=== PATIENT | female | born 1995 | race Caucasian/White ===

== ENCOUNTER 2017-02-09 13:26 | Emergency (ER) | payer MEDICAID, OTHER ==
[~2017-02-09] VITALS: Ht 165.1 cm; Wt 83.0 kg
[~2017-02-09 13:26] MED LIST: CEPH500C PO; FAMO20TA5 PO; ONDA4TAB11 PO
[2017-02-09 14:04] LABS: BILIRUBIN,URINE NEGATIVE (NEGATIVE); KETONES,URINE NEGATIVE (NEGATIVE); LEUKOCYTE ESTERASE ,URINE NEGATIVE (NEGATIVE); NITRITE,URINE NEGATIVE (NEGATIVE); PH,URINE 6.5 (5-9); PROTEIN,URINE NEGATIVE (NEGATIVE); UROBILINOGEN,URINE NORMAL (NORMAL)
--- NOTE | 2017-02-09 15:26 | ED GU-Female ---
General Chief Complaint: -Female Stated Complaint: SPOTTING, 5W Nursing Triage Note: PT REPORTS VAGINAL SPOTTING AND L FLANK PAIN SINCE THIS AM. SHE REPORTS SHE IS APPROX 6 WEEKS . Nursing Sepsis Screen: No Definite Risk Source: patient, spouse Exam Limitations: no limitations History of Present Illness Time seen by provider: 14:50 Initial Comments 21-year-old female patient presents to the emergency department complains of small amount of vaginal spotting today. Patient states she is approximately 6 weeks . Denies abnormal vaginal discharge. Patient reports having intercourse last night. States she was lifting trash bags just prior to episode. Patient does report suprapubic abdominal cramping at the time of episode with radiation to the left flank, but completely resolved at this time. Timing/Duration: this morning, gone now Severity/Quality: cramping Location: suprapubic Radiation: left flank Activities at Onset: other (had just taken out the trash at work) Prior Genitourinary Problems: none [place] History: less than 2 months ago, single partner Allergies and Home Medications Home Medications Cephalexin Monohydrate 500 Mg Capsule, 1 EACH PO TID, #30 Ref 0 Prescribed by: BRAYAN RAGSDALE on 03/01/15 1430 Famotidine 20 Mg Tablet, 1 EACH PO BID, #30 Ref 0 Prescribed by: BRAYAN RAGSDALE on 03/01/15 1430 Ondansetron 4 Mg Tab.rapdis, 4 MG PO Q6H PRN for NAUSEA/VOMITING, #10 Ref 0 Prescribed by: BRAYAN RAGSDALE on 03/01/15 1430 Constitutional: No chills, No dizziness, No fever, No malaise Respiratory: no symptoms reported Cardiovascular: no symptoms reported Gastrointestinal: abdominal pain (suprapubic abdominal pain), No constipation, No diarrhea, No nausea, No vomiting Genitourinary: see HPI, denies burning, denies discharge, denies dysuria, denies frequency, flank pain (left flank pain, resolved prior to arrival), denies hematuria : Yes LMP: Dec 19, 2016 Musculoskeletal: No back pain Skin: no symptoms reported Psychiatric/Neurological: No Symptoms Reported All Other Systemes Reviewed Negative Unless Noted: Yes (Negative excepted noted.) Past Hatsyvq-Pfjclm-Mhbefx Hx Patient Social History Alcohol Use: Denies Use Recreational Drug Use: No Smoking Status: Current Everyday Smoker Type Used: Cigarettes 2nd Hand Smoke Exposure: No Recent Foreign Travel: No Contact w/Someone Who Travel: No Recent Infectious Disease Expo: No Recent Hopitalizations: No Seasonal Allergies Seasonal Allergies: No Surgeries HX Surgeries: No Respiratory Hx Respiratory Disorders: No Cardiovascular Hx Cardiac Disorders: No Neurological Hx Neurological Disorders: No Reproductive System : Yes Hx : 1 Hx Para: 0 Hx Total # of Abortions (Spona: 0 Hx Reproductive Disorders: No Sexually Transmitted Disease: No HIV/AIDS: No Genitourinary Hx Genitourinary Disorders: No Gastrointestinal Hx Gastrointestinal Disorders: No Musculoskeletal Hx Musculoskeletal Disorders: No Endocrine Hx Endocrine Disorders: No HEENT HX ENT Disorders: No Cancer Hx Cancer: No Psychosocial Hx Psychiatric Problems: No Integumentary HX Skin/Integumentary Disorder: No Blood Transfusions Hx Blood Disorders: No Adverse Reaction to a Blood Tr: No Reviewed Nursing Assessment Reviewed/Agree w Nursing PMH: Yes Family Medical History Significant Family History: No Pertinent Family Hx Physical Exam Vital Signs Vital Sign - Last 12Hours 02/09/17 13:45 Temp 98.4 Pulse 82 Resp 20 B/P (MAP) 129/82 Pulse Ox 97 O2 Delivery Room Air Capillary Refill : Less Than 3 Seconds General Appearance: WD/WN, no apparent distress Cardiovascular: normal peripheral pulses, regular rate, rhythm, no edema, no murmur Respiratory: lungs clear, normal breath sounds, no respiratory distress Gastrointestinal: normal bowel sounds, non tender (unable to reproduce tenderness), soft, no organomegaly, No distended Back: normal inspection, no CVA tenderness Extremities: no pedal edema, normal capillary refill Neurologic/Psychiatric: alert, normal mood/affect, oriented x 3 Skin: normal color, warm/dry Progress/Results/Core Measures Results/Orders Lab Results Laboratory Tests Test 02/09/17 13:58 Range/Units Urine Color YELLOW Urine Clarity CLEAR Urine pH 6.5 5-9 Urine Specific [place] 1.015 L 1.016-1.022 Urine Protein NEGATIVE NEGATIVE Urine Glucose (UA) NEGATIVE NEGATIVE Urine Ketones NEGATIVE NEGATIVE Urine Nitrite NEGATIVE NEGATIVE Urine Bilirubin NEGATIVE NEGATIVE Urine Urobilinogen NORMAL NORMAL MG/DL Urine Leukocyte Esterase NEGATIVE NEGATIVE Urine RBC (Auto) NEGATIVE NEGATIVE Urine RBC NONE /HPF Urine WBC NONE /HPF Urine Squamous Epithelial Cells 2-5 /HPF Urine Crystals NONE /LPF Urine Bacteria NEGATIVE /HPF Urine Casts NONE /LPF Urine Mucus NEGATIVE /LPF Urine Culture Indicated NO Human Chorionic Gonadotropin, Quant [id number] H <5 MIU/ML My Orders Orders - BRAYAN RAGSDALE Hcg,Quantitative (02/09/17 13:47) Ua Culture If Indicated (02/09/17 13:47) Us Ob Transvaginal [id number] (02/09/17 14:15) Vital Signs/I&O Vital Sign - Last 12Hours 02/09/17 13:45 Temp 98.4 Pulse 82 Resp 20 B/P (MAP) 129/82 Pulse Ox 97 O2 Delivery Room Air Blood Pressure Mean: 98 Diagnostic Imaging Diagonstic Imaging: Ultrasound Plain Films/CT/US/NM/MRI: pelvis Comments FINDINGS: There is an intrauterine gestational sac present, measuring 1.1 cm. No pole or yolk sac is demonstrated. 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 There was question by the tech that this may represent the right ovary though I cannot definitely separate this from the myometrium. Left ovary is visualized, measuring 3 x 2 cm and appears normal. IMPRESSION: There does appear to be an intrauterine gestational sac; however, there is no pole or yolk sac demonstrated. Echogenic structure adjacent to this may be ovarian corpus luteal cyst though cannot definitely be from the uterus and possible bicornuate uterus would be a consideration. Followup recommended. Dictated on workstation # [id number] Reviewed: Reviewed by Me (radiology report reviewed by me) Departure Communication Progress Notes Laboratory and diagnostic findings discussed with the patient. Plan for discharge to home with follow-up with an outpatient with Dr. Vance on February 14 as previously scheduled. Patient case discussed with dr. rosas, he agrees with the plan of care. Impression Impression: Primary Impression: Threatened miscarriage in early Disposition: HOME, SELF-CARE Condition: Improved Departure-Patient Inst. Decision time for Depature: 16:19 Referrals: DAVID VANCE DO (PCP) Primary Care Physician Patient Instructions: Threatened Miscarriage (DC) Add. Discharge Instructions: All discharge instructions reviewed with patient and/or family. Voiced understanding. Tylenol cmkv-oqb-hdapirg as directed for pain. Drink plenty of fluids. Rest. 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 Follow-up with Dr. Vance on February 14 as previously scheduled for recheck, repeat labs, and repeat ultrasound as an outpatient. Return to the emergency department for worsened pain, fever, vaginal bleeding with greater than 2 pads per hour for greater than 2 hours, vaginal discharge, or any other concerns. Work/School Note: Work Release Form Date Seen in the Emergency Department: Feb 09, 2017 Return to Work: Feb 10, 2017 Other Restrictions Listed Below: No strenuous activity until released by Dr. Vance. BRAYAN RAGSDALE Feb 09, 2017 15:26
--- NOTE | 2017-02-09 16:16 | Diagnostic Imaging Report ---
INDICATION: OB ultrasound. FINDINGS: There is an intrauterine gestational sac present, measuring 1.1 cm. No pole or yolk sac is demonstrated. 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 There was question by the tech that this may represent the right ovary though I cannot definitely separate this from the myometrium. Left ovary is visualized, measuring 3 x 2 cm and appears normal. IMPRESSION: There does appear to be an intrauterine gestational sac; however, there is no pole or yolk sac demonstrated. Echogenic structure adjacent to this may be ovarian corpus luteal cyst though cannot definitely be from the uterus and possible bicornuate uterus would be a consideration. Followup recommended. Dictated by: Dictated on workstation # [id number]
[2017-02-09 16:25] VITALS: BP 129/82
--- OUTSIDE RECORDS SUMMARY | 2017-02-26 11:46 | XMS REPORT | Continuity of Care Document ---
Author Author [facility] Address Unknown Phone Unavailable Allergies Active Description Code Type Severity Reaction Onset Reported/Identified Relationship to Patient Clinical Status Yes Penicillins Drug Allergy N/A N/A 01/14/2014 Medications Problems Date Dx Coded Attending Type Code Diagnosis Diagnosed By 01/05/2013 PAMELA CORONEL DO V25.01 CONTRACEPTION - ORAL CONTRACEPTION 01/05/2013 HUMBERTO RAWLS MD V25.01 CONTRACEPTION - ORAL CONTRACEPTION 01/05/2013 NIC MATHEWS APRN S V25.01 CONTRACEPTION - ORAL CONTRACEPTION 01/05/2013 APRIL MATHEWS APRNA S V25.01 CONTRACEPTION - ORAL CONTRACEPTION 01/14/2014 HUMBERTO RAWLS MD 008.8 GASTROENTERITIS VIRAL 01/14/2014 APRIL MATHEWS APRNA S 008.8 GASTROENTERITIS VIRAL 01/14/2014 ELIO MATHEWS APRNNDA S 008.8 GASTROENTERITIS VIRAL 10/21/2014 ELIO MATHEWS APRNNDA S 783.5 POLYDIPSIA 10/21/2014 ELIO MATHEWS APRNNDA S 788.42 POLYURIA 10/21/2014 ELIO MATHEWS APRNNDA S V18.0 FAMILY HISTORY OF DIABETES MELLITUS 10/21/2014 ELIO MATHEWS APRNNDA S 783.5 POLYDIPSIA 10/21/2014 ELIO MATHEWS APRNNDA S 788.42 POLYURIA 10/21/2014 ELIO MATHEWS APRNNDA S V18.0 FAMILY HISTORY OF DIABETES MELLITUS 03/01/2015 BRAYAN CURTIS Ot 462 ACUTE PHARYNGITIS 03/01/2015 BRAYAN CURTIS Ot 465.9 ACUTE URI NOS 03/01/2015 BRAYAN CURTIS Ot 473.9 CHRONIC SINUSITIS NOS 03/01/2015 BRAYAN CURTIS Ot 535.50 UNSP GASTRITIS GASTRODUODENITIS W/O ME 02/09/2017 MELYSSA SANCHEZ BRAYAN Reyez Ot O20.0 THREATENED 02/09/2017 MELYSSA SANCHEZ BRAYAN Reyez Ot O26.851 SPOTTING COMPLICATING , FIRST T 02/09/2017 MELYSSA SANCHEZ BRAYAN Reyez Ot O99.331 SMOKING (TOBACCO) COMPLICATING 02/09/2017 MELYSSA SANCHEZ BRAYAN Reyez Ot Z3A.01 LESS THAN 8 WEEKS GESTATION OF 02/11/2017 MELYSSA SANCHEZ BRAYAN L Ot O20.0 THREATENED 02/11/2017 MELYSSA SANCHEZ BRAYAN L Ot O26.851 SPOTTING COMPLICATING , FIRST T 02/11/2017 MELYSSA SANCHEZ BRAYAN Reyez Ot O99.331 SMOKING (TOBACCO) COMPLICATING 02/11/2017 MELYSSA SANCHEZ BRAYAN Reyez Ot Z3A.01 LESS THAN 8 WEEKS GESTATION OF 02/11/2017 MELYSSA SANCHEZ BRAYAN Reyez Ot O20.0 THREATENED 02/11/2017 MELYSSA SANCHEZ BRAYAN Reyez Ot O26.851 SPOTTING COMPLICATING , FIRST T 02/11/2017 MELYSSA SANCHEZ BRAYAN Reyez Ot O99.331 SMOKING (TOBACCO) COMPLICATING 02/11/2017 MELYSSA SANCHEZ BRAYAN Reyez Ot Z3A.01 LESS THAN 8 WEEKS GESTATION OF Procedures Code [place] [address] URINE TEST (IN-HOUSE) 01/05/2013 43866 TEST, URINE (IN-HOUSE) 10/21/2014 10492 ROUTINE VENIPUNCTURE 10/22/2014 09414 A1C (IN-HOUSE) 28961 CBC 10/22/2014 [id number] GFR CALC (RESULT ONLY) 10/22/2014 92362 CMP 10/22/2014 84899 UA LONG DIP 10/22 41991 TSH 10/22/2014 39454 INSULIN LEVEL 03/2014 Results Test Result Range Complete urinalysis with reflex to culture - 02/09/17 13:58 Urine color determination YELLOW NRG Urine clarity determination CLEAR NRG Urine pH measurement by test strip 6.5 5 -9 Specific gravity of urine by test strip 1.015 1.016-1.022 Urine protein assay by test strip, semi-quantitative NEGATIVE NEGATIVE Urine glucose detection by automated test strip NEGATIVE NEGATIVE Erythrocytes detection in urine sediment by light microscopy NEGATIVE NEGATIVE Urine ketones detection by automated test strip NEGATIVE NEGATIVE Urine nitrite detection by test strip NEGATIVE NEGATIVE Urine total bilirubin detection by test strip NEGATIVE NEGATIVE Urine urobilinogen measurement by automated test strip (mass/volume) NORMAL NORMAL Urine leukocyte esterase detection by dipstick NEGATIVE NEGATIVE Automated urine sediment erythrocyte count by microscopy (number/high power field) NONE NRG Automated urine sediment leukocyte count by microscopy (number/high power field ) NONE NRG Bacteria detection in urine sediment by light microscopy NEGATIVE NRG Squamous epithelial cells detection in urine sediment by light microscopy 2-5 NRG Crystals detection in urine sediment by light microscopy NONE NRG Casts detection in urine sediment by light microscopy NONE NRG Mucus detection in urine sediment by light microscopy NEGATIVE NRG Complete urinalysis with reflex to culture NO NRG Serum or plasma choriogonadotropin measurement (units/volume) - 02/09/17 13:58 Serum or plasma choriogonadotropin measurement (units/volume) 56616 m[iU]/mL <5 Encounters ACCT No. Visit Date/Time Discharge Status Pt. Type Provider Facility Loc./Unit Complaint [id number] 10/22/2014 07:49:00 10/22/2014 23: 59:59 CLS Outpatient NIC MATHEWS APRN [id number] 10/21/2014 18:23:00 10/21/2014 23: 59:59 CLS Outpatient NIC MATHEWS APRN [id number] 01/14/2014 10:41:00 01/14/2014 23: 59:59 CLS Outpatient HUMBERTO RAWLS MD [id number] 01/05/2013 15:50:00 01/05/2013 23: 59:59 CLS Outpatient PAMELA CORONEL DO
== END 2017-02-09 16:25 | disposition home or self-care (01) ==
LOC: EDUNIT# 13:26 → ER 13:29
DX: O20.0 Threatened abortion (principal); O99.331 Smoking (tobacco) complicating pregnancy, first trimester; Z3A.01 Less than 8 weeks gestation of pregnancy
CPT/HCPCS: 36415; 76817; 81000; 84702; 99283

== ENCOUNTER 2017-05-11 16:37 | Emergency (ER) | payer MEDICAID ==
[~2017-05-11] VITALS: Ht 160 cm; Wt 88.0 kg
--- NOTE | 2017-05-11 17:10 | ED GI ---
General Stated Complaint: DEHYDRATED Source of Information: Patient Exam Limitations: No Limitations History of Present Illness Time Seen By Provider: 17:09 Initial Comments To ER with concerns of being dehydrated as she has been nauseous with inability to eat. Minimal vomiting. No diarrhea. No vaginal bleeding or discharge. Slight left upper quadrant abdominal pain. She is 20 weeks gestation. Severity/Quality: Cramping Radiation: No Radiation Activities at Onset: None Associated Symptoms: Denies Symptoms Allergies and Home Medications Allergies Coded Allergies: No Known Drug Allergies (Unverified , 05/11/17) Home Medications Cephalexin Monohydrate 500 Mg Capsule, 1 EACH PO TID, #30 Ref 0 Prescribed by: BRAYAN RAGSDALE on 03/01/15 1430 Famotidine 20 Mg Tablet, 1 EACH PO BID, #30 Ref 0 Prescribed by: BRAYAN RAGSDALE on 03/01/15 1430 Ondansetron 4 Mg Tab.rapdis, 4 MG PO Q6H PRN for NAUSEA/VOMITING, #10 Ref 0 Prescribed by: BRAYAN RAGSDALE on 03/01/15 1430 Review of Systems Constitutional: see HPI EENTM: No Symptoms Reported Respiratory: No Symptoms Reported Cardiovascular: No Symptoms Reported Gastrointestinal: See HPI Genitourinary: No Symptoms Reported Musculoskeletal: no symptoms reported Skin: no symptoms reported Psychiatric/Neurological: No Symptoms Reported Hematologic/Lymphatic: No Symptoms Reported Past Zmrxjds-Ewjnjc-Aykkzg Hx Patient Social History Type Used: Cigarettes 2nd Hand Smoke Exposure: No Recent Foreign Travel: No Contact w/Someone Who Travel: No Recent Hopitalizations: No Seasonal Allergies Seasonal Allergies: No Surgeries HX Surgeries: No Respiratory Hx Respiratory Disorders: No Cardiovascular Hx Cardiac Disorders: No Neurological Hx Neurological Disorders: No Reproductive System Hx Reproductive Disorders: No Sexually Transmitted Disease: No HIV/AIDS: No Genitourinary Hx Genitourinary Disorders: No Gastrointestinal Hx Gastrointestinal Disorders: No Musculoskeletal Hx Musculoskeletal Disorders: No Endocrine Hx Endocrine Disorders: No HEENT HX ENT Disorders: No Cancer Hx Cancer: No Psychosocial Hx Psychiatric Problems: No Integumentary HX Skin/Integumentary Disorder: No Blood Transfusions Hx Blood Disorders: No Adverse Reaction to a Blood Tr: No Family Medical History Significant Family History: No Pertinent Family Hx Physical Exam Vital Signs VS - Last 72 Hours, by Label 05/11/17 17:01 Temp 98.3 Pulse 85 Resp 18 B/P (MAP) 121/70 Pulse Ox 98 O2 Delivery Room Air Capillary Refill : General Appearance: WD/WN, no apparent distress HEENT: PERRL/EOMI, normal ENT inspection Neck: non-tender, full range of motion Respiratory: no respiratory distress, no accessory muscle use Cardiovascular: regular rate, rhythm, no murmur Gastrointestinal: normal bowel sounds, non tender, soft Extremities: normal range of motion, non-tender Neurologic/Psychiatric: alert, normal mood/affect, oriented x 3 Skin: normal color, warm/dry Progress/Results/Core Measures Results/Orders Lab Results Laboratory Tests Test 05/11/17 17:04 05/11/17 17:50 Range/Units White Blood Count 12.6 H 4.3-11.0 10^3/uL Red Blood Count 4.21 L 4.35-5.85 10^6/uL Hemoglobin 12.6 11.5-16.0 G/DL Hematocrit 37 35-52 % Mean Corpuscular Volume 88 80-99 FL Mean Corpuscular Hemoglobin 30 25-34 PG Mean Corpuscular Hemoglobin Concent 34 32-36 G/DL Red Cell Distribution Width 12.8 10.0-14.5 % Platelet Count 267 130-400 10^3/uL Mean Platelet Volume 9.4 7.4-10.4 FL Neutrophils (%) (Auto) 77 H 42-75 % Lymphocytes (%) (Auto) 18 12-44 % Monocytes (%) (Auto) 4 0-12 % Eosinophils (%) (Auto) 1 0-10 % Basophils (%) (Auto) 0 0-10 % Neutrophils # (Auto) 9.7 H 1.8-7.8 X 10^3 Lymphocytes # (Auto) 2.2 1.0-4.0 X 10^3 Monocytes # (Auto) 0.5 0.0-1.0 X 10^3 Eosinophils # (Auto) 0.1 0.0-0.3 10^3/uL Basophils # (Auto) 0.0 0.0-0.1 10^3/uL Sodium Level 137 135-145 MMOL/L Potassium Level 3.6 3.6-5.0 MMOL/L Chloride Level 109 H 98-107 MMOL/L Carbon Dioxide Level 19 L 21-32 MMOL/L Anion Gap 9 5-14 MMOL/L Blood Urea Nitrogen 4 L 7-18 MG/DL Creatinine 0.60 0.60-1.30 MG/DL Estimat Glomerular Filtration Rate > 60 BUN/Creatinine Ratio 7 0-20 Glucose Level 105 70-105 MG/DL Calcium Level 8.7 8.5-10.1 MG/DL Total Bilirubin 0.2 0.1-1.0 MG/DL Aspartate Amino Transf (AST/SGOT) 12 5-34 U/L Alanine Aminotransferase (ALT/SGPT) 12 0-55 U/L Alkaline Phosphatase 54 40-136 U/L Total Protein 6.2 L 6.4-8.2 GM/DL Albumin 3.6 3.2-4.5 GM/DL Lipase 23 8-78 U/L Urine Color YELLOW Urine Clarity CLEAR Urine pH 6.5 5-9 Urine Specific [place] 1.010 L 1.016-1.022 Urine Protein NEGATIVE NEGATIVE Urine Glucose (UA) NEGATIVE NEGATIVE Urine Ketones NEGATIVE NEGATIVE Urine Nitrite NEGATIVE NEGATIVE Urine Bilirubin NEGATIVE NEGATIVE Urine Urobilinogen NORMAL NORMAL MG/DL Urine Leukocyte Esterase NEGATIVE NEGATIVE Urine RBC (Auto) NEGATIVE NEGATIVE Urine RBC NONE /HPF Urine WBC NONE /HPF Urine Squamous Epithelial Cells NONE /HPF Urine Crystals NONE /LPF Urine Bacteria NEGATIVE /HPF Urine Casts NONE /LPF Urine Mucus NEGATIVE /LPF Urine Culture Indicated NO Urine Opiates Screen NEGATIVE NEGATIVE Urine Oxycodone Screen NEGATIVE NEGATIVE Urine Methadone Screen NEGATIVE NEGATIVE Urine Propoxyphene Screen NEGATIVE NEGATIVE Urine Barbiturates Screen NEGATIVE NEGATIVE Ur Tricyclic Antidepressants Screen NEGATIVE NEGATIVE Urine Phencyclidine Screen NEGATIVE NEGATIVE Urine Amphetamines Screen NEGATIVE NEGATIVE Urine Methamphetamines Screen NEGATIVE NEGATIVE Urine Benzodiazepines Screen NEGATIVE NEGATIVE Urine Cocaine Screen NEGATIVE NEGATIVE Urine Cannabinoids Screen POSITIVE H NEGATIVE My Orders Orders - LEXIE WHITEHEAD APRN Cbc With Automated Diff (05/11/17 17:07) Comprehensive Metabolic Panel (05/11/17 17:07) Ua Culture If Indicated (05/11/17 17:07) Drug Screen Stat (Urine) (05/11/17 17:07) Saline Lock/Iv-Start (05/11/17 17:07) Lipase (05/11/17 17:07) Ns Iv 1000 Ml (Sodium Chloride 0.9%) (05/11/17 17:15) Ondansetron Injection (Zofran Injectio (05/11/17 17:15) Medications Given in ED Current Medications Medications Dose Ordered Sig/Shira Route Start Time Stop Time Status Last Admin Dose Admin Ondansetron HCl 4 mg ONCE ONCE IVP 05/11/17 17:15 05/11/17 17:16 DC 05/11/17 17:28 4 MG Vital Signs/I&O Vital Sign - Last 12Hours 05/11/17 17:01 Temp 98.3 Pulse 85 Resp 18 B/P (MAP) 121/70 Pulse Ox 98 O2 Delivery Room Air Departure Impression Impression: Primary Impression: Nausea and vomiting Disposition: HOME, SELF-CARE Condition: Stable Departure-Patient Inst. Decision time for Depature: 18:20 Referrals: DAVID VANCE DO (PCP) Primary Care Physician NO,LOCAL PHYSICIAN (Family) Primary Care Physician Patient Instructions: Nausea and Vomiting of (DC) Add. Discharge Instructions: 1. Return to ER for any concerns 2. See your doctor next week 3. LEXIE WHITEHEAD APRN May 11, 2017 17:10
[2017-05-11 17:13] LABS: BASOPHILS % (AUTO) 0 % (0-10); EOSINOPHILS # (AUTO) 0.1 10^3/uL (0.0-0.3); EOSINOPHILS % (AUTO) 1 % (0-10); LYMPHOCYTES # (AUTO) 2.2 X 10^3 (1.0-4.0); LYMPHOCYTES % (AUTO) 18 % (12-44); MEAN CORPUSCULAR HEMOGLOBIN 30 PG (25-34); MEAN CORPUSCULAR HGB CONC 34 G/DL (32-36); MEAN CORPUSCULAR VOLUME 88 FL (80-99); MEAN PLATELET VOLUME 9.4 FL (7.4-10.4); MONOCYTES # (AUTO) 0.5 X 10^3 (0.0-1.0); MONOCYTES % (AUTO) 4 % (0-12); NEUTROPHILS # (AUTO) 9.7 X 10^3 (1.8-7.8); NEUTROPHILS % (AUTO) 77 % (42-75); PLATELET COUNT 267 10^3/uL (130-400); RED BLOOD COUNT 4.21 10^6/uL (4.35-5.85); RED CELL DISTRIBUTION WIDTH 12.8 % (10.0-14.5); WHITE BLOOD COUNT 12.6 10^3/uL (4.3-11.0)
[2017-05-11] MEDS ORDERED: ONDANSETRON 4 MG/2 ML (SDV) Z0FRAN IVP ONE (17:15)
[2017-05-11] MEDS ORDERED: NS IV 1000 ML 1,000 ML IV SCH (17:15)
[2017-05-11 17:34] LABS: ALANINE AMINOTRANSFERASE 12 U/L (0-55); ALBUMIN 3.6 GM/DL (3.2-4.5); ANION GAP 9 MMOL/L (5-14); ASPARTATE AMINO TRANSFERASE 12 U/L (5-34); BILIRUBIN,TOTAL 0.2 MG/DL (0.1-1.0); BLOOD UREA NITROGEN 4 MG/DL (7-18); BUN/CREATININE RATIO 7 (0-20); CALCIUM 8.7 MG/DL (8.5-10.1); CARBON DIOXIDE 19 MMOL/L (21-32); CHLORIDE 109 MMOL/L (98-107); GFR ESTIMATED > 60; GLUCOSE 105 MG/DL (70-105); HEMOLYSIS 4 (-100-29); ICTERUS 0.5 (-100-1.9); LIPASE 23 U/L (8-78); LIPEMIA 2 (-100-49); POTASSIUM 3.6 MMOL/L (3.6-5.0); SODIUM 137 MMOL/L (135-145); TOTAL PROTEIN 6.2 GM/DL (6.4-8.2)
[2017-05-11 18:14] LABS: BILIRUBIN,URINE NEGATIVE (NEGATIVE); KETONES,URINE NEGATIVE (NEGATIVE); LEUKOCYTE ESTERASE ,URINE NEGATIVE (NEGATIVE); NITRITE,URINE NEGATIVE (NEGATIVE); PH,URINE 6.5 (5-9); PROTEIN,URINE NEGATIVE (NEGATIVE); UROBILINOGEN,URINE NORMAL (NORMAL)
[2017-05-11 18:51] VITALS: BP 121/70
--- OUTSIDE RECORDS SUMMARY | 2017-05-13 17:26 | XMS REPORT | Continuity of Care Document ---
Author Author [facility] Address Unknown Phone Unavailable Allergies Active Description [...] APRNNDA S 008.8 GASTROENTERITIS VIRAL 10/21/2014 ELIO MATHWES APRNNDA S 783.5 POLYDIPSIA 10/21/2014 ELIO MATHEWS [...] Procedures Code [place] [address] URINE TEST (IN-HOUSE) 01/05/2013 02466 TEST, URINE (IN-HOUSE) 10/21/2014 99900 ROUTINE VENIPUNCTURE 10/22/2014 74168 A1C (IN-HOUSE) 84850 CBC 10/22/2014 [id number] GFR CALC (RESULT ONLY) 10/22/2014 46321 CMP 10/22/2014 19951 UA LONG DIP 10/22 76474 TSH 10/22/2014 09371 INSULIN LEVEL 03/2014 Results Test Result Range [...] 13:58 Serum or plasma choriogonadotropin measurement (units/volume) 57828 m[iU]/mL <5 Complete blood count (CBC) with automated white blood cell (WBC) differential - 05/11/17 17:04 Blood leukocytes automated count (number/volume) 12.6 10*3/ uL 4.3-11.0 Blood erythrocytes automated count (number/volume) 4.21 10*6 /uL 4.35-5.85 Venous blood hemoglobin measurement (mass/volume) 12.6 g/dL 11.5-16.0 Blood hematocrit (volume fraction) 37 % 35-52 Automated erythrocyte mean corpuscular volume 88 [foz_us] 80-99 Automated erythrocyte mean corpuscular hemoglobin (mass per erythrocyte) 30 pg 25-34 Automated erythrocyte mean corpuscular hemoglobin concentration measurement ( mass/volume) 34 g/dL 32-36 Automated erythrocyte distribution width ratio 12.8 % 10.0-14.5 Automated blood platelet count (count/volume) 267 10*3/uL 130-400 Automated blood platelet mean volume measurement 9.4 [foz_us ] 7.4-10.4 Automated blood neutrophils/100 leukocytes 77 % 42-75 Automated blood lymphocytes/100 leukocytes 18 % 12-44 Blood monocytes/100 leukocytes 4 % 0-12 Automated blood eosinophils/100 leukocytes 1 % 0-10 Automated blood basophils/100 leukocytes 0 % 0-10 Blood neutrophils automated count (number/volume) 9.7 10*3 1.8-7.8 Blood lymphocytes automated count (number/volume) 2.2 10*3 1.0-4.0 Blood monocytes automated count (number/volume) 0.5 10*3 0.0-1.0 Automated eosinophil count 0.1 10*3/uL 0.0-0.3 Automated blood basophil count (count/volume) 0.0 10*3/uL 0.0-0.1 Comprehensive metabolic panel - 05/11/17 17:04 Serum or plasma sodium measurement (moles/volume) 137 mmol/ L 135-145 Serum or plasma potassium measurement (moles/volume) 3.6 mmol/L 3.6-5.0 Serum or plasma chloride measurement (moles/volume) 109 mmol /L 98-107 Carbon dioxide 19 mmol/L 21-32 Serum or plasma anion gap determination (moles/volume) 9 mmol/L 5-14 Serum or plasma urea nitrogen measurement (mass/volume) 4 mg /dL 7-18 Serum or plasma creatinine measurement (mass/volume) 0.60 mg /dL 0.60-1.30 Serum or plasma urea nitrogen/creatinine mass ratio 7 0-20 Serum or plasma creatinine measurement with calculation of estimated glomerular filtration rate > NRG Serum or plasma glucose measurement (mass/volume) 105 mg/dL 70-105 Serum or plasma calcium measurement (mass/volume) 8.7 mg/dL 8.5-10.1 Serum or plasma total bilirubin measurement (mass/volume) 0.2 mg/dL 0.1-1.0 Serum or plasma alkaline phosphatase measurement (enzymatic activity/volume) 54 U/L 40-136 Serum or plasma aspartate aminotransferase measurement (enzymatic activity/ volume) 12 U/L 5-34 Serum or plasma alanine aminotransferase measurement (enzymatic activity/volume ) 12 U/L 0-55 Serum or plasma protein measurement (mass/volume) 6.2 g/dL 6.4-8.2 Serum or plasma albumin measurement (mass/volume) 3.6 g/dL 3.2-4.5 Lipase - 05/11/17 17:04 Lipase 23 U/L 8-78 Encounters ACCT No. Visit Date/Time Discharge Status Pt. Type Provider Facility Loc./Unit Complaint [id number] 10/22/2014 07:49:00 10/22/2014 23: 59:[address] [facility] Outpatient NIC MATHEWS APRN [id number] 10/21/2014 18:23:00 10/21/2014 23: 59:59 CLS Outpatient NIC MATHEWS APRN [id number] 01/14/2014 10:41:00 01/14/2014 23: 59:59 CLS Outpatient HUMBERTO RAWLS MD [id number] 01/05/2013 15:50:00 01/05/2013 23: 59:59 CLS Outpatient PAMELA CORONEL DO
== END 2017-05-11 18:53 | disposition home or self-care (01) ==
LOC: EDUNIT# 16:37 → ER 16:39
DX: O21.9 Vomiting of pregnancy, unspecified (principal); O99.332 Smoking (tobacco) complicating pregnancy, second trimester; F17.210 Nicotine dependence, cigarettes, uncomplicated; Z3A.20 20 weeks gestation of pregnancy
CPT/HCPCS: 36415; 80053; 80306; 81000; 83690; 85025

== ENCOUNTER → 2017-05-16 | Outpatient (CLI) | payer MEDICAID ==
--- NOTE | 2017-05-16 18:46 | Diagnostic Imaging Report ---
INDICATION: survey. TECHNIQUE: Multiple real-time grayscale images were obtained over the gravid uterus. COMPARISON: 02/09/17 FINDINGS: There is a single intrauterine . heart rate is 163 beats per minute. The placenta is posterior. The placenta extends near the lower uterine segment and appears close to the internal os on some images. However, probably after resolution of a contraction and some compression from the bladder. A 2.8 CM distance from the internal os to the tip of the placenta is demonstrated. The amniotic fluid index appears adequate. The cervix is closed and is 4.8 cm in length. The stomach, cord insertion, four-chamber view, spine, kidneys, bladder, three-vessel cord and lateral ventricles are demonstrated with no abnormality seen. Biometrical measurements are as follows: Biparietal 4.2 cm, age 18 weeks 6 days, less than 2nd percentile. Head circumference 15.8 cm, age 18 weeks 5 days, less than 2 percentile. Abdominal circumference 13.1 cm, age 18 weeks 5 days at 2 percentile. Femur length 2.8 cm, age 18 weeks 3 days less than 2 percentile. Assigned MEL of 09/28/17. Sonographic estimate age: 18 weeks 5 days. This compares to gestational age of 20 weeks and 5 days based on assigned MEL of 09/28/17. Sonographic estimated date of delivery: 10-12-17. Estimated Weight: 245 gm (+/- 36 gm). LMP percentile: 2%. heart rate: 163 beats per minute. number: 1 of 1. IMPRESSION: measurements are small for gestational age based on assigned MEL of 09/28/17. The MEL accuracy is questioned based on ultrasound findings of 02/09/2017 which demonstrated only a small sac at that stage. An estimated MEL based on the 02/09/17 ultrasound would be around 10/06/17. Correlate with other possible first trimester ultrasound exams performed at an outside facility or in the clinic. Dictated by: Dictated on workstation # [id number]
== END ==
LOC: RAD 14:33
PROVIDERS: ATTEND Obstetrics & Gynecology
DX: Z36 Encounter for antenatal screening of mother (principal); Z3A.18 18 weeks gestation of pregnancy
CPT/HCPCS: 76805

== ENCOUNTER 2017-07-12 14:43 | Outpatient (CLI) | payer MEDICAID ==
[~2017-07-12] VITALS: Ht 160 cm; Wt 89.1 kg
[2017-07-12 15:30] LABS: BASOPHILS % (AUTO) 0 % (0-10); EOSINOPHILS # (AUTO) 0.1 10^3/uL (0.0-0.3); EOSINOPHILS % (AUTO) 1 % (0-10); LYMPHOCYTES % (AUTO) 18 % (12-44); MEAN CORPUSCULAR HEMOGLOBIN 29 PG (25-34); MEAN CORPUSCULAR HGB CONC 34 G/DL (32-36); MEAN CORPUSCULAR VOLUME 87 FL (80-99); MEAN PLATELET VOLUME 9.1 FL (7.4-10.4); MONOCYTES # (AUTO) 0.7 X 10^3 (0.0-1.0); MONOCYTES % (AUTO) 7 % (0-12); NEUTROPHILS # (AUTO) 8.3 X 10^3 (1.8-7.8); NEUTROPHILS % (AUTO) 75 % (42-75); PLATELET COUNT 267 10^3/uL (130-400); RED BLOOD COUNT 3.92 10^6/uL (4.35-5.85); RED CELL DISTRIBUTION WIDTH 12.7 % (10.0-14.5); WHITE BLOOD COUNT 11.1 10^3/uL (4.3-11.0)
[2017-07-12] MEDS ORDERED: PREN1TAB86 PO (15:54)
--- NOTE | 2017-07-15 08:05 | Physician Query-Final Dx ---
JEANIE WALLS 07/15/17 0805: Clinic Account Progress/Dx Physician Query: Please give diagnosis Date of Service Jul 12, 2017 at 14:43 MARCOS CORNEJO MD 07/18/17 0902: Clinic Account Progress/Dx DIAGNOSIS: Diagnosis false labor JEANIE WALLS Jul 15, 2017 08:05 MARCOS CORNEJO MD Jul 18, 2017 09:02
== END 2017-07-12 16:10 | disposition home or self-care (01) ==
LOC: WSo 14:43 → LDRP 14:45 → WSo 16:10
PROVIDERS: ATTEND Obstetrics & Gynecology
DX: O47.03 False labor before 37 completed weeks of gestation, third trimester (principal); Z3A.29 29 weeks gestation of pregnancy
CPT/HCPCS: 36415; 85025; 99213

== ENCOUNTER → 2017-07-15 | Outpatient (CLI) | payer MEDICAID ==
[~2017-07-15] MED LIST changes: +PREN1TAB86 PO
--- NOTE | 2017-07-16 08:53 | Diagnostic Imaging Report ---
INDICATION: Followup placenta. COMPARISON: 04/26/2017. TECHNIQUE: Multiple Real-time grayscale images were obtained over the gravid uterus. FINDINGS: There is a single living intrauterine . The placenta is posterior with no evidence of a previa. The heart rate is 142 BPM. The amniotic fluid index is 9.79. IMPRESSION: There is a posterior placenta which is well away from the internal os. No evidence of previa. Dictated by: Dictated on workstation # [id number]
== END ==
LOC: RAD 13:04
PROVIDERS: ATTEND Obstetrics & Gynecology
DX: O00-O9A Pregnancy, childbirth and the puerperium (principal); Z3A.00 Weeks of gestation of pregnancy not specified
CPT/HCPCS: 76816

== ENCOUNTER 2017-08-10 12:18 | Emergency (ER) | payer MEDICAID ==
[~2017-08-10] VITALS: Ht 160 cm; Wt 89.8 kg
--- OUTSIDE RECORDS SUMMARY | 2017-08-10 12:23 | XMS REPORT ---
Author Author PRECIOUS RICE Organization [facility] [place] Address [address] [place] [address] Care Team Providers Care Conference Planner Name Role Phone JOHNAissatou PRECIOUS Unavailable PROBLEMS Type Condition ICD9-CM Code [id number] Code Onset Dates Condition Status SNOMED Code Problem Polydipsia R63.1 Active 12361118 Problem Family history of diabetes mellitus Z83.3 Active 903238066 Problem Polyuria R35.8 Active 92719372 Problem Intestinal infection A09 Active 945364166 ALLERGIES Substance Reaction Event Type Date Status Penicillins Unknown Non Drug Allergy Nov, Active SOCIAL HISTORY No smoking Hx information available PLAN OF CARE Activity Details Follow Up prn, needs to transition care with a new pcp Reason: VITAL SIGNS Height 63 in 2016-11-22 Weight 195.6 lbs 2016-11-22 Temperature 98.6 degrees Fahrenheit 2016-11-22 Heart Rate 104 bpm 2016-11-22 Respiratory Rate 20 2016-11-22 Oximetry 97 % 2016-11-22 BMI 34.65 kg/m2 2016-11-22 Blood pressure systolic 124 mmHg 2016-11-22 Blood pressure diastolic 88 mmHg 2016-11-22 MEDICATIONS Medication Instructions Dosage Frequency Start Date End Date Duration Status Promethazine-Codeine 6.25-10 MG/5ML Orally every 6 hrs,PRN 5 ml as needed Nov, Active PredniSONE 20 mg Orally Once a day in the morning with food 1 tablet Nov, Nov, 05 days Active Albuterol Sulfate 108 (90 Base) MCG/ACT Inhalation every 4-6 hrs 1-2 puff as needed Nov, Active NyQuil Active RESULTS No Results PROCEDURES Procedure Date Ordered Related Diagnosis Body Site MEASURE BLOOD OXYGEN LEVEL Nov 22, 2016 Office Visit, Est Pt., Level 3 Nov 22, 2016 IMMUNIZATIONS No Known Immunizations
--- NOTE | 2017-08-10 14:15 | ED Cough/URI ---
General Chief Complaint: Cough/Cold/Flu Symptoms Stated Complaint: COUGH Nursing Triage Note: PT HERE WITH C/O COUGH AND RIB PAIN FOR 2 DAYS REPORTS FEVER LIKE SYMPTOMS YESTERDAY. Source: patient Exam Limitations: no limitations History of Present Illness Time seen by provider: 14:50 Initial Comments This 21-year-old white female presents with cough and congestion of 2 days' duration. The patient denies associated fever, chills, headache, photophobia, shortness of breath, associated palpitations or chest pain, nausea vomiting or diarrhea, dysuria or frequency. The patient is . Patient denies history of significant bronchitis or pneumonia. He has no reversible airways disease. Allergies and Home Medications Allergies Coded Allergies: No Known Drug Allergies (Unverified , 05/11/17) Home Medications Vit W-Ca,Fe,FA(<1 mg) 1 Each Tablet, 1 EACH PO DAILY, (Reported) Constitutional: No chills, No fever EENTM: nose congestion (nasal congestion with greenish sputum) Respiratory: see HPI, cough, other (the patient's cough is essentially nonproductive. She does have some green sputum with expectoration.) Cardiovascular: no symptoms reported, No chest pain, No syncope Gastrointestinal: No abdominal pain, other (patient experienced progressive abdominal girth from her intrauterine .) Genitourinary: No dysuria, frequency, No hematuria Expected Date of Delivery: Oct 06, 2017 Musculoskeletal: back pain (from her .), No joint swelling Skin: No change in color, No rash Psychiatric/Neurological: No Symptoms Reported Hematologic/Lymphatic: No Symptoms Reported Immunological/Allergic: no symptoms reported, see HPI Past [id number] Hx Patient Social History Alcohol Use: Denies Use Recreational Drug Use: No Smoking Status: Never a Smoker Type Used: Cigarettes Former Smoker, Quit: Dec 12, 2016 2nd Hand Smoke Exposure: No Recent Foreign Travel: No Contact w/Someone Who Travel: No Recent Infectious Disease Expo: No Recent Hopitalizations: No Physical Abuse: No Sexual Abuse: No Seasonal Allergies Seasonal Allergies: No Surgeries History of Surgeries: No Respiratory History of Respiratory Disorde: No Cardiovascular History of Cardiac Disorders: No Neurological History of Neurological Disord: No Reproductive System : Yes Expected Date of Delivery: Oct 06, 2017 Hx Reproductive Disorders: No Sexually Transmitted Disease: No HIV/AIDS: No Gastrointestinal History of Gastrointestinal Di: No Musculoskeletal History of Musculoskeletal Dis: No Endocrine History of Endocrine Disorders: No Cancer History of Cancer: No Psychosocial History of Psychiatric Problem: No Suicide Risk Score: 0 Integumentary History of Skin or Integumenta: No Blood Transfusions History of Blood Disorders: No Adverse Reaction to a Blood Tr: No Reviewed Nursing Assessment Reviewed/Agree w Nursing PMH: Yes Family Medical History Significant Family History: No Pertinent Family Hx Physical Exam Vital Signs Vital Sign - Last 12Hours 08/10/17 13:39 Temp 97.7 Pulse 89 Resp 16 B/P (MAP) 109/73 Pulse Ox 97 O2 Delivery Room Air Capillary Refill : Less Than 3 Seconds General Appearance: WD/WN, no apparent distress HEENT: normal ENT inspection Neck: non-tender, full range of motion, normal inspection Respiratory: chest non-tender, lungs clear, normal breath sounds Cardiovascular: regular rate, rhythm, no murmur Gastrointestinal: normal bowel sounds, non tender, other (uterus is consistent with the patient's dates.) Extremities: normal range of motion, non-tender, normal inspection Neurologic/Psychiatric: no motor/sensory deficits, alert, normal mood/affect Skin: normal color, warm/dry Progress/Results/Core Measures Results/Orders Vital Signs/I&O Vital Sign - Last 12Hours 08/10/17 13:39 Temp 97.7 Pulse 89 Resp 16 B/P (MAP) 109/73 Pulse Ox 97 O2 Delivery Room Air Blood Pressure Mean: 85 Progress Note : Time: 14:14 Progress Note I discussed the patient's bronchitis and treatment options with the patient. The patient elected to employee supportive care and is comfortable with no antibiotics at this time. I asked that she employee Mucinex and a saline wash. She will follow-up with her aerodynamics teacher on Saturday. She will return the emergency Department if she has any further needs. Departure Impression Impression: Primary Impression: Bronchitis Disposition: HOME, SELF-CARE Condition: Unchanged Departure-Patient Inst. Decision time for Depature: 14:16 Referrals: DAVID VANCE DO (PCP) Primary Care Physician NO,LOCAL PHYSICIAN (Family) Primary Care Physician Patient Instructions: Acute Bronchitis, Adult (DC) Add. Discharge Instructions: Mucinex and saline wash. Rest at home. Close follow-up with your aerodynamics teacher on Saturday. Return if any problems or questions. All discharge instructions reviewed with patient and/or family. Voiced understanding. GURVINDER ZUNIGA MD Aug 10, 2017 14:15
[2017-08-10 14:20] VITALS: BP 109/73
[2017-10-02] MEDS ORDERED: DOCU100C37 PO (21:43)
[2017-10-02] MEDS ORDERED: IBUP-1773 PO (21:43)
[2017-10-02] MEDS ORDERED: HYDR-3812 PO (21:43)
== END 2017-08-10 14:20 | disposition home or self-care (01) ==
LOC: EDUNIT# 12:18 → ER 12:20
DX: J40 Bronchitis, not specified as acute or chronic (principal); Z87.891 Personal history of nicotine dependence
CPT/HCPCS: 99282

== ENCOUNTER 2017-09-11 00:12 | Outpatient (CLI) | payer MEDICAID ==
[~2017-09-11] VITALS: Ht 160 cm; Wt 94.8 kg
[2017-09-11 00:15] VITALS: BP 111/63
[2017-09-11 00:37] LABS: BILIRUBIN,URINE NEGATIVE (NEGATIVE); KETONES,URINE NEGATIVE (NEGATIVE); LEUKOCYTE ESTERASE ,URINE NEGATIVE (NEGATIVE); NITRITE,URINE NEGATIVE (NEGATIVE); PH,URINE 7 (5-9); PROTEIN,URINE NEGATIVE (NEGATIVE); UROBILINOGEN,URINE NORMAL (NORMAL)
--- NOTE | 2017-09-12 08:25 | Physician Query-Final Dx ---
JEANIE WALLS 09/12/17 0825: Clinic Account Progress/Dx Physician Query: Please give diagnosis Date of Service Sep 11, 2017 at 00:12 CHERYLE ZAVALA DO 09/12/17 1001: Clinic Account Progress/Dx DIAGNOSIS: Diagnosis threatened labor at term TITILIZA NANCELEY Sep 12, 2017 08:25 CHERYLE ZAVALA DO Sep 12, 2017 10:01
== END 2017-09-11 01:00 | disposition home or self-care (01) ==
LOC: WSo 00:12 → LDRP 00:13 → WSo 01:00
PROVIDERS: ATTEND Obstetrics & Gynecology
DX: O47.03 False labor before 37 completed weeks of gestation, third trimester (principal); Z3A.36 36 weeks gestation of pregnancy
CPT/HCPCS: 81000; 99212

== ENCOUNTER 2017-09-27 13:50 | Outpatient (CLI) | payer MEDICAID ==
[~2017-09-27] VITALS: Ht 160 cm; Wt 92.1 kg
[2017-09-27 13:30] VITALS: BP 109/56
[2017-09-27 15:55] LABS: BILIRUBIN,URINE NEGATIVE (NEGATIVE); KETONES,URINE 1+ (NEGATIVE); LEUKOCYTE ESTERASE ,URINE 1+ (NEGATIVE); NITRITE,URINE NEGATIVE (NEGATIVE); PH,URINE 7 (5-9); PROTEIN,URINE NEGATIVE (NEGATIVE); UROBILINOGEN,URINE NORMAL (NORMAL)
[2017-09-27 16:04] LABS: SQUAMOUS EPITHELIAL CELL,UR >50 /HPF; YEAST,URINE TRACE /HPF
[2017-09-27] MEDS ORDERED: CEPH-507 PO (16:22)
--- NOTE | 2017-09-27 19:03 | Diagnostic Imaging Report ---
INDICATION: Biophysical profile. FINDINGS: Ortiz gestation receives a normal 8/8 biophysical profile score. Amniotic fluid volume normal, index 12.2. Positioning is cephalic. The placenta fundal. IMPRESSION: Normal 8/8 biophysical profile. Dictated by: Dictated on workstation # [id number]
--- NOTE | 2017-09-30 17:54 | Physician Query-Final Dx ---
EVER LOU 09/30/17 1754: Clinic Account Progress/Dx Physician Query: Please give diagnosis Date of Service Sep 27, 2017 at 13:50 DAVID VANCE DO 10/01/17 0821: Clinic Account Progress/Dx DIAGNOSIS: Diagnosis 38 week IUP Back pain UTI EVER LOU Sep 30, 2017 17:54 DAVID VANCE DO Oct 01, 2017 08:21
== END 2017-09-27 16:30 | disposition home or self-care (01) ==
LOC: WSo 13:50 → LDRP 13:54 → WSo 16:30
PROVIDERS: ATTEND Obstetrics & Gynecology
DX: O23.93 Unspecified genitourinary tract infection in pregnancy, third trimester (principal); Z3A.38 38 weeks gestation of pregnancy
CPT/HCPCS: 76819; 81000; 87088; 99214

== ENCOUNTER 2017-09-30 19:00 | Inpatient (IN) | payer MEDICAID ==
[2017-09-30] VITALS (7 sets, daily range): BP systolic 101–114; BP diastolic 58–70
[~2017-09-30] VITALS: Ht 160 cm; Wt 93.0 kg
[~2017-09-30 19:00] MED LIST changes: +CEPH-507 PO
[2017-09-30] MEDS ORDERED: CATHETER FLUSH 10 ML SYR IV PRN (19:30)
[2017-09-30] MEDS ORDERED: MISOPROSTOL 100 MCG (CYTOTEC) TAB PO ONE (19:30)
[2017-09-30] MEDS ORDERED: MINERAL OIL CONCENTRATE 99.9% 15 ML UDC TOP PRN (19:30)
--- OUTSIDE RECORDS SUMMARY | 2017-09-30 19:31 | XMS REPORT ---
Author Author PAMELA CORONEL [facility] Address [address] [place] [address] Care Team Providers Care Cheese Specialist Name Role Phone PAMELA CORONEL Unavailable PROBLEMS Type Condition ICD9-CM Code [id number]-MI Code Onset Dates Condition Status SNOMED Code Problem Polydipsia R63.1 Active 42031618 Problem Family history of diabetes mellitus Z83.3 Active 634666329 Problem Polyuria R35.8 Active 82222048 Problem Intestinal infection A09 Active 533039960 ALLERGIES No Information SOCIAL HISTORY Never Assessed PLAN OF CARE VITAL SIGNS MEDICATIONS Unknown Medications RESULTS Name Result Date Reference Range TEST, URINE (IN HOUSE) 2017-01-30 RESULTS POSITIVE Lot # [id number] Control + Exp date Feb 2018 PROCEDURES Procedure Date Ordered Result Body Site URINE TEST January 30, 2017 IMMUNIZATIONS No Known Immunizations
--- OUTSIDE RECORDS SUMMARY | 2017-09-30 19:31 | XMS REPORT ---
Author Author JESUS ALYSON Organization [facility] Address [address] [place] [address] Care Team Providers Care Coal Feeder Operator Name Role Phone MALOU LEEHANY Unavailable PROBLEMS Type Condition ICD9-CM Code UDV93-JO Code Onset Dates Condition Status SNOMED Code Problem Polydipsia R63.1 Active 35092744 Problem Family history of diabetes mellitus Z83.3 Active 003472360 Problem Polyuria R35.8 Active 77458211 Problem Intestinal infection A09 Active 927415595 ALLERGIES Substance Reaction Event Type Date Status Penicillins Unknown Non Drug Allergy Dec, Active SOCIAL HISTORY Never Assessed PLAN OF CARE Activity Details Follow Up prn, pending results Reason: VITAL SIGNS Height 63 in 2017-01-09 Weight 192.5 lbs 2017-01-09 Temperature 98.1 degrees Fahrenheit 2017-01-09 Heart Rate 84 bpm 2017-01-09 Respiratory Rate 20 2017-01-09 BMI 34.10 kg/m2 2017-01-09 Blood pressure systolic 118 mmHg 2017-01-09 Blood pressure diastolic 72 mmHg 2017-01-09 MEDICATIONS Medication Instructions Dosage Frequency Start Date End Date Duration Status Albuterol Sulfate 108 (90 Base) MCG/ACT Inhalation every 4-6 hrs 1-2 puff as needed Nov, Active RESULTS Name Result Date Reference Range TEST, URINE (IN HOUSE) 2017-01-09 RESULTS negative Lot # [id number] Control + Exp date 06/2014 UA LONG DIP (IN HOUSE) 2017-01-09 Lot # [id number] Exp date Clarity Clear Color Yellow Odor Yes GLU Negative ARIANA 1+ KET Negative SG 1.020 BLO Trace-intact pH 5.5 Protein 2+ URO 0.2 NIT Negative MERARY Negative Lot # Exp date CBC 2017-01-09 WBC 8.0 3.4-10.8 RBC 5.24 3.77-5.28 Hemoglobin 15.2 11.1-15.9 Hematocrit 46.2 34.0-46.6 MCV 88 79-97 MCH 29.0 26.6-33.0 MCHC 32.9 31.5-35.7 RDW 13.4 12.3-15.4 Platelets 350 150-379 Neutrophils 67 Lymphs 24 Monocytes 8 Eos 1 Basos 0 Neutrophils (Absolute) 5.3 1.4-7.0 Lymphs (Absolute) 2.0 0.7-3.1 Monocytes(Absolute) 0.6 0.1-0.9 Eos (Absolute) 0.1 0.0-0.4 Baso (Absolute) 0.0 0.0-0.2 Immature Granulocytes 0 Immature Grans (Abs) 0.0 0.0-0.1 CMP 2017-01-09 Glucose, Serum 85 65-99 BUN 10 6-20 Creatinine, Serum 0.81 0.57-1.00 eGFR If NonAfricn Am 103 >59 eGFR If Africn Am 118 >59 BUN/Creatinine Ratio 12 8-20 Sodium, Serum 142 134-144 Potassium, Serum 4.3 3.5-5.2 Chloride, Serum 102 96-106 Carbon Dioxide, Total 23 18-29 Calcium, Serum 9.6 8.7-10.2 Protein, Total, Serum 7.0 6.0-8.5 Albumin, Serum 4.5 3.5-5.5 Globulin, Total 2.5 1.5-4.5 A/G Ratio 1.8 1.1-2.5 Bilirubin, Total 0.3 0.0-1.2 Alkaline Phosphatase, S 68 39-117 AST (SGOT) 12 0-40 ALT (SGPT) 17 0-32 PROCEDURES Procedure Date Ordered Result Body Site URINALYSIS, AUTO, W/O SCOPE Jan 09, 2017 COMPLETE CBC W/AUTO DIFF WBC Jan 09, 2017 URINE TEST Jan 09, 2017 COMPREHEN METABOLIC PANEL Jan 09, 2017 VENIPUNCT, ROUTINE* Jan 09, 2017 IMMUNIZATIONS No Known Immunizations
[2017-09-30] MEDS: D5 LR IV SOLUTION 1,000 ML IV SCH (19:54)
[2017-09-30 20:07] LABS: BASOPHILS % (AUTO) 0 % (0-10); EOSINOPHILS # (AUTO) 0.1 10^3/uL (0.0-0.3); EOSINOPHILS % (AUTO) 1 % (0-10); LYMPHOCYTES % (AUTO) 16 % (12-44); MEAN CORPUSCULAR HEMOGLOBIN 28 PG (25-34); MEAN CORPUSCULAR HGB CONC 33 G/DL (32-36); MEAN CORPUSCULAR VOLUME 87 FL (80-99); MEAN PLATELET VOLUME 9.6 FL (7.4-10.4); MONOCYTES # (AUTO) 1.1 X 10^3 (0.0-1.0); MONOCYTES % (AUTO) 9 % (0-12); NEUTROPHILS # (AUTO) 9.3 X 10^3 (1.8-7.8); NEUTROPHILS % (AUTO) 74 % (42-75); PLATELET COUNT 291 10^3/uL (130-400); RED BLOOD COUNT 4.08 10^6/uL (4.35-5.85); RED CELL DISTRIBUTION WIDTH 13.7 % (10.0-14.5); WHITE BLOOD COUNT 12.4 10^3/uL (4.3-11.0)
[2017-09-30 20:08] LABS: BILIRUBIN,URINE NEGATIVE (NEGATIVE); KETONES,URINE 2+ (NEGATIVE); LEUKOCYTE ESTERASE ,URINE NEGATIVE (NEGATIVE); NITRITE,URINE NEGATIVE (NEGATIVE); PH,URINE 6 (5-9); PROTEIN,URINE 1+ (NEGATIVE); UROBILINOGEN,URINE NORMAL (NORMAL)
[2017-09-30 20:17] LABS: SQUAMOUS EPITHELIAL CELL,UR 0-2 /HPF
[2017-10-01] VITALS (67 sets, daily range): BP systolic 87–134; BP diastolic 49–81
[2017-10-01] MEDS: D5 LR IV SOLUTION 1,000 ML IV SCH ×3 (00:21→12:52)
[2017-10-01] MEDS: MISOPROSTOL 100 MCG (CYTOTEC) TAB PO SCH ×2 (00:21→04:08)
[2017-10-01] MEDS ORDERED: OXYTOCIN/NORMAL SALINE 500 ML IV SCH ×3 (08:00→18:33)
--- NOTE | 2017-10-01 08:42 | History & Physical-OB ---
OB - Chief Complaint & HPI Date/Time Date of Admission: Date of Admission: Sep 30, 2017 at 7:16 pm Time Seen by Provider: 08:00 Chief Complaint/History OB-Reason for Admission/Chief: Induction of Labor Hx : 1 Hx Para: 0 Expected Date of Delivery: Oct 06, 2017 Gestational Age in Weeks: 39 Gestational Age in Days: 2 Admission Nurse Assessment Rev: Yes History of Labs O pos Antibody neg RI RPR NR HBsAg NR HIV NR GC neg GBS neg UDS + THC in office Allergies and Home Medications Allergies Coded Allergies: Penicillins (Verified Allergy, Mild, HIVES, 09/30/17) Home Medications Cephalexin 500 Mg Capsule, 500 MG PO QID for 7 Days, (Reported) Vit W-Ca,Fe,FA(<1 mg) 1 Each Tablet, 1 EACH PO DAILY, (Reported) OB - History Hx of Present Care: Yes Ultrasounds: Normal mid trimester US Obstetrical Complications: None Medical Complications: None Delivery History Hx Blood Disorders: No Adverse Rxn to Tranfusion: No Patient Past Medical History BMI >30, Hx of THC use Social History/Family History HIV/AIDS: No Recent Infectious Disease Expo: No Sexually Transmitted Disease: No Alcohol Use: Denies Use Recreational Drug Use: No 2nd Hand Smoke Exposure: No Immunizations Date of Influenza Vaccine: Aug 26, 2017 OB - Admission Exam Physical Exam Vitals: Vital Signs 09/30/17 10/01/17 23:10 06:38 Temp 96.9 Pulse 65 Resp 18 B/P (MAP) 108/64 HEENT: NCAT Heart: Rhythm Normal Lungs: Clear Abdomen: Gravid Extremities: Normal Reflexes: Normal Cervical Dilatation: 2cm Effacement: 75% Station: -1 Membranes: Intact Heart Rate: 130's Accelerations: Accelerations Present Decelerations: No Decelerations Short Term Variability: Present Retirement Variability: Average (6-25) Contractions on Admission: < 5 Minutes Apart Intensity: Moderate Swann Scoring Tool (Modified) Dilation (cm): 1-2cm (1) Effacement (%): 51-79% (2) Descent/Station: -1,0 (2) Cervix Consistency: Soft (2) Cervix Position: Anterior (2) Subtract 1 point for: Nulliparity (-1) Swann Score: 9 Labs Laboratory Tests Test 09/30/17 19:05 09/30/17 19:45 Range/Units Urine Color YELLOW Urine Clarity CLEAR Urine pH 6 5-9 Urine Specific [place] 1.025 H 1.016-1.022 Urine Protein 1+ H NEGATIVE Urine Glucose (UA) NEGATIVE NEGATIVE Urine Ketones 2+ H NEGATIVE Urine Nitrite NEGATIVE NEGATIVE Urine Bilirubin NEGATIVE NEGATIVE Urine Urobilinogen NORMAL NORMAL MG/DL Urine Leukocyte Esterase NEGATIVE NEGATIVE Urine RBC (Auto) 2+ H NEGATIVE Urine RBC 0-2 /HPF Urine WBC NONE /HPF Urine Squamous Epithelial Cells 0-2 /HPF Urine Crystals NONE /LPF Urine Bacteria NONE /HPF Urine Casts NONE /LPF Urine Mucus NEGATIVE /LPF Urine Culture Indicated NO White Blood Count 12.4 H 4.3-11.0 10^3/uL Red Blood Count 4.08 L 4.35-5.85 10^6/uL Hemoglobin 11.6 11.5-16.0 G/DL Hematocrit 35 35-52 % Mean Corpuscular Volume 87 80-99 FL Mean Corpuscular Hemoglobin 28 25-34 PG Mean Corpuscular Hemoglobin Concent 33 32-36 G/DL Red Cell Distribution Width 13.7 10.0-14.5 % Platelet Count 291 130-400 10^3/uL Mean Platelet Volume 9.6 7.4-10.4 FL Neutrophils (%) (Auto) 74 42-75 % Lymphocytes (%) (Auto) 16 12-44 % Monocytes (%) (Auto) 9 0-12 % Eosinophils (%) (Auto) 1 0-10 % Basophils (%) (Auto) 0 0-10 % Neutrophils # (Auto) 9.3 H 1.8-7.8 X 10^3 Lymphocytes # (Auto) 2.0 1.0-4.0 X 10^3 Monocytes # (Auto) 1.1 H 0.0-1.0 X 10^3 Eosinophils # (Auto) 0.1 0.0-0.3 10^3/uL Basophils # (Auto) 0.0 0.0-0.1 10^3/uL OB - Assessment/Plan/Diagnosis Assessment Assessment: induction of labor Plan Plan: Induction Induction Method: per Misoprostol Protocol Discharge Diagnosis Diagnosis: 21 yo @ 39.2 GBS neg Hx of THC use in early BMI >30 DAVID VANCE DO Oct 01, 2017 8:42 am
[2017-10-01] MEDS ORDERED: SUFENTA 0.6MCG/ML BUPIVA 0.125 100 ML ONE (10:16)
[2017-10-01] MEDS ORDERED: fentaNYL INJECTION 100 MCG/2 ML AMP ONE (10:42)
[2017-10-01] MEDS ORDERED: LACTATED RINGERS 1,000 ML IV ONE (14:14)
[2017-10-01] MEDS ORDERED: ONDANSETRON 4 MG/2 ML (SDV) Z0FRAN IV PRN (14:15)
[2017-10-01] MEDS ORDERED: diphenhydrAMINE 50 MG/ML INJ (BENADRYL) IV PRN (14:15)
[2017-10-01] MEDS ORDERED: EPIDURAL (SUFENTA 0.6MCG/ML BUPIVA 0.125%) 100 ML BAG EPI PRN (14:15)
[2017-10-01] MEDS ORDERED: NALOXONE 0.4 MG/ML 1 ML (NARCAN) VIAL IV PRN ×2 (14:15)
[2017-10-01] MEDS ORDERED: METOCLOPRAMIDE INJ 10 MG/2 ML (REGLAN) IV PRN (14:15)
[2017-10-01] MEDS ORDERED: LACTATED RINGERS 1,000 ML IV PRN (16:52)
[2017-10-01] MEDS ORDERED: FAMOTIDINE 20MG/2ML IV (PEPCID) IV ONE (17:00)
[2017-10-01] MEDS ORDERED: CITRIC ACID/SOB CIT (BICITRA) 30 ML UDC PO ONE (17:00)
[2017-10-01] MEDS ORDERED: METOCLOPRAMIDE INJ 10 MG/2 ML (REGLAN) IV ONE (17:00)
--- NOTE | 2017-10-01 17:13 | Progress Note-Standard ---
Standard Progress Note Progress Notes/Assess & Plan Date Seen by Provider: Oct 01, 2017 Time Seen by Provider: 16:45 Progress/Assessment & Plan this 21-year-old was brought in last night for induction of labor. At time of induction the patient was started on misoprostol 100 g by mouth and given 50 g every 4 hours overnight. She did well with this, had gotten into a regular contraction pattern and made change to 3 cm dilatation this morning. Upon my evaluation this morning artificial rupture membranes was performed and clear fluid was noted and the patient was started on Pitocin augmentation. She achieved an adequate contraction pattern and obtained an epidural approximately 10 a.m. She was evaluated at noon, and found to be 5 cm dilated 80 percent effaced -1 station, the heart tracing started to reveal repetitive variable and early decelerations. reevaluation approximate 4-1/2 hours later revealed no change in her cervix despite adequate contraction pattern. I discussed the patient the diagnosis of arrest of dilatation. Discussed with the patient proceeding with primary due to this as well as variable heart rate decelerations. Risk of the procedure was discussed versus risk of proceeding with labor, consent was obtained and patient was taken the operating room once operative staff was available. DAVID VANCE DO Oct 01, 2017 17:13
[2017-10-01] MEDS ORDERED: ceFAZolin 2 GM/50 ML NS 50 ML IV NR (17:15)
[2017-10-01] MEDS ORDERED: LIDOCAINE PF 2% 5 ML (XYLOCAINE) VIAL ONE (17:16)
[2017-10-01] MEDS ORDERED: BUPIVACAINE 0.5% 30 ML (SENSORCAINE) VIAL ONE (17:16)
[2017-10-01] MEDS ORDERED: KETAMINE HCL 100 MG/ML 5 ML VIAL ONE (17:56)
[2017-10-01] MEDS ORDERED: KETOROLAC 30 MG/ML VIAL ONE (18:20)
[2017-10-01] MEDS ORDERED: TETANUS,DIPTH,PERTUSS P/F (BOOSTRIX) 0.5 ML VIAL IM SCH (18:45)
[2017-10-01] MEDS ORDERED: MEASLES,MUMPS,RUBELLA 1 EA INJ SC SCH (18:45)
[2017-10-01] MEDS ORDERED: HYDROmorphone (DILAUDID) 2 MG/ML VIAL IVP PRN (18:45)
[2017-10-01] MEDS ORDERED: ONDANSETRON 4 MG/2 ML (SDV) Z0FRAN IVP PRN (18:45)
[2017-10-01] MEDS ORDERED: CATHETER FLUSH 10 ML SYR IV SCH (22:00)
[2017-10-01] MEDS: HYDROcodone/APAP 5 MG/325 MG (LORTAB) TAB PO PRN (22:42)
[2017-10-02] MEDS: KETOROLAC 30 MG/ML VIAL IVP SCH ×3 (00:28→19:27)
[2017-10-02 00:30] VITALS: BP 105/60
[2017-10-02 04:20] VITALS: BP 102/63
[2017-10-02 06:47] LABS: BASOPHILS % (AUTO) 0 % (0-10); EOSINOPHILS # (AUTO) 0.1 10^3/uL (0.0-0.3); EOSINOPHILS % (AUTO) 1 % (0-10); LYMPHOCYTES # (AUTO) 2.5 X 10^3 (1.0-4.0); LYMPHOCYTES % (AUTO) 18 % (12-44); MEAN CORPUSCULAR HEMOGLOBIN 29 PG (25-34); MEAN CORPUSCULAR HGB CONC 33 G/DL (32-36); MEAN CORPUSCULAR VOLUME 87 FL (80-99); MEAN PLATELET VOLUME 9.4 FL (7.4-10.4); MONOCYTES # (AUTO) 1.3 X 10^3 (0.0-1.0); MONOCYTES % (AUTO) 9 % (0-12); NEUTROPHILS # (AUTO) 10.4 X 10^3 (1.8-7.8); NEUTROPHILS % (AUTO) 72 % (42-75); PLATELET COUNT 240 10^3/uL (130-400); RED BLOOD COUNT 3.69 10^6/uL (4.35-5.85); WHITE BLOOD COUNT 14.3 10^3/uL (4.3-11.0)
--- NOTE | 2017-10-02 06:52 | OPERATIVE REPORT ---
DATE OF SERVICE: PREOPERATIVE DIAGNOSES: 1. A 21-year-old G1, P0 at 39 weeks and 2 days gestation. 2. Arrest of dilatation. 3. Variable heart rate decelerations. POSTOPERATIVE DIAGNOSES: 1. A 21-year-old G1, P0 at 39 weeks and 2 days gestation. 2. Arrest of dilatation. 3. Variable heart rate decelerations. 4. Nuchal cord x1. PROCEDURE: Primary low transverse section. SURGEON: Vahid Vance DO MACHINE WELDER: Elaine Edwards MS-3 ANESTHESIA: Epidural, which was bolused. EBL: 600 mL. URINE OUTPUT: 200 mL clear at the end of the procedure. FLUIDS: 450 mL of lactated Ringer's solution. FINDINGS: This is a live male weighing 6 pounds 15 ounces, Apgars of 8 and 9. Grossly normal appearing uterus, bilateral fallopian tubes and ovaries. INDICATIONS FOR PROCEDURE: This 21-year-old female was admitted last evening for an elective induction of labor at 39 weeks at her request. Risks of induction were reviewed with the patient prior to scheduling. She was induced using misoprostol overnight and AROM and Pitocin this morning. Pitocin augmentation was altered to adequate contraction pattern, at which point she received an epidural for pain management. This was working very well; however, after an active contraction pattern was noted, the patient began having repetitive variable and early decelerations of the heart rate. We continued to augment her Pitocin up to a level of 8 milliunits per minute, at which point she was noted to make no meter changes records clerk approximately 4 hour period and there is a small caput noted at the time of evaluation. I discussed with the patient the arrest of dilatation and recommendation for a primary . Risk of procedure was explained in detail include risk of bleeding, infection, damage to any surrounding structures including but not limited to bowel, bladder, ureter kidneys, risk for postoperative hematoma formation, risk from anesthesia, need for blood transfusion and damage to the infant. After everything was discussed with the patient, consent was obtained preoperatively and the patient was taken to the operating room. OPERATIVE REPORT IN DETAIL: Once in the operating room, spinal anesthesia was found to be adequate. She was placed in supine position with leftward tilt, prepped in normal sterile fashion. Timeout was performed and anesthesia was tested. A Pfannenstiel skin incision was then made with a knife and carried down to underlying fascia using Bovie cautery. Fascial incision extended laterally with Bovie cautery. The fascial incision was then grasped with Ann-Marie clamps, tented up and dissected off any rectus muscles in similar fashion. The fascial incision was then grasped with Ann-Marie clamps, tented up and dissected off any rectus muscles in similar fashion. The rectus muscles were then dissected on the midline using Leach scissors, which exposed the peritoneum, which I entered bluntly. Once peritoneal access of the chain achieved, I extended the peritoneal incision with blunt traction placed the Zach ring retractor and peritoneal incision, which offers excellent lateral sidewall retraction. I then identified the lower uterine segment found to be thinned out and making incisions at the skin and peritoneum using knife and bluntly dissected off the lower uterine segment. I proceed with my myotomy until membranes are visualized, at which point I extend the uterine incision laterally and superiorly using bandage scissors. Clear fluid was noted at the time of amniotomy through my incision. The infant was found on the vertex presentation, occiput posterior. The 's head was elevated up to the incision with gentle fundal pressure. The 's head was delivered through the incision, where a nuchal cord reduced x1. The nares and oropharynx were then bulb suctioned. The anterior and posterior shoulders were then delivered. The infant then brought to the operative field and the cord clamped and cut into taking off to waiting pediatric team. Cord blood was collected, 3-vessel cord with intact placenta delivered spontaneously thereafter. IV Pitocin is initiated to facilitate uterine contraction. Uterine fundus became firmer with bimanual massage. The uterus was then exteriorized and cleared of endometrial clots and debris. I then proceed with closing the uterine incision using 0 Vicryl suture in running locked fashion. Second layer of imbricating 0 Monocryl was placed. Excellent hemostasis was noted after doing this. I then identified the fallopian tubes and ovaries, which appeared to be grossly normal and placed him back within the pelvis including the uterus. I then copiously irrigated the pelvis using normal saline. There is no active bleeding and in any of my dissection planes. I then placed Interceed adhesive for my low transverse incision. I then proceeded with closing the peritoneum using 3-0 Vicryl suture in running fashion. The rectus muscle reapproximated 2-0 Vicryl suture in the fascia and the fascia reapproximated using 0 Vicryl suture in running fashion. Subcutaneous tissue reapproximated with 3-0 plain in interrupted subcutaneous stitch and the skin was reapproximated using 4-0 Monocryl in a running subcuticular. Dermabond was applied to incision. A sterile dressing with adhesive white tape. Two grams of Ancef given preoperatively for infection prophylaxis. The patient tolerated the procedure well and was taken to recovery in stable condition. Lap and sponge counts correct at the end of the procedure. Instrument counts were correct as well. Job ID: [id number] DocumentID: [id number] Dictated Date: 10/01/2017 18:28:41 Eligibility Supervisor Date: 10/02/2017 04:44:03 Dictated By: VAHID VANCE DO
--- NOTE | 2017-10-02 08:40 | Progress Note-Standard ---
Standard Progress Note Progress Notes/Assess & Plan Date Seen by Provider: Oct 02, 2017 Time Seen by Provider: 08:30 Progress/Assessment & Plan Patient doing well POD 1 PLTCS. Pain well controlled, ambulating and voiding freely. Lochia light. Vital Sign - Last 24 Hours 10/01/17 10/01/17 10/01/17 10/01/17 08:45 09:00 09:15 09:30 Pulse 75 78 82 73 Resp 18 18 18 18 B/P (MAP) 115/67 121/81 123/80 118/77 10/01/17 10/01/17 10/01/17 10/01/17 10:15 10:30 10:44 10:46 Pulse 102 80 80 81 Resp 18 18 18 18 B/P (MAP) 128/80 119/75 134/74 125/76 Pulse Ox 99 98 10/01/17 10/01/17 10/01/17 10/01/17 10:48 10:49 10:52 10:53 Pulse 100 96 92 82 Resp 18 18 18 18 B/P (MAP) 123/72 123/73 118/60 112/60 Pulse Ox 98 98 99 100 10/01/17 10/01/17 10/01/17 10/01/17 10:56 10:57 10:59 11:01 Pulse 91 89 90 84 Resp 18 18 18 18 B/P (MAP) 112/55 112/62 117/66 115/64 Pulse Ox 99 100 98 99 10/01/17 10/01/17 10/01/17 10/01/17 11:03 11:05 11:08 11:10 Pulse 84 83 91 Resp 18 18 18 18 B/P (MAP) 114/80 113/62 98/52 107/55 Pulse Ox 99 98 97 97 10/01/17 10/01/17 10/01/17 10/01/17 11:27 11:41 11:55 12:10 Pulse 77 73 77 78 Resp 18 18 18 18 B/P (MAP) 103/60 107/56 105/57 105/58 Pulse Ox 97 97 97 98 10/01/17 10/01/17 10/01/17 10/01/17 12:29 12:30 12:41 12:55 Pulse 72 72 72 70 Resp 18 18 18 18 B/P (MAP) 98/49 98/54 98/50 94/51 Pulse Ox 98 98 98 97 10/01/17 10/01/17 10/01/17 10/01/17 13:11 13:25 13:34 13:41 Temp 97.7 Pulse 70 74 85 96 Resp 18 18 18 18 B/P (MAP) 91/52 87/52 97/59 98/55 Pulse Ox 97 96 98 99 10/01/17 10/01/17 10/01/17 10/01/17 13:58 14:10 14:25 14:45 Pulse 85 82 94 88 Resp 18 18 18 16 B/P (MAP) 97/56 98/53 98/58 106/56 Pulse Ox 98 97 97 97 10/01/17 10/01/17 10/01/17 10/01/17 15:00 15:15 15:30 15:45 Temp 97.6 Pulse 91 83 92 104 Resp 16 16 18 18 B/P (MAP) 113/55 101/56 101/59 102/63 Pulse Ox 97 97 10/01/17 10/01/17 10/01/17 10/01/17 16:00 16:15 16:30 16:45 Pulse 97 100 83 95 Resp 18 16 16 16 B/P (MAP) 100/55 101/60 98/58 111/55 10/01/17 10/01/17 10/01/17 10/01/17 17:00 17:15 17:30 17:44 Pulse 85 93 93 92 Resp 16 16 16 18 B/P (MAP) 107/63 112/59 99/56 103/56 10/01/17 10/01/17 10/02/17 10/02/17 20:25 20:50 00:30 04:20 Temp 98.2 97.7 96.9 97.8 Pulse 88 88 89 78 Resp 18 18 18 18 B/P (MAP) 105/69 99/59 105/60 102/63 Pulse Ox 98 98 96 97 O2 Delivery Room Air Room Air Room Air Room Air Incision: c/d/i Laboratory Tests Test 10/02/17 06:22 Range/Units White Blood Count 14.3 H 4.3-11.0 10^3/uL Red Blood Count 3.69 L 4.35-5.85 10^6/uL Hemoglobin 10.6 L 11.5-16.0 G/DL Hematocrit 32 L 35-52 % Mean Corpuscular Volume 87 80-99 FL Mean Corpuscular Hemoglobin 29 25-34 PG Mean Corpuscular Hemoglobin Concent 33 32-36 G/DL Red Cell Distribution Width 14.0 10.0-14.5 % Platelet Count 240 130-400 10^3/uL Mean Platelet Volume 9.4 7.4-10.4 FL Neutrophils (%) (Auto) 72 42-75 % Lymphocytes (%) (Auto) 18 12-44 % Monocytes (%) (Auto) 9 0-12 % Eosinophils (%) (Auto) 1 0-10 % Basophils (%) (Auto) 0 0-10 % Neutrophils # (Auto) 10.4 H 1.8-7.8 X 10^3 Lymphocytes # (Auto) 2.5 1.0-4.0 X 10^3 Monocytes # (Auto) 1.3 H 0.0-1.0 X 10^3 Eosinophils # (Auto) 0.1 0.0-0.3 10^3/uL Basophils # (Auto) 0.0 0.0-0.1 10^3/uL Diagnosis: POD 1 PLTCS Acute blood loss anemia-stable P: replace iron continue routine PO care Anticipate dc tomorrow DAVID VANCE DO Oct 02, 2017 08:40
[2017-10-02 09:00] VITALS: BP 100/67
[2017-10-02] MEDS: HYDROcodone/APAP 5 MG/325 MG (LORTAB) TAB PO PRN ×3 (09:17→19:26)
[2017-10-02] MEDS: DOCUSATE SODIUM 100 MG (COLACE) CAP PO SCH ×3 (09:17→19:26)
[2017-10-02 13:00] VITALS: BP 106/74
[2017-10-02] MEDS ORDERED: IBUPROFEN 600 MG (MOTRIN) TAB PO ONE (13:03)
[2017-10-02] MEDS: IBUPROFEN 600 MG (MOTRIN) TAB PO SCH (13:16)
--- NOTE | 2017-10-02 15:33 | Anesthesia-Regional Post-Op ---
Regional Patient Condition Mental Status: Alert, Oriented x3 Circulation: Same as Pre-Op Headache: Absent Sensation: Full Recovery Motor Block: Absent Post Op Complications Complications None Follow Up Care/Instructions Patient Instructions None needed. Anesthesia/Patient Condition Patient is doing well, no complaints, stable vital signs, no apparent adverse anesthesia problems. No complications reported per nursing. WALKER ALLEN CRNA Oct 02, 2017 15:33
[2017-10-02 16:02] VITALS: BP 101/76
[2017-10-02 19:26] VITALS: BP 101/68
[2017-10-02] MEDS ORDERED: IBUP-1773 PO (21:43)
[2017-10-02] MEDS ORDERED: HYDR-3812 PO (21:43)
[2017-10-02] MEDS ORDERED: DOCU100C37 PO (21:43)
--- NOTE | 2017-10-02 21:43 | Discharge Inst-Women's Service ---
Discharge Inst-Women's Serv Depart Medication/Instructions New, Converted or Re-Newed RX: RX on Chart Consults/Follow Up Additional Follow Up: Yes Orders/Referrals Dr. Infante in 7-10 days and in 6 weeks Activity Activity: Activity as Tolerated Driving Instructions: No Driving for 1 Week NO SMOKING: NO SMOKING Nothing Inside Vagina: No Douching, No [place], No Tampons Diet Discharge Diet: No Restrictions Symptoms to Report to : Bleeding Excessive, Pain Increased, Fever Over 101 Degrees F, Vaginal Bleeding Increase, Questions/Concerns For Any Problems or Questions: Contact Your Physician Skin/Wound Care Infection Signs and Symptoms: Increased Redness, Foul Odor of Wound, Increased Drainage, Skin Itchy or Has a Rash, Increased Swelling, Temperature Above 101 F Operative Area Clean and Dry: Keep Incision Clean/Dry Stitches/Kaylynn/Dermabond: Dermabond, Care of Stitches Bathing Instructions: DAVID Jiménez DO Oct 02, 2017 9:43 pm
[2017-10-03] MEDS: IBUPROFEN 600 MG (MOTRIN) TAB PO SCH ×2 (01:22→08:30)
[2017-10-03] MEDS: HYDROcodone/APAP 5 MG/325 MG (LORTAB) TAB PO PRN (01:22)
[2017-10-03 02:15] VITALS: BP 112/75
[2017-10-03 07:30] VITALS: BP 110/73
[2017-10-03] MEDS ORDERED: DOCUSATE SODIUM 100 MG (COLACE) CAP PO SCH (09:00)
--- NOTE | 2017-10-03 11:07 | Progress Note-Standard ---
Standard Progress Note Progress Notes/Assess & Plan Date Seen by Provider: Oct 03, 2017 Time Seen by Provider: 08:45 Progress/Assessment & Plan Patient doing well POD 2 PLTCS. Pain well controlled, ambulating and voiding freely. Lochia light. Vital Sign - Last 24 Hours 10/02/17 10/02/17 10/02/17 10/03/17 13:00 16:02 19:26 02:15 Temp 97.8 97.8 97.9 97.6 Pulse 82 73 75 67 Resp 18 20 20 18 B/P (MAP) 106/74 101/76 101/68 112/75 Pulse Ox 99 97 98 99 O2 Delivery Room Air Room Air Room Air Room Air 10/03/17 07:30 Temp 98.1 Pulse 82 Resp 20 B/P (MAP) 110/73 Incision: c/d/i Diagnosis: POD 2 PLTCS Acute blood loss anemia-stable P: replace iron continue routine PO care Anticipate dc today DAVID VANCE DO Oct 03, 2017 11:07 am
[2017-10-03 12:30] VITALS: BP 111/73
== END 2017-10-03 13:30 | disposition home or self-care (01) | DRG 766 ==
LOC: LDRP 19:16
PROVIDERS: ADMIT Obstetrics & Gynecology; ATTEND Obstetrics & Gynecology
PROC: 3E0P05Z Introduction of Adhesion Barrier into Female Reproductive, Open Approach (ICD-10-PCS; 2017-10-01)
PROC: 10D00Z1 Extraction of Products of Conception, Low, Open Approach (ICD-10-PCS; principal; 2017-10-01 17:49)
DX: O99.213 Obesity complicating pregnancy, third trimester (principal); E66.9 Obesity, unspecified; Z68.36 Body mass index [BMI] 36.0-36.9, adult; O62.0 Primary inadequate contractions; O76 Abnormality in fetal heart rate and rhythm complicating labor and delivery; O99.03 Anemia complicating the puerperium; D64.9 Anemia, unspecified; O69.81X0 Labor and delivery complicated by cord around neck, without compression, not applicable or unspecified; Z3A.39 39 weeks gestation of pregnancy; Z37.0 Single live birth
CPT/HCPCS: 36415; 81000; 85025; 86850; 86900; 86901; 94664

== ENCOUNTER 2017-11-14 21:07 | Day surgery (SDC) | payer MEDICAID ==
[~2017-11-14] VITALS: Ht 162.6 cm; Wt 87.0 kg
[~2017-11-14 21:07] MED LIST changes: +ACHD5005 PO; +DOCU100C37 PO; +IBUP-1773 PO
[2017-11-14] MEDS ORDERED: SERT25TA5 PO (21:49)
[2017-11-14] MEDS ORDERED: LEVO1TAB9 PO (21:49)
[2017-11-14] MEDS ORDERED: fentaNYL INJECTION 100 MCG/2 ML AMP IVP ONE ×2 (22:00→23:15)
--- NOTE | 2017-11-14 22:02 | ED Abdominal Pain ---
General Chief Complaint: Abdominal/GI Problems Stated Complaint: UPPER ABD PAIN AND BACK PAIN Nursing Triage Note: UPPER ABDOMINAL PAIN RADIATING TO MID BACK Sepsis Screen: No Definite Risk Source of Information: Patient Exam Limitations: No Limitations History of Present Illness Time Seen By Provider: 22:01 Initial Comments To ER with epigastric abdominal pain that radiates through to her back. This began about 3-4 hours ago. Last food intake was dominant O [place] at 7 PM. No nausea or vomiting. No fevers or chills. Normal bowel movements. She did have one similar episode after her in September of this year. Prior to that , no history of this. Timing/Duration: 1-3 Hours Severity/Quality: Moderate Location: RUQ, Epigastric Radiation: No Radiation Activities at Onset: None Associated Symptoms: No Nausea/Vomiting Allergies and Home Medications Allergies Coded Allergies: Penicillins (Verified Allergy, Mild, HIVES, 09/30/17) Home Medications Levonorgestrel-Ethin Estradiol 1 Each Tablet, (Reported) Sertraline HCl 25 Mg Tablet, (Reported) Review of Systems Constitutional: see HPI EENTM: No Symptoms Reported Respiratory: No Symptoms Reported Cardiovascular: No Symptoms Reported Gastrointestinal: See HPI, Abdominal Pain Genitourinary: No Symptoms Reported Musculoskeletal: no symptoms reported Skin: no symptoms reported Psychiatric/Neurological: No Symptoms Reported Endocrine: No Symptoms Reported Past Iyzpjmk-Hvodwc-Zfqens Hx Patient Social History Alcohol Use: Denies Use Recreational Drug Use: No Smoking Status: Former Smoker Type Used: Cigarettes Former Smoker, Quit: Feb 16, 2017 2nd Hand Smoke Exposure: No Recent Foreign Travel: No Contact w/Someone Who Travel: No Recent Infectious Disease Expo: No Recent Hopitalizations: No Immunizations Up To Date Tetanus Booster (TDap): Less than 5yrs Date of Influenza Vaccine: Aug 26, 2017 Seasonal Allergies Seasonal Allergies: No Surgeries History of Surgeries: Yes Surgeries: Section Respiratory History of Respiratory Disorde: No Cardiovascular History of Cardiac Disorders: No Neurological History of Neurological Disord: No Reproductive System : No Hx Reproductive Disorders: No Sexually Transmitted Disease: No HIV/AIDS: No Genitourinary History of Genitourinary Disor: No Gastrointestinal History of Gastrointestinal Di: No Musculoskeletal History of Musculoskeletal Dis: No Endocrine History of Endocrine Disorders: No HEENT History of HEENT Disorders: No Cancer History of Cancer: No Psychosocial History of Psychiatric Problem: Yes Behavioral Health Disorders: Depression Integumentary History of Skin or Integumenta: No Blood Transfusions History of Blood Disorders: No Adverse Reaction to a Blood Tr: No Family Medical History Significant Family History: No Pertinent Family Hx Family Medial History: Cervical cancer 17 MOTHER Physical Exam Vital Signs VS - Last 72 Hours, by Label 11/14/17 21:40 Temp 98.1 Pulse 70 Resp 16 B/P (MAP) 136/75 (95) Pulse Ox 98 O2 Delivery Room Air Capillary Refill : Less Than 3 Seconds General Appearance: WD/WN, no apparent distress HEENT: PERRL/EOMI, normal ENT inspection Neck: non-tender, full range of motion Respiratory: normal breath sounds, no respiratory distress, no accessory muscle use Cardiovascular: regular rate, rhythm, no murmur Gastrointestinal: normal bowel sounds, soft, tenderness (epigastric) Extremities: normal range of motion, non-tender Neurologic/Psychiatric: alert Skin: normal color, warm/dry Progress/Results/Core Measures Results/Orders Lab Results Laboratory Tests Test 11/14/17 21:45 11/14/17 21:55 Range/Units Urine Color YELLOW Urine Clarity CLEAR Urine pH 7 5-9 Urine Specific [place] 1.005 L 1.016-1.022 Urine Protein NEGATIVE NEGATIVE Urine Glucose (UA) NEGATIVE NEGATIVE Urine Ketones NEGATIVE NEGATIVE Urine Nitrite NEGATIVE NEGATIVE Urine Bilirubin NEGATIVE NEGATIVE Urine Urobilinogen NORMAL NORMAL MG/DL Urine Leukocyte Esterase NEGATIVE NEGATIVE Urine RBC (Auto) NEGATIVE NEGATIVE Urine RBC NONE /HPF Urine WBC NONE /HPF Urine Squamous Epithelial Cells RARE /HPF Urine Crystals NONE /LPF Urine Bacteria NONE /HPF Urine Casts NONE /LPF Urine Mucus NEGATIVE /LPF Urine Culture Indicated NO White Blood Count 18.5 H 4.3-11.0 10^3/uL Red Blood Count 4.74 4.35-5.85 10^6/uL Hemoglobin 13.2 11.5-16.0 G/DL Hematocrit 40 35-52 % Mean Corpuscular Volume 84 80-99 FL Mean Corpuscular Hemoglobin 28 25-34 PG Mean Corpuscular Hemoglobin Concent 33 32-36 G/DL Red Cell Distribution Width 13.6 10.0-14.5 % Platelet Count 375 130-400 10^3/uL Mean Platelet Volume 9.0 7.4-10.4 FL Neutrophils (%) (Auto) 76 H 42-75 % Lymphocytes (%) (Auto) 15 12-44 % Monocytes (%) (Auto) 8 0-12 % Eosinophils (%) (Auto) 1 0-10 % Basophils (%) (Auto) 0 0-10 % Neutrophils # (Auto) 14.1 H 1.8-7.8 X 10^3 Lymphocytes # (Auto) 2.7 1.0-4.0 X 10^3 Monocytes # (Auto) 1.4 H 0.0-1.0 X 10^3 Eosinophils # (Auto) 0.3 0.0-0.3 10^3/uL Basophils # (Auto) 0.0 0.0-0.1 10^3/uL Neutrophils % (Manual) 65 % Lymphocytes % (Manual) 22 % Monocytes % (Manual) 8 % Eosinophils % (Manual) 1 % Basophils % (Manual) 0 % Band Neutrophils 4 % Blood Morphology Comment NORMAL Sodium Level 142 135-145 MMOL/L Potassium Level 3.7 3.6-5.0 MMOL/L Chloride Level 109 H 98-107 MMOL/L Carbon Dioxide Level 22 21-32 MMOL/L Anion Gap 11 5-14 MMOL/L Blood Urea Nitrogen 8 7-18 MG/DL Creatinine 0.78 0.60-1.30 MG/DL Estimat Glomerular Filtration Rate > 60 BUN/Creatinine Ratio 10 Glucose Level 92 70-105 MG/DL Calcium Level 9.0 8.5-10.1 MG/DL Total Bilirubin 0.4 0.1-1.0 MG/DL Aspartate Amino Transf (AST/SGOT) 62 H 5-34 U/L Alanine Aminotransferase (ALT/SGPT) 62 H 0-55 U/L Alkaline Phosphatase 81 40-136 U/L Total Protein 6.4 6.4-8.2 GM/DL Albumin 4.0 3.2-4.5 GM/DL My Orders Orders - LEXIE WHITEHEAD APRN Cbc With Automated Diff (11/14/17 21:47) Comprehensive Metabolic Panel (11/14/17 21:47) Lipase (11/14/17 21:47) Ua Culture If Indicated (11/14/17 21:47) Urine Bedside (11/14/17 21:47) Saline Lock/Iv-Start (11/14/17 21:47) Fentanyl Injection (Sublimaze Injection (11/14/17 22:00) Ct Abdomen/Pelvis W (11/14/17 22:00) Ketorolac Injection (Toradol Injection) (11/14/17 22:15) Manual Differential (11/14/17 21:55) Iohexol Injection (Omnipaque 350 Mg/Ml 1 (11/14/17 22:30) Ns (Ivpb) (Sodium Chloride 0.9% Ivpb Bag (11/14/17 22:30) Us Gallbladder [id number] (11/14/17 22:33) Ondansetron Injection (Zofran Injectio (11/14/17 23:15) Fentanyl Injection (Sublimaze Injection (11/14/17 23:15) Medications Given in ED Current Medications Medications Dose Ordered Sig/Shira Route Start Time Stop Time Status Last Admin Dose Admin Fentanyl Citrate 50 mcg ONCE ONCE IVP 11/14/17 22:00 11/14/17 22:01 DC 11/14/17 22:07 50 MCG Fentanyl Citrate 75 mcg ONCE ONCE IVP 11/14/17 23:15 11/14/17 23:16 DC 11/14/17 23:20 75 MCG Iohexol 100 ml ONCE ONCE IV 11/14/17 22:30 11/14/17 22:31 DC 11/14/17 22:21 100 ML Ketorolac Tromethamine 30 mg ONCE ONCE IVP 11/14/17 22:15 11/14/17 22:16 DC 11/14/17 22:08 30 MG Ondansetron HCl 4 mg ONCE ONCE IVP 11/14/17 23:15 11/14/17 23:16 DC 11/14/17 23:20 4 MG Sodium Chloride 80 ml ONCE ONCE IV 11/14/17 22:30 11/14/17 22:31 DC 11/14/17 22:21 80 ML Vital Signs/I&O Vital Sign - Last 12Hours 11/14/17 21:40 Temp 98.1 Pulse 70 Resp 16 B/P (MAP) 136/75 (95) Pulse Ox 98 O2 Delivery Room Air Blood Pressure Mean: 95 Departure Communication (Admissions) Time/Spoke to Admitting Phy: 23:[address] Chavez. We'll admit, IV Cipro Flagyl pain control nausea control , tentative plan for cholecystectomy tomorrow. Progress Notes Laboratory is having difficulty with the machine in regards to getting a lipase number. We will address the lipase as soon as it becomes available Impression Impression: Primary Impression: Symptomatic cholelithiasis Disposition: ADMITTED INPATIENT Condition: Stable Admissions Decision to Admit Reason: Admit from ER (General) Decision to Admit/Date: Nov 14, 2017 Time/Decision to Admit Time: 23:20 Departure-Patient Inst. Referrals: NO,LOCAL PHYSICIAN (PCP/Family) Primary Care Physician LEXIE WHITEHEAD APRN Nov 14, 2017 22:02
[2017-11-14 22:04] LABS: BASOPHILS % (AUTO) 0 % (0-10); EOSINOPHILS # (AUTO) 0.3 10^3/uL (0.0-0.3); EOSINOPHILS % (AUTO) 1 % (0-10); HEMATOCRIT 40 % (35-52); HEMOGLOBIN 13.2 G/DL (11.5-16.0); LYMPHOCYTES # (AUTO) 2.7 X 10^3 (1.0-4.0); LYMPHOCYTES % (AUTO) 15 % (12-44); MEAN CORPUSCULAR HEMOGLOBIN 28 PG (25-34); MEAN CORPUSCULAR HGB CONC 33 G/DL (32-36); MEAN CORPUSCULAR VOLUME 84 FL (80-99); MONOCYTES # (AUTO) 1.4 X 10^3 (0.0-1.0); MONOCYTES % (AUTO) 8 % (0-12); NEUTROPHILS # (AUTO) 14.1 X 10^3 (1.8-7.8); NEUTROPHILS % (AUTO) 76 % (42-75); PLATELET COUNT 375 10^3/uL (130-400); RED BLOOD COUNT 4.74 10^6/uL (4.35-5.85); RED CELL DISTRIBUTION WIDTH 13.6 % (10.0-14.5); WHITE BLOOD COUNT 18.5 10^3/uL (4.3-11.0)
[2017-11-14] MEDS ORDERED: KETOROLAC 30 MG/ML VIAL IVP ONE (22:15)
[2017-11-14 22:25] LABS: BILIRUBIN,URINE NEGATIVE (NEGATIVE); CLARITY,URINE CLEAR; COLOR,URINE YELLOW; GLUCOSE, URINE (UA) NEGATIVE (NEGATIVE); KETONES,URINE NEGATIVE (NEGATIVE); LEUKOCYTE ESTERASE ,URINE NEGATIVE (NEGATIVE); NITRITE,URINE NEGATIVE (NEGATIVE); PH,URINE 7 (5-9); PROTEIN,URINE NEGATIVE (NEGATIVE); UROBILINOGEN,URINE NORMAL (NORMAL)
[2017-11-14 22:30] LABS: ALANINE AMINOTRANSFERASE 62 U/L (0-55); ALKALINE PHOSPHATASE 81 U/L (40-136); BILIRUBIN,TOTAL 0.4 MG/DL (0.1-1.0); BUN/CREATININE RATIO 10; CARBON DIOXIDE 22 MMOL/L (21-32); CHLORIDE 109 MMOL/L (98-107); CREATININE SERUM 0.78 MG/DL (0.60-1.30); GFR ESTIMATED > 60; GLUCOSE 92 MG/DL (70-105); POTASSIUM 3.7 MMOL/L (3.6-5.0); SODIUM 142 MMOL/L (135-145); TOTAL PROTEIN 6.4 GM/DL (6.4-8.2)
[2017-11-14] MEDS ORDERED: NS 100 ML (IVPB) BAG IV ONE (22:30)
[2017-11-14] MEDS ORDERED: IOHEXOL 350 MG/ML 100 ML (OMNIPAQUE 350) VIAL IV ONE (22:30)
[2017-11-14 22:35] LABS: BAND NEUTROPHILS 4 %; BASOPHILS % (MANUAL) 0 %; EOSINOPHILS % (MANUAL) 1 %; LYMPHOCYTES % (MANUAL) 22 %; MONOCYTES % (MANUAL) 8 %; NEUTROPHILS % (MANUAL) 65 %; RBC MORPH NORMAL
[2017-11-14 22:47] LABS: SQUAMOUS EPITHELIAL CELL,UR RARE /HPF
[2017-11-14] MEDS ORDERED: ONDANSETRON 4 MG/2 ML (SDV) Z0FRAN IVP ONE (23:15)
[2017-11-14 23:32] LABS: LIPASE 18767 U/L (8-78)
--- OUTSIDE RECORDS SUMMARY | 2017-11-15 00:05 | XMS REPORT | Continuity of Care Document ---
Author Author [facility] of [facility] of [facility] Address Unknown Phone Unavailable Allergies Active Description Code Type Severity Reaction Onset Reported/Identified Relationship to Patient Clinical Status Yes Penicillins Drug Allergy N/A N/A 01/14/2014 Yes No Known Drug Allergies [id number] Drug Allergy Unknown N/A 05/11/2017 Yes Penicillins [id number] Drug Allergy Mild HIVES 09/30/2017 Medications There is no data. Problems Date Dx Coded Attending Type Code Diagnosis Diagnosed By 01/05/2013 PAMELA CORONEL DO V25.01 CONTRACEPTION - ORAL CONTRACEPTION 01/05/2013 HUMBERTO RAWLS MD V25.01 CONTRACEPTION - ORAL CONTRACEPTION 01/05/2013 NIC MATHEWS APRN S V25.01 CONTRACEPTION - ORAL CONTRACEPTION 01/05/2013 APRIL MATHEWS APRNA S V25.01 CONTRACEPTION - ORAL CONTRACEPTION 01/14/2014 HUMBERTO RAWLS MD 008.8 GASTROENTERITIS VIRAL 01/14/2014 NIC MATHEWS APRN S 008.8 GASTROENTERITIS VIRAL 01/14/2014 APRIL MATHEWS APRNA S 008.8 GASTROENTERITIS VIRAL 10/21/2014 APRIL MATHEWS APRNA S 783.5 POLYDIPSIA 10/21/2014 APRIL MATHEWS APRNA S 788.42 POLYURIA 10/21/2014 ELIO MATHEWS APRNNDA [...] 535.50 UNSP GASTRITIS GASTRODUODENITIS W/O ME 02/09/2017 BRAYAN CURTIS Ot O20.0 THREATENED 02/09/2017 BRAYAN CURTIS Ot O26.851 SPOTTING COMPLICATING , FIRST T 02/09/2017 BRAYAN CURTIS Ot O99.331 SMOKING (TOBACCO) COMPLICATING 02/09/2017 BRAYAN CURTIS Ot Z3A.01 LESS THAN 8 WEEKS GESTATION OF 02/11/2017 BRAYAN CURTIS Ot O20.0 THREATENED 02/11/2017 BRAYAN CURTIS Ot O26.851 SPOTTING COMPLICATING , FIRST T 02/11/2017 BRAYAN CURTIS Ot O99.331 SMOKING (TOBACCO) COMPLICATING 02/11/2017 BRAYAN CURTIS Ot Z3A.01 LESS THAN 8 WEEKS GESTATION OF 02/11/2017 BRAYAN CURTIS Ot O20.0 THREATENED 02/11/2017 BRAYAN CURTIS Ot O26.851 SPOTTING COMPLICATING , FIRST T 02/11/2017 BRAYAN CURTIS Ot O99.331 SMOKING (TOBACCO) COMPLICATING 02/11/2017 BRAYAN CURTIS Ot Z3A.01 LESS THAN 8 WEEKS GESTATION OF 05/11/2017 LEXIE WHITEHEAD FR[employer] OFFICE JAVA DEVELOPER Ot F17.210 NICOTINE DEPENDENCE, CIGARETTES, UNCOMPL 05/11/2017 LEXIE WHITEHEAD FR[employer] OFFICE JAVA DEVELOPER Ot O21.9 VOMITING OF , UNSPECIFIED 05/11/2017 LEXIE WHITEHEAD FR[employer] OFFICE JAVA DEVELOPER Ot O99.282 ENDO, NUTRITIONAL AND METAB DISEASES COM 05/11/2017 LEXIE WHITEHEAD FR[employer] OFFICE JAVA DEVELOPER Ot O99.332 SMOKING (TOBACCO) COMPLICATING 05/11/2017 LEXIE WHITEHEAD FR[employer] OFFICE JAVA DEVELOPER Ot Z3A.20 20 WEEKS GESTATION OF 06/03/2017 DAVID VANCE DO Ot Z36 ENCOUNTER FOR SCREENING OF MOT 06/03/2017 DAVID VANCE DO Ot Z3A.18 18 WEEKS GESTATION OF 07/12/2017 CHANTALMARCOS FRENCH MD, Ot O47.03 FALSE LABOR BEFORE 37 COMPLETED WEEKS OF 07/12/2017 MARCOS CORNEJO MD, Ot Z3A.29 29 WEEKS GESTATION OF 07/16/2017 RAJIV DODAVID Ot O44.50 LOW LYING PLACENTA WITH HEMORRHAGE, UNSP 07/16/2017 JOEECH DODAVID S Ot Z3A.00 WEEKS OF GESTATION OF NOT SPEC 07/23/2017 MARCOS CORNEJO MD, Ot O47.03 FALSE LABOR BEFORE 37 COMPLETED WEEKS OF 07/23/2017 MARCOS CORNEJO MD, Ot Z3A.29 29 WEEKS GESTATION OF 07/31/2017 FENECH DODAVID S Ot O44.50 LOW LYING PLACENTA WITH HEMORRHAGE, UNSP 07/31/2017 RAJIV DODAVID Ot Z3A.00 WEEKS OF GESTATION OF NOT SPEC 08/10/2017 NADIA LARRY, GURVINDER Garay Ot J40 BRONCHITIS, NOT SPECIFIED ACUTE OR CH 08/10/2017 GURVINDER ZUNIGA MD Ot R05 COUGH 08/10/2017 NADIA LARRY, GURVINDER Garay Ot Z87.891 PERSONAL HISTORY OF NICOTINE DEPENDENCE 09/11/2017 RAJIV DODAVID S Ot Z36 ENCOUNTER FOR SCREENING OF MOT 09/11/2017 JOEECH DODAVID S Ot Z3A.18 18 WEEKS GESTATION OF 09/11/2017 DAVID VANCE DO Ot O44.50 LOW LYING PLACENTA WITH HEMORRHAGE, UNSP 09/11/2017 JOEECH DODAVID S Ot Z3A.00 WEEKS OF GESTATION OF NOT SPEC 09/11/2017 CHERYLE ZAVALA DO Ot O47.03 FALSE LABOR BEFORE 37 COMPLETED WEEKS OF 09/11/2017 CHERYLE ZAVALA DO Ot Z3A.36 36 WEEKS GESTATION OF 09/19/2017 DAVID VANCE DO S Ot O99.89 OTH DISEASES AND CONDITIONS COMPL PREG/C 09/19/2017 DAVID VANCE DO S Ot R19.7 DIARRHEA, UNSPECIFIED 09/19/2017 JOEECH DODAVID S Ot Z3A.38 38 WEEKS GESTATION OF 09/27/2017 JOEECH DODAVID S Ot Z36 ENCOUNTER FOR SCREENING OF MOT 09/27/2017 JOEECH DODAVID S Ot Z3A.18 18 WEEKS GESTATION OF 09/27/2017 FENDAVID ALEJANDRO DO Ot O44.50 LOW LYING PLACENTA WITH HEMORRHAGE, UNSP 09/27/2017 DAVID VANCE DO Ot Z3A.00 WEEKS OF GESTATION OF NOT SPEC 09/27/2017 DAVID VANCE DO Ot O23.93 UNSP TRACT INFECTION IN , TH 09/27/2017 DAVID VANCE DO Ot Z3A.38 38 WEEKS GESTATION OF 10/03/2017 DAVID VANCE DO Ot D64.9 ANEMIA, UNSPECIFIED 10/03/2017 DAVID VANCE DO Ot E66.9 OBESITY, UNSPECIFIED 10/03/2017 DAVID VANCE DO Ot O62.0 PRIMARY INADEQUATE CONTRACTIONS 10/03/2017 DAVID VANCE DO Ot O69.81X0 LABOR AND DEL COMP BY CORD AROUND NECK, 10/03/2017 DAVID VANCE DO Ot O76 ABNLT IN HEART RATE AND RHYTHM COM 10/03/2017 DAVID VANCE DO Ot O99.03 ANEMIA COMPLICATING THE PUERPERIUM 10/03/2017 RAJIV HERNANDEZ DAVID Garay Ot O99.213 OBESITY COMPLICATING , THIRD TR 10/03/2017 DAVID VANCE DO Ot Z37.0 SINGLE LIVE 10/03/2017 DAVID VANCE DO Ot Z3A.39 39 WEEKS GESTATION OF 10/03/2017 DAVID VANCE DO Ot Z68.36 BODY MASS INDEX (BMI) 36.0-36.9, ADULT Procedures Code Description [place] [address] URINE TEST (IN- HOUSE) 01/05/2013 09003 TEST, URINE (IN- HOUSE) 10/21/2014 97205 ROUTINE VENIPUNCTURE 10/22/2014 69153 A1C (IN-HOUSE) 10/22/2014 80331 CBC 10/22/2014 2241082 GFR CALC (RESULT ONLY) 10/22/2014 87861 CMP 10/22/2014 57046 UA LONG DIP 10/22/2014 55287 TSH 10/22/2014 29312 INSULIN LEVEL 10/22/2014 [id number] EXTRACTION OF POC, LOW CERVICAL, OPEN AP 10/01/2017 [id number] INTRODUCE OF ADHESION BARRIER INTO FEM R 10/01/2017 Results Test Result Range Complete urinalysis with reflex to culture - 02/09/17 13:58 Urine color determination YELLOW NRG Urine clarity determination CLEAR NRG Urine pH measurement by test strip 6.5 5-9 Specific gravity of urine by test strip 1.015 1.016- 1.022 Urine protein assay by test strip, semi-quantitative [...] 13:58 Serum or plasma choriogonadotropin measurement (units/volume) 28316 m[iU]/mL <5 Complete blood count (CBC) with automated white blood cell (WBC) differential - 05/11/17 17:04 Blood leukocytes automated count (number/volume) 12.6 10*3/uL 4.3-11.0 Blood erythrocytes automated count (number/volume) 4.21 10*6/uL 4.35-5.85 Venous blood hemoglobin measurement (mass/volume) 12.6 [...] Automated blood platelet mean volume measurement 9.4 [foz_us] 7.4-10.4 Automated blood neutrophils/100 leukocytes 77 % [...] Serum or plasma sodium measurement (moles/volume) 137 mmol/L 135-145 Serum or plasma potassium measurement (moles/volume) 3.6 mmol/L 3.6-5.0 Serum or plasma chloride measurement (moles/volume) 109 mmol/L 98-107 Carbon dioxide 19 mmol/L 21-32 Serum or plasma anion gap determination (moles/volume) 9 mmol/L 5-14 Serum or plasma urea nitrogen measurement (mass/volume) 4 mg/dL 7-18 Serum or plasma creatinine measurement (mass/volume) 0.60 mg/dL 0.60-1.30 Serum or plasma urea nitrogen/creatinine mass ratio 7 0- 20 Serum or plasma creatinine measurement with calculation [...] - 05/11/17 17:04 Lipase 23 U/L 8-78 Urine drug screening test - 05/11/17 17:50 Urine phencyclidine detection by screening method NEGATIVE NEGATIVE Urine benzodiazepines detection by screening method NEGATIVE NEGATIVE Urine cocaine detection NEGATIVE NEGATIVE Urine amphetamines detection by screening method NEGATIVE NEGATIVE Urine methamphetamine detection by screening method NEGATIVE NEGATIVE Urine cannabinoids detection by screening method POSITIVE NEGATIVE Urine opiates detection by screening method NEGATIVE NEGATIVE Urine barbiturates detection NEGATIVE NEGATIVE Screening urine tricyclic antidepressants detection NEGATIVE NEGATIVE Urine methadone detection by screening method NEGATIVE NEGATIVE Urine oxycodone detection NEGATIVE NEGATIVE Urine propoxyphene detection NEGATIVE NEGATIVE Complete urinalysis with reflex to culture - 05/11/17 17:50 Urine color determination YELLOW NRG Urine clarity determination CLEAR NRG Urine pH measurement by test strip 6.5 5-9 Specific gravity of urine by test strip 1.010 1.016- 1.022 Urine protein assay by test strip, semi-quantitative [...] urine sediment by light microscopy NONE NRG Crystals detection in urine sediment by light microscopy NONE NRG Casts detection in urine sediment by light microscopy NONE NRG Mucus detection in urine sediment by light microscopy NEGATIVE NRG Complete urinalysis with reflex to culture NO NRG Complete blood count (CBC) with automated white blood cell (WBC) differential - 07/12/17 15:20 Blood leukocytes automated count (number/volume) 11.1 10*3/uL 4.3-11.0 Blood erythrocytes automated count (number/volume) 3.92 10*6/uL 4.35-5.85 Venous blood hemoglobin measurement (mass/volume) 11.5 g/dL 11.5-16.0 Blood hematocrit (volume fraction) 34 % 35-52 Automated erythrocyte mean corpuscular volume 87 [foz_us] 80-99 Automated erythrocyte mean corpuscular hemoglobin (mass per erythrocyte) 29 pg 25-34 Automated erythrocyte mean corpuscular hemoglobin concentration measurement ( mass/volume) 34 g/dL 32-36 Automated erythrocyte distribution width ratio 12.7 % 10.0-14.5 Automated blood platelet count (count/volume) 267 10*3/uL 130-400 Automated blood platelet mean volume measurement 9.1 [foz_us] 7.4-10.4 Automated blood neutrophils/100 leukocytes 75 % 42-75 Automated blood lymphocytes/100 leukocytes 18 % 12-44 Blood monocytes/100 leukocytes 7 % 0-12 Automated blood eosinophils/100 leukocytes 1 % 0-10 Automated blood basophils/100 leukocytes 0 % 0-10 Blood neutrophils automated count (number/volume) 8.3 10*3 1.8-7.8 Blood lymphocytes automated count (number/volume) 2.0 10*3 1.0-4.0 Blood monocytes automated count (number/volume) 0.7 10*3 0.0-1.0 Automated eosinophil count 0.1 10*3/uL 0.0-0.3 Automated blood basophil count (count/volume) 0.0 10*3/uL 0.0-0.1 Complete urinalysis with reflex to culture - 09/11/17 00:25 Urine color determination YELLOW NRG Urine clarity determination CLEAR NRG Urine pH measurement by test strip 7 5-9 Specific gravity of urine by test strip 1.015 1.016- 1.022 Urine protein assay by test strip, semi-quantitative [...] detection in urine sediment by light microscopy 5-10 NRG Crystals detection in urine sediment by light microscopy NONE NRG Casts detection in urine sediment by light microscopy NONE NRG Mucus detection in urine sediment by light microscopy SMALL NRG Complete urinalysis with reflex to culture NO NRG Complete urinalysis with reflex to culture - 09/19/17 20:20 Urine color determination YELLOW NRG Urine clarity determination CLEAR NRG Urine pH measurement by test strip 6 5-9 Specific gravity of urine by test strip 1.020 1.016- 1.022 Urine protein assay by test strip, semi-quantitative 2+ NEGATIVE Urine glucose detection by automated test strip NEGATIVE NEGATIVE Erythrocytes detection in urine sediment by light microscopy NEGATIVE NEGATIVE Urine ketones detection by automated test strip 1+ NEGATIVE Urine nitrite detection by test strip NEGATIVE NEGATIVE Urine total bilirubin detection by test strip 1+ NEGATIVE Urine urobilinogen measurement by automated test strip (mass/volume) 4 mg/dL NORMAL Urine leukocyte esterase detection by dipstick 1+ NEGATIVE Automated urine sediment erythrocyte count by microscopy (number/high power field) NONE NRG Automated urine sediment leukocyte count by microscopy (number/high power field ) [HPF] NRG Bacteria detection in urine sediment by light microscopy NONE NRG Squamous epithelial cells detection in urine sediment by light microscopy 5-10 NRG Crystals detection in urine sediment by light microscopy NONE NRG Casts detection in urine sediment by light microscopy NONE NRG Mucus detection in urine sediment by light microscopy MODERATE NRG Complete urinalysis with reflex to culture NO NRG Bacterial urine culture - 09/19/17 20:20 URINE CULTURE RESULTS <10,000/ML NRG Complete urinalysis with reflex to culture - 09/27/17 15:00 Urine color determination YELLOW NRG Urine clarity determination CLEAR NRG Urine pH measurement by test strip 7 5-9 Specific gravity of urine by test strip 1.020 1.016- 1.022 Urine protein assay by test strip, semi-quantitative NEGATIVE NEGATIVE Urine glucose detection by automated test strip NEGATIVE NEGATIVE Erythrocytes detection in urine sediment by light microscopy NEGATIVE NEGATIVE Urine ketones detection by automated test strip 1+ NEGATIVE Urine nitrite detection by test strip NEGATIVE NEGATIVE Urine total bilirubin detection by test strip NEGATIVE NEGATIVE Urine urobilinogen measurement by automated test strip (mass/volume) NORMAL NORMAL Urine leukocyte esterase detection by dipstick 1+ NEGATIVE Automated urine sediment erythrocyte count by microscopy (number/high power field) NONE NRG Automated urine sediment leukocyte count by microscopy (number/high power field ) [HPF] NRG Bacteria detection in urine sediment by light microscopy FEW NRG Squamous epithelial cells detection in urine sediment by light microscopy >50 NRG Crystals detection in urine sediment by light microscopy NONE NRG Casts detection in urine sediment by light microscopy NONE NRG Mucus detection in urine sediment by light microscopy NEGATIVE NRG Complete urinalysis with reflex to culture YES NRG Yeast detection in urine sediment by light microscopy TRACE NRG Bacterial urine culture - 09/27/17 15:00 Bacterial urine culture [id number] NRG COLONY COUNT <10,000 NRG URINE CULTURE RESULTS PLUS NRG Complete urinalysis with reflex to culture - 09/30/17 19:05 Urine color determination YELLOW NRG Urine clarity determination CLEAR NRG Urine pH measurement by test strip 6 5-9 Specific gravity of urine by test strip 1.025 1.016- 1.022 Urine protein assay by test strip, semi-quantitative 1+ NEGATIVE Urine glucose detection by automated test strip NEGATIVE NEGATIVE Erythrocytes detection in urine sediment by light microscopy 2+ NEGATIVE Urine ketones detection by automated test strip 2+ NEGATIVE Urine nitrite detection by test strip NEGATIVE NEGATIVE Urine total bilirubin detection by test strip NEGATIVE NEGATIVE Urine urobilinogen measurement by automated test strip (mass/volume) NORMAL NORMAL Urine leukocyte esterase detection by dipstick NEGATIVE NEGATIVE Automated urine sediment erythrocyte count by microscopy (number/high power field) [HPF] NRG Automated urine sediment leukocyte count by microscopy (number/high power field ) NONE NRG Bacteria detection in urine sediment by light microscopy NONE NRG Squamous epithelial cells detection in urine sediment by light microscopy 0-2 NRG Crystals detection in urine sediment by light microscopy NONE NRG Casts detection in urine sediment by light microscopy NONE NRG Mucus detection in urine sediment by light microscopy NEGATIVE NRG Complete urinalysis with reflex to culture NO NRG Complete blood count (CBC) with automated white blood cell (WBC) differential - 09/30/17 19:45 Blood leukocytes automated count (number/volume) 12.4 10*3/uL 4.3-11.0 Blood erythrocytes automated count (number/volume) 4.08 10*6/uL 4.35-5.85 Venous blood hemoglobin measurement (mass/volume) 11.6 g/dL 11.5-16.0 Blood hematocrit (volume fraction) 35 % 35-52 Automated erythrocyte mean corpuscular volume 87 [foz_us] 80-99 Automated erythrocyte mean corpuscular hemoglobin (mass per erythrocyte) 28 pg 25-34 Automated erythrocyte mean corpuscular hemoglobin concentration measurement ( mass/volume) 33 g/dL 32-36 Automated erythrocyte distribution width ratio 13.7 % 10.0-14.5 Automated blood platelet count (count/volume) 291 10*3/uL 130-400 Automated blood platelet mean volume measurement 9.6 [foz_us] 7.4-10.4 Automated blood neutrophils/100 leukocytes 74 % 42-75 Automated blood lymphocytes/100 leukocytes 16 % 12-44 Blood monocytes/100 leukocytes 9 % 0-12 Automated blood eosinophils/100 leukocytes 1 % 0-10 Automated blood basophils/100 leukocytes 0 % 0-10 Blood neutrophils automated count (number/volume) 9.3 10*3 1.8-7.8 Blood lymphocytes automated count (number/volume) 2.0 10*3 1.0-4.0 Blood monocytes automated count (number/volume) 1.1 10*3 0.0-1.0 Automated eosinophil count 0.1 10*3/uL 0.0-0.3 Automated blood basophil count (count/volume) 0.0 10*3/uL 0.0-0.1 Blood type T Indirect antibody screen panel - 09/30/17 19:45 ABO+Rh group OP NRG Transfusion band number [id number] NRG Blood group antibody screen NEGATIVE NRG Complete blood count (CBC) with automated white blood cell (WBC) differential - 10/02/17 06:22 Blood leukocytes automated count (number/volume) 14.3 10*3/uL 4.3-11.0 Blood erythrocytes automated count (number/volume) 3.69 10*6/uL 4.35-5.85 Venous blood hemoglobin measurement (mass/volume) 10.6 g/dL 11.5-16.0 Blood hematocrit (volume fraction) 32 % 35-52 Automated erythrocyte mean corpuscular volume 87 [foz_us] 80-99 Automated erythrocyte mean corpuscular hemoglobin (mass per erythrocyte) 29 pg 25-34 Automated erythrocyte mean corpuscular hemoglobin concentration measurement ( mass/volume) 33 g/dL 32-36 Automated erythrocyte distribution width ratio 14.0 % 10.0-14.5 Automated blood platelet count (count/volume) 240 10*3/uL 130-400 Automated blood platelet mean volume measurement 9.4 [foz_us] 7.4-10.4 Automated blood neutrophils/100 leukocytes 72 % 42-75 Automated blood lymphocytes/100 leukocytes 18 % 12-44 Blood monocytes/100 leukocytes 9 % 0-12 Automated blood eosinophils/100 leukocytes 1 % 0-10 Automated blood basophils/100 leukocytes 0 % 0-10 Blood neutrophils automated count (number/volume) 10.4 10*3 1.8-7.8 Blood lymphocytes automated count (number/volume) 2.5 10*3 1.0-4.0 Blood monocytes automated count (number/volume) 1.3 10*3 0.0-1.0 Automated eosinophil count 0.1 10*3/uL 0.0-0.3 Automated blood basophil count (count/volume) 0.0 10*3/uL 0.0-0.1 Complete urinalysis with reflex to culture - 11/14/17 21:45 Urine color determination YELLOW NRG Urine clarity determination CLEAR NRG Urine pH measurement by test strip 7 5-9 Specific gravity of urine by test strip 1.005 1.016- 1.022 Urine protein assay by test strip, semi-quantitative [...] urine sediment by light microscopy NONE NRG Squamous epithelial cells detection in urine sediment by light microscopy RARE NRG Crystals detection in urine sediment by light microscopy NONE NRG Casts detection in urine sediment by light microscopy NONE NRG Mucus detection in urine sediment by light microscopy NEGATIVE NRG Complete urinalysis with reflex to culture NO NRG Complete blood count (CBC) with automated white blood cell (WBC) differential - 11/14/17 21:55 Blood leukocytes automated count (number/volume) 18.5 10*3/uL 4.3-11.0 Blood erythrocytes automated count (number/volume) 4.74 10*6/uL 4.35-5.85 Venous blood hemoglobin measurement (mass/volume) 13.2 g/dL 11.5-16.0 Blood hematocrit (volume fraction) 40 % 35-52 Automated erythrocyte mean corpuscular volume 84 [foz_us] 80-99 Automated erythrocyte mean corpuscular hemoglobin (mass per erythrocyte) 28 pg 25-34 Automated erythrocyte mean corpuscular hemoglobin concentration measurement ( mass/volume) 33 g/dL 32-36 Automated erythrocyte distribution width ratio 13.6 % 10.0-14.5 Automated blood platelet count (count/volume) 375 10*3/uL 130-400 Automated blood platelet mean volume measurement 9.0 [foz_us] 7.4-10.4 Automated blood neutrophils/100 leukocytes 76 % 42-75 Automated blood lymphocytes/100 leukocytes 15 % 12-44 Blood monocytes/100 leukocytes 8 % 0-12 Automated blood eosinophils/100 leukocytes 1 % 0-10 Automated blood basophils/100 leukocytes 0 % 0-10 Blood neutrophils automated count (number/volume) 14.1 10*3 1.8-7.8 Blood lymphocytes automated count (number/volume) 2.7 10*3 1.0-4.0 Blood monocytes automated count (number/volume) 1.4 10*3 0.0-1.0 Automated eosinophil count 0.3 10*3/uL 0.0-0.3 Automated blood basophil count (count/volume) 0.0 10*3/uL 0.0-0.1 Comprehensive metabolic panel - 11/14/17 21:55 Serum or plasma sodium measurement (moles/volume) 142 mmol/L 135-145 Serum or plasma potassium measurement (moles/volume) 3.7 mmol/L 3.6-5.0 Serum or plasma chloride measurement (moles/volume) 109 mmol/L 98-107 Carbon dioxide 22 mmol/L 21-32 Serum or plasma anion gap determination (moles/volume) 11 mmol/L 5-14 Serum or plasma urea nitrogen measurement (mass/volume) 8 mg/dL 7-18 Serum or plasma creatinine measurement (mass/volume) 0.78 mg/dL 0.60-1.30 Serum or plasma urea nitrogen/creatinine mass ratio 10 NRG Serum or plasma creatinine measurement with calculation of estimated glomerular filtration rate > NRG Serum or plasma glucose measurement (mass/volume) 92 mg/dL 70-105 Serum or plasma calcium measurement (mass/volume) 9.0 mg/dL 8.5-10.1 Serum or plasma total bilirubin measurement (mass/volume) 0.4 mg/dL 0.1-1.0 Serum or plasma alkaline phosphatase measurement (enzymatic activity/volume) 81 U/L 40-136 Serum or plasma aspartate aminotransferase measurement (enzymatic activity/ volume) 62 U/L 5-34 Serum or plasma alanine aminotransferase measurement (enzymatic activity/volume ) 62 U/L 0-55 Serum or plasma protein measurement (mass/volume) 6.4 g/dL 6.4-8.2 Serum or plasma albumin measurement (mass/volume) 4.0 g/dL 3.2-4.5 Blood manual differential performed detection - 11/14/17 21:55 Blood monocytes/100 leukocytes 8 % NRG Manual blood segmented neutrophils/100 leukocytes 65 % NRG Blood band neutrophils/100 leukocytes 4 % NRG Manual blood lymphocytes/100 leukocytes 22 % NRG Manual eosinophils/100 leukocytes in nose 1 % NRG Manual blood basophils/100 leukocytes 0 % NRG Blood erythrocyte morphology finding identification NORMAL NRG Lipase - 11/14/17 21:55 Lipase 72911 U/L 8-78 Encounters ACCT No. Visit Date/Time Discharge Status Pt. Type Provider Facility Loc./Unit Complaint [id number] 10/22/2014 07:49:00 10/22/2014 23:59:59 CLS Outpatient NIC MATHEWS APRN [id number] 10/21/2014 18:23:00 10/21/2014 23:59:59 CLS Outpatient NIC MATHEWS APRN [id number] 01/14/2014 10:41:00 01/14/2014 23:59:59 CLS Outpatient HUMBERTO RAWLS MD [id number] 01/05/2013 15:50:00 01/05/2013 23:59:59 CLS Outpatient HOMER HERNANDEZ PAMELA K [id number] 09/30/2017 19:16:00 10/03/2017 13:30:00 DIS Inpatient DAVID VANCE DO [facility] LDRP INDUCTION [id number] 09/27/2017 13:50:00 09/27/2017 16:30:00 DIS Outpatient DAVID VANCE DO [facility] WSo CRAMPING, DECREASED MOVEMENT [id number] 09/19/2017 19:59:00 09/19/2017 21:25:00 DIS Outpatient DAVID VANCE DO [facility] WSo DIARRHEA [id number] 09/11/2017 00:12:00 09/11/2017 01:00:00 DIS Outpatient CHERYLE ZAVALA DO [facility] WSo CONTRACTIONS [id number] 08/10/2017 12:20:00 08/10/2017 14:20:00 DIS Emergency NADIA LARRY, GURVINDER Garay [facility] ER COUGH [id number] 07/15/2017 13:04:00 07/15/2017 23:59:59 CLS Outpatient DAVID VANCE DO [facility] RAD O44.5 [id number] 07/12/2017 14:43:00 07/12/2017 16:10:00 DIS Outpatient CHANTAL LARRY, MARCOS [facility] S[facility] PAIN [id number] 05/16/2017 14:33:00 05/16/2017 23:59:59 CLS Outpatient JOEJAVON HERNANDEZ DAVID Tanisha [facility] RAD SURVEY [id number] 05/11/2017 16:39:00 05/11/2017 18:53:00 DIS Emergency LEXIE WHITEHEAD APRN [facility] ER DEHYDRATED [id number] 02/09/2017 13:29:00 02/09/2017 16:25:00 DIS Emergency BRAYAN CURTIS [facility] ER SPOTTING, 5W [id number] 03/01/2015 13:13:00 03/01/2015 14:35:00 DIS Emergency BRAYAN CURTIS [facility] ER SORE THROAT [id number] 11/14/2017 22:05:00 Document Registration
[2017-11-15 00:55] VITALS: BP 133/88
[2017-11-15] MEDS ORDERED: CIPROFLOXACIN 400 MG/D5W 200 ML (PRE-MIX) IV SCH (01:08)
[2017-11-15] MEDS ORDERED: metroNIDAZOLE 500 MG/100 ML IVPB (PRE-MIX) IV SCH (01:08)
[2017-11-15] MEDS ORDERED: NS IV 1000 ML 1,000 ML IV SCH (01:15)
[2017-11-15] MEDS ORDERED: ONDANSETRON 4 MG/2 ML (SDV) Z0FRAN IV PRN (01:15)
[2017-11-15] MEDS: fentaNYL INJECTION 100 MCG/2 ML AMP IV PRN ×3 (03:00→10:32)
--- NOTE | 2017-11-15 03:01 | History & Physical-Surgical ---
History of Present Illness History of Present Illness Reason for visit/HPI Pt is a 21 yo female who presents to ER with epigastric abdominal pain that radiates through to her back. This began about 3-4 hours prior to coming to ER. Last food intake was at 7 PM. Pt denies nausea or vomiting. No fevers or chills. Normal bowel movements. She did have one similar episode after her C- section in September of this year. She thinks (looking back) that she may have had many more episodes like this, but just attributed it to being . She said this time she got 10 out of 10 pain and felt like she couldn't breathe. She does not think it is usually associated with foods, but this time it occured after [place] pasta. This is a sharp, stabbing pain and nothing except the pain meds make it better. Timing/Duration: 1-3 Hours Severity/Quality: Severe Location: RUQ, Epigastric Radiation: No Radiation Activities at Onset: None Associated Symptoms: No Nausea/Vomiting Date of Admission Nov 14, 2017 at 23:16 Time Seen by Provider: 23:50 I consulted on this patient on 11/15/17 02:35 Attending Physician Clemente Chavez DO Admitting Physician No,Local Physician Consult Allergies and Home Medications Allergies Coded Allergies: Penicillins (Verified Allergy, Mild, HIVES, 09/30/17) Home Medications Levonorgestrel-Ethin Estradiol 1 Each Tablet, (Reported) Sertraline HCl 25 Mg Tablet, (Reported) Past Dldzyhq-Vtszpf-Vmjwim Hx Patient Social History Alcohol Use: Denies Use Recreational Drug Use: Yes (THC) Smoking Status: Current Everyday Smoker Former Smoker, Quit: Feb 16, 2017 Type Used: Cigarettes 2nd Hand Smoke Exposure: No Recent Foreign Travel: No Contact w/Someone Who Travel: No Recent Infectious Disease Expo: No Recent Hopitalizations: No Physical Abuse Screen: No Sexual Abuse: No Immunizations Up To Date Tetanus Booster (TDap): Less than 5yrs Date of Influenza Vaccine: Aug 26, 2017 Seasonal Allergies Seasonal Allergies: No Surgeries History of Surgeries: Yes Surgeries: Section Respiratory History of Respiratory Disorde: No Cardiovascular History of Cardiac Disorders: No Neurological History of Neurological Disord: No Reproductive System : No Hx Reproductive Disorders: No Sexually Transmitted Disease: No HIV/AIDS: No Genitourinary History of Genitourinary Disor: No Gastrointestinal History of Gastrointestinal Di: No Musculoskeletal History of Musculoskeletal Dis: No Endocrine History of Endocrine Disorders: No HEENT History of HEENT Disorders: No Cancer History of Cancer: No Psychosocial History of Psychiatric Problem: Yes Behavioral Health Disorders: Depression Integumentary History of Skin or Integumenta: No Blood Transfusions History of Blood Disorders: No Adverse Reaction to a Blood Tr: No Family Medical History Significant Family History: Cancer (mother had ovarian cancer, grandmother had breast cancer), Diabetes (denies) Family Medial History: Cervical cancer 19 MOTHER Constitutional: chills, diaphoresis, No fever, weakness EENTM: No hearing loss, No blurred vision, No mouth swelling, No epistaxis, No throat swelling Respiratory: No cough, No dyspnea on exertion, short of breath Cardiovascular: chest pain, No edema, No palpitations Gastrointestinal: RUQ, abdominal pain, diarrhea, No hematemesis, No jaundice Genitourinary: No dysuria, No frequency, No hematuria Control/STD Prophylaxis: BC Pills Musculoskeletal: No back pain, No gout, No joint pain, No joint swelling Skin: No change in color, No change in hair/nails Psychiatric/Neurological: Denies Anxiety, Denies Depressed, Denies Seizure, Denies Tingling, Denies Tremors Other pt denies any abnormal bruising or bleeding, no recurrent infections Physical Exam Vital Signs Vital Sign - Last 12Hours 11/14/17 21:40 Temp 98.1 Pulse 70 Resp 16 B/P (MAP) 136/75 (95) Pulse Ox 98 O2 Delivery Room Air Capillary Refill : Less Than 3 Seconds General Appearance: WD/WN, Mild Distress Eyes: Bilateral Eye PERRL, Bilateral Eye EOMI HEENT: Pharynx Normal, No Pale Conjunctivae (L), No Pale Conjunctivae (R), No Scleral Icterus (L), No Scleral Icterus (R) Neck: Full Range of Motion, Normal Inspection, Non Tender, Supple Respiratory: Chest Non Tender, Lungs Clear, Normal Breath Sounds, No Accessory Muscle Use, No Respiratory Distress Cardiovascular: Regular Rate, Rhythm, No Murmur, Normal Peripheral Pulses Gastrointestinal: Normal Bowel Sounds, No Organomegaly, No Pulsatile Mass, Soft , Tenderness (midepigastric and RUQ) Rectal: Deferred Back: Normal Inspection, No CVA Tenderness, No Vertebral Tenderness Extremity: Normal Capillary Refill, Normal Inspection, Normal Range of Motion, Non Tender, No Calf Tenderness, No Pedal Edema Neurologic/Psychiatric: Alert, Oriented x3, No Motor/Sensory Deficits, Normal Mood/Affect, graphic design assistant II-XII Norm as Tested Skin: Normal Color, Warm/Dry Lymphatic: No Adenopathy (neck, axilla or groin) Data Review Labs Laboratory Tests 11/14/17 21:45: Urine Color YELLOW, Urine Clarity CLEAR, Urine pH 7, Urine Specific [place] 1.005L, Urine Protein NEGATIVE, Urine Glucose (UA) NEGATIVE, Urine Ketones NEGATIVE, Urine Nitrite NEGATIVE, Urine Bilirubin NEGATIVE, Urine Urobilinogen NORMAL, Urine Leukocyte Esterase NEGATIVE, Urine RBC (Auto) NEGATIVE, Urine RBC NONE, Urine WBC NONE, Urine Squamous Epithelial Cells RARE, Urine Crystals NONE , Urine Bacteria NONE, Urine Casts NONE, Urine Mucus NEGATIVE, Urine Culture Indicated NO 11/14/17 21:55: White Blood Count 18.5H, Red Blood Count 4.74, Hemoglobin 13.2, Hematocrit 40, Mean Corpuscular Volume 84, Mean Corpuscular Hemoglobin 28, Mean Corpuscular Hemoglobin Concent 33, Red Cell Distribution Width 13.6, Platelet Count 375, Mean Platelet Volume 9.0, Neutrophils (%) (Auto) 76H, Lymphocytes (%) (Auto) 15 , Monocytes (%) (Auto) 8, Eosinophils (%) (Auto) 1, Basophils (%) (Auto) 0, Neutrophils # (Auto) 14.1H, Lymphocytes # (Auto) 2.7, Monocytes # (Auto) 1.4H, Eosinophils # (Auto) 0.3, Basophils # (Auto) 0.0, Neutrophils % (Manual) 65, Lymphocytes % (Manual) 22, Monocytes % (Manual) 8, Eosinophils % (Manual) 1, Basophils % (Manual) 0, Band Neutrophils 4, Blood Morphology Comment NORMAL, Sodium Level 142, Potassium Level 3.7, Chloride Level 109H, Carbon Dioxide Level 22, Anion Gap 11, Blood Urea Nitrogen 8, Creatinine 0.78, Estimat Glomerular Filtration Rate > 60, BUN/Creatinine Ratio 10, Glucose Level 92, Calcium Level 9.0, Total Bilirubin 0.4, Aspartate Amino Transf (AST/SGOT) 62H, Alanine Aminotransferase (ALT/SGPT) 62H, Alkaline Phosphatase 81, Total Protein 6.4, Albumin 4.0, Lipase [id number] Assessment/Plan Assessment/Plan Assessment/Plan Acute Cholecystitis/Cholelithiasis Pancreatitis Plan is NPO, IV fluids, pain control, anti-emetics as needed. Pt had CT and US that showed stones with an 18K WBC and Lipase of almost 19K with mildly elevated AST and ALT (both 62) and normal Bilirubin. I believe she would benefit from Lap Tess with IOC; will get consent for this. Discussed the risks and complications; not limited to pain, bleeding, infection, scar, damage to bowel or bile duct and need for further procedure. All questions answered to her satisfaction. Clinical Quality Measures DVT/VTE Risk/Contraindication: Risk Factor Score Per Nursin RFS Level Per Nursing on Admit: 2=Moderate CLEMENTE CHAVEZ DO Nov 15, 2017 03:01
[2017-11-15 04:13] VITALS: BP 123/74
[2017-11-15] MEDS ORDERED: morphine INJ 10 MG/ML 1ML (SYR OR VIAL) ONE (04:20)
[2017-11-15] MEDS ORDERED: MEPERIDINE (DEMEROL) INJ 50 MG/ML ONE (04:21)
[2017-11-15] MEDS ORDERED: NS (IVPB) 50 ML ONE (04:40)
[2017-11-15] MEDS ORDERED: CLINDAMYCIN 900 MG/6ML (CLEOCIN) VIAL ONE (04:40)
[2017-11-15] MEDS ORDERED: CLINDAMYCIN INJECTION 900 MG in NS (IVPB) 50 ML IV ONE (05:15)
[2017-11-15] MEDS ORDERED: BUP/EPI 0.5% 1:200,000 (MARCAINE) 10ML VIAL IJ ONE (05:18)
[2017-11-15] MEDS ORDERED: LACTATED RINGERS 1,000 ML IV PRN (05:26)
[2017-11-15] MEDS ORDERED: ONDANSETRON 4 MG/2 ML (SDV) Z0FRAN ONE (05:36)
[2017-11-15] MEDS ORDERED: LIDOCAINE PF 2% 5 ML (XYLOCAINE) VIAL ONE (05:36)
[2017-11-15] MEDS ORDERED: LACTATED RINGERS 1,000 ML IV ONE (05:36)
[2017-11-15] MEDS ORDERED: proPOfol 200 MG/20 ML (DIPRIVAN) VIAL IV ONE (05:36)
[2017-11-15] MEDS ORDERED: fentaNYL INJECTION 100 MCG/2 ML AMP ONE (05:36)
[2017-11-15] MEDS ORDERED: MIDAZOLAM 2 MG/2 ML (VERSED) VIAL ONE (05:36)
[2017-11-15] MEDS ORDERED: ROCURONIUM 50 MG/5 ML (ZEMURON) VIAL IV ONE (05:37)
[2017-11-15] MEDS ORDERED: SEVOFLURANE (ULTANE) 15 ML INHAL SOLN ONE ×5 (05:39→06:44)
[2017-11-15] MEDS ORDERED: GLYCOPYRROLATE 0.2 MG/ML (ROBINUL) 2 ML VIAL ONE (06:44)
[2017-11-15] MEDS ORDERED: NEOSTIGMINE (BLOXIVERZ ) 1 MG/1ML 10 ML VIAL ONE (06:44)
--- NOTE | 2017-11-15 06:55 | Diagnostic Imaging Report ---
INDICATION: Abdominal pain IMPRESSION: 20 seconds of fluoroscopy was used during intraoperative cholangiogram. Submitted digital images show good opacification of the common duct with no appreciable filling defects. Contrast appeared to flow into the duodenum. Dictated by: Dictated on workstation # [id number]
--- NOTE | 2017-11-15 06:56 | Progress Note-Post Operative ---
Post-Operative Progess Note Surgeon (s)/Operations Business Partner (s) Surgeon SANDY BOWERS DO Operations Business Partner: None Pre-Operative Diagnosis Acute Rufina/rufina Post-Operative Diagnosis Same Procedure & Operative Findings Date of Procedure 11/15/17 Procedure Performed/Findings Lap Rufina with IOC Anesthesia Type GET Estimated Blood Loss Estimated blood loss (mL): less than 5ml Specimens/Packing Specimens Removed GB and contents SANDY BOWERS DO Nov 15, 2017 06:56
[2017-11-15] MEDS ORDERED: ACHD5005 PO (06:58)
[2017-11-15] MEDS ORDERED: HYDROcodone/APAP 5 MG/325 MG (LORTAB) TAB PO NR (07:00)
--- NOTE | 2017-11-15 07:00 | Discharge Inst-Surgical ---
Discharge Inst-Surgical Depart Medication/Instructions New, Converted or Re-Newed RX: RX Given to Pt/Family Patient Instructions Follow up Appt: Make appointment for 1 week [phone]. Instructions: No lifting greater than 10 pounds. No strenuous activity. May shower in 24 hours, no tub bath or soaking. Use incentive spirometer at home as directed. No Smoking Skin/Wound Care: May remove bandages in am. You need to leave the Dermabond on over incision it will fall off on its own. Symptoms to Report: Appetite Changes, Extremity Discoloration, Numbness/Tingling, Swelling Increased , Bleeding Excessive, Eyesight Changes, Pain Increased, Urine Color Change, Constipation(Persistent), Fever over 101 degree F, Pain/Pressure in chest, Urinating Difficulty, Cough Up/Vomit Blood, Heart Beat Irreg/Pounding, Pain/ Pressure in jaw, Vaginal Bleeding Increase, Cramps in feet or legs, Lightheadedness, Pain/Pressure in shoulder, Diarrhea(Persistent), Memory Changes Suddenly, Questions/Concerns, Weight gain consecutive days, Dizziness/ Fainting, Nausea/Vomiting, Shortness of Breath, Weight gain over 2 pounds. If eyes or skin turn yellow notify physician. If questions or concerns contact your physician Or seek help at emergency department. Activity Activity Instructions: Avoid Pulling & Pushing, Avoid Stress to Incision Driving Instructions: No Driving/Refer to Diet Discharge Diet: Avoid Fatty Foods, Low Fat/Low Cholesterol Diet After 24 Hours: Clear Liquid if Nauseous If Any Problems/Questions/Issu: Contact Your Physician, Go to Emergency Room Skin/Wound Care Infection Signs and Symptoms: Increased Redness, Foul Odor of Wound, Increased Drainage, Skin Itchy or Has a Rash, Increased Swelling, Temperature Above 101 F Wound Care Comment: heating pad to shoulder or neck tonight for pain Bathing Instructions: Shower Stitches/[place]/Dermabond Dis: Dermabond Ice Pack: Ice On and Off Site SANDY BOWERS DO Nov 15, 2017 07:00
--- NOTE | 2017-11-15 07:08 | Diagnostic Imaging Report ---
PROCEDURE: US Gallbladder. TECHNIQUE: Multiple real-time grayscale images were obtained over the right upper quadrant in various projections. INDICATION: Abdominal pain Comparison: None FINDINGS: The liver appears unremarkable. The common bile duct is not well seen, obscured by bowel gas. No gross biliary dilatation is suspected. There are multiple mobile stones seen throughout the gallbladder. There is no gallbladder wall thickening or pericholecystic fluid. Technologist does report positive sonographic Adkins sign. Pancreas is unremarkable as visualized but incompletely seen. The right kidney measures 11 cm in length and appears normal. There is no ascites. IMPRESSION: 1. Cholelithiasis without visualized evidence of cholecystitis although there is a positive sonographic Adkins's sign. No gross biliary dilatation is seen although the common bile duct is obscured by bowel gas and not well evaluated. 2. No additional abnormality is seen. Agree with [facility] interpretation. Dictated by: Dictated on workstation # [id number]
[2017-11-15] MEDS: morphine INJ 10 MG/ML 1ML (SYR OR VIAL) IVP PRN ×2 (07:10→07:15)
[2017-11-15] MEDS ORDERED: MEPERIDINE (DEMEROL) INJ 50 MG/ML IVP PRN (07:15)
[2017-11-15] MEDS ORDERED: ONDANSETRON 4 MG/2 ML (SDV) Z0FRAN IVP PRN (07:15)
--- NOTE | 2017-11-15 07:34 | Diagnostic Imaging Report ---
PROCEDURE: CT abdomen and pelvis with contrast. TECHNIQUE: Multiple contiguous axial images were obtained through the abdomen and pelvis after administration of intravenous contrast. INDICATION: Abdominal pain Lung bases are clear. Liver is normal. Gallbladder is present. Pancreas normal. Spleen is not enlarged. Kidneys and adrenals are normal. Appendix is normal. Small bowel is not dilated. There is a small right ovarian teratoma containing fat and calcification. This measures 12 mm in diameter. Left ovary and uterus are normal. There is no intraperitoneal free air or free fluid. IMPRESSION: Probable constipation. Small right ovarian teratoma. Dictated by: Dictated on workstation # [id number]
--- NOTE | 2017-11-15 07:41 | OPERATIVE REPORT ---
DATE OF SERVICE: 11/15/2017 PREOPERATIVE DIAGNOSIS: 1. Acute cholecystitis, cholelithiasis. 2. Pancreatitis. POSTOPERATIVE DIAGNOSES: 1. Acute cholecystitis, cholelithiasis. 2. Pancreatitis. PROCEDURE: Laparoscopic cholecystectomy, intraoperative cholangiogram. SURGEON: Dr. Chavez. AUTOMOBILE SEAT COVER INSTALLER: None. ANESTHESIA: General endotracheal tube. SPECIMEN: Gallbladder and contents. BLOOD LOSS: Less than 5 mL. FLUIDS: Per anesthesia. POSTOPERATIVE CONDITION: Stable. INDICATION FOR PROCEDURE: The patient is a 21-year-old female who has severe midepigastric and right upper quadrant pain and ultrasound and CT scan which showed multiple gallstones and actually had an elevated lipase, probably a pancreatitis. FINDINGS: The patient had edema around the gallbladder as well as erythema. This looked like an acute cholecystitis. She also had very dilated ducts. There was a stone in the cystic duct, able to get this out, but no stones in the common duct. PROCEDURE NOTE: After informed consent was obtained, the patient was brought to the operating room, placed on the table in supine position. She was sterilely prepped and draped in normal fashion. Local lidocaine was used to infiltrate the skin above the umbilicus. Made an incision with #11 blade, carried down through the skin and subcutaneous tissue, then deepened down through subcutaneous tissue with Bovie electrocautery down to the fascia. Fascia incised with Bovie electrocautery and I bluntly entered the abdomen, swept a finger around, placed 0 Vicryl etlnaw-qa-[id number] suture and placed an 11 mm trocar port under direct visualization. Created pneumoperitoneum and then placed 3 more ports in a normal fashion using local lidocaine, 11 blade for stab incision and the VersaStep system, all done under direct visualization, one in the subxiphoid and 2 in the right upper quadrant. She was then placed in reverse Trendelenburg and rotated left. Able to visualize the gallbladder, it was erythematous and it was edematous. Grasped the fundus, took it in a superior direction noted some adhesions. Took these down with blunt dissection as well as Bovie electrocautery and then once able to free this up and then able to grasp down to Rolle's pouch and pull in the inferolateral direction and start dissecting out the cystic duct and cystic artery. There were a couple of small vessels. A second accessory artery that bled a little bit. I got a clip around the artery proximally and then 2 distally and the 1 proximally around the cystic duct. Cut the cystic duct mcc through with Metzenbaum scissors. Placed a cholangiogram. Then when I cut with the Metzenbaum scissors, a stone came out. I tried to milk the ducts, common and cystic, and did not get any more stones. Placed a cholangiogram catheter, shot a cholangiogram and got good spillage of dye down the common bile duct into the small intestine as well as up in the common hepatic and right and left hepatics. I then removed the cholangiogram catheter, placed 2 clips proximally on the cystic duct and then cut the cystic duct and cystic artery with Metzenbaum scissors. Removed the gallbladder from the bed of bed of the liver with L-hook cautery, once this was completely removed, placed the bag in the abdomen, placed the gallbladder in the bag and then removed this through a supraumbilical incision. Placed the port back in the abdomen, copiously irrigated with normal saline, suctioned this out, looked at the bed of the liver. There was no bleeding, no other obvious pathology at least seen in the liver. I did not really look around in the abdomen. I then placed the patient supine and then removed all ports under direct visualization and allowed the pneumoperitoneum to escape as well as suction it out. Closed the supraumbilical incision. Closed the fascia with 0 Vicryl suture previously placed. Copiously irrigated all incisions with normal saline, closing the 3 small 5 mm incisions with a single interrupted 4-0 undyed Monocryl subcuticular stitch. Closed the supraumbilical incision with 3 interrupted 4-0 undyed Monocryl subcuticular stitches. Area was cleaned and dried and Dermabond placed as well as Band-Aids, then the patient transferred to recovery room in stable condition. Sponge, instrument and needle count correct at the end of the case. Job ID: [id number] DocumentID: [id number] Dictated Date: 11/15/2017 06:55:06 Injection Molding Supervisor Date: 11/15/2017 07:41:25 Dictated By: SANDY CHAVEZ DO
[2017-11-15 08:00] VITALS: BP 117/74
[2017-11-15 08:26] LABS: BASOPHILS % (AUTO) 0 % (0-10); EOSINOPHILS # (AUTO) 0.1 10^3/uL (0.0-0.3); EOSINOPHILS % (AUTO) 1 % (0-10); HEMATOCRIT 38 % (35-52); HEMOGLOBIN 12.4 G/DL (11.5-16.0); LYMPHOCYTES # (AUTO) 1.8 X 10^3 (1.0-4.0); LYMPHOCYTES % (AUTO) 12 % (12-44); MEAN CORPUSCULAR HEMOGLOBIN 28 PG (25-34); MEAN CORPUSCULAR HGB CONC 33 G/DL (32-36); MEAN CORPUSCULAR VOLUME 85 FL (80-99); MEAN PLATELET VOLUME 9.4 FL (7.4-10.4); MONOCYTES # (AUTO) 0.5 X 10^3 (0.0-1.0); MONOCYTES % (AUTO) 3 % (0-12); NEUTROPHILS # (AUTO) 12.6 X 10^3 (1.8-7.8); NEUTROPHILS % (AUTO) 84 % (42-75); PLATELET COUNT 330 10^3/uL (130-400); RED CELL DISTRIBUTION WIDTH 13.7 % (10.0-14.5)
[2017-11-15 08:34] LABS: ALANINE AMINOTRANSFERASE 106 U/L (0-55); ALBUMIN 3.6 GM/DL (3.2-4.5); ALKALINE PHOSPHATASE 101 U/L (40-136); BILIRUBIN,TOTAL 0.4 MG/DL (0.1-1.0); BUN/CREATININE RATIO 8; CALCIUM 8.4 MG/DL (8.5-10.1); CARBON DIOXIDE 21 MMOL/L (21-32); CHLORIDE 108 MMOL/L (98-107); CREATININE SERUM 0.73 MG/DL (0.60-1.30); GFR ESTIMATED > 60; GLUCOSE 108 MG/DL (70-105); POTASSIUM 3.7 MMOL/L (3.6-5.0); SODIUM 139 MMOL/L (135-145); TOTAL PROTEIN 5.9 GM/DL (6.4-8.2)
[2017-11-15 12:01] VITALS: BP 125/72
[2017-11-15] MEDS ORDERED: HYDROcodone/APAP 5 MG/325 MG (LORTAB) TAB PO PRN (13:45)
[2017-11-15 14:35] VITALS: BP 125/72
--- OUTSIDE RECORDS SUMMARY | 2017-11-19 12:47 | XMS REPORT | Continuity of Care Document ---
Author Author [facility] Address Unknown Phone Unavailable Allergies Active Description Code Type Severity Reaction Onset Reported/Identified Relationship to Patient Clinical Status Yes Penicillins Drug Allergy N/A N/A 01/14/2014 Yes No Known Drug Allergies [id number] Drug Allergy Unknown N/A 05/11/2017 Yes Penicillins [id number] Drug Allergy Mild HIVES 09/30/2017 Medications There [...] 8 WEEKS GESTATION OF 05/11/2017 LEXIE WHITEHEAD CAR SHAKEOUT OPERATOR Ot F17.210 NICOTINE DEPENDENCE, CIGARETTES, UNCOMPL 05/11/2017 LEXIE WHITEHEAD CAR SHAKEOUT OPERATOR Ot O21.9 VOMITING OF , UNSPECIFIED 05/11/2017 LEXIE WHITEHEAD CAR SHAKEOUT OPERATOR Ot O99.282 ENDO, NUTRITIONAL AND METAB DISEASES COM 05/11/2017 LEXIE WHITEHEAD CAR SHAKEOUT OPERATOR Ot O99.332 SMOKING (TOBACCO) COMPLICATING 05/11/2017 LEXIE WHITEHEAD CAR SHAKEOUT OPERATOR Ot Z3A.20 20 WEEKS GESTATION OF 06/03/2017 [...] Procedures Code [place] [address] URINE TEST (IN- HOUSE) 01/05/2013 30182 TEST, URINE (IN- HOUSE) 10/21/2014 60255 ROUTINE VENIPUNCTURE 10/22/2014 48156 A1C (IN-HOUSE) 10/22/2014 11800 CBC 10/22/2014 5484923 GFR CALC (RESULT ONLY) 10/22/2014 54191 CMP 10/22/2014 69832 UA LONG DIP 10/22/2014 19879 TSH 10/22/2014 06643 INSULIN LEVEL 10/22/2014 [id number] EXTRACTION OF POC, LOW CERVICAL, OPEN AP 10/01/2017 [id number] INTRODUCE OF ADHESION BARRIER INTO FEM R [...] 13:58 Serum or plasma choriogonadotropin measurement (units/volume) 43082 m[iU]/mL <5 Complete blood count (CBC) with [...] culture - 09/27/17 15:00 Bacterial urine culture [id number] NRG COLONY COUNT <10,000 NRG URINE CULTURE [...] ABO+Rh group OP NRG Transfusion band number [id number] NRG Blood group antibody screen NEGATIVE NRG [...] blood basophil count (count/volume) 0.0 10*3/uL 0.0-0.1 Urine beta human chorionic gonadotropin (hCG) measurement - 11/14/17 21:43 Urine beta human chorionic gonadotropin (hCG) measurement NEGATIVE NEGATIVE Complete urinalysis with reflex to [...] NRG Blood erythrocyte morphology finding identification NORMAL NR Lipase - 11/14/17 21:55 Lipase 46862 U/L 8-78 Methicillin resistant Staphylococcus aureus (MRSA) screening culture - 02:56 Methicillin resistant Staphylococcus aureus (MRSA) screening culture NEG NR Complete blood count (CBC) with automated white blood cell (WBC) differential - 11/15/17 07:56 Blood leukocytes automated count (number/volume) 15.0 10*3/uL 4.3-11.0 Blood erythrocytes automated count (number/volume) 4.50 10*6/uL 4.35-5.85 Venous blood hemoglobin measurement (mass/volume) 12.4 g/dL 11.5-16.0 Blood hematocrit (volume fraction) 38 % 35-52 Automated erythrocyte mean corpuscular volume 85 [foz_us] 80-99 Automated erythrocyte mean corpuscular hemoglobin (mass per erythrocyte) 28 pg 25-34 Automated erythrocyte mean corpuscular hemoglobin concentration measurement ( mass/volume) 33 g/dL 32-36 Automated erythrocyte distribution width ratio 13.7 % 10.0-14.5 Automated blood platelet count (count/volume) 330 10*3/uL 130-400 Automated blood platelet mean volume measurement 9.4 [foz_us] 7.4-10.4 Automated blood neutrophils/100 leukocytes 84 % 42-75 Automated blood lymphocytes/100 leukocytes 12 % 12-44 Blood monocytes/100 leukocytes 3 % 0-12 Automated blood eosinophils/100 leukocytes 1 % 0-10 Automated blood basophils/100 leukocytes 0 % 0-10 Blood neutrophils automated count (number/volume) 12.6 10*3 1.8-7.8 Blood lymphocytes automated count (number/volume) 1.8 10*3 1.0-4.0 Blood monocytes automated count (number/volume) 0.5 10*3 0.0-1.0 Automated eosinophil count 0.1 10*3/uL 0.0-0.3 Automated blood basophil count (count/volume) 0.0 10*3/uL 0.0-0.1 Comprehensive metabolic panel - 11/15/17 07:56 Serum or plasma sodium measurement (moles/volume) 139 mmol/L 135-145 Serum or plasma potassium measurement (moles/volume) 3.7 mmol/L 3.6-5.0 Serum or plasma chloride measurement (moles/volume) 108 mmol/L 98-107 Carbon dioxide 21 mmol/L 21-32 Serum or plasma anion gap determination (moles/volume) 10 mmol/L 5-14 Serum or plasma urea nitrogen measurement (mass/volume) 6 mg/dL 7-18 Serum or plasma creatinine measurement (mass/volume) 0.73 mg/dL 0.60-1.30 Serum or plasma urea nitrogen/creatinine mass ratio 8 NRG Serum or plasma creatinine measurement with calculation of estimated glomerular filtration rate > NRG Serum or plasma glucose measurement (mass/volume) 108 mg/dL 70-105 Serum or plasma calcium measurement (mass/volume) 8.4 mg/dL 8.5-10.1 Serum or plasma total bilirubin measurement (mass/volume) 0.4 mg/dL 0.1-1.0 Serum or plasma alkaline phosphatase measurement (enzymatic activity/volume) 101 U/L 40-136 Serum or plasma aspartate aminotransferase measurement (enzymatic activity/ volume) 123 U/L 5-34 Serum or plasma alanine aminotransferase measurement (enzymatic activity/volume ) 106 U/L 0-55 Serum or plasma protein measurement (mass/volume) 5.9 g/dL 6.4-8.2 Serum or plasma albumin measurement (mass/volume) 3.6 g/dL 3.2-4.5 Encounters ACCT No. Visit Date/Time Discharge Status Pt. Type Provider Facility Loc./Unit Complaint [id number] 10/22/2014 07:49:00 10/22/2014 23:59:59 CLS Outpatient NIC MATHEWS APRN [id number] 10/21/2014 18:23:00 10/21/2014 23:59:59 CLS Outpatient NIC MATHEWS APRN [id number] 01/14/2014 10:41:00 01/14/2014 23:59:59 CLS Outpatient HUMBERTO RAWLS MD [id number] 01/05/2013 15:50:00 01/05/2013 23:59:59 CLS Outpatient PAMELA CORONEL DO [id number] 09/30/2017 19:16:00 10/03/2017 13:30:00 DIS Inpatient DAVID VANCE DO [facility] LDRP INDUCTION [id number] 09/27/2017 13:50:00 09/27/2017 16:30:00 DIS Outpatient DAVID VANCE DO [facility] WSo CRAMPING, DECREASED MOVEMENT [id number] 09/19/2017 19:59:00 09/19/2017 21:25:00 DIS Outpatient DAVID VANCE DO [facility] WSo DIARRHEA [id number] 09/11/2017 00:12:00 09/11/2017 01:00:00 DIS Outpatient ZAVALACHERYLE Gallardo DO C [facility] WSo CONTRACTIONS [id number] 08/10/2017 12:20:00 08/10/2017 14:20:00 DIS Emergency GURVINDER ZUNIGA MD [facility] ER COUGH [id number] 07/15/2017 13:04:00 07/15/2017 23:59:59 CLS Outpatient DAVID VANCE DO [facility] RAD O44.5 [id number] 07/12/2017 14:43:00 07/12/2017 16:10:00 DIS Outpatient MARCOS CORNEJO MD [facility] WSo RT SIDE PAIN [id number] 05/16/2017 14:33:00 05/16/2017 23:59:59 CLS Outpatient RAJIV HERNANDEZ DAVID Tanisha [facility] RAD SURVEY [id number] 05/11/2017 16:39:00 05/11/2017 18:53:00 DIS Emergency LEXIE WHITEHEAD APRN [facility] ER DEHYDRATED [id number] 02/09/2017 13:29:00 02/09/2017 16:25:00 DIS Emergency BRAYAN CURTIS [facility] ER SPOTTING, 5W [id number] 03/01/2015 13:13:00 03/01/2015 14:35:00 DIS Emergency BRAYAN CURTIS [facility] ER SORE THROAT [id number] 11/14/2017 22:05:00 Document Registration
== END 2017-11-15 14:35 | disposition home or self-care (01) ==
LOC: EDUNIT# 21:07 → ER 21:08 → UNDOADMOB 23:16 → SDC 23:16 → 4TH 23:16 → SDC 11-15 14:35 → UNDODISOB 11-15 14:35
PROVIDERS: ATTEND Surgery
DX: K80.10 Calculus of gallbladder with chronic cholecystitis without obstruction (principal); K85.90 Acute pancreatitis without necrosis or infection, unspecified; F32.9 Major depressive disorder, single episode, unspecified; Z87.891 Personal history of nicotine dependence; Z79.899 Other long term (current) drug therapy
CPT/HCPCS: 36415; 74177; 74300; 76705; 80053; 81000; 83690; 84703; 85007; 85025; 85027; 87081; 96374; 96375; 96376

== ENCOUNTER → 2017-12-18 | Outpatient (CLI) | payer MEDICAID ==
[~2017-12-18] MED LIST changes: +LEVO1TAB9 PO; +SERT25TA5 PO
--- NOTE | 2017-12-18 14:53 | Diagnostic Imaging Report ---
PROCEDURE: US PELVIC (NON OB) TECHNIQUE: Multiple real-time grayscale images were obtained over the pelvis in various projections transabdominally. INDICATION: Right ovarian mass noted on CT study. The study is performed for further evaluation. COMPARISON: Correlation is made with CT exam from 11/14/2017. FINDINGS: The uterus measures 7.7 x 4.1 x 4.6 cm. The endometrium is 6 mm in thickness. No uterine mass is identified. The right ovary measures 3.9 x 3.0 x 2.7 cm, and the left ovary measures 3.5 x 2.1 x 3.2 cm. There is a 1.9 cm right ovarian cyst. There is a small hyperechoic mass within the right ovary as well measuring approximately 1.4 x 1.2 cm, corresponding with the fat-containing mass noted on recent CT. This most likely represents a small dermoid. The left ovary is unremarkable. There is no free fluid. IMPRESSION: Right ovarian cyst and probable small right ovarian dermoid. No other significant abnormality is detected. Dictated by: Dictated on workstation # [id number]
== END ==
LOC: RAD 12:52
PROVIDERS: ATTEND Obstetrics & Gynecology
DX: N83.201 Unspecified ovarian cyst, right side (principal)
CPT/HCPCS: 76856

== ENCOUNTER 2017-12-25 13:29 | Emergency (ER) | payer SELFPAY ==
[~2017-12-25] VITALS: Ht 162.6 cm; Wt 85.3 kg
--- OUTSIDE RECORDS SUMMARY | 2017-12-25 13:36 | XMS REPORT | Continuity of Care Document ---
Author Author Formerly [facility], [facility] Address Unknown Phone Unavailable Allergies Active Description Code Type Severity Reaction Onset Reported/Identified Relationship to Patient Clinical Status Yes Penicillins Drug Allergy N/A N/A 01/14/2014 Yes No Known Drug Allergies [id number] Drug Allergy Unknown N/A 05/11/2017 Yes Penicillins [id number] Drug Allergy Mild HIVES 09/30/2017 Medications There [...] 8 WEEKS GESTATION OF 05/11/2017 LEXIE WHITEHEAD DUCK FARMER Ot F17.210 NICOTINE DEPENDENCE, CIGARETTES, UNCOMPL 05/11/2017 LEXIE WHITEHEAD DUCK FARMER Ot O21.9 VOMITING OF , UNSPECIFIED 05/11/2017 LEXIE WHITEHEAD DUCK FARMER Ot O99.282 ENDO, NUTRITIONAL AND METAB DISEASES COM 05/11/2017 LEXIE WHITEHEAD DUCK FARMER Ot O99.332 SMOKING (TOBACCO) COMPLICATING 05/11/2017 LEXIE WHITEHEAD DUCK FARMER Ot Z3A.20 20 WEEKS GESTATION OF 06/03/2017 [...] LOW LYING PLACENTA WITH HEMORRHAGE, UNSP 09/27/2017 RAJIV HERNANDEZDAVID Ot Z3A.00 WEEKS OF GESTATION OF NOT SPEC 09/27/2017 RAJIV HERNANDEZDAVID Ot O23.93 UNSP TRACT INFECTION IN , TH 09/27/2017 RAJIV HERNANDEZDAVID Ot Z3A.38 38 WEEKS GESTATION OF 10/03/2017 JOEDAVID ALEJANDRO DO Ot D64.9 ANEMIA, UNSPECIFIED 10/03/2017 RAJIV DAVID HERNANDEZ Ot E66.9 OBESITY, UNSPECIFIED 10/03/2017 RAJIV HERNANDEZDAVID Ot O62.0 PRIMARY INADEQUATE CONTRACTIONS 10/03/2017 RAJIV HERNANDEZDAVID Ot O69.81X0 LABOR AND DEL COMP BY CORD AROUND NECK, 10/03/2017 RAJIV DAVID HERNANDEZ Ot O76 ABNLT IN HEART RATE AND RHYTHM COM 10/03/2017 RAJIV DAVID HERNANDEZ Ot O99.03 ANEMIA COMPLICATING THE PUERPERIUM 10/03/2017 DAVID VANCE DO Ot O99.213 OBESITY COMPLICATING , THIRD TR 10/03/2017 RAJIV HERNANDEZDAVID Ot Z37.0 SINGLE LIVE 10/03/2017 RAJIV HERNANDEZDAVID Ot Z3A.39 39 WEEKS GESTATION OF 10/03/2017 RAJIV DAVID HERNANDEZ Ot Z68.36 BODY MASS INDEX (BMI) 36.0-36.9, ADULT 11/14/2017 DAVID VANCE DO Ot Z36 ENCOUNTER FOR SCREENING OF MOT 11/14/2017 RAJIV HERNANDEZDAVID Ot Z3A.18 18 WEEKS GESTATION OF 11/14/2017 DAVID VANCE DO, Ot O44.50 LOW LYING PLACENTA WITH HEMORRHAGE, UNSP 11/14/2017 JOEDAVID ALEJANDRO DO Ot Z3A.00 WEEKS OF GESTATION OF NOT SPEC 11/15/2017 DAVID VANCE DO Ot Z36 ENCOUNTER FOR SCREENING OF MOT 11/15/2017 DAVID VANCE DO Ot Z3A.18 18 WEEKS GESTATION OF 11/15/2017 DAVID VANCE DO Ot O44.50 LOW LYING PLACENTA WITH HEMORRHAGE, UNSP 11/15/2017 DAVID VANCE DO Ot Z3A.00 WEEKS OF GESTATION OF NOT SPEC 11/15/2017 SANDY BOWERS DO Ot F32.9 MAJOR DEPRESSIVE DISORDER, SINGLE EPISOD 11/15/2017 SANDY BOWERS DO Ot K80.10 CALCULUS OF GALLBLADDER W CHRONIC CHOLEC 11/15/2017 SANDY BOWERS DO Ot K85.90 ACUTE PANCREATITIS WITHOUT NECROSIS OR I 11/15/2017 SANDY BOWERS DO Ot Z79.899 OTHER FPC (CURRENT) DRUG THERAPY 11/15/2017 SANDY BOWERS DO Ot Z87.891 PERSONAL HISTORY OF NICOTINE DEPENDENCE 11/21/2017 SANDY BOWERS DO Ot F32.9 MAJOR DEPRESSIVE DISORDER, SINGLE EPISOD 11/21/2017 SANDY BOWERS DO Ot K80.10 CALCULUS OF GALLBLADDER W CHRONIC CHOLEC 11/21/2017 SANDY BOWERS DO Ot K85.90 ACUTE PANCREATITIS WITHOUT NECROSIS OR I 11/21/2017 SANDY BOWERS DO Ot Z79.899 OTHER FPC (CURRENT) DRUG THERAPY 11/21/2017 SANDY BOWERS DO Ot Z87.891 PERSONAL HISTORY OF NICOTINE DEPENDENCE 12/19/2017 DAVID VANCE DO Ot N83.201 UNSPECIFIED OVARIAN CYST, RIGHT SIDE Procedures Code [place] [address] URINE TEST (IN- HOUSE) 01/05/2013 20847 TEST, URINE (IN- HOUSE) 10/21/2014 04029 ROUTINE VENIPUNCTURE 10/22/2014 29977 A1C (IN-HOUSE) 10/22/2014 43045 CBC 10/22/2014 2651117 GFR CALC (RESULT ONLY) 10/22/2014 52131 CMP 10/22/2014 06653 UA LONG DIP 10/22/2014 09413 TSH 10/22/2014 88879 INSULIN LEVEL 10/22/2014 [id number] EXTRACTION OF POC, LOW CERVICAL, OPEN AP 10/01/2017 [id number] INTRODUCE OF ADHESION BARRIER INTO FEM R [...] 13:58 Serum or plasma choriogonadotropin measurement (units/volume) 06765 m[iU]/mL <5 Complete blood count (CBC) with [...] culture - 09/27/17 15:00 Bacterial urine culture [id number] NRG COLONY COUNT <10,000 NRG URINE CULTURE [...] ABO+Rh group OP NRG Transfusion band number [id number] NRG Blood group antibody screen NEGATIVE NRG [...] NORMAL NRG Lipase - 11/14/17 21:55 Lipase 07696 U/L 8-78 Methicillin resistant Staphylococcus aureus (MRSA) screening culture - 02:56 Methicillin resistant Staphylococcus aureus (MRSA) screening culture NEG NRG Complete blood count (CBC) with automated [...] Status Pt. 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 [id number] 11/14/2017 23:16:00 11/15/2017 14:35:00 DIS Outpatient SANDY BOWERS DO B [facility] SDC SYMPTOMATIC CHOLELITHIASIS,ACUTE CHOLECYSTITIS [id number] 09/30/2017 19:16:00 10/03/2017 13:30:00 DIS Inpatient DAVID VANCE DO [facility] LDRP INDUCTION [id number] 09/27/2017 13:50:00 09/27/2017 16:30:00 DIS Outpatient DAVID VANCE DO [facility] WSo CRAMPING, DECREASED MOVEMENT [id number] 09/19/2017 19:59:00 09/19/2017 21:25:00 DIS Outpatient DAVID VANCE DO [facility] WSo DIARRHEA [id number] 09/11/2017 00:12:00 09/11/2017 01:00:00 DIS Outpatient LUCAS HERNANDEZ CHERYLE C [facility] WSo CONTRACTIONS [id number] 08/10/2017 12:20:00 08/10/2017 14:20:00 DIS Emergency GURVINDER ZUNIGA MD [facility] ER COUGH [id number] 07/15/2017 13:04:00 07/15/2017 23:59:59 CLS Outpatient DAVID VANCE DO [facility] RAD O44.5 [id number] 07/12/2017 14:43:00 07/12/2017 16:10:00 DIS Outpatient MARCOS CORNEJO MD [facility] WSo RT SIDE PAIN [id number] 05/16/2017 14:33:00 05/16/2017 23:59:59 CLS Outpatient RAJIV HERNANDEZ DAVID Tanisha [facility] RAD SURVEY [id number] 05/11/2017 16:39:00 05/11/2017 18:53:00 DIS Emergency LEXIE WHITEHEAD APRN [facility] ER DEHYDRATED [id number] 02/09/2017 13:29:00 02/09/2017 16:25:00 DIS Emergency BRAYAN CURTIS [facility] ER SPOTTING, 5W [id number] 03/01/2015 13:13:00 03/01/2015 14:35:00 DIS Emergency BRAYAN CURTIS [facility] ER SORE THROAT [id number] 03/24/2018 10:00:00 PEN Preadmit DAVID VANCE DO [facility] RAD D27.0 [id number] 12/25/2017 13:32:00 ACT Emergency TD VEGAS MD [facility] ER CRAMPING
--- NOTE | 2017-12-25 14:20 | ED GU-Female ---
General Chief Complaint: -Female Stated Complaint: CRAMPING Nursing Triage Note: AMB TO ROOM WITH MALE WAS OBSERVED EATING CHIPS IN WAITING ROOM C/O R LOWER ABD PAIN ON AND OFF SINCE LAST NIGHT TOOK LAST HYDROCODONE LAST NIGHT AND REPORT IT DID NOT HELP. MALE AT SIDE REPORTED IT WAS HIS LAST HYDROCONE SHE TOOK SHE REPORTS IT WAS HER'S. PATIENT REPORTS HAD BABY IN NOV WAS TOLD BY HER MOLDING CUTTER OFFICE TO COME TO ED. Nursing Sepsis Screen: No Definite Risk Source: patient Exam Limitations: no limitations History of Present Illness Date Seen by Provider: Dec 25, 2017 Time Seen by Provider: 14:09 Initial Comments Patient presents to ER by private conveyance with her spouse and a chief complaint that this morning she woke up with some severe 10 out of 10 pain in her right Ariel that radiated down to her right leg as well as up to her ilioinguinal region. She describes the pain as cramping like similar to her period cramps however much much more severe. She had a little cramping prior to her period starting's morning but nothing this severe. She says the pain was so severe she vomited once with no blood in it. She's had no fevers but she has had some chills she said. She has been being worked up by Dr. VANCE and they found a small spot on her right ovary suspect teratoma and she called Dr. VANCE 's office this morning and they told her she is having severe pain she should come to the ER to have it worked up. Patient's pain currently as 6 out of 10 no nausea. She has not taken anything for it. She is on oral contraceptives with last missed her period starting today 12/25/17. She has had her gallbladder out and one time . Patient also notes in the past week she's felt she's had a yeast infection with some itching and discharge so she took some qrao-zhs-ghqnjnf pills called AZO to treat it and she is no longer having any symptoms. She is describing her current menses as dark and thick but not malodorous. The patient states that she had some hydrocodone left over from her which she took her last tablet this morning and it did not do anything to do her pain so this worried her even more. Allergies and Home Medications Allergies Coded Allergies: Penicillins (Verified Allergy, Mild, HIVES, 09/30/17) Home Medications Hydrocodone Bit/Acetaminophen 1 Each Tablet, 1 TAB PO Q6H PRN, #20 Ref 0 Prescribed by: SANDY BOWERS on 11/15/17 0658 Levonorgestrel-Ethin Estradiol 1 Each Tablet, 1 TAB PO DAILY, (Reported) Sertraline HCl 25 Mg Tablet, 25 MG PO DAILY, (Reported) Constitutional: chills, No diaphoresis, No fever, No malaise EENTM: No ear discharge, No ear pain Respiratory: No cough, No short of breath Cardiovascular: No chest pain, No palpitations Gastrointestinal: No abdominal pain, No constipation, No diarrhea, nausea, vomiting Genitourinary: denies discharge, denies dysuria : No LMP: Dec 25, 2017 Musculoskeletal: No back pain, No joint pain Skin: No pruritus, No rash Psychiatric/Neurological: Headache, Denies Numbness, Denies Paresthesia Past Nqgsure-Ogjvjz-Fnehkf Hx Patient Social History Alcohol Use: Denies Use Recreational Drug Use: No Smoking Status: Current Everyday Smoker Type Used: Cigarettes (0.25) Former Smoker, Quit: Feb 16, 2017 2nd Hand Smoke Exposure: No Recent Foreign Travel: No Contact w/Someone Who Travel: No Recent Infectious Disease Expo: No Recent Hopitalizations: No Immunizations Up To Date Tetanus Booster (TDap): Less than 5yrs Date of Influenza Vaccine: Aug 26, 2017 Seasonal Allergies Seasonal Allergies: No Surgeries History of Surgeries: Yes Surgeries: Section Respiratory History of Respiratory Disorde: No Cardiovascular History of Cardiac Disorders: No Neurological History of Neurological Disord: No Reproductive System Hx Reproductive Disorders: No Sexually Transmitted Disease: No HIV/AIDS: No Genitourinary History of Genitourinary Disor: No Gastrointestinal History of Gastrointestinal Di: No Musculoskeletal History of Musculoskeletal Dis: No Endocrine History of Endocrine Disorders: No HEENT History of HEENT Disorders: No Cancer History of Cancer: No Psychosocial History of Psychiatric Problem: Yes Behavioral Health Disorders: Depression Integumentary History of Skin or Integumenta: No Blood Transfusions History of Blood Disorders: No Adverse Reaction to a Blood Tr: No Family Medical History Significant Family History: Cancer, Diabetes Family Medial History: Cervical cancer 19 MOTHER Physical Exam Vital Signs Vital Signs - First Documented 12/25/17 13:55 Temp 99.0 Pulse 71 Resp 18 B/P (MAP) 112/74 (87) Pulse Ox 98 Capillary Refill : Less Than 3 Seconds General Appearance: WD/WN, mild distress HEENT: PERRL/EOMI, pharynx normal Neck: non-tender, normal inspection Cardiovascular: normal peripheral pulses, regular rate, rhythm Respiratory: chest non-tender, lungs clear Gastrointestinal: normal bowel sounds, soft, rebound (McBurney's point), tenderness (mild suprapubic and severe tenderness with rebound tenderness in the right lower quadrant over the ilioinguinal McBurney's point) Neurologic/Psychiatric: alert, oriented x 3 Skin: normal color, warm/dry Progress/Results/Core Measures Suspected Sepsis Recent Fever Within 48 Hours: No Infection Criteria Present: None New/Unexplained Altered Menta: No Sepsis Screen: No Definite Risk Sepsis Diagnosis: SIRS Temperature:99.0 Pulse: 71 Respiratory Rate: 18 Laboratory Tests 12/25/17 14:32: White Blood Count 6.9 Blood Pressure 112 /74 Mean: 87 Laboratory Tests 12/25/17 14:32: Creatinine 0.82, Platelet Count 312, Total Bilirubin 0.2 Results/Orders Lab Results Laboratory Tests Test 12/25/17 14:27 12/25/17 14:32 Range/Units Urine Color YELLOW Urine Clarity CLEAR Urine pH 6 5-9 Urine Specific [place] 1.020 1.016-1.022 Urine Protein NEGATIVE NEGATIVE Urine Glucose (UA) NEGATIVE NEGATIVE Urine Ketones NEGATIVE NEGATIVE Urine Nitrite NEGATIVE NEGATIVE Urine Bilirubin NEGATIVE NEGATIVE Urine Urobilinogen NORMAL NORMAL MG/DL Urine Leukocyte Esterase NEGATIVE NEGATIVE Urine RBC (Auto) 5+ H NEGATIVE Urine RBC 50-100 H /HPF Urine WBC NONE /HPF Urine Squamous Epithelial Cells RARE /HPF Urine Crystals NONE /LPF Urine Bacteria NEGATIVE /HPF Urine Casts NONE /LPF Urine Mucus NEGATIVE /LPF Urine Culture Indicated NO Urine Test NEGATIVE NEGATIVE White Blood Count 6.9 4.3-11.0 10^3/uL Red Blood Count 5.03 4.35-5.85 10^6/uL Hemoglobin 14.2 11.5-16.0 G/DL Hematocrit 42 35-52 % Mean Corpuscular Volume 84 80-99 FL Mean Corpuscular Hemoglobin 28 25-34 PG Mean Corpuscular Hemoglobin Concent 34 32-36 G/DL Red Cell Distribution Width 14.9 H 10.0-14.5 % Platelet Count 312 130-400 10^3/uL Mean Platelet Volume 9.7 7.4-10.4 FL Neutrophils (%) (Auto) 54 42-75 % Lymphocytes (%) (Auto) 35 12-44 % Monocytes (%) (Auto) 7 0-12 % Eosinophils (%) (Auto) 3 0-10 % Basophils (%) (Auto) 0 0-10 % Neutrophils # (Auto) 3.7 1.8-7.8 X 10^3 Lymphocytes # (Auto) 2.4 1.0-4.0 X 10^3 Monocytes # (Auto) 0.5 0.0-1.0 X 10^3 Eosinophils # (Auto) 0.2 0.0-0.3 10^3/uL Basophils # (Auto) 0.0 0.0-0.1 10^3/uL Sodium Level 139 135-145 MMOL/L Potassium Level 3.8 3.6-5.0 MMOL/L Chloride Level 108 H 98-107 MMOL/L Carbon Dioxide Level 21 21-32 MMOL/L Anion Gap 10 5-14 MMOL/L Blood Urea Nitrogen 10 7-18 MG/DL Creatinine 0.82 0.60-1.30 MG/DL Estimat Glomerular Filtration Rate > 60 BUN/Creatinine Ratio 12 Glucose Level 98 70-105 MG/DL Calcium Level 9.1 8.5-10.1 MG/DL Total Bilirubin 0.2 0.1-1.0 MG/DL Aspartate Amino Transf (AST/SGOT) 22 5-34 U/L Alanine Aminotransferase (ALT/SGPT) 39 0-55 U/L Alkaline Phosphatase 66 40-136 U/L C-Reactive Protein High Sensitivity 0.38 0.00-0.50 MG/DL Total Protein 6.9 6.4-8.2 GM/DL Albumin 4.2 3.2-4.5 GM/DL My Orders Orders - TD VEGAS Cbc With Automated Diff (12/25/17 14:13) Comprehensive Metabolic Panel (12/25/17 14:13) Hs C Reactive Protein (12/25/17 14:13) Hcg,Qualitative Urine (12/25/17 14:13) Ua Culture If Indicated (12/25/17 14:13) Ketorolac Injection (Toradol Injection) (12/25/17 14:30) Saline Lock/Iv-Start (12/25/17 14:27) Us Non Ob Transvaginal [id number] (12/25/17 14:13) Medications Given in ED Current Medications Medications Dose Ordered Sig/Shira Route Start Time Stop Time Status Last Admin Dose Admin Ketorolac Tromethamine 15 mg ONCE ONCE IVP 12/25/17 14:30 12/25/17 14:31 DC 12/25/17 14:38 15 MG Vital Signs/I&O Vital Sign - Last 12Hours 12/25/17 13:55 Temp 99.0 Pulse 71 Resp 18 B/P (MAP) 112/74 (87) Pulse Ox 98 Capillary Refill : Less Than 3 Seconds Blood Pressure Mean: 87 Progress Note #1: Time: 14:20 Progress Note Previous pelvic ultrasound and a straight to 1.4 x 1.2 cm dermoid tumor on the right ovary. There is a low to moderate probability of a tubular torsion to explain her pain. With her pain over the ileal inguinal band we can also be concerned with PID or appendicitis. We'll let some laboratory and urinalysis to help guide us. With the patient's recent history of what she describes as a yeast infection it's possible she is also having a BV or yeast infection and was under treated by AZO outpatient but she is not interested in a wet prep. Urinalysis release show us if there is yeast. She is in a monogamous relationship so pelvic inflammatory disorders slightly less likely. We have discussed doing ultrasound of her pelvis and appendix versus starting with just pelvis and letting the laboratory data since she would prefer a more conservative approach. Progress Note #2: Time: 16:56 Progress Note Pain is improved. No evidence of inflammation or infection on the lab. Urinalysis and ultrasound unremarkable. Discussed this with the patient and we will try conservative care with NSAIDs, heat, rest and follow-up outpatient with Dr. VANCE. Departure Communication (PCP) 1700: Arelis: Discussed case lab imaging and findings and plan. Impression Impression: Primary Impression: Pelvic pain Disposition: 01 HOME, SELF-CARE Condition: Improved Departure-Patient Inst. Decision time for Depature: 16:57 Referrals: DAVID VANCE DO (PCP/Family) Primary Care Physician Patient Instructions: Acute Pelvic Pain (DC) Add. Discharge Instructions: Plan to follow up with your primary care physician or [employer]ER within the next week. Return to the ER if you are having severe intractable pain, nausea or inability. Use NSAIDs such as Naprosyn 2 capsules twice a day or ibuprofen 4 tablets 3 times a day as well as heat and rest as needed to control your pain. You may also use 1000 mg Tylenol every 8 hours in addition to NSAIDs. All discharge instructions reviewed with patient and/or family. Voiced understanding. Work/School Note: Work Release Form Date Seen in the Emergency Department: Dec 25, 2017 Return to Work: Dec 26, 2017 Restrictions: No Restrictions Copy Copies To 1: DAVID VANCE TITUS J Dec 25, 2017 14:20
[2017-12-25] MEDS ORDERED: KETOROLAC 30 MG/ML VIAL IVP ONE (14:30)
[2017-12-25 14:42] LABS: BASOPHILS % (AUTO) 0 % (0-10); EOSINOPHILS # (AUTO) 0.2 10^3/uL (0.0-0.3); EOSINOPHILS % (AUTO) 3 % (0-10); HEMATOCRIT 42 % (35-52); HEMOGLOBIN 14.2 G/DL (11.5-16.0); LYMPHOCYTES # (AUTO) 2.4 X 10^3 (1.0-4.0); LYMPHOCYTES % (AUTO) 35 % (12-44); MEAN CORPUSCULAR HEMOGLOBIN 28 PG (25-34); MEAN CORPUSCULAR HGB CONC 34 G/DL (32-36); MEAN CORPUSCULAR VOLUME 84 FL (80-99); MEAN PLATELET VOLUME 9.7 FL (7.4-10.4); MONOCYTES # (AUTO) 0.5 X 10^3 (0.0-1.0); MONOCYTES % (AUTO) 7 % (0-12); NEUTROPHILS # (AUTO) 3.7 X 10^3 (1.8-7.8); NEUTROPHILS % (AUTO) 54 % (42-75); PLATELET COUNT 312 10^3/uL (130-400); RED BLOOD COUNT 5.03 10^6/uL (4.35-5.85); RED CELL DISTRIBUTION WIDTH 14.9 % (10.0-14.5); WHITE BLOOD COUNT 6.9 10^3/uL (4.3-11.0)
[2017-12-25 14:48] LABS: BILIRUBIN,URINE NEGATIVE (NEGATIVE); CLARITY,URINE CLEAR; COLOR,URINE YELLOW; GLUCOSE, URINE (UA) NEGATIVE (NEGATIVE); KETONES,URINE NEGATIVE (NEGATIVE); LEUKOCYTE ESTERASE ,URINE NEGATIVE (NEGATIVE); NITRITE,URINE NEGATIVE (NEGATIVE); PH,URINE 6 (5-9); PROTEIN,URINE NEGATIVE (NEGATIVE); UROBILINOGEN,URINE NORMAL (NORMAL)
[2017-12-25 15:00] LABS: BACTERIA,URINE NEGATIVE /HPF; RBC,URINE 50-100 /HPF; SQUAMOUS EPITHELIAL CELL,UR RARE /HPF
[2017-12-25 15:03] LABS: ALANINE AMINOTRANSFERASE 39 U/L (0-55); ALBUMIN 4.2 GM/DL (3.2-4.5); ALKALINE PHOSPHATASE 66 U/L (40-136); BILIRUBIN,TOTAL 0.2 MG/DL (0.1-1.0); BUN/CREATININE RATIO 12; CALCIUM 9.1 MG/DL (8.5-10.1); CARBON DIOXIDE 21 MMOL/L (21-32); CHLORIDE 108 MMOL/L (98-107); CREATININE SERUM 0.82 MG/DL (0.60-1.30); GFR ESTIMATED > 60; GLUCOSE 98 MG/DL (70-105); POTASSIUM 3.8 MMOL/L (3.6-5.0); SODIUM 139 MMOL/L (135-145); TOTAL PROTEIN 6.9 GM/DL (6.4-8.2)
--- NOTE | 2017-12-25 15:49 | Diagnostic Imaging Report ---
EXAMINATION: Pelvic ultrasound. INDICATION: Pelvic pain. FINDINGS: The recent pelvic ultrasound exam of 12/18/2017 noted a 1.9 cm right ovarian cyst as well as a 1.4 x 1.4 cm fat-containing mass. Those findings are again evident on this study. The right ovarian cyst does measure slightly larger than noted on the prior exam and is now estimated to be 1.8 x 1.9 x 2.2 cm. The suspected teratoma associated with the right ovary is essentially no different. The left ovary is unremarkable. There is good blood flow to each ovary. There is no solid pelvic mass or free fluid collection identified otherwise. The uterus is nongravid and not enlarged measuring 7.5 x 4.7 x 3.5 cm. The endometrial lining is not thickened measuring 4 mm. There is no focal mass involving the uterus to suggest a fibroid. IMPRESSION: 1. The cyst associated with the right ovary seen on the prior exam measures slightly larger on this exam. The suspected teratoma arising from the right ovary is essentially no different. Laparoscopy should be considered for further evaluation. 2. There is no acute pelvic abnormality noted otherwise. Dictated by: Dictated on workstation # [id number]
[2017-12-25] MEDS ORDERED: ACETAMINOPHEN 500 MG TAB (TYLENOL) PO ONE ×2 (17:00→17:15)
[2017-12-25 17:09] VITALS: BP 110/73
== END 2017-12-25 17:09 | disposition home or self-care (01) ==
LOC: EDUNIT# 13:29 → ER 13:32
DX: R10.2 Pelvic and perineal pain (principal); F32.9 Major depressive disorder, single episode, unspecified; F17.210 Nicotine dependence, cigarettes, uncomplicated; Z88.0 Allergy status to penicillin; Z85.41 Personal history of malignant neoplasm of cervix uteri; Z87.59 Personal history of other complications of pregnancy, childbirth and the puerperium
CPT/HCPCS: 36415; 76830; 80053; 81000; 84703; 85025; 86141; 96374

== ENCOUNTER → 2018-02-13 | Outpatient (CLI) | payer SELFPAY ==
--- NOTE | 2018-02-13 16:44 | Diagnostic Imaging Report ---
INDICATION: History of right ovarian lesion. Pelvic sonography is performed with transabdominal and transvaginal views and compared with 12/25/2017. The uterus measures 8.5 x 6.6 x 4.1 cm and appears normal. The endometrium measures 4 mm. The left ovary measures 3.1 x 3.5 x 2.8 cm and contains a cyst measuring 3.1 x 2.7 x 2.2 cm. This cyst is new compared to the previous study. The right ovary measures 4.4 x 3.5 x 2.7 cm. The right ovary contains a complex lesion with calcifications, measuring 2.1 x 2.1 x 1.8 cm. This measured 1.5 x 1.1 cm previously. IMPRESSION: Complex lesion in the right ovary again noted and it does show increase in size compared to the prior study, now measuring 2.1 x 2.1 x 1.8 cm. There is a new simple cyst in the left ovary as mentioned above measuring 3.1 x 2.7 x 2.2 cm. There is no free fluid. The uterus appears unremarkable. Dictated by: Dictated on workstation # [id number]
== END ==
LOC: RAD 13:50
PROVIDERS: ATTEND Obstetrics & Gynecology
DX: D27.0 Benign neoplasm of right ovary (principal); N83.202 Unspecified ovarian cyst, left side
CPT/HCPCS: 76830; 76856

== ENCOUNTER 2018-02-18 14:00 | Outpatient (CLI) | payer SELFPAY ==
[~2018-02-18] VITALS: Ht 162.6 cm; Wt 83.5 kg
== END 2018-02-18 14:14 ==
LOC: PREOP 14:00
PROVIDERS: ATTEND Obstetrics & Gynecology
DX: Z01.818 Encounter for other preprocedural examination (principal); R10.2 Pelvic and perineal pain

== ENCOUNTER 2018-03-22 01:33 | Emergency (ER) | payer SELFPAY ==
[~2018-03-22] VITALS: Ht 162.6 cm; Wt 83.9 kg
--- OUTSIDE RECORDS SUMMARY | 2018-03-22 01:39 | XMS REPORT ---
Author Author ARY BENSON [facility] Address [address] [place] [address] Care Team Providers Care Infantry Unit Leader Name Role Phone BENSON ARY Unavailable PROBLEMS Type Condition ICD9-CM Code [id number] Code Onset Dates Condition Status SNOMED Code Problem Polydipsia R63.1 Active 62301260 Problem Family history of diabetes mellitus Z83.3 Active 199889008 Problem Polyuria R35.8 Active 89271782 Problem Intestinal infection A09 Active 309929971 ALLERGIES Substance Reaction Event Type Date Status Penicillins Unknown Non Drug Allergy Jun, Active ENCOUNTERS Encounter Location Date Diagnosis [facility] [id number] [place] [address] [phone]- [phone] Jun, Dental examination Z01.20 [facility] [id number] [place] [address] [phone]- 1484 Jun, Dental examination Z01.20 [facility] [id number] [place] [address] 31169- 4456 Jun, [facility] [id number] [place] [phone] Jun, Dental examination Z01.20 [facility] [id number] [place] [address] 05068- 6712 Jan, test positive Z32.01 [facility] [id number] [place] [address] 42945- 9118 Dec, Painful urination R30.9 ; RUQ pain R10.11 ; Bilirubin in urine R82.2 and Pelvic pain R10.2 [facility] [id number] [place] [address] 66917- 2943 Nov, Bronchitis J40 [facility] [id number] [place] [address] 05022- 9512 Dec, BMI 35.0-35.9,adult Z68.35 [facility] [address] [address]- [address] Dec, BMI 35.0-35.9,adult Z68.35 [facility] [address] [address]- [address] Dec, Encounter for oral contraception initial prescription Z30.011 [place] [address] 39801- [address] Dec, [facility] [address] 30678- 4[address] Dec, Amenorrhea, secondary N91.1 ; Breast tenderness N64.4 ; Nausea R11.0 ; Female hirsutism L68.0 ; Acne, unspecified L70.9 ; BMI 35.0-35.9, adult Z68.35 and Desire for Z31.9 [place] [id number] [place] [address] 57406- 3522 Feb, [facility] [address] 7[address]- 6171 Feb, [facility] [id number] [place] [address] [phone]- [phone] Oct, [facility] [id number] [place] [address] 24503- 4801 Oct, [facility] [id number] [place] [address] 34830- 8197 Oct, [facility] [address] 35565- 4557 Oct, [facility] [id number] [place] [address] 22619- 2108 Dec, [facility] [address] 38732- 8647 Dec, [facility] [address] [facility] [id number] [address] Dec, [facility] [address] [facility] [id number] [address] Dec, [facility] [address] [facility] [id number] [place] [address] Dec, IMMUNIZATIONS No Known Immunizations SOCIAL HISTORY Never Assessed REASON FOR VISIT SRP PLAN OF CARE Activity Details Follow Up prn Reason:SRP R side VITAL SIGNS MEDICATIONS Medication Instructions Dosage Frequency Start Date End Date Duration Status Active RESULTS No Results PROCEDURES Procedure Date Ordered Result Body Site Periodontal scaling and root Jul 01, 2017 Periodontal scaling and root Jul 01, 2017 Billing Notes on claim Jul 01, 2017 INSTRUCTIONS MEDICATIONS ADMINISTERED No Known Medications
--- OUTSIDE RECORDS SUMMARY | 2018-03-22 01:40 | XMS REPORT ---
Author Author ARY BENSON [facility] Address [address] [place] [address] Care Team Providers Care Director Print Name Role Phone BENSON ARY Unavailable PROBLEMS Type Condition ICD9-CM Code [id number] Code Onset Dates Condition Status SNOMED Code Problem Polydipsia R63.1 Active 31224383 Problem Family history of diabetes mellitus Z83.3 Active 067311730 Problem Polyuria R35.8 Active 50685893 Problem Intestinal infection A09 Active 994665826 ALLERGIES Substance Reaction Event Type Date Status Penicillins Unknown Non Drug Allergy Jun, Active ENCOUNTERS Encounter Location Date Diagnosis [facility] [id number] [place] [address] 14689- 5888 Jun, Dental examination Z01.20 [facility] [id number] [place] [address] 88793- 5224 Jun, Dental examination Z01.20 [facility] [id number] [place] [address] 91977- 5780 Jun, [facility] [address] [place] [address] [phone] Jun, Dental examination Z01.20 [facility] [id number] [place] [address] 93847- 6505 Jan, test positive Z32.01 [facility] [id number] [place] [address] 64952- 5732 Dec, Painful urination R30.9 ; RUQ pain R10.11 ; Bilirubin in urine R82.2 and Pelvic pain R10.2 [facility] [id number] [place] [address] 54865- 0910 Nov, Bronchitis J40 [facility] [id number] [place] [address] 44397- 5397 Dec, BMI 35.0-35.9,adult Z68.35 [facility] [address] 25514- 1578 Dec, BMI 35.0-35.9,adult Z68.35 [facility] [address] 37109- 7571 Dec, Encounter for oral contraception initial prescription Z30.011 [place] [address] 55104- 1259 Dec, [facility] [address] 13205- 4165 Dec, Amenorrhea, secondary N91.1 ; Breast tenderness N64.4 ; Nausea R11.0 ; Female hirsutism L68.0 ; Acne, unspecified L70.9 ; BMI 35.0-35.9, adult Z68.35 and Desire for Z31.9 [place] [id number] [place] [address] 34812- 2870 Feb, [facility] [address] 39595- 4335 Feb, [facility] [id number] [place] [address] 31285- 5650 Oct, [facility] [id number] [place] [address] 92187- 0119 Oct, [facility] [id number] [place] [address] 94991- 5188 Oct, [facility] [address] 73739- 4212 Oct, [facility] [id number] [place] [address] 03028- 7805 Dec, [facility] [address] 42782- 0576 Dec, [facility] [address] [facility] [id number] [place] [address]- 4714 Dec, [facility] [address] [facility] [id number] [address] Dec, [facility] [address] [facility] [id number] [place] [address]- 9910 Dec, IMMUNIZATIONS No Known Immunizations SOCIAL HISTORY Never Assessed REASON FOR VISIT SRP UR/LR PLAN OF CARE Activity Details Follow Up prn Reason:restorative VITAL SIGNS Height 63 in 2017-07-08 Heart Rate 92 bpm 2017-07-08 Blood pressure systolic 124 mmHg 2017-07-08 Blood pressure diastolic 72 mmHg 2017-07-08 MEDICATIONS Medication Instructions Dosage Frequency Start Date End Date Duration Status Active RESULTS No Results PROCEDURES Procedure Date Ordered Result Body Site Periodontal scaling and root Jul 08, 2017 Periodontal scaling and root Jul 08, 2017 Billing Notes on claim Jul 08, 2017 INSTRUCTIONS MEDICATIONS ADMINISTERED No Known Medications
--- OUTSIDE RECORDS SUMMARY | 2018-03-22 01:41 | XMS REPORT | Continuity of Care Document ---
Author Author [facility] Address Unknown Phone Unavailable Allergies Active Description Code Type Severity Reaction Onset Reported/Identified Relationship to Patient Clinical Status Yes Penicillins Drug Allergy N/A N/A 01/14/2014 Yes No Known Drug Allergies [id number] Drug Allergy Unknown N/A 05/11/2017 Yes Penicillins [id number] Drug Allergy Mild HIVES 09/30/2017 Medications There is no data. Problems Date Dx Coded Attending Type Code Diagnosis Diagnosed By 01/05/2013 PAMELA CORONEL DO V25.01 CONTRACEPTION - ORAL CONTRACEPTION 01/05/2013 HUMBERTO ARWLS MD V25.01 CONTRACEPTION - ORAL CONTRACEPTION 01/05/2013 [...] 8 WEEKS GESTATION OF 05/11/2017 LEXIE WHITEHEAD SWITCHBOARD RECEPTIONIST Ot F17.210 NICOTINE DEPENDENCE, CIGARETTES, UNCOMPL 05/11/2017 LEXIE WHITEHEAD SWITCHBOARD RECEPTIONIST Ot O21.9 VOMITING OF , UNSPECIFIED 05/11/2017 LEXIE WHITEHEAD SWITCHBOARD RECEPTIONIST Ot O99.282 ENDO, NUTRITIONAL AND METAB DISEASES COM 05/11/2017 LEXIE WHITEHEAD SWITCHBOARD RECEPTIONIST Ot O99.332 SMOKING (TOBACCO) COMPLICATING 05/11/2017 LEXIE WHITEHEAD SWITCHBOARD RECEPTIONIST Ot Z3A.20 20 WEEKS GESTATION OF 06/03/2017 [...] CALCULUS OF GALLBLADDER W CHRONIC CHOLEC 11/15/2017 ELISSA HERNANDEZ SANDY [place] Ot K85.90 ACUTE PANCREATITIS WITHOUT NECROSIS OR I 11/15/2017 ELISSA HERNANDEZ SANDY [place] Ot Z79.899 OTHER MCC (CURRENT) DRUG THERAPY 11/15/2017 ELISSA HERNANDEZ SANDY [place] Ot Z87.891 PERSONAL HISTORY OF NICOTINE DEPENDENCE 11/21/2017 ELISSA HERNANDEZ SANDY [place] Ot F32.9 MAJOR DEPRESSIVE DISORDER, SINGLE EPISOD 11/21/2017 SANDY BOWERS DO Ot K80.10 CALCULUS OF GALLBLADDER W CHRONIC CHOLEC 11/21/2017 ELISSA HERNANDEZ SANDY [place] Ot K85.90 ACUTE PANCREATITIS WITHOUT NECROSIS OR I 11/21/2017 ELISSA HERNANDEZ SANDY [place] Ot Z79.899 OTHER MANAGER FOOD (CURRENT) DRUG THERAPY 11/21/2017 ELISSA HERNANDEZ SANDY [place] Ot Z87.891 PERSONAL HISTORY OF NICOTINE DEPENDENCE 12/19/2017 DAVID VANCE DO Ot N83.201 UNSPECIFIED OVARIAN CYST, RIGHT SIDE 12/25/2017 DAVID VANCE DO Ot Z36 ENCOUNTER FOR SCREENING OF MOT 12/25/2017 DAVID VANCE DO Ot Z3A.18 18 WEEKS GESTATION OF 12/25/2017 DAVID VANCE DO Ot O44.50 LOW LYING PLACENTA WITH HEMORRHAGE, UNSP 12/25/2017 DAVID VANCE DO Ot Z3A.00 WEEKS OF GESTATION OF NOT SPEC 12/25/2017 DAVID VANCE DO Ot N83.201 UNSPECIFIED OVARIAN CYST, RIGHT SIDE 12/25/2017 SHASTA LARRY, TD [place] Ot F17.210 NICOTINE DEPENDENCE, CIGARETTES, UNCOMPL 12/25/2017 SHASTA LARRY, TD [place] Ot F32.9 MAJOR DEPRESSIVE DISORDER, SINGLE EPISOD 12/25/2017 SHASTA LARRY, TD Vale Ot R10.2 PELVIC AND PERINEAL PAIN 12/25/2017 TD VEGAS MD Ot R10.31 RIGHT LOWER QUADRANT PAIN 12/25/2017 SHASTA LARRY, TD Vale Ot Z85.41 PERSONAL HISTORY OF MALIGNANT NEOPLASM O 12/25/2017 SHASTA LARRY, TD Vale Ot Z87.59 PERSONAL HISTORY OF COMP OF PREG, CHLDBR 12/25/2017 TD VEGAS MD J Ot Z88.0 ALLERGY STATUS TO PENICILLIN 12/26/2017 DAVID VANCE DO S Ot Z36 ENCOUNTER FOR SCREENING OF MOT 12/26/2017 DAVID VANCE DO Ot Z3A.18 18 WEEKS GESTATION OF 12/26/2017 DAVID VANCE DO Ot O44.50 LOW LYING PLACENTA WITH HEMORRHAGE, UNSP 12/26/2017 DAVID VANCE DO Ot Z3A.00 WEEKS OF GESTATION OF NOT SPEC 12/26/2017 DAVID VANCE DO Ot N83.201 UNSPECIFIED OVARIAN CYST, RIGHT SIDE 12/27/2017 TD VEGAS MD J Ot F17.210 NICOTINE DEPENDENCE, CIGARETTES, UNCOMPL 12/27/2017 TD VEGAS MD J Ot F32.9 MAJOR DEPRESSIVE DISORDER, SINGLE EPISOD 12/27/2017 TD VEGAS MD J Ot R10.2 PELVIC AND PERINEAL PAIN 12/27/2017 TD VEGAS MD J Ot R10.31 RIGHT LOWER QUADRANT PAIN 12/27/2017 TD VEGAS MD J Ot Z85.41 PERSONAL HISTORY OF MALIGNANT NEOPLASM O 12/27/2017 TD VEGAS MD J Ot Z87.59 PERSONAL HISTORY OF COMP OF PREG, CHLDBR 12/27/2017 TD VEGAS MD J Ot Z88.0 ALLERGY STATUS TO PENICILLIN 12/31/2017 TD VEGAS MD J Ot F17.210 NICOTINE DEPENDENCE, CIGARETTES, UNCOMPL 12/31/2017 TD VEGAS MD J Ot F32.9 MAJOR DEPRESSIVE DISORDER, SINGLE EPISOD 12/31/2017 TD VEGAS MD J Ot R10.2 PELVIC AND PERINEAL PAIN 12/31/2017 MARKEL VEGAS MDUS J Ot R10.31 RIGHT LOWER QUADRANT PAIN 12/31/2017 TD VEGAS MD J Ot Z85.41 PERSONAL HISTORY OF MALIGNANT NEOPLASM O 12/31/2017 DT VEGAS MD J Ot Z87.59 PERSONAL HISTORY OF COMP OF PREG, CHLDBR 12/31/2017 TD VEGAS MD J Ot Z88.0 ALLERGY STATUS TO PENICILLIN 01/07/2018 RAJIV HERNANDEZ DAVID S Ot N83.201 UNSPECIFIED OVARIAN CYST, RIGHT SIDE 02/10/2018 RAJIV HERNANDEZ DAVID S Ot Z36 ENCOUNTER FOR SCREENING OF MOT 02/10/2018 RAJVI DO, DAVID Garay Ot Z3A.18 18 WEEKS GESTATION OF 02/10/2018 JOEJAVON , DAVID Garay Ot O44.50 LOW LYING PLACENTA WITH HEMORRHAGE, UNSP 02/10/2018 RAJIV DO, DAVID Garay Ot Z3A.00 WEEKS OF GESTATION OF NOT SPEC 02/10/2018 RAJIV DODAVID Ot N83.201 UNSPECIFIED OVARIAN CYST, RIGHT SIDE 02/14/2018 JOEECH DODAVID Ot 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 02/14/2018 JOEECH DO, DAVID Garay Ot N83.202 UNSPECIFIED OVARIAN CYST, LEFT SIDE 02/14/2018 JOEECH DO, DAVID Garay Ot 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 02/14/2018 JOEECH DO, DAVID Garay Ot N83.202 UNSPECIFIED OVARIAN CYST, LEFT SIDE 02/17/2018 RAJIV DODAVID Ot R10.2 PELVIC AND PERINEAL PAIN 02/17/2018 JOEECH DODAVID Ot Z01.818 ENCOUNTER FOR OTHER PREPROCEDURAL EXAMIN 02/18/2018 JOEECH DODAVID Ot R10.2 PELVIC AND PERINEAL PAIN 02/18/2018 FENECH DO, DAVID Garay Ot Z01.818 ENCOUNTER FOR OTHER PREPROCEDURAL EXAMIN 02/18/2018 JOEECH DODAVID Ot R10.2 PELVIC AND PERINEAL PAIN 02/18/2018 FENECH DO, DAVID Garay Ot Z01.818 ENCOUNTER FOR OTHER PREPROCEDURAL EXAMIN 02/19/2018 JOEECH DODAVID Ot R10.2 PELVIC AND PERINEAL PAIN 02/19/2018 FENECH DO, DAVID Garay Ot Z01.818 ENCOUNTER FOR OTHER PREPROCEDURAL EXAMIN 02/27/2018 JOEECH DODAVID Ot 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 02/27/2018 JOEJAVON DODAVID Ot F32.9 MAJOR DEPRESSIVE DISORDER, SINGLE EPISOD 02/27/2018 RAJIV DODAVID Ot N83.02 FOLLICULAR CYST OF LEFT OVARY 02/27/2018 RAJIV DODAVID Ot R10.2 PELVIC AND PERINEAL PAIN 02/27/2018 JOEECH DODAVID Ot Z79.899 OTHER MANAGER FOOD (CURRENT) DRUG THERAPY 02/27/2018 DAVID VANCE DO Ot Z87.891 PERSONAL HISTORY OF NICOTINE DEPENDENCE 02/27/2018 DAVID VANCE DO Ot 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 02/27/2018 DAVID VANCE DO Ot F32.9 MAJOR DEPRESSIVE DISORDER, SINGLE EPISOD 02/27/2018 DAVID VANCE DO Ot N83.02 FOLLICULAR CYST OF LEFT OVARY 02/27/2018 DAVID VANCE DO Ot R10.2 PELVIC AND PERINEAL PAIN 02/27/2018 DAVID VANCE DO Ot Z79.899 OTHER MANAGER FOOD (CURRENT) DRUG THERAPY 02/27/2018 DAVID VANCE DO Ot Z87.891 PERSONAL HISTORY OF NICOTINE DEPENDENCE Procedures Code [place] [address] URINE TEST (IN- HOUSE) 01/05/2013 64497 TEST, URINE (IN- HOUSE) 10/21/2014 68841 ROUTINE VENIPUNCTURE 10/22/2014 37067 A1C (IN-HOUSE) 10/22/2014 56341 CBC 10/22/2014 9285365 GFR CALC (RESULT ONLY) 10/22/2014 91755 CMP 10/22/2014 92160 UA LONG DIP 10/22/2014 50791 TSH 10/22/2014 54836 INSULIN LEVEL 10/22/2014 [id number] EXTRACTION OF POC, LOW CERVICAL, OPEN AP 10/01/2017 [id number] INTRODUCE OF ADHESION BARRIER INTO FEM R [...] 13:58 Serum or plasma choriogonadotropin measurement (units/volume) 86159 m[iU]/mL <5 Complete blood count (CBC) with [...] culture - 09/27/17 15:00 Bacterial urine culture [id number] NRG COLONY COUNT <10,000 NRG URINE CULTURE [...] ABO+Rh group OP NRG Transfusion band number [id number] NR Blood group antibody screen NEGATIVE NRG Complete [...] NORMAL NRG Lipase - 11/14/17 21:55 Lipase 97169 U/L 8-78 Methicillin resistant Staphylococcus aureus (MRSA) screening culture - 02:56 Methicillin resistant Staphylococcus aureus (MRSA) screening culture NEG [facility] Complete blood count (CBC) with automated white [...] plasma albumin measurement (mass/volume) 3.6 g/dL 3.2-4.5 Urine beta human chorionic gonadotropin (hCG) measurement - 12/25/17 14:27 Urine beta human chorionic gonadotropin (hCG) measurement NEGATIVE NEGATIVE Complete urinalysis with reflex to culture - 12/25/17 14:27 Urine color determination YELLOW NRG Urine clarity determination CLEAR NRG Urine pH measurement by test strip 6 5-9 Specific gravity of urine by test strip 1.020 1.016- 1.022 Urine protein assay by test strip, semi-quantitative NEGATIVE NEGATIVE Urine glucose detection by automated test strip NEGATIVE NEGATIVE Erythrocytes detection in urine sediment by light microscopy 5+ NEGATIVE Urine ketones detection by automated test [...] automated white blood cell (WBC) differential - 12/25/17 14:32 Blood leukocytes automated count (number/volume) 6.9 10*3/uL 4.3-11.0 Blood erythrocytes automated count (number/volume) 5.03 10*6/uL 4.35-5.85 Venous blood hemoglobin measurement (mass/volume) 14.2 g/dL 11.5-16.0 Blood hematocrit (volume fraction) 42 % 35-52 Automated erythrocyte mean corpuscular volume 84 [foz_us] 80-99 Automated erythrocyte mean corpuscular hemoglobin (mass per erythrocyte) 28 pg 25-34 Automated erythrocyte mean corpuscular hemoglobin concentration measurement ( mass/volume) 34 g/dL 32-36 Automated erythrocyte distribution width ratio 14.9 % 10.0-14.5 Automated blood platelet count (count/volume) 312 10*3/uL 130-400 Automated blood platelet mean volume measurement 9.7 [foz_us] 7.4-10.4 Automated blood neutrophils/100 leukocytes 54 % 42-75 Automated blood lymphocytes/100 leukocytes 35 % 12-44 Blood monocytes/100 leukocytes 7 % 0-12 Automated blood eosinophils/100 leukocytes 3 % 0-10 Automated blood basophils/100 leukocytes 0 % 0-10 Blood neutrophils automated count (number/volume) 3.7 10*3 1.8-7.8 Blood lymphocytes automated count (number/volume) 2.4 10*3 1.0-4.0 Blood monocytes automated count (number/volume) 0.5 10*3 0.0-1.0 Automated eosinophil count 0.2 10*3/uL 0.0-0.3 Automated blood basophil count (count/volume) 0.0 10*3/uL 0.0-0.1 Comprehensive metabolic panel - 12/25/17 14:32 Serum or plasma sodium measurement (moles/volume) 139 mmol/L 135-145 Serum or plasma potassium measurement (moles/volume) 3.8 mmol/L 3.6-5.0 Serum or plasma chloride measurement (moles/volume) 108 mmol/L 98-107 Carbon dioxide 21 mmol/L 21-32 Serum or plasma anion gap determination (moles/volume) 10 mmol/L 5-14 Serum or plasma urea nitrogen measurement (mass/volume) 10 mg/dL 7-18 Serum or plasma creatinine measurement (mass/volume) 0.82 mg/dL 0.60-1.30 Serum or plasma urea nitrogen/creatinine mass ratio 12 NRG Serum or plasma creatinine measurement with calculation of estimated glomerular filtration rate > NRG Serum or plasma glucose measurement (mass/volume) 98 mg/dL 70-105 Serum or plasma calcium measurement (mass/volume) 9.1 mg/dL 8.5-10.1 Serum or plasma total bilirubin measurement (mass/volume) 0.2 mg/dL 0.1-1.0 Serum or plasma alkaline phosphatase measurement (enzymatic activity/volume) 66 U/L 40-136 Serum or plasma aspartate aminotransferase measurement (enzymatic activity/ volume) 22 U/L 5-34 Serum or plasma alanine aminotransferase measurement (enzymatic activity/volume ) 39 U/L 0-55 Serum or plasma protein measurement (mass/volume) 6.9 g/dL 6.4-8.2 Serum or plasma albumin measurement (mass/volume) 4.2 g/dL 3.2-4.5 Serum or plasma C reactive protein measurement (mass/volume) - 12/25/17 14:32 Serum or plasma C reactive protein measurement (mass/volume) 0.38 mg /dL 0.00-0.50 Urine beta human chorionic gonadotropin (hCG) measurement - 02/20/18 09:16 Urine beta human chorionic gonadotropin (hCG) measurement NEGATIVE NEGATIVE Methicillin resistant Staphylococcus aureus (MRSA) screening culture - 09:16 Methicillin resistant Staphylococcus aureus (MRSA) screening culture NEG NRG Complete blood count (CBC) with automated white blood cell (WBC) differential - 02/20/18 09:50 Blood leukocytes automated count (number/volume) 7.5 10*3/uL 4.3-11.0 Blood erythrocytes automated count (number/volume) 4.79 10*6/uL 4.35-5.85 Venous blood hemoglobin measurement (mass/volume) 14.1 g/dL 11.5-16.0 Blood hematocrit (volume fraction) 41 % 35-52 Automated erythrocyte mean corpuscular volume 86 [foz_us] 80-99 Automated erythrocyte mean corpuscular hemoglobin (mass per erythrocyte) 29 pg 25-34 Automated erythrocyte mean corpuscular hemoglobin concentration measurement ( mass/volume) 34 g/dL 32-36 Automated erythrocyte distribution width ratio 14.8 % 10.0-14.5 Automated blood platelet count (count/volume) 307 10*3/uL 130-400 Automated blood platelet mean volume measurement 9.7 [foz_us] 7.4-10.4 Automated blood neutrophils/100 leukocytes 57 % 42-75 Automated blood lymphocytes/100 leukocytes 31 % 12-44 Blood monocytes/100 leukocytes 8 % 0-12 Automated blood eosinophils/100 leukocytes 4 % 0-10 Automated blood basophils/100 leukocytes 0 % 0-10 Blood neutrophils automated count (number/volume) 4.3 10*3 1.8-7.8 Blood lymphocytes automated count (number/volume) 2.3 10*3 1.0-4.0 Blood monocytes automated count (number/volume) 0.6 10*3 0.0-1.0 Automated eosinophil count 0.3 10*3/uL 0.0-0.3 Automated blood basophil count (count/volume) 0.0 10*3/uL 0.0-0.1 Blood type T Indirect antibody screen panel - 02/20/18 09:50 ABO+Rh group OP NRG Transfusion band number [id number] NRG Blood group antibody screen NEGATIVE NRG Encounters ACCT No. Visit Date/Time Discharge Status Pt. Type Provider Facility Loc./Unit Complaint [id number] 10/22/2014 07:49:00 10/22/2014 23:59:59 CLS Outpatient NIC MATHEWS APRN [id number] 10/21/2014 18:23:00 10/21/2014 23:59:59 CLS Outpatient NIC MATHEWS APRN [id number] 01/14/2014 10:41:00 01/14/2014 23:59:59 CLS Outpatient HUMBERTO RAWLS MD [id number] 01/05/2013 15:50:00 01/05/2013 23:59:59 CLS Outpatient PAMELA CORONEL DO [id number] 02/20/2018 09:04:00 02/20/2018 13:55:00 [facility] RIGHT OVARIAN TUMOR [id number] 02/18/2018 14:00:00 02/18/2018 14:14:00 DIS Outpatient DAVID VANCE DO [facility] PREOP RIGHT PELVIC PAIN, RIGHT OVARIAN TUMOR [id number] 02/13/2018 13:50:00 02/13/2018 23:59:59 CLS Outpatient DAVID VANCE DO [facility] RAD D27.0 [id number] 12/25/2017 13:32:00 12/25/2017 17:09:00 DIS Emergency TD VEGAS MD [facility] ER CRAMPING [id number] 12/18/2017 12:52:00 12/18/2017 23:59:59 CLS Outpatient DAVID VANCE DO [facility] RAD D27.0 BENIGN OVARIAN TUMOR [id number] 11/14/2017 23:16:00 11/15/2017 14:35:00 DIS Outpatient ELISSA SANDY [facility] SDC SYMPTOMATIC CHOLELITHIASIS,ACUTE CHOLECYSTITIS [id number] 09/30/2017 19:16:00 10/03/2017 13:30:00 DIS Inpatient DAVID VANCE DO [facility] LDRP INDUCTION [id number] 09/27/2017 13:50:00 09/27/2017 16:30:00 DIS Outpatient DAVID VANCE DO [facility] WSo CRAMPING, DECREASED MOVEMENT [id number] 09/19/2017 19:59:00 09/19/2017 21:25:00 DIS Outpatient DAVID VANCE DO [facility] WSo DIARRHEA [id number] 09/11/2017 00:12:00 09/11/2017 01:00:00 DIS Outpatient ZAVALA CHERYLE [facility] WSo CONTRACTIONS [id number] 08/10/2017 12:20:00 08/10/2017 14:20:00 DIS Emergency GURVINDER ZUNIGA MD [facility] ER COUGH [id number] 07/15/2017 13:04:00 07/15/2017 23:59:59 CLS Outpatient DAVID VANCE DO [facility] RAD O44.5 [id number] 07/12/2017 14:43:00 07/12/2017 16:10:00 DIS Outpatient MARCOS CORNEJO MD [facility] WSo RT SIDE PAIN [id number] 05/16/2017 14:33:00 05/16/2017 23:59:59 CLS Outpatient RAJIV HERNANDEZ DAVID S [facility] RAD SURVEY [id number] 05/11/2017 16:39:00 05/11/2017 18:53:00 DIS Emergency LEXIE WHITEHEAD APRN [facility] ER DEHYDRATED [id number] 02/09/2017 13:29:00 02/09/2017 16:25:00 DIS Emergency BRAYAN CURTIS [facility] ER SPOTTING, 5W [id number] 03/01/2015 13:13:00 03/01/2015 14:35:00 DIS Emergency BRAYAN CURTIS [facility] ER SORE THROAT [id number] 03/22/2018 01:36:00 ACT Emergency ARY MITCHELL DO [facility] ER POSS STREP THROAT,POSS FEVER
--- NOTE | 2018-03-22 02:07 | ED Cough/URI ---
General Chief Complaint: Oral/Throat Problems Stated Complaint: POSS STREP THROAT,POSS FEVER Nursing Triage Note: Pt amd to ED reporting allergy like sx for 1 week and now sees spots in back of throat Source: patient Exam Limitations: no limitations History of Present Illness Date Seen by Provider: March 22, 2018 Time Seen by Provider: 01:50 Initial Comments PT AND CHILD BOTH BEING SEEN TONIGHT FOR SAME PT STATES SHE HAS BEEN ILL X 1 WEEK WITH COUGH/CONGESTION, SORE THROAT, LEFT EAR PAIN ( CHILD STARTED GETTING SICK FIRST-APPROXIMATELY 10 DAYS AGO, AND THIS IS CHILD'S 3RD ER VISIT IN THE LAST WEEK) HAS HAD TEMP UP TO 99.4 YESTERDAY NO CHEST PAIN OR SHORTNESS OF BREATH OR WHEEZING STATES SHE CAN SWALLOW, BUT IT HURTS. AND THINKS SHE HAS SEEN WHITE SPOTS IN THE BACK OF HER THROAT HAS NOT TAKEN ANYTHING FOR SYMPTOMS SYMPTOMS NO DIFFERENT TODAY HAS NOT SOUGHT CARE UNTIL TODAY. PCP: J[facility] Allergies and Home Medications Allergies Coded Allergies: Penicillins (Verified Allergy, Mild, HIVES, 09/30/17) Home Medications Levonorgestrel-Ethin Estradiol 1 Each Tablet, 1 TAB PO DAILY, (Reported) Sertraline HCl 25 Mg Tablet, 25 MG PO DAILY, (Reported) Patient Home Medication List Home Medication List Reviewed: Yes Review of Systems Constitutional: see HPI, fever EENTM: see HPI, ear pain, nose congestion, throat pain Respiratory: see HPI, cough; No phlegm, No short of breath, No wheezing Cardiovascular: no symptoms reported Gastrointestinal: no symptoms reported Genitourinary: no symptoms reported : No LMP: March 21, 2018 (ON OCP'S) Musculoskeletal: no symptoms reported Skin: no symptoms reported Psychiatric/Neurological: No Symptoms Reported Hematologic/Lymphatic: Swollen Glands (IN NECK) Immunological/Allergic: no symptoms reported Past Jhipplp-Nvhdxe-Szfukl Hx Patient Social History Alcohol Use: Denies Use Recreational Drug Use: No Smoking Status: Former Smoker (1/2 PPD) Type Used: Cigarettes Former Smoker, Quit: Feb 16, 2017 2nd Hand Smoke Exposure: No Recent Foreign Travel: No Contact w/Someone Who Travel: No Recent Infectious Disease Expo: No Recent Hopitalizations: No Immunizations Up To Date Tetanus Booster (TDap): Less than 5yrs Date of Influenza Vaccine: Aug 26, 2017 Seasonal Allergies Seasonal Allergies: No Past Medical History Surgeries: Yes ( X 1) Section, Gallbladder Respiratory: No Cardiac: No Neurological: No : No Reproductive Disorders: No Sexually Transmitted Disease: No HIV/AIDS: No Genitourinary: No Gastrointestinal: No Musculoskeletal: No Endocrine: No HEENT: No Cancer: No Psychosocial: Yes Depression Integumentary: No Blood Disorders: No Adverse Reaction/Blood Tranf: No Family Medical History Cervical cancer 19 MOTHER Cancer, Diabetes Physical Exam Vital Signs Vital Signs - First Documented 03/22/18 01:47 Temp 97.8 Pulse 99 Resp 20 B/P (MAP) 126/77 (93) Pulse Ox 98 O2 Delivery Room Air Capillary Refill : Less Than 3 Seconds General Appearance: WD/WN, no apparent distress, obese, other (OCCASIONAL, HARSH, DRY COUGH NOTED) HEENT: PERRL/EOMI; No photophobia; pharyngeal erythema (NO SWELLING ); No tonsillar exudate; other (RIGHT TM VERY INFLAMED AND DULL, LEFT TM SLIGHTLY INJECTED.POST NASAL DRAINAGE. NO SINUS TENDERNESS ) Neck: full range of motion, lymphadenopathy (L) (MILD LEFT ANTERIOR ADENOPATHY) Respiratory: normal breath sounds, no respiratory distress, no accessory muscle use Cardiovascular: normal peripheral pulses, regular rate, rhythm, no edema, no JVD, no murmur Gastrointestinal: soft Extremities: normal inspection, no pedal edema, normal capillary refill Neurologic/Psychiatric: inspector filters II-XII nml as tested, no motor/sensory deficits, alert, normal mood/affect, oriented x 3 Skin: normal color, warm/dry; No rash; tattoos/piercings (MULTIPLE TATTOOS) Progress/Results/Core Measures Suspected Sepsis Recent Fever Within 48 Hours: No Infection Criteria Present: None New/Unexplained Altered Menta: No Sepsis Screen: No Definite Risk SIRS Temperature:97.8 Pulse: 99 Respiratory Rate: 20 Blood Pressure 126 /77 Mean: 93 Results/Orders Lab Results Laboratory Tests Test 03/22/18 02:00 Range/Units Group A Streptococcus Screen NEGATIVE NEGATIVE My Orders Orders - ARY MITCHELL DO Rapid Strep A Screen (03/22/18 01:59) Vital Signs/I&O 03/22/18 01:47 Temp 97.8 Pulse 99 Resp 20 B/P (MAP) 126/77 (93) Pulse Ox 98 O2 Delivery Room Air Capillary Refill : Less Than 3 Seconds Blood Pressure Mean: 93 Departure Impression Primary Impression: Upper respiratory infection Additional Impressions: Pharyngitis Bronchitis Disposition: 01 HOME, SELF-CARE Condition: Stable Departure-Patient Inst. Referrals: [facility] (PCP/Family) Primary Care Physician Patient Instructions: Acute Bronchitis, Adult (DC), Bacterial Upper Respiratory Infection, Adult (DC), Sore Throat, Adult (DC) Add. Discharge Instructions: LOTS OF CLEAR LIQUIDS TYLENOL 1 GRAM/ MOTRIN 800 MG 4 TIMES A DAY NEEDED FOR PAIN OR FEVER FOLLOW UP WITH [facility] IN 3-4 DAYS IF NO BETTER All discharge instructions reviewed with patient and/or family. Voiced understanding. Scripts Guaifenesin/Dextromethorphan (Mucinex Dm ER 1,200-60 mg Tab) 1 Each Tbmp.12hr 1 EACH PO BID for 10 Days, #20 EA Prov: ARY MITCHELL DO 03/22/18 Cefdinir (Cefdinir) 300 Mg Capsule 300 MG PO BID for FOR INFECTION, #20 CAP Prov: ARY MITCHELL DO 03/22/18 ARY MITCHELL DO March 22, 2018 02:07
[2018-03-22] MEDS ORDERED: GUAI1TBM19 PO ×2 (03:08→03:09)
[2018-03-22] MEDS ORDERED: CEFD300C3 PO ×2 (03:08→03:09)
[2018-03-22 03:17] VITALS: BP 124/78
== END 2018-03-22 03:17 | disposition home or self-care (01) ==
LOC: EDUNIT# 01:33 → ER 01:36
DX: J02.9 Acute pharyngitis, unspecified (principal); J40 Bronchitis, not specified as acute or chronic; F32.9 Major depressive disorder, single episode, unspecified; Z87.891 Personal history of nicotine dependence; Z90.710 Acquired absence of both cervix and uterus; Z87.59 Personal history of other complications of pregnancy, childbirth and the puerperium; Z88.0 Allergy status to penicillin
CPT/HCPCS: 87430; 99282

== ENCOUNTER 2018-06-27 12:54 | Emergency (ER) | payer SELFPAY ==
[~2018-06-27] VITALS: Ht 160 cm; Wt 82.6 kg
[~2018-06-27 12:54] MED LIST changes: +CEFD300C3 PO; +GUAI1TBM19 PO
[2018-06-27] MEDS ORDERED: NS IV 1000 ML 1,000 ML IV SCH (14:15)
[2018-06-27] MEDS ORDERED: ACETAMINOPHEN 500 MG TAB (TYLENOL) PO ONE (14:15)
--- NOTE | 2018-06-27 14:22 | ED GU-Female ---
General Chief Complaint: -Female Stated Complaint: RIGHT SIDE/BACK PAIN/VOMITING 7-8 WKS PREG Nursing Triage Note: PATIENT STATES THAT SE HAS HAD SHARP PAIN IN HER RIGHT LOW ABDOMEN AND BACK FOR A FEW DAYS. SHE IS HAVING DIFFICULTY URINATING (FREQUENCY AND URGENCY), BUT DENIES BURNING. SHE IS ALSO BUT NOT SURE HOW FAR ALONG. SHE GUESSES 7- 8 WEEKS. Nursing Sepsis Screen: No Definite Risk Source: patient, spouse Exam Limitations: no limitations History of Present Illness Date Seen by Provider: Jun 27, 2018 Time Seen by Provider: 14:10 Initial Comments Patient presents to ER by private conveyance with chief complaint yesterday she discovered that she was and she thinks her last menstrual period was sometime in mid-March early April. She has an appointment later this month with Dr. INFANTE who delivered her first child. She is a with one . She feels like she is having a bladder infection with dysuria and discomfort in her right flank radiating down to her right lower quadrant abdomen. She's had her gallbladder out last year. She's had no fevers chills or diarrhea. She says she is very dehydrated and not been ill drink fluids because of the constant nausea and vomiting that initially she attributed to her . She's used Tylenol for the pain. She stopped her control yesterday when she discovered she was . Historically she's also had a cyst cut out of her right ovary. Allergies and Home Medications Allergies Coded Allergies: Penicillins (Verified Allergy, Mild, HIVES, 09/30/17) Home Medications Cefdinir 300 Mg Capsule, 300 MG PO BID Prescribed by: ARY MITCHELL on 03/22/18308 Guaifenesin/Dextromethorphan 1 Each Tbmp.12hr, 1 EACH PO BID Prescribed by: ARY MITCHELL on 03/22/18308 Levonorgestrel-Ethin Estradiol 1 Each Tablet, 1 TAB PO DAILY, (Reported) Sertraline HCl 25 Mg Tablet, 25 MG PO DAILY, (Reported) Patient Home Medication List Home Medication List Reviewed: Yes Review of Systems Constitutional: No chills, No diaphoresis, No fever, No malaise EENTM: No hearing loss, No ear pain Respiratory: No cough, No short of breath Cardiovascular: No chest pain, No palpitations Gastrointestinal: see HPI, abdominal pain (right flank and right lower quadrant abdomen) Genitourinary: burning; denies discharge; dysuria, frequency, flank pain Musculoskeletal: No back pain, No gout, No joint pain Past Olutbwj-Udbodn-Snlqcg Hx Patient Social History Alcohol Use: Denies Use Recreational Drug Use: No Smoking Status: Former Smoker Type Used: Cigarettes Former Smoker, Quit: Feb 16, 2017 2nd Hand Smoke Exposure: No Recent Foreign Travel: No Contact w/Someone Who Travel: No Recent Infectious Disease Expo: No Recent Hopitalizations: No Immunizations Up To Date Tetanus Booster (TDap): Less than 5yrs Date of Influenza Vaccine: Aug 26, 2017 Seasonal Allergies Seasonal Allergies: No Past Medical History Surgeries: Yes ( X 1) Section, Gallbladder Respiratory: No Cardiac: No Neurological: No Reproductive Disorders: No Sexually Transmitted Disease: No HIV/AIDS: No Genitourinary: No Gastrointestinal: No Musculoskeletal: No Endocrine: No HEENT: No Cancer: No Psychosocial: Yes Depression Integumentary: No Blood Disorders: No Adverse Reaction/Blood Tranf: No Family Medical History Cervical cancer 19 MOTHER Cancer, Diabetes Physical Exam Vital Signs Vital Signs - First Documented 06/27/18 13:07 Temp 97.5 Pulse 69 Resp 18 B/P (MAP) 117/71 (86) Pulse Ox 99 Capillary Refill : Less Than 3 Seconds Height, Weight, BMI Height: 5'3.00" Weight: 182lbs. 0oz. 82.621674ou; 31.6 BMI Method:Stated General Appearance: WD/WN, mild distress HEENT: PERRL/EOMI, pharynx normal Neck: non-tender, normal inspection Cardiovascular: normal peripheral pulses, regular rate, rhythm Respiratory: no respiratory distress, no accessory muscle use Gastrointestinal: normal bowel sounds, soft, tenderness (and right flank and right lower quadrant without tenderness over McBurney's point or rebound tenderness. Negative for Adkins sign) Back: normal inspection, no vertebral tenderness, CVA tenderness (R); No CVA tenderness (L) Neurologic/Psychiatric: alert, normal mood/affect, oriented x 3 Skin: normal color, warm/dry Progress/Results/Core Measures Suspected Sepsis Recent Fever Within 48 Hours: No Infection Criteria Present: None New/Unexplained Altered Menta: No Sepsis Screen: No Definite Risk SIRS Temperature:97.5 Pulse: 69 Respiratory Rate: 18 Laboratory Tests 06/27/18 14:55: White Blood Count 11.3H Blood Pressure 117 /71 Mean: 86 Laboratory Tests 06/27/18 14:55: Creatinine 0.72, Platelet Count 310, Total Bilirubin 0.2 Results/Orders Lab Results Laboratory Tests Test 06/27/18 13:20 06/27/18 14:55 Range/Units Urine Color YELLOW Urine Clarity CLEAR Urine pH 6.5 5-9 Urine Specific [place] 1.010 L 1.016-1.022 Urine Protein NEGATIVE NEGATIVE Urine Glucose (UA) NEGATIVE NEGATIVE Urine Ketones NEGATIVE NEGATIVE Urine Nitrite NEGATIVE NEGATIVE Urine Bilirubin NEGATIVE NEGATIVE Urine Urobilinogen NORMAL NORMAL MG/DL Urine Leukocyte Esterase 1+ H NEGATIVE Urine RBC (Auto) NEGATIVE NEGATIVE Urine RBC NONE /HPF Urine WBC 2-5 /HPF Urine Squamous Epithelial Cells 10-25 H /HPF Urine Crystals NONE /LPF Urine Bacteria MODERATE H /HPF Urine Casts NONE /LPF Urine Mucus NEGATIVE /LPF Urine Culture Indicated YES Urine Opiates Screen NEGATIVE NEGATIVE Urine Oxycodone Screen NEGATIVE NEGATIVE Urine Methadone Screen NEGATIVE NEGATIVE Urine Propoxyphene Screen NEGATIVE NEGATIVE Urine Barbiturates Screen NEGATIVE NEGATIVE Ur Tricyclic Antidepressants Screen NEGATIVE NEGATIVE Urine Phencyclidine Screen NEGATIVE NEGATIVE Urine Amphetamines Screen NEGATIVE NEGATIVE Urine Methamphetamines Screen NEGATIVE NEGATIVE Urine Benzodiazepines Screen NEGATIVE NEGATIVE Urine Cocaine Screen NEGATIVE NEGATIVE Urine Cannabinoids Screen POSITIVE H NEGATIVE White Blood Count 11.3 H 4.3-11.0 10^3/uL Red Blood Count 4.77 4.35-5.85 10^6/uL Hemoglobin 14.1 11.5-16.0 G/DL Hematocrit 41 35-52 % Mean Corpuscular Volume 85 80-99 FL Mean Corpuscular Hemoglobin 30 25-34 PG Mean Corpuscular Hemoglobin Concent 35 32-36 G/DL Red Cell Distribution Width 13.6 10.0-14.5 % Platelet Count 310 130-400 10^3/uL Mean Platelet Volume 9.4 7.4-10.4 FL Neutrophils (%) (Auto) 71 42-75 % Lymphocytes (%) (Auto) 21 12-44 % Monocytes (%) (Auto) 6 0-12 % Eosinophils (%) (Auto) 1 0-10 % Basophils (%) (Auto) 0 0-10 % Neutrophils # (Auto) 8.1 H 1.8-7.8 X 10^3 Lymphocytes # (Auto) 2.4 1.0-4.0 X 10^3 Monocytes # (Auto) 0.7 0.0-1.0 X 10^3 Eosinophils # (Auto) 0.1 0.0-0.3 10^3/uL Basophils # (Auto) 0.0 0.0-0.1 10^3/uL Sodium Level 138 135-145 MMOL/L Potassium Level 4.5 3.6-5.0 MMOL/L Chloride Level 109 H 98-107 MMOL/L Carbon Dioxide Level 24 21-32 MMOL/L Anion Gap 5 5-14 MMOL/L Blood Urea Nitrogen 5 L 7-18 MG/DL Creatinine 0.72 0.60-1.30 MG/DL Estimat Glomerular Filtration Rate > 60 BUN/Creatinine Ratio 7 Glucose Level 89 70-105 MG/DL Calcium Level 9.4 8.5-10.1 MG/DL Corrected Calcium 9.3 8.5-10.1 MG/DL Magnesium Level 2.1 1.8-2.4 MG/DL Total Bilirubin 0.2 0.1-1.0 MG/DL Aspartate Amino Transf (AST/SGOT) 13 5-34 U/L Alanine Aminotransferase (ALT/SGPT) 16 0-55 U/L Alkaline Phosphatase 59 40-136 U/L Total Protein 6.6 6.4-8.2 GM/DL Albumin 4.1 3.2-4.5 GM/DL My Orders Orders - TD VEGAS Cbc With Automated Diff (06/27/18 14:15) Comprehensive Metabolic Panel (06/27/18 14:15) Drug Screen Stat (Urine) (06/27/18 14:15) Magnesium (06/27/18 14:15) Ua Culture If Indicated (06/27/18 14:15) Saline Lock/Iv-Start (06/27/18 14:15) Ns Iv 1000 Ml (Sodium Chloride 0.9%) (06/27/18 14:15) Urine Bedside (06/27/18 14:15) Acetaminophen Tablet (Tylenol Tablet) (06/27/18 14:15) Urine Culture (06/27/18 13:20) Ceftriaxone Injection (Rocephin Injectio (06/27/18 15:15) Us Renal Limited [id number] (06/27/18 15:07) Medications Given in ED Current Medications Medications Dose Ordered Sig/Shira Route Start Time Stop Time Status Last Admin Dose Admin Acetaminophen 1,000 mg ONCE ONCE PO 06/27/18 14:15 06/27/18 14:20 DC 06/27/18 15:06 1,000 MG Ceftriaxone Sodium 1000 mg/ Sodium Chloride 50 ml @ 100 mls/hr ONCE ONCE IV 06/27/18 15:15 06/27/18 15:44 DC 06/27/18 15:40 100 MLS/HR Vital Signs/I&O 06/27/18 13:07 Temp 97.5 Pulse 69 Resp 18 B/P (MAP) 117/71 (86) Pulse Ox 99 Capillary Refill : Less Than 3 Seconds Blood Pressure Mean: 86 Progress Note #1: Time: 14:35 Progress Note She does appear a little dry on examination so were to give her a liter fluids check her magnesium and electrolytes and check her urinalysis. Differential includes UTI/pyelonephritis/kidney stone. Urology recommends we could do a CT without contrast for kidney stone study if she is in her second or third trimester. Dates are fairly uncertain but she does seem to be in her first trimester so an ultrasound may be our best bet up with if we suspect she has a stone. Progress Note #2: Time: 16:13 Progress Note Difficult to find direct or indirect evidence of a kidney stone without a CT scan for a presumed that is the case and that there may be a infection as well hiding behind a small stone. We'll put her on antibiotics and have her follow- up with Dr. Infante in the clinic. She's been given a dose of Rocephin. We are some Zofran for her nausea and some strict return precautions. Diagnostic Imaging Diagonstic Imaging: Ultrasound Plain Films/CT/US/NM/MRI: other (renal right limited) Comments VIA [facility]. [place], [place] NAME: SRUTHI MCRAE [facility] REC#: [id number] PT STATUS: REG ER : 1995 PHYSICIAN: TD VEGAS MD ADMIT DATE: 06/27/18/ER Draft Date of Exam:06/27/18 US RENAL LIMITED [id number] INDICATION: Right flank pain. FINDINGS: Right kidney was evaluated. Right kidney measures 12.2 x 4.0 x 5.3 cm. The cortical thickness and echogenicity are normal. No calculi or hydronephrosis are identified. Right ureteral jet was visualized in the urinary bladder. IMPRESSION: Unremarkable right renal ultrasound. Dictated on workstation # [id number] Dict: 06/27/18 1558 Trans: 06/27/18 1600 [id number] Interpreted by: OLIVIA BONILLA MD Electronically signed by: Reviewed: Reviewed by Me Consults Consults : Consulting Physician: JASON VEGA MD Consults Notes Discussed the case with Dr. Vega, urology and he recommends CT without contrast for kidney stone study is safe in the second and third trimester's but in her case ultrasound beer best that right now. Discussed the case with Dr. INFANTE, gynecology and he recommends ultrasound and it would not be wrong to use some hydrocodone for pain and antibiotics. He will see her in the clinic. Departure Impression Primary Impression: Kidney stone Additional Impression: UTI (urinary tract infection) during Qualified Codes: O23.41 - Unspecified infection of urinary tract in , first trimester Disposition: 01 HOME, SELF-CARE Condition: Stable Departure-Patient Inst. Decision time for Depature: 16:14 Referrals: [facility] (PCP/Family) Primary Care Physician Patient Instructions: Urinary Tract Infection, Adult (DC) Add. Discharge Instructions: Drink lots of fluids. Use Tylenol 1000 mg every 8 hours as needed for pain in addition to heating pads , massage, distraction therapy, heat and if necessary then you may use one tablet of hydrocodone every 6 hours for breakthrough pain. If you have nausea take one tablet of Zofran every [address] under the tongue allowed to absorb. Keep your follow-up appointment with Dr. INFANTE. If your symptoms have not improved in a call Dr. INFANTE or your primary care doctor for a closer appointment. If you have intractable nausea, fevers, pain or other worrisome symptoms return to the ER for further evaluation. All discharge instructions reviewed with patient and/or family. Voiced understanding. Scripts Ondansetron (Ondansetron Odt) 4 Mg Tab.rapdis 4 MG PO Q6H PRN for NAUSEA/VOMITING, #8 TAB 0 Refills Prov: TD VEGAS 06/27/18 Hydrocodone Bit/Acetaminophen (Hydrocodone/Acetaminophen 5/325mg Tablet) 1 Tab Tab 1 EACH PO Q6H PRN for BREAKTHROUGH PAIN, #10 TAB 0 Refills Prov: TD VEGAS 06/27/18 Cephalexin (Cephalexin) 500 Mg Tablet 500 MG PO BID for 7 Days, #14 TAB 0 Refills Prov: TD VEGAS 06/27/18 Work/School Note: Work Release Form Date Seen in the Emergency Department: Jun 27, 2018 Return to Work: Jun 28, 2018 Restrictions: No Restrictions Copy Copies To 1: PAMELA CORONEL DO; DAVID INFANTE TITUS J Jun 27, 2018 14:22
[2018-06-27 14:38] LABS: BILIRUBIN,URINE NEGATIVE (NEGATIVE); CLARITY,URINE CLEAR; COLOR,URINE YELLOW; GLUCOSE, URINE (UA) NEGATIVE (NEGATIVE); KETONES,URINE NEGATIVE (NEGATIVE); LEUKOCYTE ESTERASE ,URINE 1+ (NEGATIVE); NITRITE,URINE NEGATIVE (NEGATIVE); PH,URINE 6.5 (5-9); PROTEIN,URINE NEGATIVE (NEGATIVE); UROBILINOGEN,URINE NORMAL (NORMAL)
[2018-06-27 14:53] LABS: AMPHETAMINE SCREEN, URINE NEGATIVE (NEGATIVE); BARBITURATE SCREEN URINE NEGATIVE (NEGATIVE); BENZODIAZEPINES SCREEN URINE NEGATIVE (NEGATIVE); CANNABINOID SCREEN, URINE POSITIVE (NEGATIVE); COCAINE SCREEN URINE NEGATIVE (NEGATIVE); METHADONE STAT NEGATIVE (NEGATIVE); METHAMPHETAMINE SCREEN URINE S NEGATIVE (NEGATIVE); OPIATE SCREEN URINE NEGATIVE (NEGATIVE); OXYCODONE STAT NEGATIVE (NEGATIVE); TRICYCLIC ANTIDEPRESSANTS SCRE NEGATIVE (NEGATIVE)
[2018-06-27 14:54] LABS: PROPOXYPHENE STAT NEGATIVE (NEGATIVE)
[2018-06-27 14:57] LABS: BACTERIA,URINE MODERATE /HPF
[2018-06-27 15:12] LABS: BASOPHILS % (AUTO) 0 % (0-10); EOSINOPHILS # (AUTO) 0.1 10^3/uL (0.0-0.3); EOSINOPHILS % (AUTO) 1 % (0-10); HEMATOCRIT 41 % (35-52); HEMOGLOBIN 14.1 G/DL (11.5-16.0); LYMPHOCYTES # (AUTO) 2.4 X 10^3 (1.0-4.0); LYMPHOCYTES % (AUTO) 21 % (12-44); MEAN CORPUSCULAR HEMOGLOBIN 30 PG (25-34); MEAN CORPUSCULAR HGB CONC 35 G/DL (32-36); MEAN CORPUSCULAR VOLUME 85 FL (80-99); MEAN PLATELET VOLUME 9.4 FL (7.4-10.4); MONOCYTES # (AUTO) 0.7 X 10^3 (0.0-1.0); MONOCYTES % (AUTO) 6 % (0-12); NEUTROPHILS # (AUTO) 8.1 X 10^3 (1.8-7.8); NEUTROPHILS % (AUTO) 71 % (42-75); PLATELET COUNT 310 10^3/uL (130-400); RED BLOOD COUNT 4.77 10^6/uL (4.35-5.85); RED CELL DISTRIBUTION WIDTH 13.6 % (10.0-14.5); WHITE BLOOD COUNT 11.3 10^3/uL (4.3-11.0)
[2018-06-27] MEDS ORDERED: cefTRIAXone INJECTION 1,000 MG in NS (IVPB) 50 ML IV ONE (15:15)
[2018-06-27 15:21] LABS: ALANINE AMINOTRANSFERASE 16 U/L (0-55); ALBUMIN 4.1 GM/DL (3.2-4.5); ALKALINE PHOSPHATASE 59 U/L (40-136); BILIRUBIN,TOTAL 0.2 MG/DL (0.1-1.0); BUN/CREATININE RATIO 7; CALCIUM 9.4 MG/DL (8.5-10.1); CARBON DIOXIDE 24 MMOL/L (21-32); CHLORIDE 109 MMOL/L (98-107); CREATININE SERUM 0.72 MG/DL (0.60-1.30); GFR ESTIMATED > 60; GLUCOSE 89 MG/DL (70-105); MAGNESIUM 2.1 MG/DL (1.8-2.4); POTASSIUM 4.5 MMOL/L (3.6-5.0); SODIUM 138 MMOL/L (135-145); TOTAL PROTEIN 6.6 GM/DL (6.4-8.2)
--- NOTE | 2018-06-27 16:00 | Diagnostic Imaging Report ---
INDICATION: Right flank pain. FINDINGS: Right kidney was evaluated. Right kidney measures 12.2 x 4.0 x 5.3 cm. The cortical thickness and echogenicity are normal. No calculi or hydronephrosis are identified. Right ureteral jet was visualized in the urinary bladder. IMPRESSION: Unremarkable right renal ultrasound. Dictated by: Dictated on workstation # [id number]
[2018-06-27] MEDS ORDERED: ONDA4TAB11 PO (16:17)
[2018-06-27] MEDS ORDERED: CEPH500T PO (16:17)
[2018-06-27] MEDS ORDERED: ACHD5005 PO (16:17)
[2018-06-27 16:24] VITALS: BP 117/71
[2018-06-27] MEDS ORDERED: ONDANSETRON 4 MG (ZOFRAN) ORAL DISSOLVE TAB PO ONE (16:30)
== END 2018-06-27 16:32 | disposition home or self-care (01) ==
LOC: EDUNIT# 12:54 → ER 12:58
DX: O99.89 Other specified diseases and conditions complicating pregnancy, childbirth and the puerperium (principal); N20.0 Calculus of kidney; O23.41 Unspecified infection of urinary tract in pregnancy, first trimester; O99.341 Other mental disorders complicating pregnancy, first trimester; F32.9 Major depressive disorder, single episode, unspecified; Z3A.01 Less than 8 weeks gestation of pregnancy; Z80.49 Family history of malignant neoplasm of other genital organs; Z88.0 Allergy status to penicillin; Z87.891 Personal history of nicotine dependence; Z87.59 Personal history of other complications of pregnancy, childbirth and the puerperium
CPT/HCPCS: 36415; 76775; 80053; 80306; 81000; 83735; 84703; 85025; 87088; 96361; 96365

== ENCOUNTER 2018-08-08 11:57 | Emergency (ER) | payer MEDICAID ==
[~2018-08-08] VITALS: Ht 162.6 cm; Wt 83.9 kg
[~2018-08-08 11:57] MED LIST changes: +CEPH500T PO; +DOXY1TAB3 PO; +NITR-65 PO
[2018-08-08 13:09] LABS: BASOPHILS % (AUTO) 0 % (0-10); EOSINOPHILS # (AUTO) 0.1 10^3/uL (0.0-0.3); EOSINOPHILS % (AUTO) 1 % (0-10); HEMATOCRIT 40 % (35-52); HEMOGLOBIN 13.6 G/DL (11.5-16.0); LYMPHOCYTES # (AUTO) 1.6 X 10^3 (1.0-4.0); LYMPHOCYTES % (AUTO) 15 % (12-44); MEAN CORPUSCULAR HEMOGLOBIN 30 PG (25-34); MEAN CORPUSCULAR HGB CONC 34 G/DL (32-36); MEAN CORPUSCULAR VOLUME 87 FL (80-99); MEAN PLATELET VOLUME 9.6 FL (7.4-10.4); MONOCYTES # (AUTO) 0.6 X 10^3 (0.0-1.0); MONOCYTES % (AUTO) 5 % (0-12); NEUTROPHILS # (AUTO) 8.2 X 10^3 (1.8-7.8); NEUTROPHILS % (AUTO) 78 % (42-75); PLATELET COUNT 278 10^3/uL (130-400); RED BLOOD COUNT 4.57 10^6/uL (4.35-5.85); RED CELL DISTRIBUTION WIDTH 13.3 % (10.0-14.5); WHITE BLOOD COUNT 10.5 10^3/uL (4.3-11.0)
--- NOTE | 2018-08-08 13:19 | ED General ---
General Chief Complaint: Neurological Problems Stated Complaint: HEADACHE;PASSED OUT Nursing Triage Note: pt presents to ed with complaints of migraine x 2 days. reports today she felt weak and passed out twice. Nursing Sepsis Screen: No Definite Risk Source of Information: Patient, Family Exam Limitations: No Limitations History of Present Illness Date Seen by Provider: Aug 08, 2018 Time Seen by Provider: 13:03 Initial Comments This 22-year-old white female presents after a syncopal episode that occurred shortly prior to presentation emergency department. The patient has had a migraine headache for the past 2 days. The patient is into the 12th week of her second gestation. She had no similar episodes with her first . The patient's first OB appointment was unremarkable approximately one month ago. Patient denies associated fever, chills, shortness of breath, palpitations or chest pain, nausea or vomiting, seizure activity, change in medications, history of seizure disorder, or lateralizing localizing neurologic complaints. According to the who observed the single episode the patient fainted for several minutes. The patient subsequently complained of blurred vision which resolved upon presentation to the emergency department. Allergies and Home Medications Allergies Coded Allergies: Penicillins (Verified Allergy, Mild, HIVES, 09/30/17) Home Medications Cefdinir 300 Mg Capsule, 300 MG PO BID Prescribed by: ARY MITCHELL on 03/22/18308 Cephalexin 500 Mg Tablet, 500 MG PO BID Prescribed by: TD VEGAS on 06/27/181616 Doxylamine/Pyridoxine HCl 1 Each Tablet.dr, 2 EACH PO HS Prescribed by: ARY MITCHELL on 07/08/182133 Guaifenesin/Dextromethorphan 1 Each Tbmp.12hr, 1 EACH PO BID Prescribed by: ARY MITCHELL on 03/22/18308 Hydrocodone Bit/Acetaminophen 1 Tab Tab, 1 EACH PO Q6H PRN for BREAKTHROUGH PAIN Prescribed by: TD VEGAS on 06/27/181616 Levonorgestrel-Ethin Estradiol 1 Each Tablet, 1 TAB PO DAILY, (Reported) Nitrofurantoin Monohyd/M-Cryst 100 Mg Capsule, 100 MG PO BID Prescribed by: ARY MITCHELL on 07/08/182133 Ondansetron 4 Mg Tab.rapdis, 4 MG PO Q6H PRN for NAUSEA/VOMITING Prescribed by: TD VEGAS on 06/27/18 1617 Sertraline HCl 25 Mg Tablet, 25 MG PO DAILY, (Reported) Patient Home Medication List Home Medication List Reviewed: Yes Review of Systems Review of Systems Constitutional: No chills, No fever; weakness EENTM: blurred vision; No ear pain, No eye pain Respiratory: No cough Cardiovascular: No chest pain Gastrointestinal: No abdominal pain, No diarrhea, No vomiting Genitourinary: no symptoms reported : Yes Musculoskeletal: no symptoms reported Skin: no symptoms reported; No rash Psychiatric/Neurological: No Symptoms Reported Hematologic/Lymphatic: No Symptoms Reported Immunological/Allergic: no symptoms reported Past Ykjaqxw-Euwmli-Ozmrgo Hx Past Med/Social Hx: Reviewed Nursing Past Med/Soc Hx Patient Social History Alcohol Use: Denies Use Recreational Drug Use: No Smoking Status: Current Everyday Smoker Type Used: Cigarettes Former Smoker, Quit: Feb 16, 2017 2nd Hand Smoke Exposure: No Recent Foreign Travel: No Contact w/Someone Who Travel: No Recent Infectious Disease Expo: No Recent Hopitalizations: No Physical Abuse: No Sexual Abuse: No Mistreated: No Fear: No Immunizations Up To Date Tetanus Booster (TDap): Less than 5yrs Date of Influenza Vaccine: Aug 26, 2017 Seasonal Allergies Seasonal Allergies: No Past Medical History Surgeries: Yes ( X 1) Section, Gallbladder Respiratory: No Cardiac: No Neurological: No Reproductive Disorders: No Sexually Transmitted Disease: No HIV/AIDS: No Genitourinary: Yes Kidney Stones Gastrointestinal: No Musculoskeletal: No Endocrine: No HEENT: No Cancer: No Psychosocial: Yes Depression Integumentary: No Blood Disorders: No Adverse Reaction/Blood Tranf: No Family Medical History Cervical cancer 19 MOTHER Cancer, Diabetes Physical Exam Vital Signs Vital Signs - First Documented 08/08/18 12:32 Temp 98.3 Pulse 76 Resp 20 B/P (MAP) 122/69 (86) Pulse Ox 99 Capillary Refill : Less Than 3 Seconds Height, Weight, BMI Height: 5'4.00" Weight: 185lbs. 0oz. 83.329962xp; 31.6 BMI Method:Stated General Appearance: No Apparent Distress, WD/WN Eyes: Bilateral Eye Normal Inspection HEENT: Normal ENT Inspection Neck: Normal Inspection Respiratory: Lungs Clear Cardiovascular: Regular Rate, Rhythm Gastrointestinal: Normal Bowel Sounds, Non Tender Back: Normal Inspection Extremity: Normal Capillary Refill, Normal Inspection, Normal Range of Motion, No Pedal Edema Neurologic/Psychiatric: Alert, Oriented x3, No Motor/Sensory Deficits, Other ( normal reflexes were noted at the knee bilaterally.) Skin: Normal Color, Warm/Dry Progress/Results/Core Measures Suspected Sepsis Recent Fever Within 48 Hours: No Infection Criteria Present: None New/Unexplained Altered Menta: No Sepsis Screen: No Definite Risk SIRS Temperature:98.3 Pulse: 76 Respiratory Rate: 20 Laboratory Tests 08/08/18 12:54: White Blood Count 10.5 Blood Pressure 122 /69 Mean: 86 Laboratory Tests 08/08/18 12:54: Creatinine 0.61, Platelet Count 278, Total Bilirubin 0.4 Results/Orders Lab Results Laboratory Tests Test 08/08/18 12:54 08/08/18 15:35 Range/Units White Blood Count 10.5 4.3-11.0 10^3/uL Red Blood Count 4.57 4.35-5.85 10^6/uL Hemoglobin 13.6 11.5-16.0 G/DL Hematocrit 40 35-52 % Mean Corpuscular Volume 87 80-99 FL Mean Corpuscular Hemoglobin 30 25-34 PG Mean Corpuscular Hemoglobin Concent 34 32-36 G/DL Red Cell Distribution Width 13.3 10.0-14.5 % Platelet Count 278 130-400 10^3/uL Mean Platelet Volume 9.6 7.4-10.4 FL Neutrophils (%) (Auto) 78 H 42-75 % Lymphocytes (%) (Auto) 15 12-44 % Monocytes (%) (Auto) 5 0-12 % Eosinophils (%) (Auto) 1 0-10 % Basophils (%) (Auto) 0 0-10 % Neutrophils # (Auto) 8.2 H 1.8-7.8 X 10^3 Lymphocytes # (Auto) 1.6 1.0-4.0 X 10^3 Monocytes # (Auto) 0.6 0.0-1.0 X 10^3 Eosinophils # (Auto) 0.1 0.0-0.3 10^3/uL Basophils # (Auto) 0.0 0.0-0.1 10^3/uL Sodium Level 137 135-145 MMOL/L Potassium Level 3.8 3.6-5.0 MMOL/L Chloride Level 108 H 98-107 MMOL/L Carbon Dioxide Level 21 21-32 MMOL/L Anion Gap 8 5-14 MMOL/L Blood Urea Nitrogen 6 L 7-18 MG/DL Creatinine 0.61 0.60-1.30 MG/DL Estimat Glomerular Filtration Rate > 60 BUN/Creatinine Ratio 10 Glucose Level 85 70-105 MG/DL Calcium Level 9.0 8.5-10.1 MG/DL Corrected Calcium 9.2 8.5-10.1 MG/DL Total Bilirubin 0.4 0.1-1.0 MG/DL Aspartate Amino Transf (AST/SGOT) 14 5-34 U/L Alanine Aminotransferase (ALT/SGPT) 15 0-55 U/L Alkaline Phosphatase 58 40-136 U/L Total Protein 6.4 6.4-8.2 GM/DL Albumin 3.8 3.2-4.5 GM/DL My Orders Orders - GURVINDER ZUNIGA MD Cbc With Automated Diff (08/08/18 12:58) Comprehensive Metabolic Panel (08/08/18 12:58) Ekg Tracing (08/08/18 12:58) Ua Culture If Indicated (08/08/18 12:58) Hemoglobin A1c (08/08/18 12:58) Vital Signs/I&O 08/08/18 12:32 Temp 98.3 Pulse 76 Resp 20 B/P (MAP) 122/69 (86) Pulse Ox 99 Capillary Refill : Less Than 3 Seconds Blood Pressure Mean: 86 Progress Note : Time: 15:56 Progress Note Patient was observed in the emergency department for 2 hours. Patient had no further untoward effects. Patient was ready to go home at the end of her observation and she had no residual symptoms. Departure Impression Primary Impression: Syncope Qualified Codes: R55 - Syncope and collapse Disposition: 01 HOME, SELF-CARE Condition: Improved Departure-Patient Inst. Decision time for Depature: 16:03 Referrals: [facility] (PCP/Family) Primary Care Physician Patient Instructions: Syncope (Fainting) (DC) Add. Discharge Instructions: Follow-up with your OB on Saturday. Come back if any further problems or questions. Rest this weekend. All discharge instructions reviewed with patient and/or family. Voiced understanding. GURVINDER ZUNIGA MD Aug 08, 2018 13:19
[2018-08-08 13:30] LABS: ALANINE AMINOTRANSFERASE 15 U/L (0-55); ALBUMIN 3.8 GM/DL (3.2-4.5); ALKALINE PHOSPHATASE 58 U/L (40-136); BILIRUBIN,TOTAL 0.4 MG/DL (0.1-1.0); BUN/CREATININE RATIO 10; CARBON DIOXIDE 21 MMOL/L (21-32); CHLORIDE 108 MMOL/L (98-107); CREATININE SERUM 0.61 MG/DL (0.60-1.30); GFR ESTIMATED > 60; GLUCOSE 85 MG/DL (70-105); POTASSIUM 3.8 MMOL/L (3.6-5.0); SODIUM 137 MMOL/L (135-145); TOTAL PROTEIN 6.4 GM/DL (6.4-8.2)
[2018-08-08 15:46] LABS: BILIRUBIN,URINE NEGATIVE (NEGATIVE); CLARITY,URINE CLEAR; COLOR,URINE YELLOW; GLUCOSE, URINE (UA) NEGATIVE (NEGATIVE); KETONES,URINE NEGATIVE (NEGATIVE); LEUKOCYTE ESTERASE ,URINE 1+ (NEGATIVE); NITRITE,URINE NEGATIVE (NEGATIVE); PH,URINE 7 (5-9); PROTEIN,URINE NEGATIVE (NEGATIVE); UROBILINOGEN,URINE NORMAL (NORMAL)
[2018-08-08 16:11] LABS: BACTERIA,URINE TRACE /HPF
[2018-08-08 16:13] VITALS: BP 110/70
== END 2018-08-08 16:13 | disposition home or self-care (01) ==
LOC: EDUNIT# 11:57 → ER 11:58
DX: R55 Syncope and collapse (principal); G43.909 Migraine, unspecified, not intractable, without status migrainosus; F32.9 Major depressive disorder, single episode, unspecified; Z88.0 Allergy status to penicillin; Z87.891 Personal history of nicotine dependence; Z80.49 Family history of malignant neoplasm of other genital organs; Z98.890 Other specified postprocedural states; Z87.442 Personal history of urinary calculi
CPT/HCPCS: 36415; 80053; 81000; 83036; 85025; 93005

== ENCOUNTER 2018-09-11 19:17 | Emergency (ER) | payer MEDICAID ==
[~2018-09-11] VITALS: Ht 160 cm; Wt 83.5 kg
--- OUTSIDE RECORDS SUMMARY | 2018-09-11 19:22 | XMS REPORT ---
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 Active 73039717 Problem Family history of diabetes mellitus Z83.3 Active 948111530 Problem Polyuria R35.8 Active 93507203 Problem Intestinal infection A09 Active 406638891 ALLERGIES No Information ENCOUNTERS Encounter Location Date Diagnosis [facility] [address] [address] Jun, test positive Z32.01 [facility] [id number] [place] [address] Jun, Dental examination Z01.20 [facility] [address] [address] Jun, Dental examination Z01.20 [facility] [id number] [place] [address] Jun, [facility] [id number] [place] [id number] Jun, Dental examination Z01.20 [facility] [id number] [place] [address] Jan, test positive Z32.01 [facility] [address] [address] Dec, Painful urination R30.9 ; RUQ pain R10.11 ; Bilirubin in urine R82.2 and Pelvic pain R10.2 [facility] [address] [address] Nov, Bronchitis J40 [facility] [id number] [place] [address] Dec, BMI 35.0-35.9,adult Z68.35 [facility] [id number] [place] [address] Dec, BMI 35.0-35.9,adult Z68.35 [facility] [address] [address] Dec, Encounter for oral contraception initial prescription Z30.011 [place] [address] [address] Dec, [facility] [address] [address] Dec, Amenorrhea, secondary N91.1 ; Breast tenderness N64.4 ; Nausea R11.0 ; Female hirsutism L68.0 ; Acne, unspecified L70.9 ; BMI 35.0-35.9, adult Z68.35 and Desire for Z31.9 [facility] [id number] [place] [address] Feb, [facility] [id number] [place] [address] Feb, [facility] [id number] [place] [address] Oct, [facility] [id number] [place] [address] Oct, [facility] [address] [address] Oct, [facility] [id number] [place] [address] Oct, [facility] [address] [address] Dec, [facility] [address] [facility] [id number] [address] Dec, [facility] [address] [facility] [id number], [place] [address] Dec, [facility] [address] [facility] [id number] [address] Dec, [facility] [address] [id number] [address] Dec, IMMUNIZATIONS No Known Immunizations SOCIAL HISTORY Never Assessed REASON FOR VISIT test (walk-in) PLAN OF CARE VITAL SIGNS MEDICATIONS Unknown Medications RESULTS Name Result Date Reference Range TEST, URINE (IN HOUSE) RESULTS POSITIVE Lot # [id number] Control + Exp date 18 Dec 2019 PROCEDURES Procedure Date Ordered Result Body Site URINE TEST Jun 25, 2018 INSTRUCTIONS MEDICATIONS ADMINISTERED No Known Medications
--- NOTE | 2018-09-11 19:57 | ED Abdominal Pain ---
General Chief Complaint: -Female Stated Complaint: 17 WKS PREG/CRAMPING/DECREASED MVMNT Source of Information: Patient Exam Limitations: No Limitations History of Present Illness Date Seen by Provider: Sep 11, 2018 Time Seen by Provider: 19:54 Initial Comments To ER with reports of suprapubic abdominal cramping, pressure, sensation of decreased movement since earlier today. She reports that she urinates frequently as a function of being . She states she is about 17 weeks , follows with Dr. INFANTE. She denies any vaginal discharge or bleeding. She has had an ultrasound to confirm intrauterine . Timing/Duration: 1-2 Days Severity/Quality: Moderate Radiation: No Radiation Activities at Onset: None Allergies and Home Medications Allergies Coded Allergies: Penicillins (Verified Allergy, Mild, HIVES, 09/30/17) Home Medications Cefdinir 300 Mg Capsule, 300 MG PO BID Prescribed by: ARY MITCHELL on 03/22/18308 Cephalexin 500 Mg Tablet, 500 MG PO BID Prescribed by: TD VEGAS on 06/27/181616 Doxylamine/Pyridoxine HCl 1 Each Tablet.dr, 2 EACH PO HS Prescribed by: ARY MITCHELL on 07/08/182133 Guaifenesin/Dextromethorphan 1 Each Tbmp.12hr, 1 EACH PO BID Prescribed by: ARY MITCHELL on 03/22/18308 Hydrocodone Bit/Acetaminophen 1 Tab Tab, 1 EACH PO Q6H PRN for BREAKTHROUGH PAIN Prescribed by: TD VEGAS on 06/27/181616 Levonorgestrel-Ethin Estradiol 1 Each Tablet, 1 TAB PO DAILY, (Reported) Nitrofurantoin Monohyd/M-Cryst 100 Mg Capsule, 100 MG PO BID Prescribed by: ARY MITCHELL on 07/08/182133 Ondansetron 4 Mg Tab.rapdis, 4 MG PO Q6H PRN for NAUSEA/VOMITING Prescribed by: TD VEGAS on 06/27/181616 Sertraline HCl 25 Mg Tablet, 25 MG PO DAILY, (Reported) Patient Home Medication List Home Medication List Reviewed: Yes Review of Systems Review of Systems Constitutional: see HPI EENTM: No Symptoms Reported Respiratory: No Symptoms Reported Cardiovascular: No Symptoms Reported Gastrointestinal: See HPI, Abdominal Pain Genitourinary: No Symptoms Reported Musculoskeletal: no symptoms reported Skin: no symptoms reported Psychiatric/Neurological: No Symptoms Reported Endocrine: No Symptoms Reported Hematologic/Lymphatic: No Symptoms Reported Past Bcmsbzc-Byoqmz-Cbnwao Hx Patient Social History Alcohol Use: Denies Use Recreational Drug Use: No Drug of Choice: past hx of pot prior to pregancies Smoking Status: Former Smoker Type Used: Cigarettes Former Smoker, Quit: Feb 16, 2017 2nd Hand Smoke Exposure: No Recent Foreign Travel: No Contact w/Someone Who Travel: No Recent Hopitalizations: No Physical Abuse: No Sexual Abuse: No Mistreated: No Fear: No Immunizations Up To Date Tetanus Booster (TDap): Less than 5yrs Date of Influenza Vaccine: Aug 26, 2017 Seasonal Allergies Seasonal Allergies: No Past Medical History Surgeries: Yes ( X 1) Section, Gallbladder Respiratory: No Cardiac: No Neurological: No Reproductive Disorders: No Sexually Transmitted Disease: No HIV/AIDS: No Genitourinary: Yes Kidney Stones Gastrointestinal: No Musculoskeletal: No Endocrine: No HEENT: No Cancer: No Psychosocial: Yes Depression Integumentary: No Blood Disorders: No Adverse Reaction/Blood Tranf: No Family Medical History Cervical cancer 19 MOTHER Cancer, Diabetes Physical Exam Vital Signs Vital Signs - First Documented 09/11/18 19:51 Temp 98.8 Pulse 91 Resp 20 B/P (MAP) 120/84 (96) Pulse Ox 99 Capillary Refill : Height/Weight/BMI Height: 5'4.00" Weight: 185lbs. 0oz. 83.298629kl; 31.6 BMI Method:Stated General Appearance: WD/WN, no apparent distress HEENT: PERRL/EOMI, normal ENT inspection Respiratory: no respiratory distress, no accessory muscle use Gastrointestinal: normal bowel sounds, non tender, soft Extremities: normal range of motion, non-tender Neurologic/Psychiatric: alert, normal mood/affect, oriented x 3 Skin: normal color, warm/dry Exam Comments heart tones obtained and found to be 147. This put her at ease. She is very anxious about the fetus's well being. We'll check a urine, basic lab work, follow-up with Dr. INFANTE tomorrow barring any emergent conditions tonight. She' ll receive a liter of IV fluids and 25 mg of IV Benadryl. Progress/Results/Core Measures Results/Orders Lab Results Laboratory Tests Test 09/11/18 19:50 Range/Units White Blood Count 12.1 H 4.3-11.0 10^3/uL Red Blood Count 4.34 L 4.35-5.85 10^6/uL Hemoglobin 13.2 11.5-16.0 G/DL Hematocrit 38 35-52 % Mean Corpuscular Volume 88 80-99 FL Mean Corpuscular Hemoglobin 30 25-34 PG Mean Corpuscular Hemoglobin Concent 35 32-36 G/DL Red Cell Distribution Width 13.2 10.0-14.5 % Platelet Count 285 130-400 10^3/uL Mean Platelet Volume 9.8 7.4-10.4 FL Neutrophils (%) (Auto) 76 H 42-75 % Lymphocytes (%) (Auto) 16 12-44 % Monocytes (%) (Auto) 7 0-12 % Eosinophils (%) (Auto) 1 0-10 % Basophils (%) (Auto) 0 0-10 % Neutrophils # (Auto) 9.2 H 1.8-7.8 X 10^3 Lymphocytes # (Auto) 1.9 1.0-4.0 X 10^3 Monocytes # (Auto) 0.8 0.0-1.0 X 10^3 Eosinophils # (Auto) 0.1 0.0-0.3 10^3/uL Basophils # (Auto) 0.0 0.0-0.1 10^3/uL Urine Color YELLOW Urine Clarity CLEAR Urine pH 6.5 5-9 Urine Specific Fletcher 1.015 L 1.016-1.022 Urine Protein NEGATIVE NEGATIVE Urine Glucose (UA) NEGATIVE NEGATIVE Urine Ketones NEGATIVE NEGATIVE Urine Nitrite NEGATIVE NEGATIVE Urine Bilirubin NEGATIVE NEGATIVE Urine Urobilinogen NORMAL NORMAL MG/DL Urine Leukocyte Esterase 1+ H NEGATIVE Urine RBC (Auto) NEGATIVE NEGATIVE Urine RBC NONE /HPF Urine WBC 2-5 /HPF Urine Squamous Epithelial Cells 5-10 /HPF Urine Crystals NONE /LPF Urine Bacteria FEW H /HPF Urine Casts NONE /LPF Urine Mucus MODERATE H /LPF Urine Culture Indicated YES Sodium Level 136 135-145 MMOL/L Potassium Level 3.8 3.6-5.0 MMOL/L Chloride Level 107 98-107 MMOL/L Carbon Dioxide Level 18 L 21-32 MMOL/L Anion Gap 11 5-14 MMOL/L Blood Urea Nitrogen 7 7-18 MG/DL Creatinine 0.67 0.60-1.30 MG/DL Estimat Glomerular Filtration Rate > 60 BUN/Creatinine Ratio 10 Glucose Level 83 70-105 MG/DL Calcium Level 9.8 8.5-10.1 MG/DL Corrected Calcium 9.9 8.5-10.1 MG/DL Total Bilirubin 0.2 0.1-1.0 MG/DL Aspartate Amino Transf (AST/SGOT) 10 5-34 U/L Alanine Aminotransferase (ALT/SGPT) 11 0-55 U/L Alkaline Phosphatase 64 40-136 U/L Total Protein 6.8 6.4-8.2 GM/DL Albumin 3.9 3.2-4.5 GM/DL My Orders Orders - LEXIE WHITEHEAD APRN Ua Culture If Indicated (09/11/18 19:29) Cbc With Automated Diff (09/11/18 19:52) Comprehensive Metabolic Panel (09/11/18 19:52) Iv Heplock-Insert (Order) (09/11/18 19:52) Ns Iv 1000 Ml (Sodium Chloride 0.9%) (09/11/18 20:00) Diphenhydramine Injection (Benadryl Inje (09/11/18 20:00) Acetaminophen Tablet (Tylenol Tablet) (09/11/18 20:00) Urine Culture (09/11/18 19:50) Medications Given in ED Current Medications Medications Dose Ordered Sig/Shira Route Start Time Stop Time Status Last Admin Dose Admin Acetaminophen 1,000 mg ONCE ONCE PO 09/11/18 20:00 09/11/18 20:01 DC 09/11/18 20:03 1,000 MG Diphenhydramine HCl 25 mg ONCE ONCE IVP 09/11/18 20:00 09/11/18 20:01 DC 09/11/18 20:03 25 MG Vital Signs/I&O 09/11/18 19:51 Temp 98.8 Pulse 91 Resp 20 B/P (MAP) 120/84 (96) Pulse Ox 99 Departure Communication (Admissions) 2026-Still having some discomfort. Will defer further workup to Dr Infante in the outpatient setting. Impression Primary Impression: Pelvic pain Disposition: HOME, SELF-CARE Condition: Stable Departure-Patient Inst. Decision time for Depature: 20:18 Referrals: DAVID INFANTE DO (PCP) Primary Care Physician [facility] (Family) Primary Care Physician Patient Instructions: - The Fifth Month Add. Discharge Instructions: 1. Call Dr. INFANTE tomorrow to make an appointment to be seen 2. Return to ER for any concerns. All discharge instructions reviewed with patient and/or family. Voiced understanding. Work/School Note: Work Release Form Date Seen in the Emergency Department: Sep 11, 2018 Return to Work: Sep 13, 2018 Copy Copies To 1: DAVID INFANTE PETER J APRN Sep 11, 2018 19:57
[2018-09-11] MEDS ORDERED: ACETAMINOPHEN 500 MG TAB (TYLENOL) PO ONE (20:00)
[2018-09-11] MEDS ORDERED: NS IV 1000 ML 1,000 ML IV SCH (20:00)
[2018-09-11] MEDS ORDERED: diphenhydrAMINE 50 MG/ML INJ (BENADRYL) IVP ONE (20:00)
[2018-09-11 20:04] LABS: BASOPHILS % (AUTO) 0 % (0-10); BILIRUBIN,URINE NEGATIVE (NEGATIVE); CLARITY,URINE CLEAR; COLOR,URINE YELLOW; EOSINOPHILS # (AUTO) 0.1 10^3/uL (0.0-0.3); EOSINOPHILS % (AUTO) 1 % (0-10); GLUCOSE, URINE (UA) NEGATIVE (NEGATIVE); HEMATOCRIT 38 % (35-52); HEMOGLOBIN 13.2 G/DL (11.5-16.0); KETONES,URINE NEGATIVE (NEGATIVE); LEUKOCYTE ESTERASE ,URINE 1+ (NEGATIVE); LYMPHOCYTES # (AUTO) 1.9 X 10^3 (1.0-4.0); LYMPHOCYTES % (AUTO) 16 % (12-44); MEAN CORPUSCULAR HEMOGLOBIN 30 PG (25-34); MEAN CORPUSCULAR HGB CONC 35 G/DL (32-36); MEAN CORPUSCULAR VOLUME 88 FL (80-99); MEAN PLATELET VOLUME 9.8 FL (7.4-10.4); MONOCYTES # (AUTO) 0.8 X 10^3 (0.0-1.0); MONOCYTES % (AUTO) 7 % (0-12); NEUTROPHILS # (AUTO) 9.2 X 10^3 (1.8-7.8); NEUTROPHILS % (AUTO) 76 % (42-75); NITRITE,URINE NEGATIVE (NEGATIVE); PH,URINE 6.5 (5-9); PLATELET COUNT 285 10^3/uL (130-400); PROTEIN,URINE NEGATIVE (NEGATIVE); RED BLOOD COUNT 4.34 10^6/uL (4.35-5.85); RED CELL DISTRIBUTION WIDTH 13.2 % (10.0-14.5); UROBILINOGEN,URINE NORMAL (NORMAL); WHITE BLOOD COUNT 12.1 10^3/uL (4.3-11.0)
[2018-09-11 20:12] LABS: BACTERIA,URINE FEW /HPF
[2018-09-11 20:21] LABS: ALANINE AMINOTRANSFERASE 11 U/L (0-55); ALBUMIN 3.9 GM/DL (3.2-4.5); ALKALINE PHOSPHATASE 64 U/L (40-136); BILIRUBIN,TOTAL 0.2 MG/DL (0.1-1.0); BUN/CREATININE RATIO 10; CALCIUM 9.8 MG/DL (8.5-10.1); CARBON DIOXIDE 18 MMOL/L (21-32); CHLORIDE 107 MMOL/L (98-107); CREATININE SERUM 0.67 MG/DL (0.60-1.30); GFR ESTIMATED > 60; GLUCOSE 83 MG/DL (70-105); POTASSIUM 3.8 MMOL/L (3.6-5.0); SODIUM 136 MMOL/L (135-145); TOTAL PROTEIN 6.8 GM/DL (6.4-8.2)
[2018-09-11 20:45] VITALS: BP 117/80
== END 2018-09-11 20:45 | disposition home or self-care (01) ==
LOC: EDUNIT# 19:17 → ER 19:19
DX: O26.892 Other specified pregnancy related conditions, second trimester (principal); R10.2 Pelvic and perineal pain; O99.342 Other mental disorders complicating pregnancy, second trimester; F32.9 Major depressive disorder, single episode, unspecified; Z88.0 Allergy status to penicillin; Z3A.17 17 weeks gestation of pregnancy; Z80.49 Family history of malignant neoplasm of other genital organs; Z87.891 Personal history of nicotine dependence; Z98.890 Other specified postprocedural states; Z87.442 Personal history of urinary calculi
CPT/HCPCS: 36415; 80053; 81000; 85025; 87088; 96374

== ENCOUNTER 2018-09-16 17:18 | Emergency (ER) | payer MEDICAID ==
[~2018-09-16] VITALS: Ht 160 cm; Wt 80.3 kg
--- NOTE | 2018-09-16 18:10 | ED Lower Extremity ---
General Chief Complaint: Lower Extremity Stated Complaint: TWISTED L ANKLE Source: patient, family (mom) Exam Limitations: no limitations History of Present Illness Date Seen by Provider: Sep 16, 2018 Time Seen by Provider: 17:59 Initial Comments 30 minutes prior to arrival patient was stepping down off her mother's porch and rolled her ankle inverted on the left side. She is a at 18 weeks 2 days. She did not strike her head lose consciousness or have any pain anywhere but her left ankle that she is having some swelling and difficulty stepping down. She's never fractured her had a surgery on her ankle before. Allergies and Home Medications Allergies Coded Allergies: Penicillins (Verified Allergy, Mild, HIVES, 09/30/17) Patient Home Medication List Home Medication List Reviewed: Yes Review of Systems Constitutional: No chills, No diaphoresis EENTM: No ear discharge, No ear pain Respiratory: No cough, No short of breath Cardiovascular: No chest pain, No edema Gastrointestinal: No abdominal pain, No nausea, No vomiting Past Sdsbqza-Bmcbcf-Xtugzm Hx Patient Social History Alcohol Use: Denies Use Recreational Drug Use: No Drug of Choice: past hx of pot prior to pregancies Smoking Status: Former Smoker Type Used: Cigarettes Former Smoker, Quit: Feb 16, 2017 2nd Hand Smoke Exposure: No Recent Foreign Travel: No Contact w/Someone Who Travel: No Recent Hopitalizations: No Immunizations Up To Date Tetanus Booster (TDap): Less than 5yrs Date of Influenza Vaccine: Aug 26, 2017 Seasonal Allergies Seasonal Allergies: No Past Medical History Surgeries: Yes ( X 1) Section, Gallbladder Respiratory: No Cardiac: No Neurological: No Reproductive Disorders: No Sexually Transmitted Disease: No HIV/AIDS: No Genitourinary: Yes Kidney Stones Gastrointestinal: No Musculoskeletal: No Endocrine: No HEENT: No Cancer: No Psychosocial: Yes Depression Integumentary: No Blood Disorders: No Adverse Reaction/Blood Tranf: No Family Medical History Cervical cancer 19 MOTHER Cancer, Diabetes Physical Exam Vital Signs Vital Signs - First Documented 09/16/18 18:00 Temp 98.5 Pulse 90 Resp 18 B/P (MAP) 105/69 (81) Pulse Ox 99 Capillary Refill : Height, Weight, BMI Height: 5'3.00" Weight: 184lbs. 0oz. 83.026214rk; 31.6 BMI Method:Stated General Appearance: WD/WN, no apparent distress Cardiovascular: normal peripheral pulses, regular rate, rhythm Respiratory: no respiratory distress, no accessory muscle use Legs: bilateral leg non-tender, bilateral leg normal inspection, bilateral leg normal range of motion, bilateral leg no evidence of injury Ankles: right ankle non-tender, right ankle normal inspection; bilateral ankle normal range of motion; right ankle no evidence of injury; left ankle bone tenderness (Lateral malleolus), left ankle joint effusion (Lateral malleolus), left ankle pain, left ankle soft tissue tenderness, left ankle swelling (Mild) Feet: bilateral foot non-tender, bilateral foot normal inspection, bilateral foot normal range of motion, bilateral foot no evidence of injury Neurologic/Tendon: normal sensation, normal motor functions, normal tendon functions, responds to pain, no evidence tendon injury Neurologic/Psychiatric: alert, normal mood/affect, oriented x 3 Skin: normal color, warm/dry Progress/Results/Core Measures Results/Orders My Orders Orders - TD VEGAS Acetaminophen Tablet (Tylenol Tablet) (09/16/18 18:15) Ankle, Left, 3 Views (09/16/18 18:04) Air Strup Ankle Brace (09/16/18 18:04) Medications Given in ED Current Medications Medications Dose Ordered Sig/Shira Route Start Time Stop Time Status Last Admin Dose Admin Acetaminophen 1,000 mg ONCE ONCE PO 09/16/18 18:15 09/16/18 18:16 DC 09/16/18 18:27 1,000 MG Vital Signs/I&O 09/16/18 18:00 Temp 98.5 Pulse 90 Resp 18 B/P (MAP) 105/69 (81) Pulse Ox 99 Progress Progress Note : Time: 18:08 Progress Note Thousand milligrams Tylenol and air stirrup. Get an x-ray of her foot she's having difficulty with bearing weight and has pain over the lateral malleolus. Diagnostic Imaging Diagonstic Imaging: Xray Plain Films/CT/US/NM/MRI: ankle (l) Comments NAME: SRUTHI MCRAE [facility] REC#: [id number] PHYSICIAN: TD VEGAS MD CC: OLIVIA BONILLA MD; TD VEGAS Page 1 of 1 RADIOLOGY REPORT VIA [place], [place] CC: OLIVIA BONILLA MD; TD VEGAS Page 1 of 1 RADIOLOGY REPORT NAME: SRUTHI MCRAE [facility] REC#: [id number] PT STATUS: REG ER : 1995 PHYSICIAN: TD VEGAS MD ADMIT DATE: 09/16/18/ER Signed Date of Exam: 09/16/18 ANKLE, LEFT, 3 VIEWS INDICATION: Rolled left ankle and pain laterally. Time of exam: 6:35 PM 3 views of the left ankle were obtained. Alignment is normal. The ankle mortise is well maintained. Talar dome is smooth. There is a well-corticated osseous density at the tip of the fibula, likely an old avulsion. There is some mild lateral soft tissue swelling present. IMPRESSION: Lateral soft tissue swelling. There appears to be an avulsion fracture of the tip of the fibula which is likely old. No other acute fracture is seen. Dictated by: Dictated on workstation # [id number] Dict: 09/16/181820 Trans: 09/16/181847 Interpreted by: OLIVIA BONILLA MD Electronically signed by: OLIVIA BONILLA MD 09/16/181847 Reviewed: Reviewed by Me Departure Impression Primary Impression: Left ankle sprain Qualified Codes: S93.402A - Sprain of unspecified ligament of left ankle, initial encounter Disposition: 01 HOME, SELF-CARE Condition: Stable Departure-Patient Inst. Decision time for Depature: 19:08 Referrals: DAVID VANCE DO (PCP) Primary Care Physician [facility] (Family) Primary Care Physician Patient Instructions: Ankle Sprain (DC) Add. Discharge Instructions: Light toe touch only until you're feeling less pain in your left ankle. Wear the Air-Stirrup for the next 1-2 weeks. Use the crutches as necessary for ambulation. For the first 3 days apply ice for 20 minutes every 4 hours. You can use heat as needed for discomfort. Tylenol 1000 mg every 8 hours for pain. Keep the ankle elevated above the level of your heart when resting it. If you' re still having severe pain 10 days later you should follow-up with the primary care provider to have the ankle reexamined. All discharge instructions reviewed with patient and/or family. Voiced understanding. Work/School Note: Work Release Form Date Seen in the Emergency Department: Sep 16, 2018 Return to Work: Sep 17, 2018 Restrictions: Need Release from Doctor Other Restrictions Listed Below: Left foot toe touch only and crutches until 09/23/18. TD VEGAS Sep 16, 2018 18:10
[2018-09-16] MEDS ORDERED: PREN-102 PO (18:13)
[2018-09-16] MEDS ORDERED: ACETAMINOPHEN 500 MG TAB (TYLENOL) PO ONE (18:15)
--- NOTE | 2018-09-16 18:46 | Diagnostic Imaging Report ---
INDICATION: Rolled left ankle and pain laterally. Time of exam: 6:35 PM 3 views of the left ankle were obtained. Alignment is normal. The ankle mortise is well maintained. Talar dome is smooth. There is a well-corticated osseous density at the tip of the fibula, likely an old avulsion. There is some mild lateral soft tissue swelling present. IMPRESSION: Lateral soft tissue swelling. There appears to be an avulsion fracture of the tip of the fibula which is likely old. No other acute fracture is seen. Dictated by: Dictated on workstation # [id number]
[2018-09-16] MEDS ORDERED: CRUT1EAC7 MC (19:19)
[2018-09-16 19:27] VITALS: BP 105/69
== END 2018-09-16 19:30 | disposition home or self-care (01) ==
LOC: EDUNIT# 17:18 → ER 17:21
DX: O9A.212 Injury, poisoning and certain other consequences of external causes complicating pregnancy, second trimester (principal); S93.402A Sprain of unspecified ligament of left ankle, initial encounter; O99.342 Other mental disorders complicating pregnancy, second trimester; F32.9 Major depressive disorder, single episode, unspecified; Z88.0 Allergy status to penicillin; Z87.891 Personal history of nicotine dependence; Z98.890 Other specified postprocedural states; Z87.442 Personal history of urinary calculi; Z85.41 Personal history of malignant neoplasm of cervix uteri; Z3A.18 18 weeks gestation of pregnancy; X50.1XXA Overexertion from prolonged static or awkward postures, initial encounter
CPT/HCPCS: 73610

== ENCOUNTER → 2018-10-06 | Outpatient (CLI) | payer MEDICAID ==
[~2018-10-06] MED LIST changes: +CRUT1EAC7 MC; +PREN-102 PO
--- NOTE | 2018-10-06 16:03 | Diagnostic Imaging Report ---
INDICATION: survey. TECHNIQUE: Multiple real-time grayscale images were obtained over the gravid uterus. COMPARISON: 07/08/2018. FINDINGS: The prior exam of 07/08/2018 noted a single live fetus at approximately 8 weeks 2 days gestation +/-1 week. On this exam, the fetus is again visualized. There were no abnormalities identified. However, the spine was not well visualized due to lie. I would recommend that a short-term (4-6 week) followup exam be performed for further study. The growth parameters are fairly uniform and have progressed as expected since the prior exam. The placenta is fundal and there is no previa. The amniotic fluid volume is within normal limits. The cervix was identified and measures 5.9 cm in length. IMPRESSION: 1. There is a single live fetus at 21 weeks 1 day gestation +/-1 one week. The EDC remains February 14, 2019. 2. There were no abnormalities identified. However, the spine was not optimally visualized. Recommendations, as above. 3. The growth parameters are fairly uniform and have progressed as expected since the prior exam. Biometrical measurements are as follows: Biparietal 4.96 cm, age 21 weeks 1 days. Head circumference 18.94 cm, age 21 weeks 2 days. Abdominal circumference 16.12 cm, age 21 weeks 2 days. Femur length 3.6 cm, age 21 weeks 3 days. Sonographic estimate age: 21 weeks 2 days. Sonographic estimated date of delivery: 02/15/2019. Estimated Weight: 413 gm (+/- 60 gm). LMP percentile: 52%. heart rate: 158 beats per minute. number: 1 of 1. Dictated by: Dictated on workstation # [id number]
== END ==
LOC: RAD 13:47
PROVIDERS: ATTEND Obstetrics & Gynecology
DX: Z36.89 Encounter for other specified antenatal screening (principal); Z3A.21 21 weeks gestation of pregnancy
CPT/HCPCS: 76805

== ENCOUNTER 2018-10-28 19:24 | Outpatient (CLI) | payer MEDICAID ==
[~2018-10-28] VITALS: Ht 162.6 cm; Wt 81.7 kg
[2018-10-28 19:46] LABS: BILIRUBIN,URINE NEGATIVE (NEGATIVE); CLARITY,URINE CLEAR; COLOR,URINE YELLOW; GLUCOSE, URINE (UA) NEGATIVE (NEGATIVE); KETONES,URINE NEGATIVE (NEGATIVE); LEUKOCYTE ESTERASE ,URINE 1+ (NEGATIVE); NITRITE,URINE NEGATIVE (NEGATIVE); PH,URINE 6.5 (5-9); PROTEIN,URINE NEGATIVE (NEGATIVE); UROBILINOGEN,URINE NORMAL (NORMAL)
[2018-10-28 19:58] LABS: WBC,URINE 0-2 /HPF
[2018-10-28 20:00] VITALS: BP 121/65
[2018-10-28 20:48] LABS: BASOPHILS % (AUTO) 0 % (0-10); EOSINOPHILS # (AUTO) 0.1 10^3/uL (0.0-0.3); EOSINOPHILS % (AUTO) 1 % (0-10); HEMATOCRIT 34 % (35-52); HEMOGLOBIN 11.4 G/DL (11.5-16.0); LYMPHOCYTES # (AUTO) 2.1 X 10^3 (1.0-4.0); LYMPHOCYTES % (AUTO) 18 % (12-44); MEAN CORPUSCULAR HEMOGLOBIN 30 PG (25-34); MEAN CORPUSCULAR HGB CONC 34 G/DL (32-36); MEAN CORPUSCULAR VOLUME 89 FL (80-99); MEAN PLATELET VOLUME 9.8 FL (7.4-10.4); MONOCYTES # (AUTO) 0.7 X 10^3 (0.0-1.0); MONOCYTES % (AUTO) 6 % (0-12); NEUTROPHILS # (AUTO) 8.8 X 10^3 (1.8-7.8); NEUTROPHILS % (AUTO) 75 % (42-75); PLATELET COUNT 256 10^3/uL (130-400); RED CELL DISTRIBUTION WIDTH 12.8 % (10.0-14.5); WHITE BLOOD COUNT 11.7 10^3/uL (4.3-11.0)
[2018-10-28 21:06] LABS: ALANINE AMINOTRANSFERASE 10 U/L (0-55); ALBUMIN 3.5 GM/DL (3.2-4.5); ALKALINE PHOSPHATASE 61 U/L (40-136); BILIRUBIN,TOTAL 0.2 MG/DL (0.1-1.0); BUN/CREATININE RATIO 5; CALCIUM 8.5 MG/DL (8.5-10.1); CARBON DIOXIDE 17 MMOL/L (21-32); CHLORIDE 109 MMOL/L (98-107); CREATININE SERUM 0.58 MG/DL (0.60-1.30); GFR ESTIMATED > 60; GLUCOSE 77 MG/DL (70-105); POTASSIUM 3.4 MMOL/L (3.6-5.0); SODIUM 137 MMOL/L (135-145); TOTAL PROTEIN 5.9 GM/DL (6.4-8.2)
== END 2018-10-28 21:22 | disposition home or self-care (01) ==
LOC: WSo 19:24 → LDRP 19:27 → WSo 21:22
PROVIDERS: ATTEND Obstetrics & Gynecology
DX: O99.89 Other specified diseases and conditions complicating pregnancy, childbirth and the puerperium (principal); G43.909 Migraine, unspecified, not intractable, without status migrainosus; Z3A.24 24 weeks gestation of pregnancy
CPT/HCPCS: 36415; 80053; 81000; 82962; 85025; 90471; 93005; 99212

== ENCOUNTER 2018-10-31 14:55 | Outpatient (CLI) | payer MEDICAID ==
[~2018-10-31] VITALS: Ht 160 cm; Wt 80.3 kg
[2018-10-31 15:15] VITALS: BP 111/59
[2018-10-31 15:30] LABS: BILIRUBIN,URINE NEGATIVE (NEGATIVE); CLARITY,URINE SLIGHTLY CLOUDY; COLOR,URINE YELLOW; GLUCOSE, URINE (UA) NEGATIVE (NEGATIVE); KETONES,URINE 3+ (NEGATIVE); LEUKOCYTE ESTERASE ,URINE 3+ (NEGATIVE); NITRITE,URINE NEGATIVE (NEGATIVE); PH,URINE 7 (5-9); PROTEIN,URINE NEGATIVE (NEGATIVE); UROBILINOGEN,URINE NORMAL (NORMAL)
[2018-10-31 15:53] LABS: BACTERIA,URINE TRACE /HPF; SQUAMOUS EPITHELIAL CELL,UR 0-2 /HPF; WBC,URINE 0-2 /HPF
[2018-10-31] MEDS ORDERED: PROMETHAZINE INJ 25 MG/ML (PHENERGAN) AMP IVP NR (16:45)
[2018-10-31] MEDS ORDERED: NS 1000 ML IV BAG IV ONE (16:45)
[2018-10-31] MEDS ORDERED: NS IV 1000 ML 1,000 ML ONE (16:47)
[2018-10-31] MEDS ORDERED: PROMETHAZINE INJ 25 MG/ML (PHENERGAN) AMP ONE (16:50)
[2018-10-31] MEDS: NS IV 1000 ML 2,000 ML IV SCH ×2 (17:05→18:15)
[2018-10-31] MEDS ORDERED: PROM25TA14 PO (18:48)
[2018-10-31 19:49] VITALS: BP 111/59
== END 2018-10-31 19:30 | disposition home or self-care (01) ==
LOC: WSo 14:55 → LDRP 14:59 → WSo 19:30
PROVIDERS: ATTEND Obstetrics & Gynecology
DX: O99.89 Other specified diseases and conditions complicating pregnancy, childbirth and the puerperium (principal); G43.909 Migraine, unspecified, not intractable, without status migrainosus; Z3A.24 24 weeks gestation of pregnancy
CPT/HCPCS: 81000; 96361; 96374; 99213

== ENCOUNTER 2018-11-23 15:40 | Outpatient (CLI) | payer MEDICAID ==
[~2018-11-23] VITALS: Ht 161.3 cm; Wt 79.4 kg
[~2018-11-23 15:40] MED LIST changes: +PROM25TA14 PO
--- NOTE | 2018-11-23 16:00 | NUR ---
SRUTHI MCRAE presented to unit via ambulation from ED, accompanied by S.O., with c/o VOMITING,DIARRHEA,CRAMPING. SRUTHI MCRAE weighed, gowned, voided, and to bed. EFHM and TOCO applied, VS taken. SRUTHI MCRAE oriented to bed controls, call light, TV, heat, and A/C controls.
[2018-11-23 16:05] VITALS: BP 111/67
[2018-11-23 16:29] LABS: BILIRUBIN,URINE NEGATIVE (NEGATIVE); CLARITY,URINE CLEAR; COLOR,URINE YELLOW; GLUCOSE, URINE (UA) NEGATIVE (NEGATIVE); KETONES,URINE 4+ (NEGATIVE); LEUKOCYTE ESTERASE ,URINE 2+ (NEGATIVE); NITRITE,URINE NEGATIVE (NEGATIVE); PH,URINE 6 (5-9); PROTEIN,URINE 2+ (NEGATIVE); UROBILINOGEN,URINE NORMAL (NORMAL)
[2018-11-23 16:38] LABS: BACTERIA,URINE MODERATE /HPF
--- NOTE | 2018-11-23 17:27 | NUR ---
Dr. Haro called and notified of pt arrival, c/o n/v/d since approx 0900 this am, with cramping since. notified of fhr pattern, ctx pattern, ua, other assessment findings. orders rec'd. will update once labs result.
[2018-11-23] MEDS ORDERED: PROMETHAZINE INJ 25 MG/ML (PHENERGAN) AMP IVP ONE (17:30)
[2018-11-23] MEDS ORDERED: NS IV 1000 ML 1,000 ML IV SCH (17:30)
[2018-11-23] MEDS ORDERED: NS IV 1000 ML 1,000 ML ONE (17:32)
[2018-11-23] MEDS ORDERED: PROMETHAZINE INJ 25 MG/ML (PHENERGAN) AMP ONE (17:53)
[2018-11-23 17:59] LABS: BASOPHILS % (AUTO) 0 % (0-10); EOSINOPHILS % (AUTO) 0 % (0-10); HEMATOCRIT 40 % (35-52); HEMOGLOBIN 13.5 G/DL (11.5-16.0); LYMPHOCYTES # (AUTO) 0.7 X 10^3 (1.0-4.0); LYMPHOCYTES % (AUTO) 5 % (12-44); MEAN CORPUSCULAR HEMOGLOBIN 31 PG (25-34); MEAN CORPUSCULAR HGB CONC 34 G/DL (32-36); MEAN CORPUSCULAR VOLUME 89 FL (80-99); MEAN PLATELET VOLUME 9.8 FL (7.4-10.4); MONOCYTES # (AUTO) 0.5 X 10^3 (0.0-1.0); MONOCYTES % (AUTO) 3 % (0-12); NEUTROPHILS # (AUTO) 12.5 X 10^3 (1.8-7.8); NEUTROPHILS % (AUTO) 91 % (42-75); PLATELET COUNT 245 10^3/uL (130-400); RED BLOOD COUNT 4.43 10^6/uL (4.35-5.85); RED CELL DISTRIBUTION WIDTH 13.2 % (10.0-14.5); WHITE BLOOD COUNT 13.6 10^3/uL (4.3-11.0)
[2018-11-23 18:18] LABS: ALANINE AMINOTRANSFERASE 13 U/L (0-55); ALBUMIN 3.7 GM/DL (3.2-4.5); ALKALINE PHOSPHATASE 71 U/L (40-136); BILIRUBIN,TOTAL 0.5 MG/DL (0.1-1.0); BUN/CREATININE RATIO 13; CALCIUM 8.8 MG/DL (8.5-10.1); CARBON DIOXIDE 17 MMOL/L (21-32); CHLORIDE 111 MMOL/L (98-107); GFR ESTIMATED > 60; GLUCOSE 83 MG/DL (70-105); POTASSIUM 3.8 MMOL/L (3.6-5.0); SODIUM 138 MMOL/L (135-145); TOTAL PROTEIN 6.4 GM/DL (6.4-8.2)
[2018-11-23 18:19] LABS: NEUTROPHILS % (MANUAL) 89 %
[2018-11-23 18:20] LABS: BAND NEUTROPHILS 4 %; LYMPHOCYTES % (MANUAL) 4 %; MONOCYTES % (MANUAL) 3 %; RBC MORPH NORMAL
--- NOTE | 2018-11-23 18:49 | NUR ---
Dr. Haro called and notified of lab results, pt condition. Orders to call in promethazine for pt, then D/C pt home.
--- NOTE | 2018-11-23 18:56 | NUR ---
Promethazine script called to [facility] per pt request.
--- NOTE | 2018-11-23 19:20 | NUR ---
Discharge instructions explained to pt with copy provided to pt. Pt verbalizes understanding, signs to verify. Pt notified of script at [facility]. Pt ambulates off unit accompanied by S.O. to private vehicle. NO s/s of distress noted.
== END 2018-11-23 19:20 | disposition home or self-care (01) ==
LOC: LDRP 15:40 → WSo 15:40
PROVIDERS: ATTEND Obstetrics & Gynecology
DX: O21.2 Late vomiting of pregnancy (principal); Z3A.28 28 weeks gestation of pregnancy
CPT/HCPCS: 36415; 80053; 81000; 85007; 85027; 87088; 96360; 96374; 99214

== ENCOUNTER 2019-01-13 11:31 | Outpatient (CLI) | payer MEDICAID ==
[2019-01-13] VITALS (8 sets, daily range): BP systolic 99–109; BP diastolic 57–66
[~2019-01-13] VITALS: Ht 161.3 cm; Wt 83.9 kg
--- NOTE | 2019-01-13 11:35 | NUR ---
SRUTHI MCRAE presented to unit via AMBULATION from ED, accompanied by S/O, with c/o CONTRACTIONS. SRUTHI MCRAE weighed, gowned, voided, and to bed. EFHM and TOCO applied, VS taken. SRUTHI MCRAE oriented to bed controls, call light, TV, heat, and A/C controls.
--- NOTE | 2019-01-13 11:40 | NUR ---
PT REPORTS CONTRACTIONS SINCE YESTERDAY AM, PT REPORTS HAVING INTERCOURSE YESTERDAY AFTERNOON AND INCREASED PAIN WITH CONTRACTIONS SINCE THEN. PT DENIES LEAKING OF FLUID, VAGINAL BLEEDING OR DISCHARGE OR OTHER COMPLAINTS AT THIS TIME, PT REPORTS +FM. INITIAL ASSESSMENT COMPLETED, VSS, SEE INTERVENTIONS FOR DETAILED ASSESSMENTS, PLAN OF CARE EXPLAINED WITH PT/SO, NO QUESTIONS OR CONCERNS VERBALIZED BY PT/SO, UA SENT TO LAB, WILL CONTINUE TO MONITOR.
[2019-01-13 12:54] LABS: BILIRUBIN,URINE NEGATIVE (NEGATIVE); CLARITY,URINE CLEAR; COLOR,URINE YELLOW; GLUCOSE, URINE (UA) NEGATIVE (NEGATIVE); KETONES,URINE 4+ (NEGATIVE); LEUKOCYTE ESTERASE ,URINE 1+ (NEGATIVE); NITRITE,URINE NEGATIVE (NEGATIVE); PH,URINE 7 (5-9); PROTEIN,URINE NEGATIVE (NEGATIVE); UROBILINOGEN,URINE NORMAL (NORMAL)
[2019-01-13 13:01] LABS: BACTERIA,URINE FEW /HPF
--- NOTE | 2019-01-13 14:14 | NUR ---
D/C INSTRUCTIONS EXPLAINED TO PT/SO, VERBALIZED UNDERSTANDING AND SIGNED BY PT, PT TO FOLLOW UP WITH DR VANCE ON SaturdayJAN 15 FOR SCHEDULE APPOINTMENT. PT VERBALIZES UNDERSTANDING OF LABOR PRECAUTIONS AND WHEN TO RETURN TO LABOR AND DELIVERY IF NEEDED.
--- NOTE | 2019-01-13 14:20 | NUR ---
PT DISCHARGED TO HOME, AMBULATED TO PRIVATE CAR WITH SO AT SIDE, NO DISTRESS NOTED, PT EDUCATED ON INCREASING FLUID INTAKE, WARM BATHS AND TYLENOL FOR DISCOMFORT AND LABOR PRECAUTIONS FOR WHICH TO RETURN TO L&D IF NEEDED.
== END 2019-01-13 14:20 | disposition home or self-care (01) ==
LOC: WSo 11:31 → LDRP 11:33 → WSo 14:20
PROVIDERS: ATTEND Obstetrics & Gynecology
DX: O62.9 Abnormality of forces of labor, unspecified (principal); Z3A.35 35 weeks gestation of pregnancy
CPT/HCPCS: 81000; 87088; 99213

== ENCOUNTER 2019-02-04 08:53 | Outpatient (CLI) | payer MEDICAID ==
[~2019-02-04] VITALS: Ht 161.3 cm; Wt 82.6 kg
[2019-02-04 09:15] VITALS: BP 111/68
== END 2019-02-04 09:17 | disposition home or self-care (01) ==
LOC: PREOP 08:53
PROVIDERS: ATTEND Obstetrics & Gynecology
DX: Z01.818 Encounter for other preprocedural examination (principal)
CPT/HCPCS: 87081

== ENCOUNTER 2019-02-11 06:34 | Inpatient (IN) | payer MEDICAID ==
[~2019-02-11] VITALS: Ht 161.3 cm; Wt 83.9 kg
--- NOTE | 2019-02-11 06:30 | NUR ---
SRUTHI MCRAE presented to unit via ambulatory from home, accompanied by s.o., with c/o PREVIOUS SECTION. SRUTHI MCRAE weighed, gowned, voided, and to bed. EFHM and TOCO applied, VS taken. SRUTHI MCRAE oriented to bed controls, call light, TV, heat, and A/C controls.
[~2019-02-11 06:34] MED LIST changes: +LACTATED RINGERS 1,000 ML IV ONE
[2019-02-11] MEDS ORDERED: ceFAZolin 2 GM IV Premixed 50 ML IV ONE ×2 (06:45→08:15)
[2019-02-11] MEDS ORDERED: OXYTOCIN/NORMAL SALINE 1,000 ML IV ONE (06:53)
[2019-02-11] MEDS ORDERED: fentaNYL INJECTION 100 MCG/2 ML AMP ONE (06:53)
[2019-02-11 06:59] LABS: BASOPHILS % (AUTO) 0 % (0-10); EOSINOPHILS # (AUTO) 0.1 10^3/uL (0.0-0.3); EOSINOPHILS % (AUTO) 1 % (0-10); HEMATOCRIT 35 % (35-52); HEMOGLOBIN 11.5 G/DL (11.5-16.0); LYMPHOCYTES # (AUTO) 2.5 X 10^3 (1.0-4.0); LYMPHOCYTES % (AUTO) 24 % (12-44); MEAN CORPUSCULAR HEMOGLOBIN 29 PG (25-34); MEAN CORPUSCULAR HGB CONC 33 G/DL (32-36); MEAN CORPUSCULAR VOLUME 88 FL (80-99); MEAN PLATELET VOLUME 10.1 FL (7.4-10.4); MONOCYTES # (AUTO) 0.8 X 10^3 (0.0-1.0); MONOCYTES % (AUTO) 8 % (0-12); NEUTROPHILS # (AUTO) 7.1 X 10^3 (1.8-7.8); NEUTROPHILS % (AUTO) 68 % (42-75); PLATELET COUNT 216 10^3/uL (130-400); RED CELL DISTRIBUTION WIDTH 13.2 % (10.0-14.5); WHITE BLOOD COUNT 10.5 10^3/uL (4.3-11.0)
[2019-02-11] MEDS ORDERED: METOCLOPRAMIDE INJ 10 MG/2 ML (REGLAN) IV ONE (07:00)
[2019-02-11] MEDS ORDERED: CITRIC ACID/SOB CIT (BICITRA) 30 ML UDC PO ONE (07:00)
[2019-02-11] MEDS ORDERED: FAMOTIDINE 20MG/2ML IV (PEPCID) IV ONE (07:00)
[2019-02-11 07:02] VITALS: BP 116/84
[2019-02-11] MEDS: LACTATED RINGERS 1,000 ML IV PRN ×2 (07:03→08:30)
--- NOTE | 2019-02-11 07:59 | NUR ---
@ bedside. POC reviewed.
[2019-02-11] MEDS ORDERED: ceFAZolin 2 GM IV Premixed 50 ML ONE (08:07)
--- NOTE | 2019-02-11 08:12 | NUR ---
monitors dc'd. pt ambulated to OB room with OR staff @ side. pt stable with no sx's of distress noted.
[2019-02-11] MEDS ORDERED: HYDROmorphone 2 MG/ML VIAL (DILAUDID) IV PRN (08:15)
[2019-02-11] MEDS ORDERED: MEASLES,MUMPS,RUBELLA 1 EA INJ SC SCH (08:15)
[2019-02-11] MEDS ORDERED: TETANUS,DIPTH,PERTUSS P/F (BOOSTRIX) 0.5 ML VIAL IM SCH (08:15)
[2019-02-11] MEDS ORDERED: ONDANSETRON 4 MG/2 ML (SDV) Z0FRAN IVP PRN ×2 (08:15→10:30)
--- NOTE | 2019-02-11 08:15 | History & Physical-OB ---
OB - Chief Complaint & HPI Date/Time Date of Admission: Date of Admission: Feb 11, 2019 at 06:34 Date seen by a Provider: Feb 11, 2019 Time Seen by a Provider: 07:55 Chief Complaint/History OB-Reason for Admission/Chief: Section Hx : 2 Hx Para: 1 Expected Date of Delivery: Feb 15, 2019 Gestational Age in Weeks: 39 Gestational Age in Days: 3 Indication for : desires repeat Admission Nurse Assessment Rev: Yes Allergies and Home Medications Allergies Coded Allergies: Penicillins (Verified Allergy, Mild, HIVES, 02/11/19) Home Medications Vits #93/Iron Fum/FA 1 Each Tablet, 1 EACH PO DAILY, (Reported) Patient Home Medication List Home Medication List Reviewed: Yes OB - History Hx of Present Care: Yes Ultrasounds: Normal mid trimester US Obstetrical Complications: None Medical Complications: None Delivery History Hx Blood Disorders: No Adverse Rxn to Tranfusion: No Patient Past Medical History BMI >30, Hx of THC use Social History/Family History HIV/AIDS: No Sexually Transmitted Disease: No Alcohol Use: Denies Use Recreational Drug Use: No 2nd Hand Smoke Exposure: No Immunizations Tetanus Booster (TDap): Less than 5yrs Date of Influenza Vaccine: Aug 26, 2018 OB - Admission Exam Physical Exam Vitals: Vital Signs 02/11/19 07:02 Temp 97.3 Pulse 80 B/P (MAP) 116/84 (95) O2 Delivery Room Air HEENT: NCAT Heart: Rhythm Normal Lungs: Clear Abdomen: Gravid Extremities: Normal Reflexes: Normal Heart Rate: 130's Accelerations: Accelerations Present Decelerations: No Decelerations Short Term Variability: Present Securities Settlement Processor Variability: Average (6-25) Contractions on Admission: >10 Minutes Apart Intensity: Mild Labs Laboratory Tests Test 02/11/19 06:45 Range/Units White Blood Count 10.5 4.3-11.0 10^3/uL Red Blood Count 3.94 L 4.35-5.85 10^6/uL Hemoglobin 11.5 11.5-16.0 G/DL Hematocrit 35 35-52 % Mean Corpuscular Volume 88 80-99 FL Mean Corpuscular Hemoglobin 29 25-34 PG Mean Corpuscular Hemoglobin Concent 33 32-36 G/DL Red Cell Distribution Width 13.2 10.0-14.5 % Platelet Count 216 130-400 10^3/uL Mean Platelet Volume 10.1 7.4-10.4 FL Neutrophils (%) (Auto) 68 42-75 % Lymphocytes (%) (Auto) 24 12-44 % Monocytes (%) (Auto) 8 0-12 % Eosinophils (%) (Auto) 1 0-10 % Basophils (%) (Auto) 0 0-10 % Neutrophils # (Auto) 7.1 1.8-7.8 X 10^3 Lymphocytes # (Auto) 2.5 1.0-4.0 X 10^3 Monocytes # (Auto) 0.8 0.0-1.0 X 10^3 Eosinophils # (Auto) 0.1 0.0-0.3 10^3/uL Basophils # (Auto) 0.0 0.0-0.1 10^3/uL OB - Assessment/Plan/Diagnosis Assessment Assessment: section Admission Dx 23 yo @39 weeks Previous Admission Status: Inpatient Order (span 2 midnights) Reason for Inpatient Admission: repeat Plan Plan: Section DAVID VANCE DO Feb 11, 2019 08:15
--- NOTE | 2019-02-11 08:22 | Discharge Inst-Women's Service ---
Discharge Inst-Women's Serv Depart Medication/Instructions New, Converted or Re-Newed RX: RX on Chart Final Diagnosis POD 2 RLTCS Consults/Follow Up Additional Follow Up: Yes Orders/Referrals Dr. Infante in 7-10 days and in 6 week Activity Activity: Activity as Tolerated Driving Instructions: No Driving for 1 Week NO SMOKING: NO SMOKING Nothing Inside Vagina: No Douching, No [place], No Tampons Diet Discharge Diet: No Restrictions Symptoms to Report to : Bleeding Excessive, Pain Increased, Fever Over 101 Degrees F, Vaginal Bleeding Increase, Questions/Concerns For Any Problems or Questions: Contact Your Physician Skin/Wound Care Infection Signs and Symptoms: Increased Redness, Foul Odor of Wound, Increased Drainage, Skin Itchy or Has a Rash, Increased Swelling, Temperature Above 101 F Operative Area Clean and Dry: Keep Incision Clean/Dry Stitches/[place]/Dermabond: Dermabond, Care of Stitches Bathing Instructions: DAVID Jiménez DO Feb 11, 2019 08:22
[2019-02-11] MEDS ORDERED: IBUP-844 PO (08:24)
[2019-02-11] MEDS ORDERED: ACHD5005 PO (08:24)
[2019-02-11] MEDS ORDERED: DOCU100C37 PO (08:24)
[2019-02-11] MEDS ORDERED: ROPIVACAINE 5MG/ML 30ML VIAL ONE (08:34)
[2019-02-11] MEDS ORDERED: PHENYLEPHRINE 100 MCG/ML 10 ML (ANESTHESIA) SYR ONE (08:53)
[2019-02-11] MEDS: OXYTOCIN/NORMAL SALINE 500 ML IV SCH ×2 (09:25→14:05)
[2019-02-11] MEDS: KETOROLAC 30 MG/ML VIAL IVP SCH ×2 (09:29→23:13)
--- NOTE | 2019-02-11 10:05 | NUR ---
pt transferred to room 308 via bed with PACU staff @ side. report received from ANUPAM Ortiz. care assumed of pt.
--- NOTE | 2019-02-11 10:10 | NUR ---
assessment completed, see interventions for further. abd dressing D/. FFu/2. lt rubra noted, no clots expressed. v-pad in place. pt unable to move LE's upon command. pt denies c/o's pain @ time.
[2019-02-11] MEDS ORDERED: HYDROmorphone 2 MG/ML VIAL (DILAUDID) IV ONE (10:30)
[2019-02-11 12:00] VITALS: BP 114/61
--- NOTE | 2019-02-11 12:30 | NUR ---
pt returned to nursery via w/c with this RN @ side. pt assisted up to BR. rhiannon-care offered. v-pad and panties in place. gown changed.
--- NOTE | 2019-02-11 12:38 | OPERATIVE REPORT ---
DATE OF SERVICE: PREOPERATIVE DIAGNOSES: 1. A 23-year-old G2, P1 at 39 weeks gestation. 2. Previous section. POSTOPERATIVE DIAGNOSES: 1. A 23-year-old G2, P1 at 39 weeks gestation. 2. Previous section. PROCEDURE: Repeat low transverse section. SURGEON: Vahid Vance DO RIDER TICKET WORKER: JIN Portillo ANESTHESIA: Spinal. ESTIMATED BLOOD LOSS: 350 mL. URINE OUTPUT: 85 mL clear at the end of the procedure. FLUIDS: 1400 mL lactated Ringer solution. FINDINGS: A live male , weight and Apgars were pending. Grossly normal appearing uterus, bilateral fallopian tubes and ovaries. SPECIMENS SENT: None. INDICATIONS FOR PROCEDURE: This 23-year-old female is the patient who had sought care in my office. There were no complications surrounding her care. There was a history of THC use in the past; however, otherwise no other complications were encountered throughout the . We decided early on in the to proceed with repeat . Risks of the procedure have been discussed prior in the office in several different appointments including risk of bleeding, infection, damage to surrounding structures including, but not limited to bowel, bladder, ureter, kidneys, postoperative recovery time frame, postoperative complications that could occur, possible need for blood transfusion, risk from anesthesia and even . After everything was discussed with the patient, consent was obtained in the preoperative area and the patient was taken to the operating room. OPERATIVE REPORT IN DETAIL: Once in the operating room, spinal analgesia was found to be adequate. She was placed in supine position with a leftward tilt, prepped and draped in normal sterile fashion. A timeout was performed and anesthesia was tested. I then make a Pfannenstiel skin incision to the previously existing scar using a knife and carried down to the underlying fascia using Bovie cautery. Fascial incision extended laterally using Bovie cautery. The superior aspect of the fascial incision was then grasped with Ann-Marie clamps, tented upward and dissected off the underlying rectus muscles. The inferior aspect of the fascial incision was then grasped with Ann-Marie clamps, tented upward and dissected off the underlying rectus muscles. The rectus muscles were then dissected down the midline using blunt traction and Leach scissors, which exposes the peritoneum which I entered bluntly and extended using blunt traction. I placed an Zach ring retractor at peritoneal incision, which offers excellent lateral sidewall retraction. I then identified the lower uterine segment, which was found to be mildly thinned out. I bluntly dissect a bladder flap after making a low transverse incision off of the lower uterine segment. I proceeded with myotomy until membranes were visualized, at which point I extended the uterine incision laterally and superiorly using bandage scissors. Amniotomy was then performed using Allis clamp, clear fluid was noted. The was found in the vertex presentation. With gentle fundal pressure, the infant's head was delivered. The nares and oropharynx were bulb suctioned. Anterior and posterior shoulders were delivered. The was then brought to the operative field where the cord was doubly clamped and cut and infant was handed off to waiting nurses in attendance. Cord blood was collected. 3-vessel cord with intact placenta was delivered spontaneously thereafter. IV Pitocin was initiated to facilitate uterine contraction. Uterine fundus became firmer with bimanual massage. The uterus was then exteriorized and cleared of all endometrial clots and debris. I then proceeded with closing the uterine incision using 0 Vicryl suture in a running locked fashion. A second layer of imbricating 0 Monocryl was placed. Excellent hemostasis was noted after doing this. I then placed the uterus back within the pelvis and copiously irrigated the pelvis using normal saline. Once again, there was no active bleeding noted from any of my dissection planes. I placed Interceed antiadhesive over my low transverse incision and proceeded with closing the peritoneum using 3-0 Vicryl suture in a running fashion. The rectus muscles were reapproximated using 3-0 Vicryl suture in interrupted fashion. The fascia was reapproximated using 0 Vicryl suture in running fashion. Subcutaneous tissue was reapproximated using 3-0 plain in an interrupted subcutaneous stitch and skin reapproximated using 4-0 Monocryl in a running subcuticular. Dermabond was applied to the incision and sterile dressings with adhesive white tape. The patient tolerated the procedure well and sent to recovery area in stable condition. Lap and sponge count was correct at the end of the procedure. Instrument counts were correct as well. Two grams of Ancef was given preoperatively for infection prophylaxis. Job ID: [id number] DocumentID: [id number] Dictated Date: 02/11/2019 09:34:03 Concrete Engineering Technician Date: 02/11/2019 12:37:35 Dictated By: VAHID VANCE DO
[2019-02-11] MEDS: HYDROcodone/APAP 5 MG/325 MG (LORTAB) TAB PO PRN ×2 (12:53→20:34)
--- NOTE | 2019-02-11 12:53 | NUR ---
Lortab 2 tabs p.o. given for incisional pain. @ side. will cont to monitor.
[2019-02-11] MEDS ORDERED: CATHETER FLUSH 10 ML SYR IV SCH (14:00)
[2019-02-11 16:17] VITALS: BP 106/57
--- NOTE | 2019-02-11 16:25 | NUR ---
assisted up to BR. voided 100cc urine. rhiannon-care offered. v-pad and panties in place. pt tolerated well.
--- NOTE | 2019-02-11 16:30 | NUR ---
pt ambulated into nursery with stand by assist x1 to see infant. tolerated well.
--- NOTE | 2019-02-11 18:00 | NUR ---
pt ambulated to room 308 without c/o's. Iv converted to HL.
--- NOTE | 2019-02-11 19:31 | NUR ---
Report given to next shift.
[2019-02-11 20:30] VITALS: BP 103/72
[2019-02-11] MEDS: DOCUSATE SODIUM 100 MG (COLACE) CAP PO SCH (20:35)
[2019-02-11] MEDS ORDERED: SIMETHICONE 80 MG (MYLICON) CHEW PO PRN (21:00)
--- NOTE | 2019-02-11 22:30 | NUR ---
PT HAS BEEN BACK AND FORTH TO NURSERY TO SEE BABY. NO COMPLAINTS AT THIS TIME.
[2019-02-12] VITALS: BP 97/56
[2019-02-12] MEDS: HYDROcodone/APAP 5 MG/325 MG (LORTAB) TAB PO PRN ×3 (03:28→23:00)
[2019-02-12 04:53] VITALS: BP 112/78
[2019-02-12] MEDS: IBUPROFEN 600 MG (MOTRIN) TAB PO SCH ×3 (05:50→19:59)
--- NOTE | 2019-02-12 06:00 | NUR ---
SURGICAL DRESSING REMOVED.
[2019-02-12 06:52] LABS: BASOPHILS % (AUTO) 0 % (0-10); EOSINOPHILS # (AUTO) 0.1 10^3/uL (0.0-0.3); EOSINOPHILS % (AUTO) 1 % (0-10); HEMATOCRIT 30 % (35-52); LYMPHOCYTES # (AUTO) 2.3 X 10^3 (1.0-4.0); LYMPHOCYTES % (AUTO) 23 % (12-44); MEAN CORPUSCULAR HEMOGLOBIN 29 PG (25-34); MEAN CORPUSCULAR HGB CONC 33 G/DL (32-36); MEAN CORPUSCULAR VOLUME 89 FL (80-99); MEAN PLATELET VOLUME 9.2 FL (7.4-10.4); MONOCYTES # (AUTO) 0.8 X 10^3 (0.0-1.0); MONOCYTES % (AUTO) 8 % (0-12); NEUTROPHILS % (AUTO) 68 % (42-75); PLATELET COUNT 187 10^3/uL (130-400); RED CELL DISTRIBUTION WIDTH 13.6 % (10.0-14.5); WHITE BLOOD COUNT 10.2 10^3/uL (4.3-11.0)
--- NOTE | 2019-02-12 07:33 | NUR ---
REPORT GIVEN TO KASHMIR BO
--- NOTE | 2019-02-12 07:37 | Postpartum Progress Note ---
Note Note Day # 2 Subjective: Patient is without complaints. Ambulating, voiding. Tolerating a regular diet without nausea or vomiting. Normal lochia. Pain is well controlled with oral pain medications. Objective: Physical Exam: General - Alert and oriented, no apparent distress Abdomen - Soft, appropriately tender to palpation, non-distended, fundus firm at umbilicus Extremities - no edema, negative Anderson's bilaterally Incision- c/d/i Assessment: POD 1 RLTCS Acute blood loss anemia Plan: Routine care. Encourage breast feeding. Encourage ambulation. Ferrous sulfate supplementation. Plan for discharge tomorrow Vitals - Labs Vital Signs - I&O Vital Signs Date Time Temp Pulse Resp B/P (MAP) Pulse Ox O2 Delivery O2 Flow Rate FiO2 02/12/19 04:53 98.1 66 18 112/78 (89) 98 02/12/19 00:00 97.4 66 20 97/56 (70) 98 02/11/19 20:30 98.4 77 18 103/72 (82) 98 02/11/19 19:20 Room Air 02/11/19 16:17 97.5 80 18 106/57 (73) 98 Room Air 02/11/19 12:00 97.3 78 18 114/61 (78) 99 Room Air I & O 02/12/19 07:00 Intake Total 2950 ml Output Total 2535 ml Balance 415 ml Labs Laboratory Tests 02/12/19 06:45: White Blood Count 10.2, Red Blood Count 3.42L, Hemoglobin 10.0L, Hematocrit 30L , Mean Corpuscular Volume 89, Mean Corpuscular Hemoglobin 29, Mean Corpuscular Hemoglobin Concent 33, Red Cell Distribution Width 13.6, Platelet Count 187, Mean Platelet Volume 9.2, Neutrophils (%) (Auto) 68, Lymphocytes (%) (Auto) 23, Monocytes (%) (Auto) 8, Eosinophils (%) (Auto) 1, Basophils (%) (Auto) 0, Neutrophils # (Auto) 7.0, Lymphocytes # (Auto) 2.3, Monocytes # (Auto) 0.8, Eosinophils # (Auto) 0.1, Basophils # (Auto) 0.0 DAVID VANCE DO Feb 12, 2019 07:37
--- NOTE | 2019-02-12 08:05 | NUR ---
up to shower. bed linens changed.
[2019-02-12] MEDS: DOCUSATE SODIUM 100 MG (COLACE) CAP PO SCH ×2 (09:41→19:56)
--- NOTE | 2019-02-12 09:41 | NUR ---
initial shift assessment completed, see interventions for further. abd incision LY with Dermabond intact. incision edges well approximated, no sx's of infection noted.
--- NOTE | 2019-02-12 10:30 | NUR ---
ambulating in hallways. no sx's distress noted. no c/o's voiced.
--- NOTE | 2019-02-12 14:19 | Anesthesia-Regional Post-Op ---
Regional Patient Condition Mental Status: Alert, Oriented x3 Circulation: Same as Pre-Op Headache: Absent Sensation: Full Recovery Motor Block: Absent Post Op Complications Complications None Follow Up Care/Instructions Patient Instructions None needed. Anesthesia/Patient Condition Patient is doing well, no complaints, stable vital signs, no apparent adverse anesthesia problems. No complications reported per nursing. WALKER ALLEN CRNA Feb 12, 2019 14:19
[2019-02-12 14:30] VITALS: BP 108/67
--- NOTE | 2019-02-12 14:30 | NUR ---
infant and s/o @ side. vs taken. no c/o's voiced.
--- NOTE | 2019-02-12 18:00 | NUR ---
stork meal served.
--- NOTE | 2019-02-12 19:49 | NUR ---
report given to ANUPAM Mak.
[2019-02-12 20:00] VITALS: BP 107/64
[2019-02-13 02:10] VITALS: BP 93/62
[2019-02-13] MEDS: IBUPROFEN 600 MG (MOTRIN) TAB PO SCH ×2 (02:13→08:10)
--- NOTE | 2019-02-13 07:28 | NUR ---
Report given to spring maurer
--- NOTE | 2019-02-13 07:40 | Postpartum Progress Note ---
Note Note Day # 2 Subjective: Patient is without complaints. Ambulating, voiding. Tolerating a regular diet without nausea or vomiting. Normal lochia. Pain is well controlled with oral pain medications. Objective: Physical Exam: General - Alert and oriented, no apparent distress Abdomen - Soft, appropriately tender to palpation, non-distended, fundus firm at umbilicus Extremities - no edema, negative Anderson's bilaterally Incision- c/d/i Assessment: POD 2 RLTCS Acute blood loss anemia Plan: Routine care. Encourage breast feeding. Encourage ambulation. Ferrous sulfate supplementation. Plan for discharge today Vitals - Labs Vital Signs - I&O Vital Signs Date Time Temp Pulse Resp B/P (MAP) Pulse Ox O2 Delivery O2 Flow Rate FiO2 02/13/19 02:10 98.0 66 18 93/62 (72) 02/12/19 20:00 97.6 74 18 107/64 (78) Room Air 02/12/19 14:30 97.0 69 18 108/67 (81) 98 Room Air DAVID VANCE DO Feb 13, 2019 07:40
[2019-02-13 08:00] VITALS: BP 98/66
[2019-02-13] MEDS: DOCUSATE SODIUM 100 MG (COLACE) CAP PO SCH (08:09)
[2019-02-13 12:22] VITALS: BP 98/66
--- NOTE | 2019-02-13 12:57 | NUR ---
Discharge instructions given to mom, prescriptions and appointments given. Pt verbalizes understanding. Infant to stay due to weight loss. 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
== END 2019-02-13 13:02 | disposition home or self-care (01) | DRG 787 ==
LOC: LDRP 06:34
PROVIDERS: ADMIT Obstetrics & Gynecology; ATTEND Obstetrics & Gynecology
PROC: 10D00Z1 Extraction of Products of Conception, Low, Open Approach (ICD-10-PCS; principal; 2019-02-11 08:16)
DX: O34.211 Maternal care for low transverse scar from previous cesarean delivery (principal); O90.81 Anemia of the puerperium; D62 Acute posthemorrhagic anemia; Z3A.39 39 weeks gestation of pregnancy; Z37.0 Single live birth
CPT/HCPCS: 36415; 85025; 86850; 86900; 86901; 94664

== ENCOUNTER 2019-03-31 14:33 | Emergency (ER) | payer MEDICAID ==
[~2019-03-31] VITALS: Ht 160 cm; Wt 80.7 kg
[~2019-03-31 14:33] MED LIST changes: +IBUP-844 PO; -LACTATED RINGERS 1,000 ML IV ONE
[2019-03-31] MEDS ORDERED: CLIN300C11 PO (15:00)
[2019-03-31] MEDS ORDERED: ACHD5005 PO (15:00)
--- NOTE | 2019-03-31 15:00 | ED EENT ---
History of Present Illness General Chief Complaint: Dental Problems/Pain Stated Complaint: TOOTH PAIN;MIGRAINE Nursing Triage Note: pt states she feels like she chipped her upper right molar. Pt is increasing and she can't wait until tomorrow for her dentist appt. The pain is so bad she cam barely open her mouth. Source: patient Exam Limitations: no limitations History of Present Illness Date Seen by Provider: March 31, 2019 Time Seen by Provider: 14:57 Initial Comments To ER per private vehicle with reports of right upper tooth pain causing her to have a headache for the past 48 hours. She has an appointment with her dentist tomorrow. No fevers or chills. No swelling. Timing/Duration: gradual Severity: moderate Location: dental Associated Symptoms: facial pain/swelling Allergies and Home Medications Allergies Coded Allergies: Penicillins (Verified Allergy, Mild, HIVES, 02/11/19) Home Medications Clindamycin HCl 300 Mg Capsule, 300 MG PO TID Prescribed by: LEXIE WHITEHEAD on 03/31/19 1500 Docusate Sodium 100 Mg Capsule, 100 MG PO BID PRN for CONSTIPATION-1ST LINE Prescribed by: DAVID VANCE on 02/11/19 0824 Hydrocodone Bit/Acetaminophen 1 Tab Tab, 1-2 TAB PO Q4H PRN for PAIN-MODERATE Prescribed by: DAVID VANCE on 02/11/19 0824 Hydrocodone Bit/Acetaminophen 1 Tab Tab, 1 EACH PO Q4-6HR PRN for PAIN-MODERATE Do not fill unless clindamycin is also filled Prescribed by: LEXIE WHITEHEAD on 03/31/19 1500 Ibuprofen 600 Mg Tablet, 600 MG PO Q6H Prescribed by: DAVID VANCE on 02/11/19 0824 Vits #93/Iron Fum/FA 1 Each Tablet, 1 EACH PO DAILY, (Reported) Patient Home Medication List Home Medication List Reviewed: Yes Review of Systems Review of Systems Constitutional: see HPI Eyes: No Symptoms Reported Ears: No Symptoms Reported Nose: no symptoms reported Mouth: see HPI, pain Throat: no symptoms reported Respiratory: no symptoms reported Musculoskeletal: no symptoms reported Past Xtqfynw-Sicxtt-Gyhlkg Hx Patient Social History Alcohol Use: Denies Use Recreational Drug Use: No Drug of Choice: past hx of pot prior to pregancies Type Used: Cigarettes Former Smoker, Quit: Oct 18, 2017 2nd Hand Smoke Exposure: No Recent Foreign Travel: No Contact w/Someone Who Travel: No Recent Infectious Disease Expo: No Recent Hopitalizations: No Immunizations Up To Date Tetanus Booster (TDap): Less than 5yrs Date of Influenza Vaccine: Aug 26, 2018 Seasonal Allergies Seasonal Allergies: No Past Medical History Surgeries: Yes ( X 1, ovarian cyst) Section, Gallbladder Respiratory: No Cardiac: No Neurological: No : No Reproductive Disorders: No Sexually Transmitted Disease: No HIV/AIDS: No Genitourinary: Yes Kidney Stones Gastrointestinal: No Musculoskeletal: No Endocrine: No HEENT: No Cancer: No Psychosocial: Yes Depression Integumentary: No Blood Disorders: No Adverse Reaction/Blood Tranf: No Family Medical History Cervical cancer 19 MOTHER Cancer, Diabetes Physical Exam Vital Signs Vital Signs - First Documented 03/31/19 14:45 Temp 98.3 Pulse 69 Resp 18 B/P (MAP) 119/91 (100) Pulse Ox 97 O2 Delivery Room Air Height, Weight, BMI Height: 5'3.00" Weight: 178lbs. 0.0oz. 80.435058yd; 32.3 BMI Method:Stated General Appearance: WD/WN, no apparent distress Eyes: bilateral eye normal inspection, bilateral eye PERRL, bilateral eye EOMI Ears: bilateral ear auricle normal, bilateral ear canal normal, bilateral ear TM normal Mouth/Throat: other (tooth #1 has a cavity that she has filled with over-the- counter dental cement. There is no gingival swelling or abscess, no buccal swelling or abscess.) Neck: non-tender, full range of motion Respiratory: no respiratory distress, no accessory muscle use Gastrointestinal: normal bowel sounds, non tender Neurologic/Psychiatric: alert, normal mood/affect, oriented x 3 Skin: normal color, warm/dry Progress/Results/Core Measures Results/Orders Vital Signs/I&O 03/31/19 14:45 Temp 98.3 Pulse 69 Resp 18 B/P (MAP) 119/91 (100) Pulse Ox 97 O2 Delivery Room Air Blood Pressure Mean: 100 Departure Impression Primary Impression: Dental caries Disposition: 01 HOME, SELF-CARE Condition: Stable Departure-Patient Inst. Decision time for Depature: 14:59 Referrals: [facility] (PCP) Primary Care Physician DAVID VANCE DO (Family) Primary Care Physician Patient Instructions: Dental Pain (DC) Add. Discharge Instructions: Keep the appointment with her dentist tomorrow. All discharge instructions reviewed with patient and/or family. Voiced understanding. Scripts Hydrocodone Bit/Acetaminophen (Hydrocodone/Acetaminophen 5/325mg Tablet) 1 Tab Tab 1 EACH PO Q4-6HR PRN for PAIN-MODERATE MDD 10 for 3 Days, #10 TAB Do not fill unless clindamycin is also filled Prov: LEXIE WHITEHEAD APRN 03/31/19 Clindamycin HCl (Clindamycin HCl) 300 Mg Capsule 300 MG PO TID, #9 CAP Prov: LEXIE WHITEHEAD APRN 03/31/19 Work/School Note: Work Release Form Date Seen in the Emergency Department: March 31, 2019 Return to Work: April 01, 2019 Images Mouth/Nose 1 - Tenderness LEXIE WHITEHEAD APRN March 31, 2019 15:00
[2019-03-31 15:07] VITALS: BP 120/74
== END 2019-03-31 15:07 | disposition home or self-care (01) ==
LOC: EDUNIT# 14:33 → ER 14:35
DX: K02.9 Dental caries, unspecified (principal); F32.9 Major depressive disorder, single episode, unspecified; Z88.0 Allergy status to penicillin; Z87.891 Personal history of nicotine dependence; Z98.890 Other specified postprocedural states; Z87.448 Personal history of other diseases of urinary system; Z80.49 Family history of malignant neoplasm of other genital organs; Z87.442 Personal history of urinary calculi
CPT/HCPCS: 99282

== ENCOUNTER 2019-06-04 21:04 | Emergency (ER) | payer SELFPAY ==
[~2019-06-04] VITALS: Ht 160 cm; Wt 76.2 kg
[~2019-06-04 21:04] MED LIST changes: +CLIN300C11 PO
--- NOTE | 2019-06-04 21:11 | NUR ---
pt here by self alert gcs 15. pt says is in car with the baby. pt c/o " i pulled something in my back" this am. " my left hip". pt also c/o " migraine" started today 1300. pt relates she gets h/as with her period. both pain aread hurt equally rating 10. pt also c/o nausea w/o v/d. pt with no acute sighns of dyspnea noted. lungs cta bilaterally. no obvious back or left hip injury noted. done shantelle pt at 2116.
[2019-06-04] MEDS ORDERED: PROCHLORPERAZINE 10 MG/2ML INJ (COMPAZINE) IM ONE (21:30)
[2019-06-04] MEDS ORDERED: KETOROLAC 60 MG/2 ML VIAL IM ONE (21:30)
[2019-06-04] MEDS ORDERED: diphenhydrAMINE 50 MG/ML INJ (BENADRYL) IM ONE (21:30)
--- NOTE | 2019-06-04 21:33 | ED Back Pain ---
General Chief Complaint: Back Problems Stated Complaint: HEADACHE,BACK PAIN Nursing Triage Note: back pain and h/a Nursing Sepsis Screen: No Definite Risk Source of Information: Patient Exam Limitations: No Limitations History of Present Illness Date Seen by Provider: Jun 04, 2019 Time Seen by Provider: 21:22 Initial Comments 23-year-old female who presents to emergency room with complaints of migraine that started today around 1300. She reports that she has migraines from time to time and this is very similar to her other migraines. 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 She is alert and oriented on arrival to the emergency room. Denies nausea and vomiting. Location: Lumbar Spine Timing/Duration: 1-2 Days Associated Symptoms: lower back pain Allergies and Home Medications Allergies Coded Allergies: Penicillins (Verified Allergy, Mild, HIVES, 02/11/19) Home Medications Clindamycin HCl 300 Mg Capsule, 300 MG PO TID Prescribed by: LEXIE WHITEHEAD on 03/31/19 1500 Docusate Sodium 100 Mg Capsule, 100 MG PO BID PRN for CONSTIPATION-1ST LINE Prescribed by: DAVID VANCE on 02/11/19 0824 Hydrocodone Bit/Acetaminophen 1 Tab Tab, 1-2 TAB PO Q4H PRN for PAIN-MODERATE Prescribed by: DAVID VANCE on 02/11/19 0824 Hydrocodone Bit/Acetaminophen 1 Tab Tab, 1 EACH PO Q4-6HR PRN for PAIN-MODERATE Do not fill unless clindamycin is also filled Prescribed by: LEXIE WHITEHEAD on 03/31/19 1500 Ibuprofen 600 Mg Tablet, 600 MG PO Q6H Prescribed by: DAVID VANCE on 02/11/19 0824 Vits #93/Iron Fum/FA 1 Each Tablet, 1 EACH PO DAILY, (Reported) Patient Home Medication List Home Medication List Reviewed: Yes Review of Systems Constitutional: see HPI; No chills, No fever Musculoskeletal: see HPI, back pain Psychiatric/Neurological: See HPI, Headache All Other Systems Reviewed Negative Unless Noted: Yes Past Gikamzh-Ofjriz-Wilkzf Hx Past Med/Social Hx: Reviewed Nursing Past Med/Soc Hx Patient Social History Alcohol Use: Denies Use Recreational Drug Use: No Drug of Choice: past hx of pot prior to pregancies Smoking Status: Never a Smoker Type Used: Cigarettes Former Smoker, Quit: Oct 18, 2017 2nd Hand Smoke Exposure: No Recent Foreign Travel: No Contact w/Someone Who Travel: No Recent Infectious Disease Expo: No Recent Hopitalizations: No Physical Abuse: No Sexual Abuse: No Immunizations Up To Date Tetanus Booster (TDap): Less than 5yrs Date of Influenza Vaccine: Aug 26, 2018 Seasonal Allergies Seasonal Allergies: No Past Medical History Surgeries: Yes ( X 1, ovarian cyst) Section, Gallbladder Respiratory: No Cardiac: No Neurological: No Reproductive Disorders: No Sexually Transmitted Disease: No HIV/AIDS: No Genitourinary: Yes Kidney Stones Gastrointestinal: No Musculoskeletal: No Endocrine: No HEENT: No Cancer: No Psychosocial: Yes Depression Integumentary: No Blood Disorders: No Adverse Reaction/Blood Tranf: No Family Medical History Reviewed Nursing Family Hx Cervical cancer 19 MOTHER Cancer, Diabetes Physical Exam Vital Signs Vital Signs - First Documented 06/04/19 21:11 Temp 97.9 Pulse 64 Resp 12 B/P (MAP) 121/82 (95) Pulse Ox 98 O2 Delivery Room Air Capillary Refill : Less Than 3 Seconds Height, Weight, BMI Height: 5'3.00" Weight: 168lbs. 0.0oz. 76.944916xg; 32.3 BMI Method:Stated General Appearance: No Apparent Distress, WD/WN Cardiovascular: Regular Rate, Rhythm, No Edema, No Gallop, No JVD, No Murmur, Normal Peripheral Pulses Respiratory: Chest Non Tender, Lungs Clear, Normal Breath Sounds, No Accessory Muscle Use, No Respiratory Distress, Accessory Muscle Use Back: Normal Inspection, No CVA Tenderness, No Vertebral Tenderness, Other Extremity: Normal Capillary Refill Neurologic/Psychiatric: Alert, Oriented x3, Normal Mood/Affect Skin: Normal Color, Warm/Dry Progress/Results/Core Measures Results/Orders My Orders Orders - JULIO C MCLAUGHLIN Ketorolac Injection (Toradol Injection) (06/04/19 21:30) Prochlorperazine Injection (Compazine In (06/04/19 21:30) Diphenhydramine Injection (Benadryl Inje (06/04/19 21:30) Medications Given in ED Current Medications Medications Dose Ordered Sig/Shira Route Start Time Stop Time Status Last Admin Dose Admin Diphenhydramine HCl 50 mg ONCE ONCE IM 06/04/19 21:30 06/04/19 21:31 DC 06/04/19 21:39 50 MG Ketorolac Tromethamine 60 mg ONCE ONCE IM 06/04/19 21:30 06/04/19 21:31 DC 06/04/19 21:36 60 MG Prochlorperazine Edisylate 10 mg ONCE ONCE IM 06/04/19 21:30 06/04/19 21:31 DC 06/04/19 21:41 10 MG Vital Signs/I&O 06/04/19 21:11 Temp 97.9 Pulse 64 Resp 12 B/P (MAP) 121/82 (95) Pulse Ox 98 O2 Delivery Room Air Blood Pressure Mean: 95 Progress Progress Note : Time: 21:57 Progress Note The patient is having improving symptoms. She reports that her migraine is letting up. She wishes to go home so she can rest in her own bed. She agrees with plan of care, plans for discharge, return precautions were given. Departure Impression Primary Impression: Migraine Disposition: 01 HOME, SELF-CARE Condition: Stable/Unchanged Departure-Patient Inst. Decision time for Depature: 21:59 Referrals: [facility] ([place]) Primary Care Physician Patient Instructions: Migraine Headaches in Adults Add. Discharge Instructions: You may continue to use Tylenol and ibuprofen as directed by the bottle for pain relief. Follow-up with primary care as needed. Return back to the emergency room for worsening symptoms or concerns as needed. All discharge instructions reviewed with patient and/or family. Voiced understanding. JULIO C MCLAUGHLIN Jun 04, 2019 21:32
[2019-06-04 22:14] VITALS: BP 104/78
--- NOTE | 2019-06-04 22:14 | NUR ---
d/c instructions to pt. told to read all papers. no scripts given. pt left ambulatory by self. pt knows f/u. i went over the handtyped by dr gomez on the chart. pt had no iv. pt related h/a at d/c as " dull". pt related " i havnt used my hip yet"pt denies nausea at d/c and no v/d noted in er visit.
== END 2019-06-04 23:01 | disposition home or self-care (01) ==
LOC: EDUNIT# 21:04 → ER 21:05
DX: G43.909 Migraine, unspecified, not intractable, without status migrainosus (principal); F32.9 Major depressive disorder, single episode, unspecified; Z88.0 Allergy status to penicillin; Z87.891 Personal history of nicotine dependence; Z87.442 Personal history of urinary calculi; Z80.8 Family history of malignant neoplasm of other organs or systems
CPT/HCPCS: 96372; 99284

== ENCOUNTER 2019-08-25 21:13 | Emergency (ER) | payer SELFPAY ==
[~2019-08-25] VITALS: Ht 162.5 cm; Wt 79.0 kg
[2019-08-25] MEDS ORDERED: diphenhydrAMINE 50 MG/ML INJ (BENADRYL) IM ONE (22:15)
[2019-08-25] MEDS ORDERED: KETOROLAC 60 MG/2 ML VIAL IM ONE (22:15)
[2019-08-25] MEDS ORDERED: PROCHLORPERAZINE 10 MG/2ML INJ (COMPAZINE) IM ONE (22:15)
--- NOTE | 2019-08-25 23:08 | ED Headache ---
General Stated Complaint: MIGRAINE Source: patient Exam Limitations: no limitations History of Present Illness Date Seen by Provider: Aug 25, 2019 Time Seen by Provider: 22:15 Allergies and Home Medications Allergies Coded Allergies: Penicillins (Verified Allergy, Mild, HIVES, 02/11/19) Home Medications Clindamycin HCl 300 Mg Capsule, 300 MG PO TID Prescribed by: LEXIE WHITEHEAD on 03/31/19 1500 Docusate Sodium 100 Mg Capsule, 100 MG PO BID PRN for CONSTIPATION-1ST LINE Prescribed by: DAVID VANCE on 02/11/19 0824 Hydrocodone Bit/Acetaminophen 1 Tab Tab, 1-2 TAB PO Q4H PRN for PAIN-MODERATE Prescribed by: DAVID VANCE on 02/11/19 08 Hydrocodone Bit/Acetaminophen 1 Tab Tab, 1 EACH PO Q4-6HR PRN for PAIN-MODERATE Do not fill unless clindamycin is also filled Prescribed by: LEXIE WHITEHEAD on 03/31/19 1500 Ibuprofen 600 Mg Tablet, 600 MG PO Q6H Prescribed by: DAVID VANCE on 02/11/19 08 Vits #93/Iron Fum/FA 1 Each Tablet, 1 EACH PO DAILY, (Reported) Past Bhscdxa-Hewmfl-Vrzuyc Hx Patient Social History Drug of Choice: past hx of pot prior to pregancies Type Used: Cigarettes Former Smoker, Quit: Oct 18, 2017 2nd Hand Smoke Exposure: No Recent Foreign Travel: No Contact w/Someone Who Travel: No Recent Hopitalizations: No Immunizations Up To Date Tetanus Booster (TDap): Less than 5yrs Date of Influenza Vaccine: Aug 26, 2018 Seasonal Allergies Seasonal Allergies: No Past Medical History Surgeries: Yes ( X 1, ovarian cyst) Section, Gallbladder Respiratory: No Cardiac: No Neurological: No Reproductive Disorders: No Sexually Transmitted Disease: No HIV/AIDS: No Genitourinary: Yes Kidney Stones Gastrointestinal: No Musculoskeletal: No Endocrine: No HEENT: No Cancer: No Psychosocial: Yes Depression Integumentary: No Blood Disorders: No Adverse Reaction/Blood Tranf: No Family Medical History Cervical cancer 19 MOTHER Cancer, Diabetes Physical Exam Vital Signs Capillary Refill : Height, Weight, BMI Height: 5'3.00" Weight: 168lbs. 0.0oz. 76.412249uh; 32.3 BMI Method:Stated Progress/Results/Core Measures Results/Orders My Orders Orders - BERNOTJULIO C Ketorolac Injection (Toradol Injection) (08/25/19 22:15) Diphenhydramine Injection (Benadryl Inje (08/25/19 22:15) Prochlorperazine Injection (Compazine In (08/25/19 22:15) Medications Given in ED Current Medications Medications Dose Ordered Sig/Shira Route Start Time Stop Time Status Last Admin Dose Admin Diphenhydramine HCl 50 mg ONCE ONCE IM 08/25/19 22:15 08/25/19 22:16 DC 08/25/19 22:27 50 MG Ketorolac Tromethamine 60 mg ONCE ONCE IM 08/25/19 22:15 08/25/19 22:16 DC 08/25/19 22:30 60 MG Prochlorperazine Edisylate 10 mg ONCE ONCE IM 08/25/19 22:15 08/25/19 22:16 DC 08/25/19 22:29 10 MG Departure Impression Primary Impression: Migraine Disposition: 01 HOME, SELF-CARE Condition: Stable/Unchanged Departure-Patient Inst. Decision time for Depature: 23:07 Referrals: [facility] (PCP/Family) Primary Care Physician Patient Instructions: Migraine Headaches in Adults Add. Discharge Instructions: You may use ibuprofen and Tylenol as directed by the bottle for pain relief. Fo llow-up with your primary care provider within 1 week for evaluation of your recurrent headaches. Return back to the emergency room for worsening symptoms or concerns as needed. JULIO C MCLAUGHLIN Aug 25, 2019 23:08
[2019-08-26 00:16] VITALS: BP 126/88
== END 2019-08-25 23:13 | disposition home or self-care (01) ==
LOC: EDUNIT# 21:13 → ER 21:14
DX: G43.909 Migraine, unspecified, not intractable, without status migrainosus (principal); F32.9 Major depressive disorder, single episode, unspecified; Z88.0 Allergy status to penicillin; Z87.891 Personal history of nicotine dependence; Z87.442 Personal history of urinary calculi; Z85.41 Personal history of malignant neoplasm of cervix uteri
CPT/HCPCS: 96372; 99284

== ENCOUNTER 2019-11-14 15:29 | Emergency (ER) | payer SELFPAY ==
[~2019-11-14] VITALS: Ht 162 cm; Wt 83.6 kg
[2019-11-14 16:02] LABS: BILIRUBIN,URINE NEGATIVE (NEGATIVE); CLARITY,URINE CLEAR; COLOR,URINE YELLOW; GLUCOSE, URINE (UA) NEGATIVE (NEGATIVE); KETONES,URINE NEGATIVE (NEGATIVE); LEUKOCYTE ESTERASE ,URINE NEGATIVE (NEGATIVE); NITRITE,URINE NEGATIVE (NEGATIVE); PROTEIN,URINE NEGATIVE (NEGATIVE)
[2019-11-14] MEDS ORDERED: NS IV 1000 ML 1,000 ML IV SCH (16:09)
[2019-11-14 16:14] LABS: AMORPHOUS SEDIMENT,UR FEW AMOR URATES /LPF; BACTERIA,URINE TRACE /HPF; WBC,URINE RARE /HPF
[2019-11-14] MEDS ORDERED: KETOROLAC 30 MG/ML VIAL IVP ONE ×2 (16:15)
[2019-11-14] MEDS ORDERED: ONDANSETRON 4 MG/2 ML (SDV) Z0FRAN IVP ONE (16:15)
--- NOTE | 2019-11-14 16:16 | ED Abdominal Pain ---
General Chief Complaint: Abdominal/GI Problems Stated Complaint: R SIDE PAIN Nursing Triage Note: Patient ambulatory to ER room 6 with complaint of right lower quadrant abdominal pain that radiates into her right lower back. Patient states the pain began yesterday and initially was dull but today has turned into a sharp pain. Patient denies any urinary symptoms. Sepsis Screen: No Definite Risk Source of Information: Patient, Family Exam Limitations: No Limitations History of Present Illness Date Seen by Provider: Nov 14, 2019 Time Seen by Provider: 16:00 Initial Comments Patient presents to ER by private conveyance with chief complaint of abdominal pain in her umbilicus radiating down her right lower quadrant and right flank. She's had kidney stones before she says does not feel like this. She thought since it started yesterday and her last period was ended on October 23 that maybe this was premenstrual pain. She took Tylenol and Midol with no relief. Today it's getting worse and she rates it as severe out of 10. She's having mild nausea when the pain gets worse. She says it hurts worse when she walks or better when she lay still. She's had her gallbladder out, 2 C-sections and an an IUD in place. Nursing reports the bedside urine test was negative. Allergies and Home Medications Allergies Coded Allergies: Penicillins (Verified Allergy, Mild, HIVES, 02/11/19) Home Medications Clindamycin HCl 300 Mg Capsule, 300 MG PO TID Prescribed by: LEXIE WHITEHEAD on 03/31/19 1500 Docusate Sodium 100 Mg Capsule, 100 MG PO BID PRN for CONSTIPATION-1ST LINE Prescribed by: DAVID VANCE on 02/11/19 0824 Hydrocodone Bit/Acetaminophen 1 Tab Tab, 1-2 TAB PO Q4H PRN for PAIN-MODERATE Prescribed by: DAVID VANCE on 02/11/19 0824 Hydrocodone Bit/Acetaminophen 1 Tab Tab, 1 EACH PO Q4-6HR PRN for PAIN-MODERATE Do not fill unless clindamycin is also filled Prescribed by: LEXIE WHITEHEAD on 03/31/19 1500 Ibuprofen 600 Mg Tablet, 600 MG PO Q6H Prescribed by: DAVID VANCE on 02/11/19 0824 Vits #93/Iron Fum/FA 1 Each Tablet, 1 EACH PO DAILY, (Reported) Patient Home Medication List Home Medication List Reviewed: Yes Review of Systems Review of Systems Constitutional: No chills, No diaphoresis EENTM: No Blurred Vision, No Double Vision Respiratory: Denies Cough, Denies Shortness of Air Cardiovascular: Denies Chest Pain, Denies Edema Gastrointestinal: See HPI; Denies Abdomen Distended; Abdominal Pain; Denies Constipated, Denies Diarrhea; Nausea Genitourinary: Denies Burning, Denies Discharge Musculoskeletal: No back pain, No joint pain Skin: No pruritus, No rash, No other Psychiatric/Neurological: Denies Anxiety, Denies Depressed, Denies Headache, Denies Numbness All Other Systems Reviewed Negative Unless Noted: Yes Past Cfnkgpc-Cptnpj-Ailvkd Hx Patient Social History Alcohol Use: Denies Use Recreational Drug Use: No Drug of Choice: past hx of pot prior to pregancies Smoking Status: Former Smoker Type Used: Cigarettes Former Smoker, Quit: Oct 18, 2017 2nd Hand Smoke Exposure: No Recent Foreign Travel: No Contact w/Someone Who Travel: No Recent Infectious Disease Expo: No Recent Hopitalizations: No Immunizations Up To Date Tetanus Booster (TDap): Less than 5yrs PED Vaccines UTD: No Date of Influenza Vaccine: Jul 28, 2019 Seasonal Allergies Seasonal Allergies: No Past Medical History Surgeries: Yes ( X 1, ovarian cyst) Section, Gallbladder Respiratory: No Cardiac: No Neurological: No Last Menstrual Period: Oct 18, 2019 Reproductive Disorders: No Sexually Transmitted Disease: No HIV/AIDS: No Genitourinary: Yes Kidney Stones Gastrointestinal: No Musculoskeletal: No Endocrine: No HEENT: No Cancer: No Psychosocial: Yes Depression Integumentary: No Blood Disorders: No Adverse Reaction/Blood Tranf: No Family Medical History Cervical cancer 19 MOTHER Hypertension 19 FATHER Cancer, Diabetes Physical Exam Vital Signs Vital Signs - First Documented 11/14/19 15:40 Temp 36.9 Pulse 80 Resp 16 B/P (MAP) 118/80 (93) Pulse Ox 97 O2 Delivery Room Air Capillary Refill : Less Than 3 Seconds Height/Weight/BMI Height: 5'3.00" Weight: 168lbs. 0.0oz. 76.313209ez; 31.00 BMI Method:Stated General Appearance: WD/WN, mild distress HEENT: PERRL/EOMI, normal ENT inspection, pharynx normal Neck: full range of motion, normal inspection Respiratory: lungs clear, normal breath sounds, no respiratory distress, no accessory muscle use Cardiovascular: normal peripheral pulses, regular rate, rhythm Peripheral Pulses: 2+ Radial Pulses (R), 2+ Radial Pulses (L) Gastrointestinal: normal bowel sounds, soft, no organomegaly, rebound, tenderness (mild suprapubic and periocular umbilicus. Positive tenderness to McBurney's point as well as rebound tenderness. Negative for Rovsing's or Adkins's sign.) Extremities: non-tender, normal capillary refill Back: normal inspection, no CVA tenderness, no vertebral tenderness Neurologic/Psychiatric: alert, normal mood/affect, oriented x 3 Skin: normal color, warm/dry Progress/Results/Core Measures Results/Orders Lab Results Laboratory Tests Test 11/14/19 15:43 11/14/19 16:12 Range/Units Urine Color YELLOW Urine Clarity CLEAR Urine pH 6.0 5-9 Urine Specific [place] 1.025 H 1.016-1.022 Urine Protein NEGATIVE NEGATIVE Urine Glucose (UA) NEGATIVE NEGATIVE Urine Ketones NEGATIVE NEGATIVE Urine Nitrite NEGATIVE NEGATIVE Urine Bilirubin NEGATIVE NEGATIVE Urine Urobilinogen 0.2 < = 1.0 MG/DL Urine Leukocyte Esterase NEGATIVE NEGATIVE Urine RBC (Auto) NEGATIVE NEGATIVE Urine RBC NONE /HPF Urine WBC RARE /HPF Urine Squamous Epithelial Cells 2-5 /HPF Urine Crystals PRESENT H /LPF Urine Amorphous Sediment FEW MANJU URATES H /LPF Urine Bacteria TRACE /HPF Urine Casts NONE /LPF Urine Mucus SMALL H /LPF Urine Culture Indicated NO White Blood Count 9.6 4.3-11.0 10^3/uL Red Blood Count 5.01 4.35-5.85 10^6/uL Hemoglobin 14.9 11.5-16.0 G/DL Hematocrit 44 35-52 % Mean Corpuscular Volume 87 80-99 FL Mean Corpuscular Hemoglobin 30 25-34 PG Mean Corpuscular Hemoglobin Concent 34 32-36 G/DL Red Cell Distribution Width 13.6 10.0-14.5 % Platelet Count 304 130-400 10^3/uL Mean Platelet Volume 9.1 7.4-10.4 FL Neutrophils (%) (Auto) 63 42-75 % Lymphocytes (%) (Auto) 28 12-44 % Monocytes (%) (Auto) 7 0-12 % Eosinophils (%) (Auto) 1 0-10 % Basophils (%) (Auto) 0 0-10 % Neutrophils # (Auto) 6.1 1.8-7.8 X 10^3 Lymphocytes # (Auto) 2.7 1.0-4.0 X 10^3 Monocytes # (Auto) 0.7 0.0-1.0 X 10^3 Eosinophils # (Auto) 0.1 0.0-0.3 10^3/uL Basophils # (Auto) 0.0 0.0-0.1 10^3/uL Sodium Level 139 135-145 MMOL/L Potassium Level 4.0 3.6-5.0 MMOL/L Chloride Level 108 H 98-107 MMOL/L Carbon Dioxide Level 21 21-32 MMOL/L Anion Gap 10 5-14 MMOL/L Blood Urea Nitrogen 10 7-18 MG/DL Creatinine 0.82 0.60-1.30 MG/DL Estimat Glomerular Filtration Rate > 60 BUN/Creatinine Ratio 12 Glucose Level 84 70-105 MG/DL Calcium Level 9.3 8.5-10.1 MG/DL Corrected Calcium 8.9 8.5-10.1 MG/DL Total Bilirubin 0.3 0.1-1.0 MG/DL Aspartate Amino Transf (AST/SGOT) 14 5-34 U/L Alanine Aminotransferase (ALT/SGPT) 18 0-55 U/L Alkaline Phosphatase 62 40-136 U/L C-Reactive Protein High Sensitivity 0.21 0.00-0.50 MG/DL Total Protein 6.9 6.4-8.2 GM/DL Albumin 4.5 3.2-4.5 GM/DL My Orders Orders - TD VEGAS Ua Culture If Indicated (11/14/19 15:32) Urine Bedside (11/14/19 15:32) Ed Iv/Invasive Line Start (11/14/19 16:09) Ns Iv 1000 Ml (Sodium Chloride 0.9%) (11/14/19 16:09) Ct Abdomen/Pelvis W (11/14/19 16:09) Cbc With Automated Diff (11/14/19 16:09) Comprehensive Metabolic Panel (11/14/19 16:09) Hs C Reactive Protein (11/14/19 16:09) Ondansetron Injection (Zofran Injectio (11/14/19 16:15) Ketorolac Injection (Toradol Injection) (11/14/19 16:15) Ketorolac Injection (Toradol Injection) (11/14/19 16:15) Iohexol Injection (Omnipaque 350 Mg/Ml 1 (11/14/19 16:45) Received Contrast (Hold Metformin- Contr (11/14/19 16:45) Ns (Ivpb) (Sodium Chloride 0.9% Ivpb Bag (11/14/19 16:45) Medications Given in ED Current Medications Medications Dose Ordered Sig/Shira Route Start Time Stop Time Status Last Admin Dose Admin Iohexol 100 ml ONCE ONCE IV 11/14/19 16:45 11/14/19 16:46 DC 11/14/19 16:47 100 ML Ketorolac Tromethamine 30 mg ONCE ONCE IVP 11/14/19 16:15 11/14/19 16:16 DC 11/14/19 17:06 30 MG Ondansetron HCl 4 mg ONCE ONCE IVP 11/14/19 16:15 11/14/19 16:16 DC 11/14/19 17:06 4 MG Sodium Chloride 100 ml ONCE ONCE IV 11/14/19 16:45 11/14/19 16:46 DC 11/14/19 16:48 100 ML Vital Signs/I&O 11/14/19 15:40 Temp 36.9 Pulse 80 Resp 16 B/P (MAP) 118/80 (93) Pulse Ox 97 O2 Delivery Room Air Blood Pressure Mean: 93 Progress Progress Note : Time: 16:[address] abdomen pelvis concern for appendicitis. We'll get some labs. Her vital signs are aseptic but her clinical exam is convincing enough to go looking. Liter of saline and Toradol and Zofran for her symptoms. Differential includes ovarian cysts, colitis etc. Diagnostic Imaging Diagonstic Imaging: CT (with IV contrast) Plain Films/CT/US/NM/MRI: abdomen, pelvis Comments NAME: SRUTHI MCRAE [employer] REC#: [id number] PT STATUS: REG ER : 1995 PHYSICIAN: TD VEGAS MD ADMIT DATE: 11/14/19/ER Draft Date of Exam:11/14/19 CT ABDOMEN/PELVIS W PROCEDURE: CT abdomen and pelvis with contrast. TECHNIQUE: Multiple contiguous axial images were obtained through the abdomen and pelvis after administration of intravenous contrast. Auto Exposure Controls were utilized during the CT exam to meet ALARA standards for radiation dose reduction. INDICATION: Right lower quadrant pain radiating to the low back. COMPARISON: Correlation is made with prior CT from 11/14/2017. FINDINGS: The lung bases are clear. No discrete liver mass is identified. The gallbladder is surgically absent. No biliary ductal dilatation is seen. The pancreas and spleen are unremarkable. No adrenal mass is identified. Kidneys are without evidence of hydronephrosis. The small and large bowel loops are normal caliber. No obstruction is seen. The appendix is visualized in the right lower quadrant and appears unremarkable. No free fluid or fluid collection is identified. Uterus does contain an IUD. The bladder is unremarkable. There is a fat and calcium containing mass in the right adnexa, similar to prior exam, perhaps small dermoid. There is a small fat-containing umbilical hernia. IMPRESSION: No acute feature in the abdomen or pelvis is identified. Overall appearance is stable when compared exam from 11/14/2017. Dictated on workstation # [id number] Dict: 11/14/19 1652 Trans: 11/14/19 1710 [facility] [id number] Interpreted by: OLIVIA BONILLA MD Electronically signed by: Reviewed: Reviewed by Me Departure Impression Primary Impression: Gastroenteritis Disposition: 01 HOME, SELF-CARE Condition: Stable Departure-Patient Inst. Decision time for Depature: 17:18 Referrals: [facility] (PCP/Family) Primary Care Physician Patient Instructions: Acute Abdomen (Belly Pain), Adult (DC), No Instuctions G iven Add. Discharge Instructions: Tylenol 1000 mg every 8 hours as needed for pain. Omeprazole or pantoprazole 40 mg every day as needed for indigestion or pain. Ibuprofen 800 mg every 8 hours as needed for pain. Ondansetron one tablet every 6 hours as needed for nausea or vomiting. If your symptoms persist next week then please follow-up with primary care for further evaluation. If the pain becomes intractable or is accompanied with fever especially above 102.5 then please return to the ED nearest ER. All discharge instructions reviewed with patient and/or family. Voiced understanding. Scripts Ondansetron (Ondansetron Odt) 4 Mg Tab.rapdis 4 MG PO Q6H PRN for NAUSEA/VOMITING, #8 TAB 0 Refills Prov: TD VEGAS 11/14/19 Work/School Note: Work Release Form Date Seen in the Emergency Department: Nov 14, 2019 Return to Work: Nov 16, 2019 Restrictions: No Restrictions TD VEGAS Nov 14, 2019 16:16
[2019-11-14 16:20] LABS: BASOPHILS % (AUTO) 0 % (0-10); EOSINOPHILS # (AUTO) 0.1 10^3/uL (0.0-0.3); EOSINOPHILS % (AUTO) 1 % (0-10); HEMATOCRIT 44 % (35-52); HEMOGLOBIN 14.9 G/DL (11.5-16.0); LYMPHOCYTES # (AUTO) 2.7 X 10^3 (1.0-4.0); LYMPHOCYTES % (AUTO) 28 % (12-44); MEAN CORPUSCULAR HEMOGLOBIN 30 PG (25-34); MEAN CORPUSCULAR HGB CONC 34 G/DL (32-36); MEAN CORPUSCULAR VOLUME 87 FL (80-99); MEAN PLATELET VOLUME 9.1 FL (7.4-10.4); MONOCYTES # (AUTO) 0.7 X 10^3 (0.0-1.0); MONOCYTES % (AUTO) 7 % (0-12); NEUTROPHILS # (AUTO) 6.1 X 10^3 (1.8-7.8); NEUTROPHILS % (AUTO) 63 % (42-75); PLATELET COUNT 304 10^3/uL (130-400); RED CELL DISTRIBUTION WIDTH 13.6 % (10.0-14.5); WHITE BLOOD COUNT 9.6 10^3/uL (4.3-11.0)
[2019-11-14 16:37] LABS: ALANINE AMINOTRANSFERASE 18 U/L (0-55); ALBUMIN 4.5 GM/DL (3.2-4.5); ALKALINE PHOSPHATASE 62 U/L (40-136); BILIRUBIN,TOTAL 0.3 MG/DL (0.1-1.0); BUN/CREATININE RATIO 12; CALCIUM 9.3 MG/DL (8.5-10.1); CARBON DIOXIDE 21 MMOL/L (21-32); CHLORIDE 108 MMOL/L (98-107); CREATININE SERUM 0.82 MG/DL (0.60-1.30); GFR ESTIMATED > 60; GLUCOSE 84 MG/DL (70-105); SODIUM 139 MMOL/L (135-145); TOTAL PROTEIN 6.9 GM/DL (6.4-8.2)
[2019-11-14] MEDS ORDERED: IOHEXOL 350 MG/ML 100 ML (OMNIPAQUE 350) VIAL IV ONE (16:45)
[2019-11-14] MEDS ORDERED: HOLD METFORMIN - RECEIVED CONTRAST 20 ML VIAL IV SCH (16:45)
[2019-11-14] MEDS ORDERED: NS 100 ML (IVPB) BAG IV ONE (16:45)
--- NOTE | 2019-11-14 17:10 | Diagnostic Imaging Report ---
PROCEDURE: CT abdomen and pelvis with contrast. TECHNIQUE: Multiple contiguous axial images were obtained through the abdomen and pelvis after administration of intravenous contrast. Auto Exposure Controls were utilized during the CT exam to meet ALARA standards for radiation dose reduction. INDICATION: Right lower quadrant pain radiating to the low back. COMPARISON: Correlation is made with prior CT from 11/14/2017. FINDINGS: The lung bases are clear. No discrete liver mass is identified. The gallbladder is surgically absent. No biliary ductal dilatation is seen. The pancreas and spleen are unremarkable. No adrenal mass is identified. Kidneys are without evidence of hydronephrosis. The small and large bowel loops are normal caliber. No obstruction is seen. The appendix is visualized in the right lower quadrant and appears unremarkable. No free fluid or fluid collection is identified. Uterus does contain an IUD. The bladder is unremarkable. There is a fat and calcium containing mass in the right adnexa, similar to prior exam, perhaps small dermoid. There is a small fat-containing umbilical hernia. IMPRESSION: No acute feature in the abdomen or pelvis is identified. Overall appearance is stable when compared with exam from 11/14/2017. Dictated by: Dictated on workstation # [id number]
[2019-11-14] MEDS ORDERED: ONDA4TAB11 PO (17:20)
[2019-11-14 17:27] VITALS: BP 118/80
== END 2019-11-14 17:32 | disposition home or self-care (01) ==
LOC: EDUNIT# 15:29 → ER 15:30
DX: K52.9 Noninfective gastroenteritis and colitis, unspecified (principal); F32.9 Major depressive disorder, single episode, unspecified; Z88.0 Allergy status to penicillin; Z87.891 Personal history of nicotine dependence; Z87.442 Personal history of urinary calculi; Z82.49 Family history of ischemic heart disease and other diseases of the circulatory system; Z85.41 Personal history of malignant neoplasm of cervix uteri
CPT/HCPCS: 36415; 74177; 80053; 81000; 84703; 85025; 86141; 96374; 96375

== ENCOUNTER 2020-08-03 09:39 | Emergency (ER) | payer SELFPAY ==
[~2020-08-03] VITALS: Ht 160 cm; Wt 79.0 kg
--- NOTE | 2020-08-03 10:44 | ED Upper Extremity ---
General Chief Complaint: Laceration Stated Complaint: FINGER LACERATION Nursing Triage Note: CUT SELF WITH A CLEAN PAIR OF SHEERS. LACERATION BETWEEN 3RD AND 4TH FINGER ON THE RIGHT HAND. Nursing Sepsis Screen: No Definite Risk Source: patient Exam Limitations: no limitations History of Present Illness Date Seen by Provider: Aug 03, 2020 Time Seen by Provider: 10:41 Initial Comments To ER with small laceration to the webspace between the third and fourth fingers on the right hand, from a pair of Clean haircutting scissors. Onset: just prior to arrival Severity: mild Pain/Injury Location: right 3rd finger Method of Injury: other Modifying Factors: Worse With Movement Allergies and Home Medications Allergies Coded Allergies: Penicillins (Verified Allergy, Mild, HIVES, 02/11/19) Patient Home Medication List Home Medication List Reviewed: Yes Review of Systems Constitutional: see HPI EENTM: see HPI Respiratory: no symptoms reported Cardiovascular: no symptoms reported Genitourinary: no symptoms reported Musculoskeletal: see HPI Skin: no symptoms reported Psychiatric/Neurological: No Symptoms Reported Past Kmchglq-Szgemm-Davrst Hx Patient Social History Alcohol Use: Denies Use Recreational Drug Use: No Drug of Choice: past hx of pot prior to pregancies Smoking Status: Never a Smoker Type Used: Cigarettes Former Smoker, Quit: Oct 18, 2017 2nd Hand Smoke Exposure: No Recent Foreign Travel: No Contact w/Someone Who Travel: No Recent Infectious Disease Expo: No Recent Hopitalizations: No Immunizations Up To Date Tetanus Booster (TDap): Less than 5yrs PED Vaccines UTD: No Date of Influenza Vaccine: Jul 28, 2019 Seasonal Allergies Seasonal Allergies: No Past Medical History Surgeries: Yes ( X 1, ovarian cyst) Section, Gallbladder Respiratory: No Cardiac: No Neurological: No Reproductive Disorders: No Sexually Transmitted Disease: No HIV/AIDS: No Genitourinary: Yes Kidney Stones Gastrointestinal: No Musculoskeletal: No Endocrine: No HEENT: No Cancer: No Psychosocial: Yes Depression Integumentary: No Blood Disorders: No Adverse Reaction/Blood Tranf: No Family Medical History Cervical cancer 19 MOTHER Hypertension 19 FATHER Cancer, Diabetes Physical Exam Vital Signs Vital Signs - First Documented 08/03/20 10:05 Temp 37.0 Pulse 72 Resp 16 B/P (MAP) 122/86 (98) Pulse Ox 98 O2 Delivery Room Air Capillary Refill : Less Than 3 Seconds Height, Weight, BMI Height: 5'3.00" Weight: 168lbs. 0.0oz. 76.049559ie; 30.00 BMI Method:Stated General Appearance: WD/WN, no apparent distress HEENT: PERRL/EOMI, normal ENT inspection Respiratory: no respiratory distress, no accessory muscle use Shoulder: normal inspection, non-tender Elbow/Forearm: normal inspection, non-tender Wrist: Yes normal inspection, Yes non-tender Hand: Right, laceration (0.5 cm superficial laceration to the webspace between the third and fourth fingers of the right hand.) Neurologic/Psychiatric: alert, normal mood/affect, oriented x 3 Skin: normal color, warm/dry Laceration was scrubbed with chlorhexidine/saline solution then glued with skin affix Progress/Results/Core Measures Results/Orders Vital Signs/I&O 08/03/20 10:05 Temp 37.0 Pulse 72 Resp 16 B/P (MAP) 122/86 (98) Pulse Ox 98 O2 Delivery Room Air Blood Pressure Mean: 98 Departure Impression Primary Impression: Finger laceration Qualified Codes: S61.212A - Laceration without foreign body of right middle finger without damage to nail, initial encounter Disposition: HOME, SELF-CARE Condition: Stable Departure-Patient Inst. Decision time for Depature: 10:43 Referrals: [facility] [place] (PCP/Family) Primary Care Physician Patient Instructions: Laceration Repair With Glue (DC) Add. Discharge Instructions: Do not apply any lotions creams or ointments, however gentle Handwashing is okay. All discharge instructions reviewed with patient and/or family. Voiced understanding. LEXIE WHITEHEAD APPOINTMENT MANAGER Aug 03, 2020 10:44
[2020-08-03 10:58] VITALS: BP 122/86
== END 2020-08-03 10:58 | disposition home or self-care (01) ==
LOC: EDUNIT# 09:39 → ER 09:41
DX: S61.212A Laceration without foreign body of right middle finger without damage to nail, initial encounter (principal); S61.214A Laceration without foreign body of right ring finger without damage to nail, initial encounter; Z88.0 Allergy status to penicillin; Z87.891 Personal history of nicotine dependence; Z80.49 Family history of malignant neoplasm of other genital organs; Z82.49 Family history of ischemic heart disease and other diseases of the circulatory system; W27.2XXA Contact with scissors, initial encounter
CPT/HCPCS: 12041

== ENCOUNTER 2020-12-13 11:09 | Emergency (ER) | payer SELFPAY ==
[~2020-12-13] VITALS: Ht 162 cm; Wt 84.0 kg
[~2020-12-13 11:09] MED LIST changes: -CLIN300C11 PO; +CLIN300C12 PO
--- NOTE | 2020-12-13 11:38 | ED Cough/URI ---
General Stated Complaint: SOB,COUGH,CP Source: patient Exam Limitations: no limitations History of Present Illness Date Seen by Provider: Dec 13, 2020 Time Seen by Provider: 11:38 Initial Comments Four 24-year-old female presents with cough, shortness of breath, chest pain, generalized malaise, body aches and diarrhea. Patient reports that her father was recently diagnosed with Covid and came out of quarantine. She saw him 1 time while he was having symptoms. She also reports that her child just got over influenza B. She presents today because she has pleuritic type chest pain with cough and breathing. Along with her generalized malaise. Symptoms started couple days ago. She denies any fever, chills. Allergies and Home Medications Allergies Coded Allergies: Penicillins (Verified Allergy, Mild, HIVES, 02/11/19) Patient Home Medication List Home Medication List Reviewed: Yes Review of Systems Review of Systems Constitutional: No chills, No fever; malaise Respiratory: cough, short of breath; No wheezing Cardiovascular: see HPI; No palpitations, No syncope Gastrointestinal: No abdominal pain, No loss of appetite; nausea Genitourinary: no symptoms reported Musculoskeletal: no symptoms reported Skin: no symptoms reported Psychiatric/Neurological: No Symptoms Reported Hematologic/Lymphatic: No Symptoms Reported Past Febfsgi-Tfmume-Lybxat Hx Past Med/Social Hx: Reviewed Nursing Past Med/Soc Hx Patient Social History Drug of Choice: past hx of pot prior to pregancies Type Used: Cigarettes Former Smoker, Quit: Oct 18, 2017 2nd Hand Smoke Exposure: No Recent Hopitalizations: No Immunizations Up To Date Tetanus Booster (TDap): Less than 5yrs PED Vaccines UTD: No Date of Influenza Vaccine: Jul 28, 2019 Seasonal Allergies Seasonal Allergies: No Past Medical History Surgeries: Yes ( X 1, ovarian cyst) Section, Gallbladder Respiratory: No Cardiac: No Neurological: No Reproductive Disorders: No Sexually Transmitted Disease: No HIV/AIDS: No Genitourinary: Yes Kidney Stones Gastrointestinal: No Musculoskeletal: No Endocrine: No HEENT: No Cancer: No Psychosocial: Yes Depression Integumentary: No Blood Disorders: No Adverse Reaction/Blood Tranf: No Family Medical History Cervical cancer 19 MOTHER Hypertension 19 FATHER Cancer, Diabetes Physical Exam Vital Signs - First Documented 12/13/20 11:25 Temp 37.0 Pulse 71 Resp 18 B/P (MAP) 103/78 (86) Pulse Ox 100 Capillary Refill : Height: 5'3.00" Weight: 168lbs. 0.0oz. 76.451007co; 30.00 BMI Method:Stated General Appearance: no apparent distress Eyes: Bilateral Eye Normal Inspection HEENT: pharynx normal Neck: full range of motion, supple Respiratory: lungs clear, normal breath sounds, no respiratory distress Cardiovascular: regular rate, rhythm, no edema Gastrointestinal: non tender, soft Neurologic/Psychiatric: no motor/sensory deficits, alert, normal mood/affect, oriented x 3 Skin: normal color, warm/dry Progress/Results/Core Measures Suspected Sepsis SIRS Temperature: Pulse: Respiratory Rate: Laboratory Tests 12/13/20 11:30: White Blood Count 8.6 Blood Pressure / Mean: Laboratory Tests 12/13/20 11:30: Creatinine 0.81, Platelet Count 307, Total Bilirubin 0.3 Results/Orders Lab Results Laboratory Tests Test 12/13/20 11:30 Range/Units White Blood Count 8.6 4.3-11.0 10^3/uL Red Blood Count 5.05 3.80-5.11 10^6/uL Hemoglobin 15.2 11.5-16.0 g/dL Hematocrit 46 35-52 % Mean Corpuscular Volume 91 80-99 fL Mean Corpuscular Hemoglobin 30 25-34 pg Mean Corpuscular Hemoglobin Concent 33 32-36 g/dL Red Cell Distribution Width 12.2 10.0-14.5 % Platelet Count 307 130-400 10^3/uL Mean Platelet Volume 9.2 9.0-12.2 fL Immature Granulocyte % (Auto) 1 % Neutrophils (%) (Auto) 57 42-75 % Lymphocytes (%) (Auto) 34 12-44 % Monocytes (%) (Auto) 6 0-12 % Eosinophils (%) (Auto) 2 0-10 % Basophils (%) (Auto) 0 0-10 % Neutrophils # (Auto) 4.9 1.8-7.8 10^3/uL Lymphocytes # (Auto) 2.9 1.0-4.0 10^3/uL Monocytes # (Auto) 0.5 0.0-1.0 10^3/uL Eosinophils # (Auto) 0.2 0.0-0.3 10^3/uL Basophils # (Auto) 0.0 0.0-0.1 10^3/uL Immature Granulocyte # (Auto) 0.0 0.0-0.1 10^3/uL Sodium Level 140 135-145 MMOL/L Potassium Level 4.0 3.6-5.0 MMOL/L Chloride Level 107 98-107 MMOL/L Carbon Dioxide Level 25 21-32 MMOL/L Anion Gap 8 5-14 MMOL/L Blood Urea Nitrogen 11 7-18 MG/DL Creatinine 0.81 0.60-1.30 MG/DL Estimat Glomerular Filtration Rate > 60 BUN/Creatinine Ratio 14 Glucose Level 83 70-105 MG/DL Calcium Level 9.7 8.5-10.1 MG/DL Corrected Calcium 9.3 8.5-10.1 MG/DL Total Bilirubin 0.3 0.1-1.0 MG/DL Aspartate Amino Transf (AST/SGOT) 16 5-34 U/L Alanine Aminotransferase (ALT/SGPT) 20 0-55 U/L Alkaline Phosphatase 69 40-136 U/L Total Protein 7.2 6.4-8.2 GM/DL Albumin 4.5 3.2-4.5 GM/DL Coronavirus 2019 (YVAN) Negative Negative Micro Results Microbiology 12/13/20 Influenza Types A,B Antigen (MADDIE) - Final, Complete My Orders Orders - BRODERICK AYON DO Cbc With Automated Diff (12/13/20 11:39) Comprehensive Metabolic Panel (12/13/20 11:39) Influenza A And B Antigens (12/13/20 11:39) Chest 1 View, Ap/Pa Only (12/13/20 11:39) Covid 19 Inhouse Test (12/13/20 11:39) Vital Signs/I&O 12/13/20 11:25 Temp 37.0 Pulse 71 Resp 18 B/P (MAP) 103/78 (86) Pulse Ox 100 Capillary Refill : Progress Note : Time: 12:28 Progress Note Patient with viral syndrome and pleurisy. Patient is negative for Covid, negative for influenza. I do suspect likely influenza due to her recent exposure to her son. I will have her start [id number]-rsy-[id number] medications, provide her some Zofran if needed and she will be discharged home. Diagnostic Imaging Diagonstic Imaging: Xray Plain Films/CT/US/NM/MRI: chest Comments [facility], [place] NAME: SRUTHI MCRAE [facility] REC#: [id number] PT STATUS: REG ER : 1995 PHYSICIAN: BRODERICK AYON DO ADMIT DATE: 12/13/20/ER Signed Date of Exam:12/13/20 CHEST 1 VIEW, AP/PA ONLY CHEST 1 VIEW, AP/PA ONLY Indication: Chest pain. Comparison: None available. Findings: No focal airspace disease in the visualized lungs. Please note that the posterior lower lobes are poorly evaluated by portable radiography. No pleural effusion or pneumothorax. Normal cardiomediastinal silhouette. Impression: 1. No acute cardiopulmonary process by portable radiography. Dictated by: Dictated on workstation # [id number] Dict: 12/13/20 1224 Trans: 12/13/20 1224 [facility] [id number] Interpreted by: SOO MERA MD Electronically signed by: SOO MERA MD 12/13/20 1224 Reviewed: Reviewed by Me, Reviewed/Discussed Departure Impression Primary Impression: Influenza-like symptoms Additional Impression: Viral syndrome Disposition: HOME, SELF-CARE Condition: Stable Departure-Patient Inst. Referrals: [facility] (PCP/Family) Primary Care Physician Patient Instructions: Viral Syndrome (DC) Add. Discharge Instructions: Tylenol ibuprofen as needed for body aches Honey as needed for cough Scripts Ondansetron (Ondansetron Odt) 4 Mg Tab.rapdis 4 MG PO Q6H PRN for NAUSEA/VOMITING, #20 TAB 0 Refills Prov: BRODERICK AYON DO 12/13/20 Work/School Note: Work Release Form Date Seen in the Emergency Department: Dec 13, 2020 Restrictions: Return-No Fever (24hrs) BRODERICK AYON DO Dec 13, 2020 11:38
[2020-12-13 11:49] LABS: BASOPHILS % (AUTO) 0 % (0-10); EOSINOPHILS # (AUTO) 0.2 10^3/uL (0.0-0.3); EOSINOPHILS % (AUTO) 2 % (0-10); HEMATOCRIT 46 % (35-52); HEMOGLOBIN 15.2 g/dL (11.5-16.0); LYMPHOCYTES # (AUTO) 2.9 10^3/uL (1.0-4.0); LYMPHOCYTES % (AUTO) 34 % (12-44); MEAN CORPUSCULAR HEMOGLOBIN 30 pg (25-34); MEAN CORPUSCULAR HGB CONC 33 g/dL (32-36); MEAN CORPUSCULAR VOLUME 91 fL (80-99); MEAN PLATELET VOLUME 9.2 fL (9.0-12.2); MONOCYTES # (AUTO) 0.5 10^3/uL (0.0-1.0); MONOCYTES % (AUTO) 6 % (0-12); NEUTROPHILS # (AUTO) 4.9 10^3/uL (1.8-7.8); NEUTROPHILS % (AUTO) 57 % (42-75); PLATELET COUNT 307 10^3/uL (130-400); WHITE BLOOD COUNT 8.6 10^3/uL (4.3-11.0)
[2020-12-13 11:56] LABS: ALBUMIN 4.5 GM/DL (3.2-4.5)
[2020-12-13 11:57] LABS: CHLORIDE 107 MMOL/L (98-107); SODIUM 140 MMOL/L (135-145)
[2020-12-13 11:58] LABS: CALCIUM 9.7 MG/DL (8.5-10.1)
[2020-12-13 11:59] LABS: GLUCOSE 83 MG/DL (70-105); TOTAL PROTEIN 7.2 GM/DL (6.4-8.2)
[2020-12-13 12:00] LABS: CARBON DIOXIDE 25 MMOL/L (21-32)
[2020-12-13 12:01] LABS: BILIRUBIN,TOTAL 0.3 MG/DL (0.1-1.0)
[2020-12-13 12:02] LABS: ALKALINE PHOSPHATASE 69 U/L (40-136)
[2020-12-13 12:03] LABS: CREATININE SERUM 0.81 MG/DL (0.60-1.30); GFR ESTIMATED > 60
[2020-12-13 12:04] LABS: BUN/CREATININE RATIO 14
[2020-12-13 12:05] LABS: ALANINE AMINOTRANSFERASE 20 U/L (0-55)
--- NOTE | 2020-12-13 12:25 | Diagnostic Imaging Report ---
CHEST 1 VIEW, AP/PA ONLY Indication: Chest pain. Comparison: None available. Findings: No focal airspace disease in the visualized lungs. Please note that the posterior lower lobes are poorly evaluated by portable radiography. No pleural effusion or pneumothorax. Normal cardiomediastinal silhouette. Impression: 1. No acute cardiopulmonary process by portable radiography. Dictated by: Dictated on workstation # [id number]
[2020-12-13] MEDS ORDERED: ONDA4TAB11 PO (12:37)
[2020-12-13 12:41] VITALS: BP 113/77
== END 2020-12-13 12:41 | disposition home or self-care (01) ==
LOC: EDUNIT# 11:09 → ER 11:10
DX: J11.1 Influenza due to unidentified influenza virus with other respiratory manifestations (principal); B34.9 Viral infection, unspecified; Z20.822 Contact with and (suspected) exposure to COVID-19; Z87.891 Personal history of nicotine dependence; Z80.49 Family history of malignant neoplasm of other genital organs; Z82.49 Family history of ischemic heart disease and other diseases of the circulatory system; Z88.0 Allergy status to penicillin
CPT/HCPCS: 71045; 80053; 85025; 87804; U0002; 36415; 87635

== ENCOUNTER 2021-01-25 03:33 | Day surgery (SDC) | payer SELFPAY ==
[2021-01-25] VITALS (13 sets, daily range): BP systolic 99–115; BP diastolic 55–76
[~2021-01-25] VITALS: Ht 160 cm; Wt 84.5 kg
[~2021-01-25 03:33] MED LIST changes: +SERT-412 PO; -SERT25TA5 PO
[2021-01-25] MEDS ORDERED: fentaNYL INJ 100 MCG/2 ML AMP IVP ONE ×2 (04:00→05:30)
[2021-01-25] MEDS ORDERED: ONDANSETRON 4 MG/2 ML (SDV) Z0FRAN IVP ONE (04:00)
[2021-01-25] MEDS ORDERED: NS IV 1000 ML 1,000 ML IV SCH (04:00)
[2021-01-25 04:01] LABS: BASOPHILS % (AUTO) 0 % (0-10); EOSINOPHILS # (AUTO) 0.2 10^3/uL (0.0-0.3); EOSINOPHILS % (AUTO) 1 % (0-10); HEMATOCRIT 46 % (35-52); HEMOGLOBIN 15.1 g/dL (11.5-16.0); LYMPHOCYTES # (AUTO) 4.2 10^3/uL (1.0-4.0); LYMPHOCYTES % (AUTO) 25 % (12-44); MEAN CORPUSCULAR HEMOGLOBIN 29 pg (25-34); MEAN CORPUSCULAR HGB CONC 33 g/dL (32-36); MEAN CORPUSCULAR VOLUME 89 fL (80-99); MEAN PLATELET VOLUME 8.8 fL (9.0-12.2); MONOCYTES # (AUTO) 1.1 10^3/uL (0.0-1.0); MONOCYTES % (AUTO) 7 % (0-12); NEUTROPHILS # (AUTO) 10.9 10^3/uL (1.8-7.8); NEUTROPHILS % (AUTO) 66 % (42-75); PLATELET COUNT 319 10^3/uL (130-400); WHITE BLOOD COUNT 16.6 10^3/uL (4.3-11.0)
--- NOTE | 2021-01-25 04:04 | ED Abdominal Pain ---
General Chief Complaint: Abdominal/GI Problems Stated Complaint: RT SIDE ABD PAIN Source of Information: Patient Exam Limitations: No Limitations History of Present Illness Date Seen by Provider: Jan 25, 2021 Time Seen by Provider: 03:45 Initial Comments Patient is a 25-year-old female who presents to the emergency department today with a chief complaint of nausea and abdominal pain. Patient states that she has been experiencing some nausea for the last 2 days. She states this evening at around 11:00 she started having some periumbilical pain. She went to bed and woke up around 1 or 2 AM with severe right-sided abdominal pain. Patient states every bump in the road in the car on the way over here hurt. She continues to feel nauseated. She denies any actual vomiting. No diarrhea. Patient states stretching out makes her pain worse and she prefers to sit up. She denies any urinary complaints such as dysuria, urgency or frequency. No abnormal vaginal discharge. Patient has an IUD and has not had periods for many years. Patient has had previous cholecystectomy. All other review of systems reviewed and negative except as stated above. Timing/Duration: 4-6 Hours Severity/Quality: Severe, Aching Location: RLQ Radiation: No Radiation Activities at Onset: None Modifying Factors: Worsens With Lying down, Worsens With Movement, Worsens With Palpation Associated Symptoms: Denies Symptoms Allergies and Home Medications Allergies Coded Allergies: Penicillins (Verified Allergy, Mild, HIVES, 02/11/19) Home Medications Diphenhydramine HCl 25 Mg Capsule, 25-50 MG PO Q6H PRN for ALLERGY SYMPTOMS, (Reported) Hydrocodone Bit/Acetaminophen 1 Tab Tab, 1 TAB PO Q8H PRN for PAIN-MODERATE (5- 7) Prescribed by: SANDY BOWERS on 01/25/21 1439 Patient Home Medication List Home Medication List Reviewed: Yes Review of Systems Review of Systems Constitutional: see HPI EENTM: No Symptoms Reported Respiratory: No Symptoms Reported Cardiovascular: No Symptoms Reported Gastrointestinal: Abdominal Pain, Nausea Genitourinary: No Symptoms Reported Musculoskeletal: no symptoms reported Skin: no symptoms reported Psychiatric/Neurological: No Symptoms Reported All Other Systems Reviewed Negative Unless Noted: Yes Past Tgacnaf-Mlmwbn-Vmdtwb Hx Patient Social History Alcohol Use: Denies Use Drug of Choice: MARIJUANA Type Used: Cigarettes Former Smoker, Quit: Oct 18, 2017 2nd Hand Smoke Exposure: No Recent Hopitalizations: No Immunizations Up To Date Tetanus Booster (TDap): Less than 5yrs PED Vaccines UTD: No Date of Influenza Vaccine: Sep 06, 2020 Seasonal Allergies Seasonal Allergies: No Past Medical History Surgeries: Yes ( X 1, ovarian cyst) Section, Gallbladder Respiratory: No Cardiac: No Neurological: No Reproductive Disorders: No Sexually Transmitted Disease: No HIV/AIDS: No Genitourinary: Yes Kidney Stones Gastrointestinal: No Musculoskeletal: No Endocrine: No HEENT: No Cancer: No Psychosocial: Yes Depression Integumentary: No Blood Disorders: No Adverse Reaction/Blood Tranf: No Family Medical History Cervical cancer 19 MOTHER Hypertension 19 FATHER Cancer, Diabetes Physical Exam Vital Signs Vital Signs - First Documented 01/25/21 03:45 Temp 36.3 Pulse 91 Resp 20 B/P (MAP) 135/104 (114) O2 Delivery Room Air Capillary Refill : Height/Weight/BMI Height: 5'3.00" Weight: 168lbs. 0.0oz. 76.225391yg; 32.00 BMI Method:Stated General Appearance: WD/WN, no apparent distress HEENT: normal ENT inspection Respiratory: lungs clear, normal breath sounds, no respiratory distress, no accessory muscle use Cardiovascular: regular rate, rhythm Gastrointestinal: soft, other (Positive Rovsing sign, positive heeltap, positive psoas; positive tenderness at McBurney's point with rebound) Extremities: non-tender, normal inspection Neurologic/Psychiatric: alert, normal mood/affect, oriented x 3 Skin: normal color, warm/dry Progress/Results/Core Measures Results/Orders Lab Results Laboratory Tests Test 01/25/21 03:46 Range/Units White Blood Count 16.6 H 4.3-11.0 10^3/uL Red Blood Count 5.14 H 3.80-5.11 10^6/uL Hemoglobin 15.1 11.5-16.0 g/dL Hematocrit 46 35-52 % Mean Corpuscular Volume 89 80-99 fL Mean Corpuscular Hemoglobin 29 25-34 pg Mean Corpuscular Hemoglobin Concent 33 32-36 g/dL Red Cell Distribution Width 12.1 10.0-14.5 % Platelet Count 319 130-400 10^3/uL Mean Platelet Volume 8.8 L 9.0-12.2 fL Immature Granulocyte % (Auto) 1 % Neutrophils (%) (Auto) 66 42-75 % Lymphocytes (%) (Auto) 25 12-44 % Monocytes (%) (Auto) 7 0-12 % Eosinophils (%) (Auto) 1 0-10 % Basophils (%) (Auto) 0 0-10 % Neutrophils # (Auto) 10.9 H 1.8-7.8 10^3/uL Lymphocytes # (Auto) 4.2 H 1.0-4.0 10^3/uL Monocytes # (Auto) 1.1 H 0.0-1.0 10^3/uL Eosinophils # (Auto) 0.2 0.0-0.3 10^3/uL Basophils # (Auto) 0.0 0.0-0.1 10^3/uL Immature Granulocyte # (Auto) 0.1 0.0-0.1 10^3/uL Neutrophils % (Manual) 60 % Lymphocytes % (Manual) 32 % Monocytes % (Manual) 5 % Eosinophils % (Manual) 1 % Band Neutrophils 2 % Blood Morphology Comment NORMAL Sodium Level 139 135-145 MMOL/L Potassium Level 4.0 3.6-5.0 MMOL/L Chloride Level 105 98-107 MMOL/L Carbon Dioxide Level 22 21-32 MMOL/L Anion Gap 12 5-14 MMOL/L Blood Urea Nitrogen 10 7-18 MG/DL Creatinine 0.82 0.60-1.30 MG/DL Estimat Glomerular Filtration Rate > 60 BUN/Creatinine Ratio 12 Glucose Level 101 70-105 MG/DL Calcium Level 9.1 8.5-10.1 MG/DL Serum Test, Qualitative NEGATIVE NEGATIVE My Orders Orders - ANDRESSA NICHOLE MD Ed Iv/Invasive Line Start (01/25/21 03:54) Cbc With Automated Diff (01/25/21 03:54) Basic Metabolic Panel (01/25/21 03:54) Hcg,Qualitative Serum (01/25/21 03:54) Ct Abdomen/Pelvis Wo (01/25/21 03:54) Ns Iv 1000 Ml (Sodium Chloride 0.9%) (01/25/21 04:00) Fentanyl Injection (Sublimaze Injection (01/25/21 04:00) Ondansetron Injection (Zofran Injectio (01/25/21 04:00) Manual Differential (01/25/21 03:46) Fentanyl Injection (Sublimaze Injection (01/25/21 05:30) Medications Given in ED Vital Signs/I&O 01/25/21 03:45 Temp 36.3 Pulse 91 Resp 20 B/P (MAP) 135/104 (114) O2 Delivery Room Air Progress Progress Note : Time: 04:03 Progress Note 25-year-old female presents to the emergency room with a classic presentation for acute appendicitis. Evaluation today includes physical exam, CBC, BMP, serum test and CT scan of the abdomen and pelvis without contrast. Patient is treated in the emergency department with 50 mcg of fentanyl, 4 mg of Zofran and a liter of normal saline. CT scan of the abdomen and pelvis is pend ing at the time of this dictation. Patient has positive physical exam findings of heeltap, Rovsing's, psoas, McBurney's point tenderness and rebound with involuntary guarding in the right lower quadrant. Patient's last oral intake was about 745 last night. She had steak and potatoes. Disposition pending CT scan results. Anticipate admission. [address] Polanco this morning regarding the patient's abdominal pain and the CT. He reviewed the CT scan and agrees that he does not see any evidence of acute appendicitis. The patient does have a 2.1 cm dermoid cyst in the right pelvis. Suspicion that this may be the etiology of her pain. Patient will be admitted to Dr. Bowers service as he has removed her gallbladder in 2017. We will keep her n.p.o., start IV fluids switch her from fentanyl to IV morphine for more pain relief. Patient is made aware of the plan of care. She is comfortable with this. All questions are sought and answered. Departure Communication (Admissions) Time/Spoke to Admitting Phy: 05:[address] polanco, recommends admit to Dr. Bowers, transvaginal ultrasound this morning, n.p.o., IV antibiotics Cipro and Flagyl for now as the patient is penicillin allergic Impression Primary Impression: Abdominal pain Qualified Codes: R10.31 - Right lower quadrant pain Disposition: ADMITTED INPATIENT Condition: Stable Admissions Decision to Admit Reason: Admit from ER (General) Decision to Admit/Date: Jan 25, 2021 Time/Decision to Admit Time: 06:14 Departure-Patient Inst. Referrals: [facility] [place] Primary Care Physician Scripts Hydrocodone Bit/Acetaminophen (HYDROcodone/APAP 5 MG/325 MG TAB) 1 Tab Tab 1 TAB PO Q8H PRN for PAIN-MODERATE (5-7), #20 TAB Prov: SANDY BOWERS DO 01/25/21 ANDRESSA NICHOLE MD Jan 25, 2021 04:04
[2021-01-25 04:08] LABS: CHLORIDE 105 MMOL/L (98-107); SODIUM 139 MMOL/L (135-145)
[2021-01-25 04:09] LABS: CALCIUM 9.1 MG/DL (8.5-10.1); GLUCOSE 101 MG/DL (70-105)
[2021-01-25 04:11] LABS: CARBON DIOXIDE 22 MMOL/L (21-32)
[2021-01-25 04:13] LABS: CREATININE SERUM 0.82 MG/DL (0.60-1.30); GFR ESTIMATED > 60
[2021-01-25 04:14] LABS: BUN/CREATININE RATIO 12
[2021-01-25 04:16] LABS: BAND NEUTROPHILS 2 %; EOSINOPHILS % (MANUAL) 1 %; LYMPHOCYTES % (MANUAL) 32 %; MONOCYTES % (MANUAL) 5 %; NEUTROPHILS % (MANUAL) 60 %
[2021-01-25 04:17] LABS: RBC MORPH NORMAL
[2021-01-25] MEDS ORDERED: morphine INJ 4 MG/ML 1 ML (VIAL/SYRINGE) IVP ONE (06:15)
[2021-01-25] MEDS ORDERED: morphine INJ 10 MG/ML 1ML (SYR OR VIAL) IVP ONE (06:30)
--- NOTE | 2021-01-25 07:14 | Diagnostic Imaging Report ---
PROCEDURE: CT abdomen and pelvis without contrast. TECHNIQUE: Multiple contiguous axial images were obtained through the abdomen and pelvis without the use of intravenous contrast. Auto Exposure Controls were utilized during the CT exam to meet ALARA standards for radiation dose reduction. INDICATION: Right lower quadrant abdominal pain. CORRELATION STUDY: None. FINDINGS: LOWER THORAX: Clear. LIVER: Mildly enlarged. No definitive focal lesion on unenhanced imaging. GALLBLADDER: Cholecystectomy. No ductal dilatation. SPLEEN: Unremarkable. PANCREAS: Unremarkable. ADRENAL GLANDS: Unremarkable. KIDNEYS: Normal configuration. No calcification or obstruction. ABDOMINAL AORTA: Unremarkable, nonaneurysmal. GASTROINTESTINAL TRACT: No obstruction or inflammation. Normal appendix. URINARY BLADDER: Unremarkable. REPRODUCTIVE: IUD is in place. 2.1 cm fatty calcified right ovarian mass. OSSEOUS STRUCTURES: No acute abnormality. OTHER: None. IMPRESSION: 1. Negative for acute abnormality of the abdomen or pelvis. 2. Probable small right ovarian dermoid cyst. Dictated by: Dictated on workstation # [id number]
[2021-01-25] MEDS ORDERED: CATHETER FLUSH 10 ML SYR IV PRN (07:15)
[2021-01-25] MEDS ORDERED: morphine INJ 4 MG/ML 1 ML (VIAL/SYRINGE) IV PRN (07:15)
[2021-01-25] MEDS: CIPROFLOXACIN 400 MG/D5W 200 ML (PRE-MIX) IV SCH ×2 (08:14→17:27)
[2021-01-25] MEDS: metroNIDAZOLE 500 MG/100 ML IVPB (PRE-MIX) IV SCH ×2 (08:14→16:06)
[2021-01-25] MEDS: NS IV 1000 ML 1,000 ML IV SCH ×2 (08:15→16:01)
--- NOTE | 2021-01-25 09:47 | Diagnostic Imaging Report ---
PROCEDURE: Pelvic comp/transvaginal sonogram. TECHNIQUE: Complete transabdominal and transvaginal pelvic ultrasound was performed. In addition, limited pelvic Doppler was performed. INDICATION: Right side pelvic pain. COMPARISON: Correlation is made with the CT study performed earlier this same day. FINDINGS: The uterus is anteverted measuring 8.3 x 4.1 x 5.3 cm. The endometrium is 3 mm in thickness. There is an IUD appropriately centered in the endometrial canal. Trace fluid in the endometrial canal is noted. No myometrial mass is detected. The left ovary measures 3.5 x 3.3 x 2.0 cm and shows normal blood flow. There is a mixed echogenicity mass in the right adnexa measuring 3.1 x 2.2 x 2.8 cm. This may account for the mass noted on CT. The CT study showed fat tissue and findings suggestive of a dermoid. No definite normal ovarian tissue is identified. There is a small amount of free fluid in the right adnexa. IMPRESSION: 1. An IUD is appropriately centered in the endometrial canal. 2. Right adnexal mass, likely accounting for the abnormality noted on CT and consistent with a dermoid. Followup could be performed to confirm stability. No other significant abnormality is detected. Dictated by: Dictated on workstation # [id number]
[2021-01-25] MEDS ORDERED: DIPH25CA79 PO (11:24)
[2021-01-25] MEDS ORDERED: ACET-2267 PO (11:24)
--- NOTE | 2021-01-25 12:31 | Consultation - Surgery ---
ADOLFO COOPER,MED STUDENT 01/25/21 1231: History of Present Illness History of Present Illness Patient Consulted On(rosey/time) 01/25/21 12:30 Date Seen by Provider: Jan 25, 2021 Time Seen by Provider: 12:15 History of Present Illness HPI per ED: Patient is a 25-year-old female who presents to the emergency department today with a chief complaint of nausea and abdominal pain. Patient states that she has been experiencing some nausea for the last 2 days. She states this evening at around 11:00 she started having some periumbilical pain. She went to bed and woke up around 1 or 2 AM with severe right-sided abdominal pain. Patient states every bump in the road in the car on the way over here hurt. She continues to feel nauseated. She denies any actual vomiting. No diarrhea. Patient states stretching out makes her pain worse and she prefers to sit up. She denies any urinary complaints such as dysuria, urgency or frequency. No abnormal vaginal discharge. Patient has an IUD and has not had periods for many years. Patient states pain initially started around her belly button last night and felt like she needed to have a BM, then moved to the RLQ and became sharp, stabbing and 10/10 around 2AM. Only thing that has made it better are the pain medications. Moving makes it worse. States she had somewhat similar pain a few years ago when she had a cyst on her ovary but this time it is much worse. Current pain is 6/10. States it also "hurts" to pee. Denies fever, chills, SOB, chest pain, n/v, constipation or diarrhea. Allergies and Home Medications Allergies Coded Allergies: Penicillins (Verified Allergy, Mild, HIVES, 02/11/19) Home Medications Acetaminophen 500 Mg Tablet, 1,000 MG PO Q8H PRN for PAIN-MILD (1-4) OR TEMPATURE, (Reported) Diphenhydramine HCl 25 Mg Capsule, 25-50 MG PO Q6H PRN for ALLERGY SYMPTOMS, (Reported) Past Szmsvro-Wczxql-Widouv Hx Patient Social History Drug of Choice: MARIJUANA Smoking Status: Current Everyday Smoker Former Smoker, Quit: Oct 18, 2017 Type Used: Cigarettes 2nd Hand Smoke Exposure: No Recent Hopitalizations: No Alcohol Use?: No Have you traveled recently?: No Immunizations Up To Date Tetanus Booster (TDap): Less than 5yrs PED Vaccines UTD: No Date of Influenza Vaccine: Sep 06, 2020 Seasonal Allergies Seasonal Allergies: No Surgeries History of Surgeries: Yes ( X 1, ovarian cyst) Surgeries: Section, Gallbladder Respiratory History of Respiratory Disorde: No Cardiovascular History of Cardiac Disorders: No Neurological History of Neurological Disord: No Reproductive System Hx Reproductive Disorders: No Sexually Transmitted Disease: No HIV/AIDS: No Genitourinary History of Genitourinary Disor: Yes Genitourinary Disorders: Kidney Stones Gastrointestinal History of Gastrointestinal Di: No Musculoskeletal History of Musculoskeletal Dis: No Endocrine History of Endocrine Disorders: No HEENT History of HEENT Disorders: No Cancer History of Cancer: No Psychosocial History of Psychiatric Problem: Yes Behavioral Health Disorders: Depression Integumentary History of Skin or Integumenta: No Blood Transfusions History of Blood Disorders: No Adverse Reaction to a Blood Tr: No Family Medical History Significant Family History: Cancer (mother-uterine), Diabetes, Hypertension Family Medial History: Cervical cancer 19 MOTHER Hypertension 19 FATHER Review of Systems-General Constitutional: No chills, No fever; malaise; No weakness EENTM: No blurred vision, No double vision, No throat pain Respiratory: No cough, No short of breath Cardiovascular: No chest pain, No edema, No palpitations Gastrointestinal: abdominal pain (RLQ); No constipation, No diarrhea, No nausea, No vomiting Genitourinary: No discharge; dysuria; No hematuria Musculoskeletal: No joint pain, No muscle pain Skin: No lesions, No rash Psychiatric/Neurological: Denies Headache, Denies Numbness, Denies Weakness Other Heme: denies easy bleeding or easy bruising Physical Exam-General Problems Physical Exam Vital Signs Vital Signs - First Documented 01/25/21 01/25/21 03:45 06:45 Temp 36.3 Pulse 91 Resp 20 B/P (MAP) 135/104 (114) Pulse Ox 97 O2 Delivery Room Air Capillary Refill : Less Than 3 Seconds General Appearance: WD/WN, no apparent distress Eyes: Bilateral Eye PERRL, Bilateral Eye EOMI HEENT: No scleral icterus (R), No scleral icterus (L) Neck: non-tender, full range of motion, supple; No lymphadenopathy (R), No lymphadenopathy (L) Respiratory: lungs clear, no respiratory distress, no accessory muscle use Cardiovascular: regular rate, rhythm, no edema, no murmur Peripheral Pulses: 2+ Dorsalis Pedis (R), 2+ Left Dors-Pedis (L), 2+ Radial Pulses (R), 2+ Radial Pulses (L) Gastrointestinal: soft; No distended, No guarding, No rebound; tenderness (RLQ, worse with minimal palpation); No hernia, No mass Extremities: non-tender, no pedal edema, no calf tenderness Neurologic/Psychiatric: no motor/sensory deficits, alert, normal mood/affect, oriented x 3 Skin: normal color, warm/dry Lymphatic: no adenopathy (cervical, axillary, inguinal) Data Review Labs Laboratory Tests 01/25/21 03:46: White Blood Count 16.6H, Red Blood Count 5.14H, Hemoglobin 15.1, Hematocrit 46, Mean Corpuscular Volume 89, Mean Corpuscular Hemoglobin 29, Mean Corpuscular Hemoglobin Concent 33, Red Cell Distribution Width 12.1, Platelet Count 319, Mean Platelet Volume 8.8L, Immature Granulocyte % (Auto) 1, Neutrophils (%) (Auto) 66, Lymphocytes (%) (Auto) 25, Monocytes (%) (Auto) 7, Eosinophils (%) (Auto) 1, Basophils (%) (Auto) 0, Neutrophils # (Auto) 10.9H, Lymphocytes # (Auto) 4.2H, Monocytes # (Auto) 1.1H, Eosinophils # (Auto) 0.2, Basophils # (Auto) 0.0, Immature Granulocyte # (Auto) 0.1, Neutrophils % (Manual) 60, Lymphocytes % (Manual) 32, Monocytes % (Manual) 5, Eosinophils % (Manual) 1, Band Neutrophils 2, Blood Morphology Comment NORMAL, Sodium Level 139, Potassium Level 4.0, Chloride Level 105, Carbon Dioxide Level 22, Anion Gap 12, Blood Urea Nitrogen 10, Creatinine 0.82, Estimat Glomerular Filtration Rate > 60, BUN/Creatinine Ratio 12, Glucose Level 101, Calcium Level 9.1, Serum Test, Qualitative NEGATIVE Assessment/Plan Assessment/Plan Assessment/Plan RLQ pain- r/o appendicitis Leukocytosis Dysuria Right adnexal mass- probable dermoid cyst of ovary- seen on CT and ultrasound NPO Plan for diagnostic laparoscopy with possible appendectomy this afternoon. Obtain U/A IV pain control, abx SANDY CHAVEZ DO 01/25/21 1303: History of Present Illness History of Present Illness Time Seen by Provider: 12:29 History of Present Illness Surgery asked to admit pt for RLQ pain and Leukocytosis. When I spoke to pt this afternoon, she stated she was not any better than when she came to ER at 3 am. She states she has had UTI's in the past and "this is not a UTI". Allergies and Home Medications Allergies Coded Allergies: Penicillins (Verified Allergy, Mild, HIVES, 02/11/19) Home Medications Acetaminophen 500 Mg Tablet, 1,000 MG PO Q8H PRN for PAIN-MILD (1-4) OR TEMPATURE, (Reported) Diphenhydramine HCl 25 Mg Capsule, 25-50 MG PO Q6H PRN for ALLERGY SYMPTOMS, (Reported) Patient Home Medication List Home Medication List Reviewed: Yes Past Leouddz-Qgbxxr-Mmilnw Hx Patient Social History Smoking Status: Current Everyday Smoker Surgeries History of Surgeries: Yes Surgeries: Section, Gallbladder Respiratory History of Respiratory Disorde: No Cardiovascular History of Cardiac Disorders: No Neurological History of Neurological Disord: No Reproductive System : No Genitourinary History of Genitourinary Disor: Yes Genitourinary Disorders: Kidney Stones Gastrointestinal History of Gastrointestinal Di: Yes Gastrointestinal Disorders: Gall Bladder Disease Musculoskeletal History of Musculoskeletal Dis: No Endocrine History of Endocrine Disorders: No HEENT History of HEENT Disorders: No Loss of Vision: Denies Hearing Impairment: Denies Cancer History of Cancer: No Psychosocial History of Psychiatric Problem: Yes Behavioral Health Disorders: Depression Family Medical History Significant Family History: Cancer (mother-uterine), Diabetes, Hypertension Family Medial History: Cervical cancer 19 MOTHER Hypertension 19 FATHER Review of Systems-General Constitutional: No chills, No fever; malaise; No weakness EENTM: No blurred vision, No double vision, No throat pain Respiratory: No cough, No short of breath Cardiovascular: No chest pain, No edema, No palpitations Gastrointestinal: abdominal pain (RLQ); No constipation, No diarrhea, No nausea, No vomiting Genitourinary: No discharge; dysuria; No hematuria Musculoskeletal: No joint pain, No muscle pain Skin: No lesions, No rash Psychiatric/Neurological: Denies Headache, Denies Numbness, Denies Weakness Physical Exam-General Problems Physical Exam General Appearance: WD/WN, mild distress (didn't look comfortable, but was able to fall asleep) Eyes: Bilateral Eye PERRL, Bilateral Eye EOMI HEENT: pharynx normal; No scleral icterus (R), No scleral icterus (L) Neck: non-tender, full range of motion, supple Respiratory: lungs clear, no respiratory distress, no accessory muscle use Cardiovascular: regular rate, rhythm, no murmur Gastrointestinal: soft; No distended, No guarding, No rebound; tenderness (RLQ, worse with minimal palpation); No hernia, No mass Rectal: deferred Extremities: non-tender, no pedal edema, no calf tenderness Neurologic/Psychiatric: drawing operator II-XII nml as tested, no motor/sensory deficits, alert, normal mood/affect, oriented x 3 Skin: normal color, warm/dry Lymphatic: no adenopathy (cervical, axillary, inguinal) Data Review Radiology Date of Exam:01/25/21 CT ABDOMEN/PELVIS WO PROCEDURE: CT abdomen and pelvis without contrast. TECHNIQUE: Multiple contiguous axial images were obtained through the abdomen and pelvis without the use of intravenous contrast. Auto Exposure Controls were utilized during the CT exam to meet ALARA standards for radiation dose reduction. INDICATION: Right lower quadrant abdominal pain. CORRELATION STUDY: None. FINDINGS: LOWER THORAX: Clear. LIVER: Mildly enlarged. No definitive focal lesion on unenhanced imaging. GALLBLADDER: Cholecystectomy. No ductal dilatation. SPLEEN: Unremarkable. PANCREAS: Unremarkable. ADRENAL GLANDS: Unremarkable. KIDNEYS: Normal configuration. No calcification or obstruction. ABDOMINAL AORTA: Unremarkable, nonaneurysmal. GASTROINTESTINAL TRACT: No obstruction or inflammation. Normal appendix. URINARY BLADDER: Unremarkable. REPRODUCTIVE: IUD is in place. 2.1 cm fatty calcified right ovarian mass. OSSEOUS STRUCTURES: No acute abnormality. OTHER: None. IMPRESSION: 1. Negative for acute abnormality of the abdomen or pelvis. 2. Probable small right ovarian dermoid cyst. Dictated by: Dictated on workstation # [id number] Dict: 01/25/21 0711 Trans: 01/25/21 1036 DO [id number] Interpreted by: DELL PINEDA DO Electronically signed by: DELL PINEDA DO 01/25/21 1036 Assessment/Plan Assessment/Plan Assessment/Plan RLQ pain - R/O appendicitis Leukocytosis Dysuria Right adnexal mass Pt has signs and story classic for appendicitis, but the CT doesn't show inflammation. We do not have the UA back yet, but pt states this pain is not like anything she has had with previous UTI. I gave her 3 options; 1) do nothing except ABX and ck UA, 2) wait for UA and then do diagnostic laparoscopy with possible appendectomy or 3) go straight to the OR. If we go to the OR we will also get a good look at the cyst on her ovary. She wants to go to surgery and does not want to wait. Discussed risks and complications not limited to pain, bleeding, infection, scar, damage to bowel and need for further procedure. I also told her it was possible we would be removing a normal appendix. All questions answered to her satisfaction. Supervisory-Addendum Brief Verification & Attestation Participated in pt care: history, MDM, physical Personally performed: exam, history, MDM Care discussed with: Medical Student Procedures: n/a Verification and Attestation of Medical Student E/M Service A medical student performed and documented this service. I then reviewed and verified all information documented by the medical student and made modifications to such information, when appropriate. I personally performed a p hysical exam, medical decision making and then discussed any differences between the notes and made revisions as necessary to create one note. Sandy Chavez , 01/25/21 , 13:03 ADOLFO COOPER,MED STUDENT Jan 25, 2021 12:31 SANDY CHAVEZ DO Jan 25, 2021 13:03
[2021-01-25] MEDS ORDERED: fentaNYL INJ 100 MCG/2 ML AMP ONE (12:46)
[2021-01-25] MEDS ORDERED: proPOfol 200 MG/20 ML (DIPRIVAN) VIAL IV ONE (12:46)
[2021-01-25] MEDS ORDERED: SEVOFLURANE (ULTANE) 15 ML INHAL SOLN ONE ×2 (12:46→14:55)
[2021-01-25] MEDS ORDERED: GLYCOPYRROLATE 0.2 MG/ML (ROBINUL) 2 ML VIAL ONE (12:46)
[2021-01-25] MEDS ORDERED: MIDAZOLAM 2 MG/2 ML (VERSED) VIAL ONE (12:46)
[2021-01-25] MEDS ORDERED: NEOSTIGMINE 3 MG/3 ML VIAL ONE (12:46)
[2021-01-25] MEDS ORDERED: LIDOCAINE PF 2% 5 ML (XYLOCAINE) VIAL ONE (12:46)
[2021-01-25] MEDS ORDERED: ONDANSETRON 4 MG/2 ML (SDV) Z0FRAN ONE (12:46)
[2021-01-25] MEDS ORDERED: LIDOCAINE/EPI 1%-1:100,000 (XYLOCAINE) 50 ML ONE (12:58)
[2021-01-25] MEDS ORDERED: ROCURONIUM 10 MG/ML 5 ML SYRINGE IV ONE (13:02)
[2021-01-25] MEDS ORDERED: LACTATED RINGERS 1,000 ML IV PRN (13:30)
[2021-01-25] MEDS ORDERED: PHENYLEPHRINE 0.25% NASAL SPR (NEO-SYNEPHRINE) 15 ML NS ONE (14:22)
--- NOTE | 2021-01-25 14:37 | Progress Note-Post Operative ---
Post-Operative Progess Note Surgeon (s)/Human Resources Assistant Manager (s) Surgeon SANDY BOWERS DO Human Resources Assistant Manager: JUSTIN Vazquez Pre-Operative Diagnosis Enlarging Ovarian solid mass, Pelvic pain Post-Operative Diagnosis RLQ pain Ovarian cyst pathology pending Procedure & Operative Findings Date of Procedure 01/25/21 Procedure Performed/Findings PROCEDURE: Laparoscopic appendectomy. COMPLICATIONS: None. INDICATIONS: The patient is a 25 year old female who has been having right lower quadrant abdominal pain. Patient's exam consistent with appendicitis. I discussed risk and benefits of laparoscopic appendectomy and all indicated procedures with the possibility being a normal appendix. The patient understands the risks and benefits and wishes to proceed. Consent was signed on the chart. DESCRIPTION OF PROCEDURE: The patient was taken to the operating suite, prepped and draped in a sterile fashion. Timeout was performed. Local anesthetic was infiltrated just above the umbilicus and 11-blade scalpel was used to make a skin incision. Cautery was used to dissect down to the fascia and scored. Kochers were used to grasp and elevate it and the abdomen was then entered. A 0 Vicryl was placed in a [id number] fashion for closure at the end of the case. The balloon trocar was inserted into the abdomen and pneumoperitoneum was achieved. Under direct visualization of the laparoscope, a 5 mm trocar was placed in the suprapubic region and a 5 mm trocar was placed in the left lower quadrant. Appendix was located, small cyst right ovary, large cyst on left ovary, appendix looked basically normal and no purulence seen in the abdomen. The base of the appendix was dissected around. Once at the base an Endo-DOUGIE 2.5 stapler was then fired across the base of the appendix. The mesoappendix was then divided. It was then placed in an Endobag and removed through the 12 mm trocar site. The abdomen was then irrigated and suctioned. No other pathology noted. The abdomen was then desufflated and the trocars were removed. The 0 Vicryl placed at the beginning of the case was then tied closing the 12 mm fascial defect. The skin was then closed using 4-0 Monocryl in a subcuticular fashion. The abdomen was then washed and dried and Skin Affix was placed over the incisions. The patient tolerated the procedure well without any complications and was taken to the recovery room in stable condition. Anesthesia Type GET Estimated Blood Loss Estimated blood loss (mL): scant Specimens/Packing Specimens Removed appendix SANDY BOWERS DO Jan 25, 2021 14:37
[2021-01-25] MEDS ORDERED: ACHD5005 PO (14:39)
--- NOTE | 2021-01-25 14:40 | Discharge Inst-Surgical ---
Discharge Inst-Surgical Depart Medication/Instructions New, Converted or Re-Newed RX: RX Given to Pt/Family Patient Instructions Follow up Appt: Make appointment for 1 week. [phone] Instructions: No lifting greater than 20 pounds. No strenuous activity. May shower in 24 hours, no tub bath or soaking. Use incentive spirometer at home as directed. No Smoking Skin/Wound Care: May remove bandages in am. You need to leave the Dermabond on incision it will fall off on it's own. Symptoms to Report: Appetite Changes, Extremity Discoloration, Numbness/Tingling, Swelling Increased, Bleeding Excessive, Eyesight Changes, Pain Increased, Urine Color Change, Constipation(Persistent), Fever over 101 degree F, Pain/Pressure in chest, Urinating Difficulty, Cough Up/Vomit Blood, Heart Beat Irreg/Pounding, Pain/Pressure in jaw, Cramps in feet or legs, Lightheadedness, Pain/Pressure in shoulder, Diarrhea(Persistent), Memory Changes Suddenly, Questions/Concerns, Weight gain consecutive days, Dizziness/Fainting, Nausea/Vomiting, Shortness of Breath, Weight gain over 2 pounds If questions or concerns contact your physician Or seek help at emergency department. Activity Activity as Tolerated: Yes Activity Instructions: Avoid Stress to Incision Driving Instructions: No Driving/Refer to Dr. Reddy Discharge Diet: No Restrictions Diet After 24 Hours: Clear Liquid if Nauseous If Any Problems/Questions/Issu: Contact Your Physician, Go to Emergency Room Skin/Wound Care Infection Signs and Symptoms: Increased Redness, Foul Odor of Wound, Increased Drainage, Skin Itchy or Has a Rash, Increased Swelling, Temperature Above 101 F Wound Care Comment: heating pad to shoulder or neck tonight for pain Bathing Instructions: Shower Stitches/Kaylynn/Dermabond Dis: Dermabond Ice Pack: Ice On and Off Site SANDY BOWERS DO Jan 25, 2021 14:40
[2021-01-25 14:44] LABS: BILIRUBIN,URINE NEGATIVE (NEGATIVE); CLARITY,URINE CLEAR; COLOR,URINE YELLOW; GLUCOSE, URINE (UA) NEGATIVE (NEGATIVE); KETONES,URINE NEGATIVE (NEGATIVE); LEUKOCYTE ESTERASE ,URINE 1+ (NEGATIVE); NITRITE,URINE NEGATIVE (NEGATIVE); PROTEIN,URINE 1+ (NEGATIVE)
[2021-01-25] MEDS ORDERED: ONDANSETRON 4 MG/2 ML (SDV) Z0FRAN IVP PRN (15:00)
[2021-01-25] MEDS ORDERED: HYDROmorphone 2 MG/ML VIAL (DILAUDID) IV ONE (15:00)
[2021-01-25 15:07] LABS: BACTERIA,URINE NEGATIVE /HPF
--- NOTE | 2021-01-25 15:17 | Anesthesia-General Post-Op ---
General Patient Condition Mental Status/LOC: Same as Preop Cardiovascular: Satisfactory Nausea/Vomiting: Absent Respiratory: Satisfactory Pain: Controlled Complications: Absent Post Op Complications Complications None Follow Up Care/Instructions Patient Instructions None needed. Anesthesia/Patient Condition Patient Condition Patient is doing well, no complaints, stable vital signs, no apparent adverse anesthesia problems. No complications reported per nursing. D/C home per [facility] Criteria: Yes HEATHER DRISCOLL CRNA Jan 25, 2021 15:17
[2021-01-25] MEDS ORDERED: HYDROcodone/APAP 5 MG/325 MG (LORTAB) TAB ONE (16:07)
[2021-01-25] MEDS ORDERED: HYDROcodone/APAP 5 MG/325 MG (LORTAB) TAB PO PRN (16:15)
== END 2021-01-25 18:52 | disposition home or self-care (01) ==
LOC: EDUNIT# 03:33 → ER 03:36 → 4TH 06:12 → UNDOADMOB 06:12 → SDC 06:12 → 4TH 06:12 → UNDODISOB 18:52 → SDC 18:52
PROVIDERS: ATTEND Surgery
DX: K38.0 Hyperplasia of appendix (principal); N83.209 Unspecified ovarian cyst, unspecified side; R10.31 Right lower quadrant pain; F32.9 Major depressive disorder, single episode, unspecified; Z79.899 Other long term (current) drug therapy; Z88.0 Allergy status to penicillin; Z83.3 Family history of diabetes mellitus; Z80.49 Family history of malignant neoplasm of other genital organs
CPT/HCPCS: 36415; 74176; 76830; 76856; 80048; 81000; 84703; 85007; 85027; 88304; 96361; 96374; 96375; 96376

== ENCOUNTER 2021-02-13 09:45 | Emergency (ER) | payer SELFPAY ==
[~2021-02-13] VITALS: Ht 160 cm; Wt 85.7 kg
[~2021-02-13 09:45] MED LIST changes: +ACET-2267 PO; +DIPH25CA79 PO
--- NOTE | 2021-02-13 10:41 | ED GU-Female ---
General Chief Complaint: Abdominal/GI Problems Stated Complaint: OVARIAN PAIN Nursing Triage Note: PT AMB TO TRIAGE WITH COMPLAINT OF LLQ PAIN THAT WORSENED YESTERDAY. HAD APPENDIX REMOVED 3 WEEKS AGO AND WAS TOLD SHE HAD A CYST/TUMOR ON BOTH OVARIES. DOES HAVE BURNING ON URINATION. Nursing Sepsis Screen: No Definite Risk History of Present Illness Date Seen by Provider: Feb 13, 2021 Time Seen by Provider: 10:38 Initial Comments Patient is a 25-year-old female who presents to the emergency department today with a chief complaint of severe pelvic pain. Patient states that she had an appendectomy about 3 weeks ago. 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 Patient states she has been doing well until yesterday when she started having onset of pain. Patient states she took her last hydrocodone tablet at 3:00 this morning. She states movement makes her pain significantly worse. She states "I feel like my pelvis is on fire". She also endorses dysuria, urgency and frequency onset of the symptoms was 2 days ago. Patient complains of subjective fevers and chills. She has had some nausea and vomiting. All other review of systems reviewed and negative except as stated above. Timing/Duration: yesterday Severity/Quality: severe, cramping Location: groin Radiation: back Activities at Onset: none Prior Genitourinary Problems: similar symptoms (Ovarian cyst in the past) Sexual Pooler History: greater than 2 months ago Associated Symptoms: abdominal pain, dysuria, fever/chills (Subjective), other (Some vaginal discharge the patient states was foul-smelling last evening) Allergies and Home Medications Allergies Coded Allergies: Penicillins (Verified Allergy, Mild, HIVES, 02/11/19) Home Medications Diphenhydramine HCl 25 Mg Capsule, 25-50 MG PO Q6H PRN for ALLERGY SYMPTOMS, (Reported) Hydrocodone Bit/Acetaminophen 1 Tab Tab, 1 TAB PO Q8H PRN for PAIN-MODERATE (5- 7) Prescribed by: SANDY BOWERS on 01/25/21 1905 Patient Home Medication List Home Medication List Reviewed: Yes Review of Systems Review of Systems Constitutional: see HPI EENTM: no symptoms reported Respiratory: no symptoms reported Cardiovascular: no symptoms reported Gastrointestinal: abdominal pain Genitourinary: burning, discharge, dysuria, frequency, urgency : No Musculoskeletal: no symptoms reported Skin: no symptoms reported All Other Systemes Reviewed Negative Unless Noted: Yes Past Ehszmly-Cuphmk-Immgsa Hx Patient Social History Alcohol Use: Denies Use Drug of Choice: MARIJUANA Smoking Status: Current Everyday Smoker Type Used: Cigarettes Former Smoker, Quit: Oct 18, 2017 2nd Hand Smoke Exposure: No Recent Infectious Disease Expo: No Recent Hopitalizations: No Immunizations Up To Date Tetanus Booster (TDap): Less than 5yrs PED Vaccines UTD: No Date of Influenza Vaccine: Aug 18, 2020 Seasonal Allergies Seasonal Allergies: No Past Medical History Surgeries: Yes Section, Gallbladder Respiratory: No Currently Using CPAP: No Currently Using BIPAP: No Cardiac: No Neurological: No Reproductive Disorders: No Sexually Transmitted Disease: No HIV/AIDS: No Genitourinary: Yes Kidney Stones Gastrointestinal: Yes Gall Bladder Disease Musculoskeletal: No Endocrine: No HEENT: No Loss of Vision: Denies Hearing Impairment: Denies Cancer: No Psychosocial: Yes Depression Integumentary: No Blood Disorders: No Adverse Reaction/Blood Tranf: No Family Medical History Cervical cancer 19 MOTHER Hypertension 19 FATHER Cancer, Diabetes, Hypertension Physical Exam Vital Signs Vital Signs - First Documented 02/13/21 09:57 Temp 37.2 Pulse 88 Resp 17 B/P (MAP) 118/78 (91) Pulse Ox 97 O2 Delivery Room Air Capillary Refill : Less Than 3 Seconds Height, Weight, BMI Height: 5'3.00" Weight: 168lbs. 0.0oz. [id number]; 33.00 BMI Method:Stated General Appearance: WD/WN, no apparent distress Neck: normal inspection Cardiovascular: regular rate, rhythm Respiratory: lungs clear, normal breath sounds, no respiratory distress, no accessory muscle use Gastrointestinal: soft, guarding (Right pelvis), tenderness (Right pelvis) Pelvic: normal external exam, normal adnexa, no cerv. motion tender, no masses, discharge (thick white discharge from the cervical os; IUD string noted) Extremities: non-tender, normal inspection Neurologic/Psychiatric: alert, normal mood/affect, oriented x 3 Skin: normal color, damp Progress/Results/Core Measures Suspected Sepsis Recent Fever Within 48 Hours: No Infection Criteria Present: None New/Unexplained Altered Menta: No Sepsis Screen: No Definite Risk SIRS Temperature: Pulse: 88 Respiratory Rate: 17 Blood Pressure 118 /78 Mean: 91 Results/Orders Lab Results Laboratory Tests Test 02/13/21 10:37 Range/Units Urine Color YELLOW Urine Clarity CLEAR Urine pH 6.0 5-9 Urine Specific Hominy 1.020 1.016-1.022 Urine Protein NEGATIVE NEGATIVE Urine Glucose (UA) NEGATIVE NEGATIVE Urine Ketones NEGATIVE NEGATIVE Urine Nitrite NEGATIVE NEGATIVE Urine Bilirubin NEGATIVE NEGATIVE Urine Urobilinogen 0.2 < = 1.0 MG/DL Urine Leukocyte Esterase NEGATIVE NEGATIVE Urine RBC (Auto) NEGATIVE NEGATIVE Urine RBC NONE /HPF Urine WBC NONE /HPF Urine Squamous Epithelial Cells 2-5 /HPF Urine Crystals NONE /LPF Urine Bacteria TRACE /HPF Urine Casts NONE /LPF Urine Mucus NEGATIVE /LPF Urine Culture Indicated NO My Orders Orders - ANDRESSA NICHOLE MD Hydrocodone/Apap 7.5/325 Tab (Lortab 7. (02/13/21 10:45) Ua Culture If Indicated (02/13/21 10:37) Urine Bedside (02/13/21 10:37) Us Non Ob Pelvis Comp/Transvag (02/13/21 10:37) Ketorolac Injection (Toradol Injection) (02/13/21 12:30) Culture For Gc Only (02/13/21 12:23) Medications Given in ED Current Medications Medications Dose Ordered Sig/Shira Route Start Time Stop Time Status Last Admin Dose Admin Acetaminophen/ Hydrocodone Bitart 1 ea ONCE ONCE PO 02/13/21 10:45 02/13/21 10:46 DC 02/13/21 10:45 1 EA Ketorolac Tromethamine 60 mg ONCE ONCE IM 02/13/21 12:30 02/13/21 12:31 DC 02/13/21 12:45 60 MG Vital Signs/I&O 02/13/21 09:57 Temp 37.2 Pulse 88 Resp 17 B/P (MAP) 118/78 (91) Pulse Ox 97 O2 Delivery Room Air Capillary Refill : Less Than 3 Seconds Blood Pressure Mean: 91 Diagnostic Imaging Diagonstic Imaging: Ultrasound Plain Films/CT/US/NM/MRI: pelvis Comments [facility]. [place], [place] NAME: THORSRUTHI K [facility] REC#: [id number] PT STATUS: REG ER : 1995 PHYSICIAN: ANDRESSA NICHOLE MD ADMIT DATE: 02/13/21/ER Draft Date of Exam:02/13/21 US NON OB PELVIS COMP/TRANSVAG PROCEDURE: US Non-ob pelvis comp/trans. TECHNIQUE: Multiple realtime grayscale images were obtained of the pelvis in various projections endovaginally. Transabdominal imaging was also performed. INDICATION: Pelvic pain. COMPARISON: CT abdomen and pelvis of 01/25/2021 and pelvic ultrasound of 01/25/2021 FINDINGS: The uterus measures 7.7 x 3.7 x 5.3 cm. No myometrial mass is present. There is IUD appropriately positioned within the endometrial canal. There is small amount of simple appearing fluid within the endometrial canal around the IUD. Left ovary measures 2.3 x 2.7 x 2.4 cm. Blood flow is present within the left ovary by color Doppler imaging. The right ovary measures 3.1 x 2.3 x 2.4 cm. Again there is a complex mixed solid and cystic structure associated with the right ovary compatible with a dermoid cyst. The cystic component measures 1.5 x 1.2 x 1.4 cm. Blood flow remains present within the right ovary. IMPRESSION: 1. No change in right ovarian dermoid cyst. No associated ovarian torsion. 2. Well-positioned IUD. Dictated on workstation # [id number] Dict: 02/13/21 1233 Trans: 02/13/21 1243 [facility] [id number] Interpreted by: SOO MERA MD Electronically signed by: Departure Impression Primary Impression: right sided pelvic pain Disposition: 01 HOME, SELF-CARE Condition: Stable Departure-Patient Inst. Decision time for Depature: 12:51 Referrals: [facility] [place] ([place]/Family) Primary Care Physician Patient Instructions: Pelvic Pain (DC) Add. Discharge Instructions: Take [id number] Aleve/naproxen, 2 pills with food, twice daily as needed for pain. Please call and follow-up with your primary care provider or your CLIENT SERVICE REPRESENTATIVE. Return to the emergency department for worse pain especially associated with fever, vomiting or any other emergent concerning symptoms. ANDRESSA NICHOLE MD Feb 13, 2021 10:41
[2021-02-13] MEDS ORDERED: HYDROcodone/APAP 7.5 MG/325 MG (LORTAB, LORCET PLUS) TABLET PO ONE (10:45)
[2021-02-13 10:53] LABS: BILIRUBIN,URINE NEGATIVE (NEGATIVE); CLARITY,URINE CLEAR; COLOR,URINE YELLOW; GLUCOSE, URINE (UA) NEGATIVE (NEGATIVE); KETONES,URINE NEGATIVE (NEGATIVE); LEUKOCYTE ESTERASE ,URINE NEGATIVE (NEGATIVE); NITRITE,URINE NEGATIVE (NEGATIVE); PROTEIN,URINE NEGATIVE (NEGATIVE)
[2021-02-13 11:13] LABS: BACTERIA,URINE TRACE /HPF
[2021-02-13] MEDS ORDERED: KETOROLAC 60 MG/2 ML VIAL IM ONE (12:30)
--- NOTE | 2021-02-13 12:43 | Diagnostic Imaging Report ---
PROCEDURE: US Non-ob pelvis comp/trans. TECHNIQUE: Multiple realtime grayscale images were obtained of the pelvis in various projections endovaginally. Transabdominal imaging was also performed. INDICATION: Pelvic pain. COMPARISON: CT abdomen and pelvis of 01/25/2021 and pelvic ultrasound of 01/25/2021 FINDINGS: The uterus measures 7.7 x 3.7 x 5.3 cm. No myometrial mass is present. There is IUD appropriately positioned within the endometrial canal. There is small amount of simple appearing fluid within the endometrial canal around the IUD. Left ovary measures 2.3 x 2.7 x 2.4 cm. Blood flow is present within the left ovary by color Doppler imaging. The right ovary measures 3.1 x 2.3 x 2.4 cm. Again there is a complex mixed solid and cystic structure associated with the right ovary compatible with a dermoid cyst. The cystic component measures 1.5 x 1.2 x 1.4 cm. Blood flow remains present within the right ovary. IMPRESSION: 1. No change in right ovarian dermoid cyst. No associated ovarian torsion. 2. Well-positioned IUD. Dictated by: Dictated on workstation # [id number]
[2021-02-13 12:59] VITALS: BP 115/80
== END 2021-02-13 12:59 | disposition home or self-care (01) ==
LOC: EDUNIT# 09:45 → ER 09:49
DX: R10.2 Pelvic and perineal pain (principal); F17.210 Nicotine dependence, cigarettes, uncomplicated; Z97.5 Presence of (intrauterine) contraceptive device; Z98.890 Other specified postprocedural states; Z79.891 Long term (current) use of opiate analgesic; Z88.0 Allergy status to penicillin
CPT/HCPCS: 76830; 76856; 81000; 84703; 87070

== ENCOUNTER 2021-12-27 12:57 | Emergency (ER) | payer MEDICAID ==
[~2021-12-27] VITALS: Ht 160 cm; Wt 88.5 kg
[~2021-12-27 12:57] MED LIST changes: +CLIN-144 PO; -CLIN300C12 PO
--- NOTE | 2021-12-27 13:27 | ED General ---
General Chief Complaint: OB < 20 WEEKS Stated Complaint: HEART RACING/SOA/HEADACHE/NAUSEA 14 WKS PREG Nursing Triage Note: PT AMBULATE TO ROOM 02 WITH C/O "FELT LIKE MY HEART WAS RACING". PT STATES SHE HAS BEEN HAVING A PANIC ATTACK SINCE THIS MORNING. PT DENIES HX OF ANXIETY. PT REPORTS SOB LAST NIGHT. PT REPORTS SHE IS X14 WEEKS AND HAS APPT WITH DR INFANTE 01/10/22. Source of Information: Patient Exam Limitations: No Limitations History of Present Illness Date Seen by Provider: Dec 27, 2021 Time Seen by Provider: 13:18 Initial Comments Crista is a 25-year-old G3, P2 approximately 14 weeks who presents to the emergency department with a chief complaint of palpitations, nausea, vomiting. She has mild to moderate headache. She has taken some Tylenol which she states has improved her symptoms. Patient sees Dr. Infante for care. Patient states she has felt a little short of breath with mild nonproductive cough.. She has a history of mild anxiety/panic disorder. She is uncertain if her symptoms of nausea vomiting and palpitations are related to the panic or not. She denies any fevers or chills. No abdominal cramping, vaginal bleeding, loss of fluid. No burning with urination or diarrhea. No trauma. She is on vitamins. Patient does not have nausea medications at home. No earache, sore throat or productive cough. No known Covid positive contacts. She has had one Covid vaccination. All other review of systems reviewed and negative except as stated. Timing/Duration: 24 Hours Severity: Moderate Associated Systoms: Cough (mild), Malaise, Nausea/Vomiting, Other (headache) Allergies and Home Medications Allergies Coded Allergies: Penicillins (Verified Allergy, Mild, HIVES, 02/11/19) Patient Home Medication List Home Medication List Reviewed: Yes Diphenhydramine HCl (Benadryl) 25 Mg Capsule, 25-50 MG PO Q6H PRN for ALLERGY SYMPTOMS, (Reported) Entered as Reported by: SAMIRA SAPP on 01/25/21 1124 Hydrocodone Bit/Acetaminophen (HYDROcodone/APAP 5 MG/325 MG TAB) 1 Tab Tab, 1 TAB PO Q8H PRN for PAIN-MODERATE (5-7) Prescribed by: SANDY BOWERS on 01/25/21 1439 Ondansetron (Ondansetron Odt) 4 Mg Tab.rapdis, 4 MG PO Q8H PRN for nausea Prescribed by: ANDRESSA NICHOLE on 12/27/21 1424 Review of Systems Review of Systems Constitutional: see HPI EENTM: no symptoms reported Respiratory: cough, phlegm (slight) Cardiovascular: no symptoms reported Gastrointestinal: No abdominal pain, No constipation, No diarrhea; nausea, vomiting Musculoskeletal: no symptoms reported Skin: no symptoms reported Psychiatric/Neurological: Headache, Other (lightheaded and a little dizzy with standing) Past Aogdzcq-Luauig-Jcrewx Hx Patient Social History Tobacco Use?: No Smoking Status: Former Smoker Smokeless Tobacco Frequency: Never a User Use of E-Cig and/or Vaping dev: No Use of E-Cig and/or Vaping Willi: Never a User Substance use?: Yes Substance type: Marijuana Substance frequency: Daily Alcohol Use?: No Immunizations Up To Date Tetanus Booster (TDap): Less than 5yrs PED Vaccines UTD: No First/Initial COVID19 Vaccinat: 11/16/21 Seasonal Allergies Seasonal Allergies: No Past Medical History Surgeries: Yes Section, Gallbladder Respiratory: No Currently Using CPAP: No Currently Using BIPAP: No Cardiac: No Neurological: No Reproductive Disorders: No Sexually Transmitted Disease: No HIV/AIDS: No Genitourinary: Yes Kidney Stones Gastrointestinal: Yes Gall Bladder Disease Musculoskeletal: No Endocrine: No HEENT: No Loss of Vision: Denies Hearing Impairment: Denies Cancer: No Psychosocial: Yes Depression Integumentary: No Blood Disorders: No Adverse Reaction/Blood Tranf: No Family Medical History Cervical cancer 19 MOTHER Hypertension 19 FATHER Cancer, Diabetes, Hypertension Physical Exam Vital Signs Vital Signs - First Documented 12/27/21 12/27/21 13:04 15:15 Temp 36.4 Pulse 103 Resp 18 B/P (MAP) 124/73 (90) Pulse Ox 99 O2 Delivery Room Air Capillary Refill : Less Than 3 Seconds Height, Weight, BMI Height: 5'3.00" Weight: 168lbs. 0.0oz. [id number]; 34.00 BMI Method:Stated General Appearance: No Apparent Distress, WD/WN Eyes: Bilateral Eye Normal Inspection, Bilateral Eye PERRL, Bilateral Eye EOMI HEENT: PERRL/EOMI, TMs Normal, Pharynx Normal Neck: Normal Inspection, Non Tender, Supple Respiratory: Lungs Clear, Normal Breath Sounds, No Respiratory Distress Cardiovascular: Regular Rate, Rhythm, Tachycardia (101) Gastrointestinal: Normal Bowel Sounds, Non Tender, Soft Extremity: Normal Capillary Refill, Normal Inspection, Normal Range of Motion, Non Tender, No Calf Tenderness, No Pedal Edema Neurologic/Psychiatric: Alert, Oriented x3, No Motor/Sensory Deficits, Normal Mood/Affect, media senior recruiter II-XII Norm as Tested Skin: Normal Color, Warm/Dry Progress/Results/Core Measures Suspected Sepsis SIRS Temperature: Pulse: 103 Respiratory Rate: 18 Blood Pressure 124 /73 Mean: 90 Laboratory Tests 12/27/21 13:34: Creatinine 0.58L Results/Orders Lab Results Laboratory Tests Test 12/27/21 13:34 12/27/21 13:54 Range/Units Sodium Level 133 L 135-145 MMOL/L Potassium Level 3.9 3.6-5.0 MMOL/L Chloride Level 105 98-107 MMOL/L Carbon Dioxide Level 18 L 21-32 MMOL/L Anion Gap 10 5-14 MMOL/L Blood Urea Nitrogen 6 L 7-18 MG/DL Creatinine 0.58 L 0.60-1.30 MG/DL Estimat Glomerular Filtration Rate 127 BUN/Creatinine Ratio 10 Glucose Level 81 70-105 MG/DL Calcium Level 8.9 8.5-10.1 MG/DL Urine Color YELLOW Urine Clarity CLEAR Urine pH 7.5 5-9 Urine Specific Ernul 1.020 1.016-1.022 Urine Protein NEGATIVE NEGATIVE Urine Glucose (UA) NEGATIVE NEGATIVE Urine Ketones TRACE H NEGATIVE Urine Nitrite NEGATIVE NEGATIVE Urine Bilirubin NEGATIVE NEGATIVE Urine Urobilinogen 0.2 < = 1.0 MG/DL Urine Leukocyte Esterase NEGATIVE NEGATIVE Urine RBC (Auto) NEGATIVE NEGATIVE Urine RBC NONE /HPF Urine WBC NONE /HPF Urine Squamous Epithelial Cells 2-5 /HPF Urine Crystals NONE /LPF Urine Bacteria NEGATIVE /HPF Urine Casts NONE /LPF Urine Mucus NEGATIVE /LPF Urine Culture Indicated NO My Orders Orders - ANDRESSA NICHOLE MD Ed Iv/Invasive Line Start (12/27/21 13:23) Basic Metabolic Panel (12/27/21 13:23) Ua Culture If Indicated (12/27/21 13:23) Heart Tones (12/27/21 13:23) Ns Iv 1000 Ml (Sodium Chloride 0.9%) (12/27/21 13:30) Metoclopramide Injection (Reglan Injecti (12/27/21 13:30) Diphenhydramine Injection (Benadryl Inje (12/27/21 13:30) Medications Given in ED Vital Signs/I&O 12/27/21 12/27/21 13:04 15:15 Temp 36.4 Pulse 103 81 Resp 18 16 B/P (MAP) 124/73 (90) 126/71 Pulse Ox 99 O2 Delivery Room Air Room Air Capillary Refill : Less Than 3 Seconds Blood Pressure Mean: 90 Progress Note #1: Time: 14:21 Progress Note Feeling much better. Nausea and headache much improved. She is completed a liter of fluids. She remains a little bit tachycardic. Electrolytes are norm al, chemistry also reveals a CO2 of 18 likely a little dehydrated. Urine is clean of infection. [facility] Return precautions discussed. Patient verbalized understanding. All questions are sought and answered. Progress Note #2: Time: 14:54 Progress Note FHT 150 Departure Impression Primary Impression: Headache Qualified Codes: R51.9 - Headache, unspecified Additional Impressions: Second trimester Nausea and vomiting Qualified Codes: R11.2 - Nausea with vomiting, unspecified Disposition: 01 HOME, SELF-CARE Condition: Stable Departure-Patient Inst. Decision time for Depature: 14:22 Referrals: [facility] (PCP/Family) Primary Care Physician DAVID INFANTE DO Patient Instructions: Nausea and Vomiting of Add. Discharge Instructions: Drink plenty of fluids to stay well-hydrated. Diluted Gatorade would also be good. Zofran, 4 mg for nausea. Every 8 hours as needed. It can cause a little constipation. Make sure you keep up on your fluids. Tylenol, 2 extra strength tablets every 6 hours as needed for headache. Keep your scheduled follow-ups with Dr. Infante. Return to the emergency room for any new, concerning or emergent complaints. Scripts Ondansetron (Ondansetron Odt) 4 Mg Tab.rapdis 4 MG PO Q8H PRN for nausea, #20 TAB Prov: ANDRESSA NICHOLE MD 12/27/21 Copy Copies To 1: DAVID INFANTE KATHRYN M MD Dec 27, 2021 13:27
[2021-12-27] MEDS ORDERED: NS IV 1000 ML 1,000 ML IV SCH (13:30)
[2021-12-27] MEDS ORDERED: METOCLOPRAMIDE INJ 10 MG/2 ML (REGLAN) IVP ONE (13:30)
[2021-12-27] MEDS ORDERED: diphenhydrAMINE 50 MG/ML INJ (BENADRYL) IV ONE (13:30)
[2021-12-27 14:01] LABS: POTASSIUM 3.9 MMOL/L (3.6-5.0)
[2021-12-27 14:02] LABS: CALCIUM 8.9 MG/DL (8.5-10.1)
[2021-12-27 14:07] LABS: CREATININE SERUM 0.58 MG/DL (0.60-1.30)
[2021-12-27 14:11] LABS: BILIRUBIN,URINE NEGATIVE (NEGATIVE); CLARITY,URINE CLEAR; COLOR,URINE YELLOW; GLUCOSE, URINE (UA) NEGATIVE (NEGATIVE); KETONES,URINE TRACE (NEGATIVE); LEUKOCYTE ESTERASE ,URINE NEGATIVE (NEGATIVE); NITRITE,URINE NEGATIVE (NEGATIVE); PH,URINE 7.5 (5-9); PROTEIN,URINE NEGATIVE (NEGATIVE)
[2021-12-27 14:20] LABS: BACTERIA,URINE NEGATIVE /HPF
[2021-12-27] MEDS ORDERED: ONDA4TAB11 PO (14:24)
[2021-12-27 15:15] VITALS: BP 126/71
== END 2021-12-27 15:16 | disposition home or self-care (01) ==
LOC: EDUNIT# 12:57 → ER 13:00
DX: O99.352 Diseases of the nervous system complicating pregnancy, second trimester (principal); R51.9 Headache, unspecified; O21.0 Mild hyperemesis gravidarum; Z87.891 Personal history of nicotine dependence; Z3A.14 14 weeks gestation of pregnancy
CPT/HCPCS: 36415; 80048; 81000

== ENCOUNTER 2022-01-03 13:21 | Emergency (ER) | payer MEDICAID ==
[~2022-01-03] VITALS: Ht 160 cm; Wt 84.0 kg
[2022-01-03] MEDS ORDERED: ONDANSETRON 4 MG/2 ML (SDV) Z0FRAN IVP ONE (13:45)
[2022-01-03] MEDS ORDERED: LACTATED RINGERS 1,000 ML IV SCH (13:45)
--- NOTE | 2022-01-03 13:46 | ED GI ---
General Chief Complaint: OB < 20 WEEKS Stated Complaint: N/V,SOB,ADKINS-14 WKS PREG Nursing Triage Note: PT AMB TO ER WITH C/O DIZZINESS AND VOMITTING. PT SEEN HERE LAST SATURDAY FOR SAME SX WITHOUT RELIEF. PT TRIED TO CALL [facility] BUT WAS SENT HERE. PT ALSO EXPOSED TO FLU BY FAMILY MEMBERS Source of Information: Patient Exam Limitations: No Limitations History of Present Illness Date Seen by Provider: Jan 03, 2022 Time Seen by Provider: 13:44 Initial Comments To ER by private vehicle with reports of dizziness and vomiting. She was seen here last for headache and similar symptoms. She was seen at [facility] today and referred to the emergency room. 14 weeks gestation. Has not been able to keep anything down today because of the nausea and vomiting. No fevers or chills. She states that most of her family at home is ill with influenza A. Timing/Duration: 1 Week Severity/Quality: Moderate Location: Generalized Abdomen Radiation: No Radiation Activities at Onset: None Associated Symptoms: Nausea/Vomiting Allergies and Home Medications Allergies Coded Allergies: Penicillins (Verified Allergy, Mild, HIVES, 02/11/19) Patient Home Medication List Home Medication List Reviewed: Yes Diphenhydramine HCl (Benadryl) 25 Mg Capsule, 25-50 MG PO Q6H PRN for ALLERGY SYMPTOMS, (Reported) Entered as Reported by: SAMIRA SAPP on 01/25/21 1124 Hydrocodone Bit/Acetaminophen (HYDROcodone/APAP 5 MG/325 MG TAB) 1 Tab Tab, 1 T AB PO Q8H PRN for PAIN-MODERATE (5-7) Prescribed by: SANDY BOWERS on 01/25/21 1439 Ondansetron (Ondansetron Odt) 4 Mg Tab.rapdis, 4 MG PO Q8H PRN for nausea Prescribed by: ANDRESSA NICHOLE on 12/27/21 1424 Ondansetron (Ondansetron Odt) 8 Mg Tab.rapdis, 8 MG PO Q6H PRN for NAUSEA/VOMITING Prescribed by: LEXIE WHITEHEAD on 01/03/22 1419 Potassium Chloride (Potassium Chloride) 20 Meq Tablet.er, 20 MEQ PO BID Prescribed by: LEXIE WHITEHEAD on 01/03/22 1419 Review of Systems Review of Systems Constitutional: see HPI; No chills, No fever EENTM: See HPI, Nose Congestion Respiratory: No Symptoms Reported Cardiovascular: No Symptoms Reported Gastrointestinal: See HPI; Denies Abdominal Pain; Nausea, Vomiting Genitourinary: No Symptoms Reported Musculoskeletal: no symptoms reported Skin: no symptoms reported Psychiatric/Neurological: No Symptoms Reported Endocrine: No Symptoms Reported Hematologic/Lymphatic: No Symptoms Reported Past Uoeryvx-Ggddav-Pckoev Hx Patient Social History Tobacco Use?: No Substance use?: No Alcohol Use?: No Pt feels they are or have been: No Immunizations Up To Date Tetanus Booster (TDap): Less than 5yrs PED Vaccines UTD: No Influenza Vaccine Up-to-Date: Yes; Up-to-Date First/Initial COVID19 Vaccinat: 11/16/21 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: [employer] Seasonal Allergies Seasonal Allergies: No Past Medical History Surgeries: Yes Section, Gallbladder Respiratory: No Currently Using CPAP: No Currently Using BIPAP: No Cardiac: No Neurological: No Expected Date of Delivery: Jul 01, 2022 Reproductive Disorders: No Sexually Transmitted Disease: No HIV/AIDS: No Genitourinary: Yes Kidney Stones Gastrointestinal: Yes Gall Bladder Disease Musculoskeletal: No Endocrine: No HEENT: No Loss of Vision: Denies Hearing Impairment: Denies Cancer: No Psychosocial: Yes Depression Integumentary: No Blood Disorders: No Adverse Reaction/Blood Tranf: No Family Medical History Cervical cancer 19 MOTHER Hypertension 19 FATHER Cancer, Diabetes, Hypertension Physical Exam Vital Signs Vital Signs - First Documented 01/03/22 13:30 Temp 36.0 Pulse 91 Resp 18 B/P (MAP) 125/84 (98) Pulse Ox 99 O2 Delivery Room Air Capillary Refill : Height/Weight/BMI Height: 5'3.00" Weight: 168lbs. 0.0oz. 76.309144ff; 32.00 BMI Method:Stated General Appearance: WD/WN, no apparent distress HEENT: PERRL/EOMI, normal ENT inspection, TMs normal Neck: non-tender, full range of motion Respiratory: normal breath sounds, no respiratory distress, no accessory muscle use Cardiovascular: regular rate, rhythm, no murmur Gastrointestinal: normal bowel sounds, non tender, soft Extremities: normal range of motion, non-tender Neurologic/Psychiatric: alert, normal mood/affect, oriented x 3 Skin: normal color, warm/dry Progress/Results/Core Measures Results/Orders Lab Results Laboratory Tests Test 01/03/22 13:42 01/03/22 13:45 Range/Units White Blood Count 8.1 4.3-11.0 10^3/uL Red Blood Count 4.77 3.80-5.11 10^6/uL Hemoglobin 14.1 11.5-16.0 g/dL Hematocrit 41 35-52 % Mean Corpuscular Volume 86 80-99 fL Mean Corpuscular Hemoglobin 30 25-34 pg Mean Corpuscular Hemoglobin Concent 35 32-36 g/dL Red Cell Distribution Width 12.1 10.0-14.5 % Platelet Count 243 130-400 10^3/uL Mean Platelet Volume 9.2 9.0-12.2 fL Immature Granulocyte % (Auto) 1 % Neutrophils (%) (Auto) 73 42-75 % Lymphocytes (%) (Auto) 21 12-44 % Monocytes (%) (Auto) 5 0-12 % Eosinophils (%) (Auto) 0 0-10 % Basophils (%) (Auto) 0 0-10 % Neutrophils # (Auto) 5.9 1.8-7.8 10^3/uL Lymphocytes # (Auto) 1.7 1.0-4.0 10^3/uL Monocytes # (Auto) 0.4 0.0-1.0 10^3/uL Eosinophils # (Auto) 0.0 0.0-0.3 10^3/uL Basophils # (Auto) 0.0 0.0-0.1 10^3/uL Immature Granulocyte # (Auto) 0.1 0.0-0.1 10^3/uL Sodium Level 135 135-145 MMOL/L Potassium Level 3.0 L 3.6-5.0 MMOL/L Chloride Level 105 98-107 MMOL/L Carbon Dioxide Level 18 L 21-32 MMOL/L Anion Gap 12 5-14 MMOL/L Blood Urea Nitrogen 7 7-18 MG/DL Creatinine 0.62 0.60-1.30 MG/DL Estimat Glomerular Filtration Rate 124 BUN/Creatinine Ratio 11 Glucose Level 117 H 70-105 MG/DL Calcium Level 8.5 8.5-10.1 MG/DL Corrected Calcium 8.6 8.5-10.1 MG/DL Total Bilirubin 0.4 0.1-1.0 MG/DL Aspartate Amino Transf (AST/SGOT) 32 5-34 U/L Alanine Aminotransferase (ALT/SGPT) 43 0-55 U/L Alkaline Phosphatase 58 40-136 U/L Total Protein 6.7 6.4-8.2 GM/DL Albumin 3.9 3.2-4.5 GM/DL Influenza Type A (RT-PCR) Not Detected Not Detecte Influenza Type B (RT-PCR) Not Detected Not Detecte SARS-CoV-2 RNA (RT-PCR) Not Detected Not Detecte Urine Color ORANGE Urine Clarity SL CLOUDY Urine pH 6.0 5-9 Urine Specific [place] 1.025 H 1.016-1.022 Urine Protein TRACE H NEGATIVE Urine Glucose (UA) NEGATIVE NEGATIVE Urine Ketones 3+ H NEGATIVE Urine Nitrite NEGATIVE NEGATIVE Urine Bilirubin 1+ H NEGATIVE Urine Urobilinogen 1.0 < = 1.0 MG/DL Urine Leukocyte Esterase NEGATIVE NEGATIVE Urine RBC (Auto) NEGATIVE NEGATIVE Urine RBC NONE /HPF Urine WBC 2-5 /HPF Urine Squamous Epithelial Cells 5-10 /HPF Urine Crystals PRESENT H /LPF Urine Amorphous Sediment MOD MANJU URATES H /LPF Urine Bacteria FEW H /HPF Urine Casts NONE /LPF Urine Mucus MODERATE H /LPF Urine Culture Indicated YES My Orders Orders - LEXIE WHITEHEAD APRN Cbc With Automated Diff (01/03/22 13:38) Comprehensive Metabolic Panel (01/03/22 13:38) Ed Iv/Invasive Line Start (01/03/22 13:38) Ua Culture If Indicated (01/03/22 13:38) Influenza A And B By Pcr (01/03/22 13:38) Covid 19 Inhouse Test (01/03/22 13:38) Lactated Ringers (Lr 1000 Ml Iv Solution (01/03/22 13:45) Ondansetron Injection (Zofran Injectio (01/03/22 13:45) Urine Culture (01/03/22 13:45) Medications Given in ED Current Medications Medications Dose Ordered Sig/Shira Route Start Time Stop Time Status Last Admin Dose Admin Ondansetron HCl 8 mg ONCE ONCE IVP 01/03/22 13:45 01/03/22 13:46 DC 01/03/22 13:47 8 MG Vital Signs/I&O 01/03/22 13:30 Temp 36.0 Pulse 91 Resp 18 B/P (MAP) 125/84 (98) Pulse Ox 99 O2 Delivery Room Air Blood Pressure Mean: 98 Departure Impression Primary Impression: Nausea and vomiting Disposition: 01 HOME, SELF-CARE Condition: Stable Departure-Patient Inst. Decision time for Depature: 14:17 Referrals: DAVID VANCE DO (PCP/Family) Primary Care Physician Patient Instructions: Nausea and Vomiting, Adult Add. Discharge Instructions: 1. Nausea medication and potassium supplementation as directed. Return to ER for any concerns. Follow-up with your doctor next week. All discharge instructions reviewed with patient and/or family. Voiced understanding. Scripts Potassium Chloride (Potassium Chloride) 20 Meq Tablet.er 20 MEQ PO BID, #6 TAB Prov: LEXIE WHITEHEAD APRN 01/03/22 Ondansetron (Ondansetron Odt) 8 Mg Tab.rapdis 8 MG PO Q6H PRN for NAUSEA/VOMITING, #10 TAB Prov: LEXIE WHITEHEAD APRN 01/03/22 Work/School Note: Work Release Form Date Seen in the Emergency Department: Jan 03, 2022 Return to Work: Jan 05, 2022 LEXIE WHITEHEAD APRN Jan 03, 2022 13:46
[2022-01-03 13:49] LABS: BASOPHILS % (AUTO) 0 % (0-10); EOSINOPHILS % (AUTO) 0 % (0-10); HEMATOCRIT 41 % (35-52); HEMOGLOBIN 14.1 g/dL (11.5-16.0); LYMPHOCYTES # (AUTO) 1.7 10^3/uL (1.0-4.0); LYMPHOCYTES % (AUTO) 21 % (12-44); MEAN CORPUSCULAR HEMOGLOBIN 30 pg (25-34); MEAN CORPUSCULAR HGB CONC 35 g/dL (32-36); MEAN CORPUSCULAR VOLUME 86 fL (80-99); MEAN PLATELET VOLUME 9.2 fL (9.0-12.2); MONOCYTES # (AUTO) 0.4 10^3/uL (0.0-1.0); MONOCYTES % (AUTO) 5 % (0-12); NEUTROPHILS # (AUTO) 5.9 10^3/uL (1.8-7.8); NEUTROPHILS % (AUTO) 73 % (42-75); PLATELET COUNT 243 10^3/uL (130-400); WHITE BLOOD COUNT 8.1 10^3/uL (4.3-11.0)
[2022-01-03 13:52] LABS: CLARITY,URINE SL CLOUDY; COLOR,URINE ORANGE; GLUCOSE, URINE (UA) NEGATIVE (NEGATIVE); KETONES,URINE 3+ (NEGATIVE); LEUKOCYTE ESTERASE ,URINE NEGATIVE (NEGATIVE); NITRITE,URINE NEGATIVE (NEGATIVE); PROTEIN,URINE TRACE (NEGATIVE)
[2022-01-03 13:58] LABS: ALBUMIN 3.9 GM/DL (3.2-4.5)
[2022-01-03 14:00] LABS: CALCIUM 8.5 MG/DL (8.5-10.1)
[2022-01-03 14:01] LABS: TOTAL PROTEIN 6.7 GM/DL (6.4-8.2)
[2022-01-03 14:03] LABS: BILIRUBIN,TOTAL 0.4 MG/DL (0.1-1.0)
[2022-01-03 14:05] LABS: CREATININE SERUM 0.62 MG/DL (0.60-1.30)
[2022-01-03 14:06] LABS: AMORPHOUS SEDIMENT,UR MOD AMOR URATES /LPF; BACTERIA,URINE FEW /HPF; BILIRUBIN,URINE 1+ (NEGATIVE)
[2022-01-03] MEDS ORDERED: POTA-51 PO (14:19)
[2022-01-03] MEDS ORDERED: ONDA8TAB13 PO (14:19)
[2022-01-03 15:14] VITALS: BP 117/56
== END 2022-01-03 15:18 | disposition home or self-care (01) ==
LOC: EDUNIT# 13:21 → ER 13:23
DX: O21.0 Mild hyperemesis gravidarum (principal); Z3A.14 14 weeks gestation of pregnancy; Z20.822 Contact with and (suspected) exposure to COVID-19
CPT/HCPCS: 36415; 80053; 81000; 85025; 87088; 87636

== ENCOUNTER 2022-01-21 18:44 | Emergency (ER) | payer MEDICAID ==
[~2022-01-21] VITALS: Ht 160 cm; Wt 84.8 kg
[~2022-01-21 18:44] MED LIST changes: +ONDA8TAB13 PO; +POTA-51 PO
[2022-01-21 19:19] VITALS: BP 118/80
--- NOTE | 2022-01-21 19:30 | ED Lower Extremity ---
General Chief Complaint: Lower Extremity Stated Complaint: LEFT FOOT INJURY Source: patient History of Present Illness Date Seen by Provider: Jan 21, 2022 Time Seen by Provider: 19:25 Initial Comments PT ARRIVES VIA POV FROM HOME PT STATES SHE WAS RUNNING ACROSS A FIELD, BAREFOOT, ON SATURDAY, AND TWISTED LEFT ANKLE, AND THEN STEPPED DOWN ON SOMETHING WITH HEEL OF LEFT FOOT HAS HAD INCREASING PAIN TO ANKLE AND FOOT AND HEEL SINCE THEN. NO OTHER INJURIES FROM THE INCIDENT NO PARESTHESIAS OR MOTOR DEFICITS PT HAS HAD MULTIPLE SPRAINS TO BOTH ANKLES IN PAST, NO PRIOR SURGERIES TO FOOT/ANKLE/LEG TOOK TYLENOL AT 1715 PT IS 17 WEEKS PCP: [facility] Allergies and Home Medications Allergies Coded Allergies: Penicillins (Verified Allergy, Mild, HIVES, 02/11/19) Patient Home Medication List Home Medication List Reviewed: Yes Diphenhydramine HCl (Benadryl) 25 Mg Capsule, 25-50 MG PO Q6H PRN for ALLERGY SYMPTOMS, (Reported) Entered as Reported by: SAMIRA SAPP on 01/25/21 1124 Hydrocodone Bit/Acetaminophen (HYDROcodone/APAP 5 MG/325 MG TAB) 1 Tab Tab, 1 TAB PO Q8H PRN for PAIN-MODERATE (5-7) Prescribed by: SANDY BOWERS on 01/25/21 1439 Ondansetron (Ondansetron Odt) 4 Mg Tab.rapdis, 4 MG PO Q8H PRN for nausea Prescribed by: ANDRESSA NICHOLE on 12/27/21 1424 Ondansetron (Ondansetron Odt) 8 Mg Tab.rapdis, 8 MG PO Q6H PRN for NAUSEA/VOMITING Prescribed by: LEXIE WHITEHEAD on 01/03/22 1419 Potassium Chloride (Potassium Chloride) 20 Meq Tablet.er, 20 MEQ PO BID Prescribed by: LEXIE WHITEHEAD on 01/03/22 1419 Review of Systems Constitutional: no symptoms reported : Yes Musculoskeletal: see HPI Skin: no symptoms reported Psychiatric/Neurological: No Symptoms Reported Past Yhdwvqh-Xrwcjg-Zmxvtb Hx Patient Social History Tobacco Use?: No Use of E-Cig and/or Vaping dev: No Substance use?: No Alcohol Use?: No Immunizations Up To Date Tetanus Booster (TDap): Less than 5yrs PED Vaccines UTD: No Influenza Vaccine Up-to-Date: Yes; Up-to-Date First/Initial COVID19 Vaccinat: 11/16/21 Second COVID19 Vaccination [place]: N/A Third COVID19 Vaccination Date: N/A COVID19 Vaccine Yoghurt Maker: DAVEY Seasonal Allergies Seasonal Allergies: No Past Medical History Surgeries: Yes Section, Gallbladder Respiratory: No Currently Using CPAP: No Currently Using BIPAP: No Cardiac: No Neurological: No Reproductive Disorders: No Sexually Transmitted Disease: No HIV/AIDS: No Genitourinary: Yes Kidney Stones Gastrointestinal: Yes Gall Bladder Disease Musculoskeletal: No Endocrine: No HEENT: No Loss of Vision: Denies Hearing Impairment: Denies Cancer: No Psychosocial: Yes Depression Integumentary: No Blood Disorders: No Adverse Reaction/Blood Tranf: No Family Medical History Cervical cancer 19 MOTHER Hypertension 19 FATHER Cancer, Diabetes, Hypertension Physical Exam Vital Signs Vital Signs - First Documented 01/21/22 19:19 Temp 36.6 Pulse 82 Resp 20 B/P (MAP) 118/80 (93) Pulse Ox 98 O2 Delivery Room Air Capillary Refill : Height, Weight, BMI Height: 5'3.00" Weight: 168lbs. 0.0oz. 76.813601gq; 32.00 BMI Method:Stated General Appearance: WD/WN, no apparent distress Hips: bilateral hip normal inspection Legs: bilateral leg normal inspection Knees: bilateral knee normal inspection Ankles: right ankle normal inspection; left ankle other (TENDERNESS TO PLANTAR ASPECT OF LEFT HEEL, MEDIAL MALLEOLUS, AND DORSAL/LATERAL ASPECT OF LEFT FOOT/ANKLE. SLIGHT BRUISING AND SWELLING TO DORSAL/LATERAL ASPECT OF LEFT FOOT/ANKLE AREA. FULL ROM. SENSORY/VASCULAR INTACT. ) Feet: right foot normal inspection; left foot other ( ABOVE) Neurologic/Tendon: normal sensation, normal motor functions, normal tendon functions Neurologic/Psychiatric: roadmaster II-XII nml as tested, no motor/sensory deficits, alert, normal mood/affect, oriented x 3 Skin: normal color, warm/dry, ecchymosis Procedures/Interventions Splinting and Joint Reduction : Issac wrap: Yes Immobilizers: Step Light Walker s/m/lg Progress/Results/Core Measures Results/Orders My Orders Orders - ARY MITCHELL DO Foot, Left, 3 Views (01/21/22 19:26) Ankle, Left, 3 Views (01/21/22 19:26) Vital Signs/I&O 01/21/22 19:19 Temp 36.6 Pulse 82 Resp 20 B/P (MAP) 118/80 (93) Pulse Ox 98 O2 Delivery Room Air Diagnostic Imaging Comments XRAYS LEFT FOOT AND ANKLE--PER RADIOLOGIST REPORTS AT 2015 LEFT ANKLE-- FINDINGS: There is stable appearance of old lateral malleolar avulsion fracture fragment. No new fracture or malalignment is identified. There is no lytic or sclerotic lesion. IMPRESSION: No acute abnormality. LEFT FOOT-- FINDINGS: No acute fracture or dislocation is identified. No abnormal lytic or sclerotic focus is seen, and there is no radiopaque foreign body. IMPRESSION: No acute abnormality. Reviewed: Reviewed by Me Departure Impression Primary Impression: LEFT ANKLE AND FOOT SPRAIN Disposition: HOME, SELF-CARE Condition: Stable Departure-Patient Inst. Decision time for Depature: 20:15 Referrals: [facility] (PCP/Family) Primary Care Physician Patient Instructions: How to Use an Elastic Bandage, Sprain (DC), Walking Boot Add. Discharge Instructions: ISSAC WRAP AND WALKING BOOT NEEDED FOR COMFORT ICE TO AREA AT 20 MINUTE INTERVALS ELEVATE FOOT MUCH POSSIBLE TYLENOL NEEDED FOR PAIN FOLLOW UP WITH [facility] IN 1 WEEK IF NO BETTER All discharge instructions reviewed with patient and/or family. Voiced understanding. ARY MITCHELL DO Jan 21, 2022 19:30
--- NOTE | 2022-01-21 20:02 | Diagnostic Imaging Report ---
INDICATION: Left ankle pain. EXAMINATION: AP, oblique and lateral views of the left ankle were obtained. COMPARISON: Study of 09/16/2018. FINDINGS: There is stable appearance of old lateral malleolar avulsion fracture fragment. No new fracture or malalignment is identified. There is no lytic or sclerotic lesion. IMPRESSION: No acute abnormality. Dictated by: Dictated on workstation # [id number]
--- NOTE | 2022-01-21 20:06 | Diagnostic Imaging Report ---
INDICATION: Left foot injury with pain. EXAMINATION: AP, oblique and lateral views of left foot were obtained. FINDINGS: No acute fracture or dislocation is identified. No abnormal lytic or sclerotic focus is seen, and there is no radiopaque foreign body. IMPRESSION: No acute abnormality. Dictated by: Dictated on workstation # [id number]
== END 2022-01-21 20:26 | disposition home or self-care (01) ==
LOC: EDUNIT# 18:44 → ER 18:47
DX: O9A.212 Injury, poisoning and certain other consequences of external causes complicating pregnancy, second trimester (principal); S93.402A Sprain of unspecified ligament of left ankle, initial encounter; S93.602A Unspecified sprain of left foot, initial encounter; Z3A.17 17 weeks gestation of pregnancy; X50.1XXA Overexertion from prolonged static or awkward postures, initial encounter
CPT/HCPCS: 73610; 73630; 99282; L2114

== ENCOUNTER → 2022-02-14 | Outpatient (CLI) | payer MEDICAID ==
--- NOTE | 2022-02-14 16:53 | Diagnostic Imaging Report ---
INDICATION: patient, screening. TECHNIQUE: Multiple Real-time grayscale images were obtained over the gravid uterus. COMPARISON: No prior study during this . FINDINGS: A single live intrauterine fetus is seen measuring 20 weeks 5 days in size by composite measurements with an EDC of 06/29/2022. The fetus is in breech presentation at this time. The amniotic fluid is qualitatively normal. The placenta is anterior with no evidence of previa. The heart rate is 155 BPM. The cervical length is 4.9 cm. The maternal adnexa were not well seen but there is no free fluid. The survey shows normal-appearing bladder and stomach. Normal-appearing intracranial ventricles were seen. Normal four-chamber heart view was seen. Normal views of the spine were seen. The three-vessel cord and cord insertion are unremarkable. Images of the kidneys were limited due to lie. The facial structures were not well seen. Biometrical measurements are as follows: Biparietal 4.85 cm, age 20 weeks 5 days. Head circumference 18.20 cm, age 20 weeks 5 days. Abdominal circumference 15.80 cm, age 21 weeks 0 days. Femur length 3.33 cm, age 20 weeks 3 days. Sonographic estimate age: 20 weeks 5 days. Sonographic estimated date of delivery: 06/29/2022. Estimated Weight: 371 gm (+/- 54 gm). LMP percentile: 60%. heart rate: 155 beats per minute. number: 1 of 1. IMPRESSION: Single live intrauterine fetus measuring 20 weeks 5 days in size. There is no detectable abnormality although portions of the survey were limited as above. Suggest limited followup study as clinically warranted. Dictated by: Dictated on workstation # [id number]
== END ==
LOC: RAD 15:00
PROVIDERS: ATTEND Nurse Practitioner Women's Health
DX: Z34.02 Encounter for supervision of normal first pregnancy, second trimester (principal); Z3A.20 20 weeks gestation of pregnancy
CPT/HCPCS: 76805

== ENCOUNTER 2022-03-02 18:32 | Emergency (ER) | payer MEDICAID ==
[~2022-03-02] VITALS: Ht 160 cm; Wt 78.4 kg
[2022-03-02 18:50] LABS: BILIRUBIN,URINE NEGATIVE (NEGATIVE); CLARITY,URINE SL CLOUDY; COLOR,URINE YELLOW; GLUCOSE, URINE (UA) NEGATIVE (NEGATIVE); KETONES,URINE TRACE (NEGATIVE); LEUKOCYTE ESTERASE ,URINE NEGATIVE (NEGATIVE); NITRITE,URINE NEGATIVE (NEGATIVE); PH,URINE 5.5 (5-9); PROTEIN,URINE 1+ (NEGATIVE)
--- NOTE | 2022-03-02 18:51 | ED GU-Female ---
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 She had a urinary tract infection with her last . She is a G3, P2 at [address] VANCE with no significant complications of her . She had C-sections in the past. She has had no fever but she has had some hot flashes. She has had a little nausea and took Zofran as well as Tylenol for her pain 2 hours prior to arrival. She has been drinking lots of fluids to flush her urine out and notes that it is dark and malodorous. No discharge. Allergies and Home Medications Allergies Coded Allergies: Penicillins (Verified Allergy, Mild, HIVES, 02/11/19) Patient Home Medication List Home Medication List Reviewed: Yes Diphenhydramine HCl (Benadryl) 25 Mg Capsule, 25-50 MG PO Q6H PRN for ALLERGY SYMPTOMS, (Reported) Entered as Reported by: SAMIRA SAPP on 01/25/21 1124 Hydrocodone Bit/Acetaminophen (HYDROcodone/APAP 5 MG/325 MG TAB) 1 Tab Tab, 1 TAB PO Q8H PRN for PAIN-MODERATE (5-7) Prescribed by: SANDY BOWERS on 01/25/21 1439 Ondansetron (Ondansetron Odt) 4 Mg Tab.rapdis, 4 MG PO Q8H PRN for nausea Prescribed by: ANDRESSA NICHOLE on 12/27/21 1424 Ondansetron (Ondansetron Odt) 8 Mg Tab.rapdis, 8 MG PO Q6H PRN for NAUSEA/VOMIT ING Prescribed by: LEXIE WHITEHEAD on 01/03/22 1419 Potassium Chloride (Potassium Chloride) 20 Meq Tablet.er, 20 MEQ PO BID Prescribed by: LEXIE WHITEHEAD on 01/03/22 1419 Review of Systems Review of Systems Constitutional: No chills, No diaphoresis EENTM: No ear discharge, No ear pain Respiratory: No cough, No short of breath Cardiovascular: No chest pain, No edema Gastrointestinal: No abdominal pain, No constipation, No diarrhea; nausea; No vomiting Genitourinary: denies burning, denies discharge : No Musculoskeletal: No back pain, No gout All Other Systemes Reviewed Negative Unless Noted: Yes Past Tmkmrns-Gnsktq-Fvniid Hx Patient Social History Tobacco Use?: No Use of E-Cig and/or Vaping dev: No Immunizations Up To Date Tetanus Booster (TDap): Less than 5yrs PED Vaccines UTD: No First/Initial COVID19 Vaccinat: 11/16/21 Second COVID19 Vaccination Chapin: N/A Third COVID19 Vaccination Date: N/A Seasonal Allergies Seasonal Allergies: No Past Medical History Surgeries: Yes Section, Gallbladder Respiratory: No Currently Using CPAP: No Currently Using BIPAP: No Cardiac: No Neurological: No Reproductive Disorders: No Sexually Transmitted Disease: No HIV/AIDS: No Genitourinary: Yes Kidney Stones Gastrointestinal: Yes Gall Bladder Disease Musculoskeletal: No Endocrine: No HEENT: No Loss of Vision: Denies Hearing Impairment: Denies Cancer: No Psychosocial: Yes Depression Integumentary: No Blood Disorders: No Adverse Reaction/Blood Tranf: No Family Medical History Cervical cancer 19 MOTHER Hypertension 19 FATHER Cancer, Diabetes, Hypertension Physical Exam Vital Signs Vital Signs - First Documented 03/02/22 18:48 Temp 36.6 Pulse 86 Resp 15 B/P (MAP) 106/74 (85) Pulse Ox 98 O2 Delivery Room Air Capillary Refill : Height, Weight, BMI Height: 5'3.00" Weight: 168lbs. 0.0oz. 76.859245os; 33.00 BMI Method:Stated General Appearance: WD/WN, no apparent distress HEENT: PERRL/EOMI, pharynx normal Neck: full range of motion, normal inspection Cardiovascular: normal peripheral pulses, regular rate, rhythm Respiratory: no respiratory distress, no accessory muscle use Gastrointestinal: normal bowel sounds, non tender, soft Back: normal inspection, no vertebral tenderness, CVA tenderness (L) Extremities: non-tender, normal inspection Neurologic/Psychiatric: alert, normal mood/affect, oriented x 3 Progress/Results/Core Measures Suspected Sepsis SIRS Temperature: Pulse: Respiratory Rate: Blood Pressure / Mean: Results/Orders Lab Results Laboratory Tests Test 03/02/22 18:40 Range/Units Urine Color YELLOW Urine Clarity SL CLOUDY Urine pH 5.5 5-9 Urine Specific [place] >=1.030 1.016-1.022 Urine Protein 1+ H NEGATIVE Urine Glucose (UA) NEGATIVE NEGATIVE Urine Ketones TRACE H NEGATIVE Urine Nitrite NEGATIVE NEGATIVE Urine Bilirubin NEGATIVE NEGATIVE Urine Urobilinogen 1.0 < = 1.0 MG/DL Urine Leukocyte Esterase NEGATIVE NEGATIVE Urine RBC (Auto) NEGATIVE NEGATIVE Urine RBC NONE /HPF Urine WBC RARE /HPF Urine Squamous Epithelial Cells 2-5 /HPF Urine Crystals NONE /LPF Urine Bacteria MODERATE H /HPF Urine Casts NONE /LPF Urine Mucus LARGE H /LPF Urine Culture Indicated YES My Orders Orders - TD VEGAS Ua Culture If Indicated (03/02/22 18:40) Urine Culture (03/02/22 18:40) Vital Signs/I&O 03/02/22 18:48 Temp 36.6 Pulse 86 Resp 15 B/P (MAP) 106/74 (85) Pulse Ox 98 O2 Delivery Room Air Capillary Refill : Progress Note #1: Time: 18:48 Progress Note Urinalysis. She says her pain and nausea are under control. She has a septic vital signs. 7 out of the last 7 urine cultures grew out contaminants of skin steve. We did provide her with 2 wipes to be used prior to producing the specimen. Progress Note #2: Time: 19:09 Progress Note Urinalysis is not convincing but there may be asymptomatic bacteria which can be a cause for premature labor so we will go ahead and treat this with Keflex. Reviewing her previous micro biology most of it is just contamination so not particularly helpful in terms of taking an antibiotic but makes me comfortable with a second generation cephalosporin. Departure Impression Primary Impression: UTI (urinary tract infection) Qualified Codes: N30.00 - Acute cystitis without hematuria Additional Impression: Qualified Codes: Z3A.23 - 23 weeks gestation of Disposition: HOME, SELF-CARE Condition: Stable Departure-Patient Inst. Decision time for Depature: 19:10 Referrals: DAVID VANCE DO (PCP/Family) Primary Care Physician Patient Instructions: Urinary Tract Infection, Adult ED Add. Discharge Instructions: Drink lots of fluids. Cephalexin 500 mg twice a day for 7 days. 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 Scripts Cephalexin (Cephalexin) 500 Mg Tablet 500 MG PO BID for 7 Days, #14 TAB 0 Refills Prov: TD VEGAS 03/02/22 Copy Copies To 1: DAVID VANCE TITUS J Mar 02, 2022 18:51
[2022-03-02 18:59] LABS: BACTERIA,URINE MODERATE /HPF; WBC,URINE RARE /HPF
[2022-03-02] MEDS ORDERED: CEPH500T PO (19:12)
[2022-03-02 19:21] VITALS: BP 108/75
== END 2022-03-02 19:17 | disposition home or self-care (01) ==
LOC: EDUNIT# 18:32 → ER 18:36
DX: O23.42 Unspecified infection of urinary tract in pregnancy, second trimester (principal); Z3A.23 23 weeks gestation of pregnancy
CPT/HCPCS: 81000; 87088; 99282

== ENCOUNTER 2022-03-16 14:49 | Outpatient (CLI) | payer MEDICAID ==
[~2022-03-16] VITALS: Ht 160 cm; Wt 85.5 kg
[2022-03-16 14:55] VITALS: BP 109/66
[2022-03-16 15:15] VITALS: BP 109/66
--- NOTE | 2022-03-16 17:00 | Diagnostic Imaging Report ---
PROCEDURE: US venous lower extremity, bilaterally. TECHNIQUE: Multiple real-time grayscale images were obtained over the lower extremities in various projections, bilaterally. Additional duplex Doppler and color Doppler images were also obtained. INDICATION: Positive Homans sign. FINDINGS: Color Doppler imaging shows normal blood flow throughout the lower extremity venous system, bilaterally. Calf compression shows normal augmentation of flow at the popliteal level. No evidence of popliteal cyst. IMPRESSION: No evidence of venous thrombosis in the lower extremities. Dictated by: Dictated on workstation # [id number]
[2022-03-16 17:25] VITALS: BP 103/60
[2022-03-16] MEDS ORDERED: ONDA4TAB11 PO (17:38)
--- NOTE | 2022-03-19 08:26 | Physician Query-Final Dx ---
Clinic Account Progress/Dx Physician Query: Please give diagnosis Please include # weeks gestation Date of Service Mar 16, 2022 at 14:49 ,NovMarch 19, 2022 08:26
== END 2022-03-16 17:50 | disposition home or self-care (01) ==
LOC: LDRP 14:49 → WSo 14:49
PROVIDERS: ATTEND Obstetrics & Gynecology
DX: Z34.90 Encounter for supervision of normal pregnancy, unspecified, unspecified trimester (principal); Z3A.00 Weeks of gestation of pregnancy not specified
CPT/HCPCS: 93970; G0463; 99213

== ENCOUNTER 2022-05-11 16:24 | Outpatient (CLI) | payer MEDICAID ==
[~2022-05-11] VITALS: Ht 160.1 cm; Wt 84.3 kg
[2022-05-11 16:45] VITALS: BP 99/65
[2022-05-11 16:55] LABS: BILIRUBIN,URINE NEGATIVE (NEGATIVE); CLARITY,URINE CLEAR; COLOR,URINE YELLOW; GLUCOSE, URINE (UA) NEGATIVE (NEGATIVE); KETONES,URINE NEGATIVE (NEGATIVE); LEUKOCYTE ESTERASE ,URINE NEGATIVE (NEGATIVE); NITRITE,URINE NEGATIVE (NEGATIVE); PROTEIN,URINE NEGATIVE (NEGATIVE)
[2022-05-11 17:00] VITALS: BP 99/65
[2022-05-11 17:29] LABS: BACTERIA,URINE FEW /HPF; WBC,URINE 0-2 /HPF
[2022-05-11 17:30] LABS: HYALINE CASTS, URINE 0-2 /LPF
[2022-05-11] MEDS ORDERED: D5 LR IV SOLUTION 1,000 ML IV ONE (17:38)
[2022-05-11] MEDS ORDERED: D5 LR IV SOLUTION 1,000 ML IV SCH (17:45)
[2022-05-11 18:03] LABS: BASOPHILS % (AUTO) 0 % (0-10); EOSINOPHILS # (AUTO) 0.1 10^3/uL (0.0-0.3); EOSINOPHILS % (AUTO) 1 % (0-10); HEMATOCRIT 34 % (35-52); HEMOGLOBIN 11.5 g/dL (11.5-16.0); LYMPHOCYTES # (AUTO) 1.9 10^3/uL (1.0-4.0); LYMPHOCYTES % (AUTO) 17 % (12-44); MEAN CORPUSCULAR HEMOGLOBIN 30 pg (25-34); MEAN CORPUSCULAR HGB CONC 34 g/dL (32-36); MEAN CORPUSCULAR VOLUME 88 fL (80-99); MEAN PLATELET VOLUME 9.8 fL (9.0-12.2); MONOCYTES # (AUTO) 0.6 10^3/uL (0.0-1.0); MONOCYTES % (AUTO) 5 % (0-12); NEUTROPHILS # (AUTO) 8.8 10^3/uL (1.8-7.8); NEUTROPHILS % (AUTO) 76 % (42-75); PLATELET COUNT 223 10^3/uL (130-400); WHITE BLOOD COUNT 11.5 10^3/uL (4.3-11.0)
--- NOTE | 2022-05-14 08:10 | Physician Query-Final Dx ---
,05/14/22 0810: Clinic Account Progress/Dx Physician Query: Please give diagnosis Please include # weeks gestation Date of Service May 11, 2022 at 16:24 MARCOS CORNEJO MD 05/14/22 1435: Clinic Account Progress/Dx DIAGNOSIS: Diagnosis False labor at 32 weeks gestation ,NovMay 14, 2022 08:10 MARCOS CORNEJO MD May 14, 2022 14:35
== END 2022-05-11 20:39 ==
LOC: WSo 16:24 → LDRP 16:24 → WSo 20:39
PROVIDERS: ATTEND Obstetrics & Gynecology
DX: O62.9 Abnormality of forces of labor, unspecified (principal); O26.893 Other specified pregnancy related conditions, third trimester; R42 Dizziness and giddiness; Z3A.32 32 weeks gestation of pregnancy
CPT/HCPCS: 36415; 81000; 85025; 87088; 96360; 96361; 99214

== ENCOUNTER 2022-06-07 17:48 | Emergency (ER) | payer MEDICAID ==
[~2022-06-07] VITALS: Ht 160 cm; Wt 83.0 kg
--- NOTE | 2022-06-07 18:18 | ED Cough/URI ---
General Chief Complaint: COVID19 Suspect/Confirmed Stated Complaint: SOB,ADKINS,CONGESTION,HOME TEST FOR COVID-POSITIVE Source: patient Exam Limitations: no limitations History of Present Illness Date Seen by Provider: Jun 07, 2022 Time Seen by Provider: 18:16 Initial Comments Patient is a 26-year-old female who is currently 8 months who presents ED with flulike symptoms. She reports cough and shortness of breath. Patient denies of any current chest pain abdominal pain, vaginal bleeding or urinary symptoms. Denies any fever, headache, visual changes. She started feeling short of breath this evening wanted to get further evaluated. Up-to-date on her COVID-vaccine. Several kids at home test positive for COVID. Patient PHYSICAL THERAPIST is Dr. Infante. Patient denies wheezing. Allergies and Home Medications Allergies Coded Allergies: Penicillins (Verified Allergy, Mild, HIVES, 02/11/19) Patient Home Medication List Home Medication List Reviewed: Yes Diphenhydramine HCl (Benadryl) 25 Mg Capsule, 25-50 MG PO Q6H PRN for ALLERGY SYMPTOMS, (Reported) Entered as Reported by: SAMIRA SAPP on 01/25/21 1124 Ondansetron (Ondansetron Odt) 4 Mg Tab.rapdis, 4 MG PO Q6H Prescribed by: KIESHA MCKENNA on 03/16/22 1738 Review of Systems Review of Systems Constitutional: No chills, No diaphoresis, No malaise, No weakness EENTM: No ear pain, No blurred vision, No double vision Respiratory: cough; No dyspnea on exertion, No phlegm; short of breath Cardiovascular: No chest pain Gastrointestinal: No abdominal pain, No diarrhea, No dysphagia, No nausea, No vomiting Genitourinary: No decreased output, No discharge Musculoskeletal: No back pain, No joint pain Skin: No change in color, No change in hair/nails All Other Systems Reviewed Negative Unless Noted: Yes Past Yjxahct-Zxphij-Oomkpe Hx Immunizations Up To Date Tetanus Booster (TDap): Less than 5yrs PED Vaccines UTD: No First/Initial COVID19 Vaccinat: 11/16/21 Second COVID19 Vaccination Chapin: N/A Third COVID19 Vaccination Date: N/A Seasonal Allergies Seasonal Allergies: No Past Medical History Surgeries: Yes Section, Gallbladder Respiratory: No Currently Using CPAP: No Currently Using BIPAP: No Cardiac: No Neurological: No Reproductive Disorders: No Sexually Transmitted Disease: No HIV/AIDS: No Genitourinary: Yes Kidney Stones Gastrointestinal: Yes Gall Bladder Disease Musculoskeletal: No Endocrine: No HEENT: No Loss of Vision: Denies Hearing Impairment: Denies Cancer: No Psychosocial: Yes Depression Integumentary: No Blood Disorders: No Adverse Reaction/Blood Tranf: No Family Medical History Cervical cancer 19 MOTHER Hypertension 19 FATHER Cancer, Diabetes, Hypertension Physical Exam Vital Signs - First Documented 06/07/22 18:13 Temp 36.6 Pulse 106 Resp 22 B/P (MAP) 105/67 (80) Pulse Ox 98 O2 Delivery Room Air Capillary Refill : Height: 5'3.00" Weight: 168lbs. 0.0oz. [id number]; 32.88 BMI Method:Stated General Appearance: WD/WN, no apparent distress Eyes: Bilateral Eye Normal Inspection, Bilateral Eye PERRL, Bilateral Eye EOMI HEENT: PERRL/EOMI, normal ENT inspection, TMs normal, pharynx normal Neck: non-tender, normal inspection Respiratory: chest non-tender, lungs clear, normal breath sounds, no respiratory distress, respiratory distress Cardiovascular: regular rate, rhythm, no edema, no JVD Gastrointestinal: normal bowel sounds, non tender, soft Extremities: normal range of motion, non-tender, normal inspection, no pedal edema Neurologic/Psychiatric: senior administrator support II-XII nml as tested, no motor/sensory deficits, alert, normal mood/affect, oriented x 3 Skin: normal color, warm/dry Progress/Results/Core Measures Suspected Sepsis SIRS Temperature: Pulse: Respiratory Rate: Laboratory Tests 06/07/22 18:15: White Blood Count 7.7 Blood Pressure / Mean: Laboratory Tests 06/07/22 18:15: Creatinine 0.60, Platelet Count 208, Total Bilirubin 0.4 Results/Orders Lab Results Laboratory Tests Test 06/07/22 18:15 Range/Units White Blood Count 7.7 4.3-11.0 10^3/uL Red Blood Count 4.30 3.80-5.11 10^6/uL Hemoglobin 12.7 11.5-16.0 g/dL Hematocrit 36 35-52 % Mean Corpuscular Volume 85 80-99 fL Mean Corpuscular Hemoglobin 30 25-34 pg Mean Corpuscular Hemoglobin Concent 35 32-36 g/dL Red Cell Distribution Width 14.0 10.0-14.5 % Platelet Count 208 130-400 10^3/uL Mean Platelet Volume 9.9 9.0-12.2 fL Immature Granulocyte % (Auto) 1 % Neutrophils (%) (Auto) 68 42-75 % Lymphocytes (%) (Auto) 25 12-44 % Monocytes (%) (Auto) 6 0-12 % Eosinophils (%) (Auto) 0 0-10 % Basophils (%) (Auto) 0 0-10 % Neutrophils # (Auto) 5.3 1.8-7.8 10^3/uL Lymphocytes # (Auto) 1.9 1.0-4.0 10^3/uL Monocytes # (Auto) 0.5 0.0-1.0 10^3/uL Eosinophils # (Auto) 0.0 0.0-0.3 10^3/uL Basophils # (Auto) 0.0 0.0-0.1 10^3/uL Immature Granulocyte # (Auto) 0.1 0.0-0.1 10^3/uL Sodium Level 135 135-145 MMOL/L Potassium Level 3.1 L 3.6-5.0 MMOL/L Chloride Level 106 98-107 MMOL/L Carbon Dioxide Level 15 L 21-32 MMOL/L Anion Gap 14 5-14 MMOL/L Blood Urea Nitrogen 3 L 7-18 MG/DL Creatinine 0.60 0.60-1.30 MG/DL Estimat Glomerular Filtration Rate 125 BUN/Creatinine Ratio 5 Glucose Level 78 70-105 MG/DL Calcium Level 8.5 8.5-10.1 MG/DL Corrected Calcium 9.1 8.5-10.1 MG/DL Total Bilirubin 0.4 0.1-1.0 MG/DL Aspartate Amino Transf (AST/SGOT) 27 5-34 U/L Alanine Aminotransferase (ALT/SGPT) 23 0-55 U/L Alkaline Phosphatase 121 40-136 U/L Total Protein 6.0 L 6.4-8.2 GM/DL Albumin 3.3 3.2-4.5 GM/DL Influenza Type A (RT-PCR) Not Detected Not Detecte Influenza Type B (RT-PCR) Not Detected Not Detecte SARS-CoV-2 RNA (RT-PCR) Detected H Not Detecte My Orders Orders - NESTOR BARBER Covid 19 Inhouse Test (06/07/22 18:08) Influenza A And B By Pcr (06/07/22 18:08) Cbc With Automated Diff (06/07/22 18:15) Comprehensive Metabolic Panel (06/07/22 18:15) Iv/Invasive Line Insertion .IV start (06/07/22 18:15) Heart Tones (06/07/22 18:15) Rx-Albuterol Inhaler (Rx-Ventolin Hfa In (06/07/22 18:30) Bebtelovimab (Bebtelovimab) (06/07/22 19:15) Nursing Communication (Order) (06/07/22 19:03) Medications Given in ED Current Medications Medications Dose Ordered Sig/Shira Route Start Time Stop Time Status Last Admin Dose Admin Albuterol Sulfate 1 gm ONCE ONCE IH 06/07/22 18:30 06/07/22 18:31 DC 06/07/22 18:39 1 GM Bebtelovimab 175 mg ONCE ONCE IV 06/07/22 19:15 06/07/22 19:16 DC 06/07/22 19:35 175 MG Vital Signs/I&O 06/07/22 06/07/22 18:13 18:33 Temp 36.6 Pulse 106 Resp 22 B/P (MAP) 105/67 (80) Pulse Ox 98 O2 Delivery Room Air Room Air Capillary Refill : Departure Communication (PCP) Patient vital signs stable. She was slightly tachycardic. No current chest pain abdominal pain, vaginal bleediing, vomiting or diarrhea or fever. She reports flulike symptoms with mild cough and shortness of breath. heart tones 144. No abdominal pain or vaginal bleeding. 8 months currently being managed by Dr. Infante. Several family members at home positive for COVID. COVID-positive here. Lab work was otherwise unremarkable. Tolerating p.o. fluids. She states she was feeling short of breath was given albuterol inhaler with improvement. No crackling, rhonchi suggesting pneumonia. No significant wheezing. Stable vital signs otherwise. Oxygen level 100%. Patient was given monoclonal antibody infusion. Discussed risk such as anaphylaxis, or rash. She acknowledges and agrees with medical antibody infusion. She was observed here without any acute changes. Discharged with strict follow-up with her PHYSICAL THERAPIST. If any developing abdominal pain vaginal bleeding, chest pain or short of breath return back to ED. Patient was given albuterol inhaler with improvement of her shortness of breath Impression Primary Impression: COVID-19 Disposition: 01 HOME, SELF-CARE Condition: Stable Departure-Patient Inst. Decision time for Depature: 19:15 Referrals: DAVID INFANTE DO (PCP/Family) Primary Care Physician Patient Instructions: COVID-19 and ED Add. Discharge Instructions: Recommend quarantine at home. If any worsening symptoms such as developing chest pain or worsening shortness of breath return back to ED All discharge instructions reviewed with patient and/or family. Voiced understanding. NESTOR BARBER Jun 07, 2022 18:18
[2022-06-07] MEDS ORDERED: RX-ALBUTEROL INHALER 8.5 GM HFA (PROAIR) IH ONE (18:30)
[2022-06-07 18:34] LABS: BASOPHILS % (AUTO) 0 % (0-10); EOSINOPHILS % (AUTO) 0 % (0-10); HEMATOCRIT 36 % (35-52); HEMOGLOBIN 12.7 g/dL (11.5-16.0); LYMPHOCYTES # (AUTO) 1.9 10^3/uL (1.0-4.0); LYMPHOCYTES % (AUTO) 25 % (12-44); MEAN CORPUSCULAR HEMOGLOBIN 30 pg (25-34); MEAN CORPUSCULAR HGB CONC 35 g/dL (32-36); MEAN CORPUSCULAR VOLUME 85 fL (80-99); MEAN PLATELET VOLUME 9.9 fL (9.0-12.2); MONOCYTES # (AUTO) 0.5 10^3/uL (0.0-1.0); MONOCYTES % (AUTO) 6 % (0-12); NEUTROPHILS # (AUTO) 5.3 10^3/uL (1.8-7.8); NEUTROPHILS % (AUTO) 68 % (42-75); PLATELET COUNT 208 10^3/uL (130-400); WHITE BLOOD COUNT 7.7 10^3/uL (4.3-11.0)
[2022-06-07 18:41] LABS: ALBUMIN 3.3 GM/DL (3.2-4.5)
[2022-06-07 18:42] LABS: POTASSIUM 3.1 MMOL/L (3.6-5.0)
[2022-06-07 18:43] LABS: CALCIUM 8.5 MG/DL (8.5-10.1)
[2022-06-07 18:46] LABS: BILIRUBIN,TOTAL 0.4 MG/DL (0.1-1.0)
[2022-06-07 18:48] LABS: CREATININE SERUM 0.6 MG/DL (0.60-1.30)
[2022-06-07] MEDS ORDERED: BEBTELOVIMAB 175 MG/2 ML VIAL IV ONE (19:15)
[2022-06-07 20:34] VITALS: BP 119/74
== END 2022-06-07 20:36 | disposition home or self-care (01) ==
LOC: EDUNIT# 17:48 → ER 17:52
DX: O98.513 Other viral diseases complicating pregnancy, third trimester (principal); U07.1 COVID-19; Z3A.00 Weeks of gestation of pregnancy not specified
CPT/HCPCS: 36415; 80053; 85025; 87636

== ENCOUNTER 2022-06-12 14:02 | Outpatient (CLI) | payer MEDICAID ==
[~2022-06-12] VITALS: Ht 160 cm; Wt 82.2 kg
[2022-06-12 14:35] LABS: BILIRUBIN,URINE NEGATIVE (NEGATIVE); CLARITY,URINE SL CLOUDY; COLOR,URINE ORANGE; GLUCOSE, URINE (UA) NEGATIVE (NEGATIVE); KETONES,URINE 3+ (NEGATIVE); LEUKOCYTE ESTERASE ,URINE NEGATIVE (NEGATIVE); NITRITE,URINE NEGATIVE (NEGATIVE); PROTEIN,URINE TRACE (NEGATIVE)
[2022-06-12 14:45] VITALS: BP 101/67
[2022-06-12 14:46] LABS: BACTERIA,URINE FEW /HPF
[2022-06-12] MEDS ORDERED: ACETAMINOPHEN 500 MG TAB (TYLENOL) PO NR (15:00)
[2022-06-12] MEDS ORDERED: D5 LR IV SOLUTION 1,000 ML IV SCH (15:00)
--- NOTE | 2022-06-13 08:05 | Physician Query-Final Dx ---
BENNIE,06/13/22 0805: Clinic Account Progress/Dx Physician Query: Please give diagnosis Please include # weeks gestation Date of Service Jun 12, 2022 at 14:02 MARCOS CORNEJO MD 06/14/22 1625: Clinic Account Progress/Dx DIAGNOSIS: Diagnosis False labor at 37 weeks gestation BENNIE,NovJun 13, 2022 08:05 MARCOS CORNEJO MD Jun 14, 2022 16:25
== END 2022-06-12 17:38 | disposition home or self-care (01) ==
LOC: WSo 14:02 → LDRP 14:05 → WSo 17:38
PROVIDERS: ATTEND Obstetrics & Gynecology
DX: O26.893 Other specified pregnancy related conditions, third trimester (principal); R10.9 Unspecified abdominal pain; Z3A.37 37 weeks gestation of pregnancy
CPT/HCPCS: 81000; 87088; 96360; 96361; G0463; 99213

== ENCOUNTER 2022-06-19 05:32 | Outpatient (CLI) | payer MEDICAID ==
[~2022-06-19] VITALS: Ht 160 cm; Wt 83.6 kg
[2022-06-19] MEDS ORDERED: PNV#1COM14 PO (10:27)
[2022-06-19] MEDS ORDERED: FAMO20TA5 PO (10:27)
[2022-06-25] MEDS ORDERED: IBUP-1773 PO (07:15)
[2022-06-25] MEDS ORDERED: ACHD5005 PO (07:15)
[2022-06-25] MEDS ORDERED: DOCU100C37 PO (07:15)
== END 2022-06-19 10:51 | disposition home or self-care (01) ==
LOC: PREOP 05:32
PROVIDERS: ATTEND Obstetrics & Gynecology
DX: Z01.818 Encounter for other preprocedural examination (principal)

== ENCOUNTER 2022-06-25 05:41 | Inpatient (IN) | payer MEDICAID ==
[2022-06-25] VITALS (11 sets, daily range): BP systolic 92–109; BP diastolic 54–81
[~2022-06-25] VITALS: Ht 160 cm; Wt 84.0 kg
[~2022-06-25 05:41] MED LIST changes: +PNV#1COM14 PO
[2022-06-25] MEDS ORDERED: ceFAZolin 2 GM IV Premixed 50 ML IV ONE (05:45)
[2022-06-25] MEDS ORDERED: METOCLOPRAMIDE INJ 10 MG/2 ML (REGLAN) IV ONE (05:45)
[2022-06-25] MEDS ORDERED: LACTATED RINGERS 1,000 ML IV SCH ×2 (05:45)
[2022-06-25] MEDS ORDERED: FAMOTIDINE 20MG/2ML IV (PEPCID) IV ONE (05:45)
[2022-06-25] MEDS ORDERED: CITRIC ACID/SOB CIT (BICITRA) 30 ML UDC PO ONE (05:45)
[2022-06-25 06:33] LABS: BASOPHILS % (AUTO) 0 % (0-10); EOSINOPHILS # (AUTO) 0.1 10^3/uL (0.0-0.3); EOSINOPHILS % (AUTO) 1 % (0-10); HEMATOCRIT 34 % (35-52); HEMOGLOBIN 11.3 g/dL (11.5-16.0); LYMPHOCYTES # (AUTO) 2.6 10^3/uL (1.0-4.0); LYMPHOCYTES % (AUTO) 24 % (12-44); MEAN CORPUSCULAR HEMOGLOBIN 29 pg (25-34); MEAN CORPUSCULAR HGB CONC 34 g/dL (32-36); MEAN CORPUSCULAR VOLUME 87 fL (80-99); MONOCYTES # (AUTO) 0.9 10^3/uL (0.0-1.0); MONOCYTES % (AUTO) 8 % (0-12); NEUTROPHILS # (AUTO) 7.5 10^3/uL (1.8-7.8); NEUTROPHILS % (AUTO) 67 % (42-75); PLATELET COUNT 249 10^3/uL (130-400); WHITE BLOOD COUNT 11.1 10^3/uL (4.3-11.0)
[2022-06-25 06:56] LABS: POTASSIUM 3.5 MMOL/L (3.6-5.0)
[2022-06-25 06:57] LABS: CALCIUM 8.6 MG/DL (8.5-10.1)
[2022-06-25 06:58] LABS: TOTAL PROTEIN 5.7 GM/DL (6.4-8.2)
[2022-06-25 07:00] LABS: BILIRUBIN,TOTAL 0.3 MG/DL (0.1-1.0)
[2022-06-25 07:02] LABS: CREATININE SERUM 0.61 MG/DL (0.60-1.30)
[2022-06-25] MEDS ORDERED: fentaNYL INJ 100 MCG/2 ML AMP ONE (07:02)
[2022-06-25] MEDS ORDERED: OXYTOCIN PRE-MIX DRIP 1,000 ML IV ONE (07:02)
--- NOTE | 2022-06-25 07:09 | History & Physical-OB ---
OB - Chief Complaint & HPI Date/Time Date of Admission: Date of Admission: Jun 25, 2022 at 05:41 Date seen by a Provider: Jun 25, 2022 Time Seen by a Provider: 07:00 Chief Complaint/History OB-Reason for Admission/Chief: Section Hx : 3 Hx Para: 2 Expected Date of Delivery: Jul 01, 2022 Gestational Age in Weeks: 39 Gestational Age in Days: 1 Admission Nurse Assessment Rev: Yes History of Labs O pos Antibody neg RI RPR NR HBsAg NR HIV NR GC neg GBS neg Allergies and Home Medications Allergies Coded Allergies: Penicillins (Verified Allergy, Mild, HIVES, 02/11/19) Patient Home Medication List Home Medication List Reviewed: Yes Famotidine (Famotidine) 20 Mg Tablet, 20 MG PO BID, (Reported) Entered as Reported by: HAM VILLATORO on 06/19/22 1027 Pnv#75/Iron Fum/FA/Om3/Dha/Epa (One A Day Dha Pack) [phone] Combo..pkg, 1 EACH PO, (Reported) Entered as Reported by: HAM VILLATORO on 06/19/22 1027 Discontinued Medications Diphenhydramine HCl (Benadryl) 25 Mg Capsule, 25-50 MG PO Q6H PRN for ALLERGY SYMPTOMS, (Reported) Discontinued Reason: Duplicate Order Entered as Reported by: SAMIRA SAPP on 01/25/21 1124 Ondansetron (Ondansetron Odt) 4 Mg Tab.rapdis, 4 MG PO Q6H Discontinued Reason: Duplicate Order Prescribed by: KIESHA MCKENNA on 03/16/22 3988 OB - History Hx of Present Care: Yes Ultrasounds: Normal mid trimester US Obstetrical Complications: None Medical Complications: None Delivery History Hx Blood Disorders: No Adverse Rxn to Tranfusion: No Patient Past Medical History BMI >30, Hx of THC use Social History/Family History 2nd Hand Smoke Exposure: No Immunizations Influenza Vaccine Up-to-Date: Yes; Up-to-Date First/Initial COVID19 Vaccine: 11/16/21 Second COVID19 Vaccination: 01/01/22 Third COVID19 Vaccination Date: N/A COVID19 Vaccine Dyeing Machine Feeder: Artemio Hepatitis A: No Hepatitis B: Yes Tetanus Booster (TDap): Less than 5yrs OB - Admission Exam Physical Exam HEENT: NCAT Heart: Rhythm Normal Lungs: Clear Abdomen: Gravid Extremities: Normal Reflexes: Normal Heart Rate: 130's Accelerations: Accelerations Present Decelerations: No Decelerations Short Term Variability: Present Nursing Home Variability: Average (6-25) Contractions on Admission: 6-10 Minutes Apart Intensity: Mild Labs Laboratory Tests Test 06/25/22 06:26 Range/Units White Blood Count 11.1 H 4.3-11.0 10^3/uL Red Blood Count 3.85 3.80-5.11 10^6/uL Hemoglobin 11.3 L 11.5-16.0 g/dL Hematocrit 34 L 35-52 % Mean Corpuscular Volume 87 80-99 fL Mean Corpuscular Hemoglobin 29 25-34 pg Mean Corpuscular Hemoglobin Concent 34 32-36 g/dL Red Cell Distribution Width 13.9 10.0-14.5 % Platelet Count 249 130-400 10^3/uL Mean Platelet Volume 10.0 9.0-12.2 fL Immature Granulocyte % (Auto) 1 % Neutrophils (%) (Auto) 67 42-75 % Lymphocytes (%) (Auto) 24 12-44 % Monocytes (%) (Auto) 8 0-12 % Eosinophils (%) (Auto) 1 0-10 % Basophils (%) (Auto) 0 0-10 % Neutrophils # (Auto) 7.5 1.8-7.8 10^3/uL Lymphocytes # (Auto) 2.6 1.0-4.0 10^3/uL Monocytes # (Auto) 0.9 0.0-1.0 10^3/uL Eosinophils # (Auto) 0.1 0.0-0.3 10^3/uL Basophils # (Auto) 0.0 0.0-0.1 10^3/uL Immature Granulocyte # (Auto) 0.1 0.0-0.1 10^3/uL Sodium Level 138 135-145 MMOL/L Potassium Level 3.5 L 3.6-5.0 MMOL/L Chloride Level 110 H 98-107 MMOL/L Carbon Dioxide Level 17 L 21-32 MMOL/L Anion Gap 11 5-14 MMOL/L Blood Urea Nitrogen 3 L 7-18 MG/DL Creatinine 0.61 0.60-1.30 MG/DL Estimat Glomerular Filtration Rate 125 BUN/Creatinine Ratio 5 Glucose Level 91 70-105 MG/DL Calcium Level 8.6 8.5-10.1 MG/DL Corrected Calcium 9.4 8.5-10.1 MG/DL Total Bilirubin 0.3 0.1-1.0 MG/DL Alkaline Phosphatase 124 40-136 U/L Total Protein 5.7 L 6.4-8.2 GM/DL Albumin 3.0 L 3.2-4.5 GM/DL OB - Assessment/Plan/Diagnosis Assessment Assessment: section Admission Dx 26 yo @ 39 week Previous GBS neg Admission Status: Inpatient Order (span 2 midnights) Reason for Inpatient Admission: RLTCS Plan Plan: Section DAVID VANCE DO Jun 25, 2022 07:09
--- NOTE | 2022-06-25 07:14 | Discharge Inst-Women's Service ---
Discharge Inst-Women's Serv Depart Medication/Instructions New, Converted or Re-Newed RX: Transmitted to Pharmacy Final Diagnosis POD 2 RLTCS Problems Reviewed?: Yes Consults/Follow Up Additional Follow Up: Yes Orders/Referrals Dr. Infante in 7-10 days and in 6 weeks Activity Activity: Activity as Tolerated Driving Instructions: No Driving for 1 Week NO SMOKING: NO SMOKING Nothing Inside Vagina: No Douching, No Bear Grass, No Tampons Diet Discharge Diet: No Restrictions Symptoms to Report to : Bleeding Excessive, Pain Increased, Fever Over 101 Degrees F, Vaginal Bleeding Increase, Questions/Concerns For Any Problems or Questions: Contact Your Physician Skin/Wound Care Infection Signs and Symptoms: Increased Redness, Foul Odor of Wound, Increased Drainage, Skin Itchy or Has a Rash, Increased Swelling, Temperature Above 101 F Operative Area Clean and Dry: Keep Incision Clean/Dry Stitches/Randolph/Dermabond: Dermabond, Care of Stitches Bathing Instructions: DAVID Jiménez DO Jun 25, 2022 07:13
[2022-06-25] MEDS ORDERED: ONDANSETRON 4 MG/2 ML (SDV) Z0FRAN IVP PRN (07:15)
[2022-06-25] MEDS ORDERED: DOCU100C37 PO (07:15)
[2022-06-25] MEDS ORDERED: ACHD5005 PO (07:15)
[2022-06-25] MEDS ORDERED: IBUP-1773 PO (07:15)
[2022-06-25] MEDS ORDERED: TETANUS,DIPTH,PERTUSS P/F (BOOSTRIX) 0.5 ML VIAL IM SCH (07:15)
[2022-06-25] MEDS ORDERED: MEASLES,MUMPS,RUBELLA 1 EA INJ SC SCH (07:15)
[2022-06-25] MEDS ORDERED: NALOXONE 0.4 MG/ML 1 ML (NARCAN) VIAL IV PRN (07:15)
[2022-06-25] MEDS ORDERED: BUPIVACAINE 0.5% 30 ML (SENSORCAINE) VIAL ONE (07:54)
[2022-06-25] MEDS: OXYTOCIN PRE-MIX DRIP 500 ML IV SCH ×2 (08:04→11:41)
[2022-06-25] MEDS: KETOROLAC 30 MG/ML VIAL IV SCH ×2 (08:55→15:14)
[2022-06-25] MEDS: DOCUSATE SODIUM 100 MG (COLACE) CAP PO SCH ×2 (09:00→19:53)
--- NOTE | 2022-06-25 09:44 | OPERATIVE REPORT ---
DATE OF SERVICE: PREOPERATIVE DIAGNOSES: 1. A 26-year-old G3, P2 at 39 weeks 1 day gestation. 2. Previous section x2. POSTOPERATIVE DIAGNOSES: 1. A 26-year-old G3, P2 at 39 weeks 1 day gestation. 2. Previous section x2. PROCEDURE: Repeat low transverse section. SURGEON: Vahid Vance DO [employer] ADVISER: Nereida Hudson DNP, was necessary for manipulation and retraction throughout the procedure. ANESTHESIA: Spinal. ESTIMATED BLOOD LOSS: 500 mL. URINE OUTPUT: 75 mL clear at the end of the procedure. FLUIDS: 1400 mL lactated Ringer's solution. FINDINGS: A live male weighing 7 pounds 8 ounces, Apgars of 8 and 9. Grossly normal appearing uterus, bilateral fallopian tubes and ovaries. SPECIMEN SENT: None. INDICATIONS FOR PROCEDURE: This 26-year-old female is a patient who had sought care in my office, it was uncomplicated with the exception of need for repeat . We discussed throughout her the risks involved and recovery timeframe with in the preoperative area was again reviewed with the patient. All of her questions were answered, consent was obtained, the patient was taken to the operating room. OPERATIVE REPORT IN DETAIL: Once in the operating room, spinal analgesia was found to be adequate, she was placed in supine position with leftward tilt, prepped and draped in normal sterile fashion where a timeout was performed, and anesthesia was tested. I then make a Pfannenstiel skin incision through a previously existing scar using knife and carried down to underlying fascia using Bovie cautery. The fascial incision extended laterally using Bovie cautery. The superior aspect of fascial incision was then grasped with Ann-Marie clamps, tented up and dissected off the underlying rectus muscles. The inferior aspect of fascial incision was then grasped with Ann-Marie clamps, tented up and dissected off the underlying rectus muscles. The rectus muscles were dissected down in the midline using sharp dissection, which exposed the peritoneum, which I entered bluntly and extended using blunt traction. An Zach ring retractor was placed in the peritoneal incision, which offers excellent lateral sidewall retraction. I identified the lower uterine segment, which was found to be thinned out and make a low transverse incision to the vesicouterine peritoneum and bluntly dissect this off the lower uterine segment, creating a bladder flap. I then proceeded with my myotomy until membranes were visualized, at which point I extended the uterine incision laterally and superiorly using bandage scissors. Amniotomy was performed. In the process of doing this, clear fluid was noted. was found in the vertex presentation. With gentle fundal pressure, the infant's head was elevated up the incision where it delivered through the incision. The nares and oropharynx were bulb suctioned. Anterior and posterior shoulders were delivered. The infant was then brought into the operative field with cord doubly clamped and cut and infant was handed off to waiting nurses in attendance. Cord blood was collected, 3-vessel cord with intact placenta was delivered spontaneously thereafter. IV Pitocin initiated to facilitate uterine contraction. Uterine fundus confirmed by manual massage. The uterus was exteriorized and cleared of all endometrial clots and debris. I then proceeded with closing the uterine incision using 0 Vicryl suture in running locked fashion. Second layer of imbricating 0 Monocryl was placed. Excellent hemostasis was noted after doing this. I then placed the uterus back within the pelvis and copiously irrigated the pelvis using normal saline. Once again, there was no active bleeding noted from any of my dissection planes. I placed Interceed antiadhesive over my low transverse incision. I removed the Zach ring retractor and then proceeded with closing the peritoneum using 3-0 Vicryl suture in running fashion. The rectus muscle reapproximated using 3-0 Vicryl suture in interrupted fashion. The fascia was reapproximated using 0 Vicryl suture in a running fashion. Subcutaneous tissue was reapproximated using 3-0 plain interrupted subcutaneous stitch and skin reapproximated using 4-0 Monocryl running subcuticular. Dermabond was applied to incision and sterile dressing with adhesive white tape. The patient tolerated the procedure well and sent to recovery area in stable condition. Lap and sponge counts were correct at the end of the procedure. Instrument counts correct as well. Two grams of Ancef given preoperatively for infection prophylaxis. Job ID: [id number] DocumentID: [id number] Dictated Date: 06/25/2022 08:30:44 Buying Intern Date: 06/25/2022 09:43:18 Dictated By: VAHID VANCE DO
[2022-06-25] MEDS: HYDROcodone/APAP 5 MG/325 MG (LORTAB) TAB PO PRN ×2 (13:44→19:53)
[2022-06-25] MEDS: CATHETER FLUSH 10 ML SYR IV SCH (14:00)
[2022-06-26] VITALS: BP 109/62
[2022-06-26 04:35] VITALS: BP 115/73
[2022-06-26 05:31] LABS: BASOPHILS % (AUTO) 0 % (0-10); EOSINOPHILS # (AUTO) 0.1 10^3/uL (0.0-0.3); EOSINOPHILS % (AUTO) 1 % (0-10); HEMATOCRIT 29 % (35-52); HEMOGLOBIN 9.5 g/dL (11.5-16.0); LYMPHOCYTES # (AUTO) 2.5 10^3/uL (1.0-4.0); LYMPHOCYTES % (AUTO) 19 % (12-44); MEAN CORPUSCULAR HEMOGLOBIN 29 pg (25-34); MEAN CORPUSCULAR HGB CONC 33 g/dL (32-36); MEAN CORPUSCULAR VOLUME 88 fL (80-99); MONOCYTES # (AUTO) 0.9 10^3/uL (0.0-1.0); MONOCYTES % (AUTO) 7 % (0-12); NEUTROPHILS # (AUTO) 9.2 10^3/uL (1.8-7.8); NEUTROPHILS % (AUTO) 72 % (42-75); PLATELET COUNT 211 10^3/uL (130-400); WHITE BLOOD COUNT 12.7 10^3/uL (4.3-11.0)
[2022-06-26] MEDS: KETOROLAC 30 MG/ML VIAL IV SCH ×2 (06:09)
[2022-06-26] MEDS: CATHETER FLUSH 10 ML SYR IV SCH ×2 (06:09)
[2022-06-26 09:00] VITALS: BP 109/67
[2022-06-26] MEDS: DOCUSATE SODIUM 100 MG (COLACE) CAP PO SCH ×2 (09:09→20:26)
[2022-06-26] MEDS: HYDROcodone/APAP 5 MG/325 MG (LORTAB) TAB PO PRN ×3 (09:10→22:39)
--- NOTE | 2022-06-26 10:19 | Postpartum Progress Note ---
Note Note Day # 1 Subjective: Patient is without complaints. Ambulating, voiding. Tolerating a regular diet without nausea or vomiting. Normal lochia. Pain is well controlled with oral pain medications. Physical Exam: General - Alert and oriented, no apparent distress Abdomen - Soft, appropriately tender to palpation, non-distended, fundus firm at umbilicus; incision c/d/i Extremities - no edema, negative Anderson's bilaterally Assessment: Post- day # 1, status post RLTCS Recovering well, hemodynamically stable Acute blood loss anemia Plan: Routine care. Encourage breast feeding. Encourage ambulation. Ferrous sulfate supplementation. Plan for discharge tomorrow Vitals - Labs Vital Signs - I&O Vital Signs Date Time Temp Pulse Resp B/P (MAP) Pulse Ox O2 Delivery O2 Flow Rate FiO2 06/26/22 04:35 36.0 72 16 115/73 (87) 99 Room Air 06/26/22 00:00 36.3 64 16 109/62 (78) 99 Room Air 06/25/22 19:56 36.5 66 16 107/65 (79) 98 Room Air 06/25/22 16:00 36.5 65 16 93/54 (67) 98 Room Air 06/25/22 12:35 36.4 67 18 105/72 (83) 98 Room Air 06/25/22 10:30 36.5 64 18 102/76 (85) 97 Room Air I & O 06/26/22 07:00 Intake Total 3900 ml Output Total 2575 ml Balance 1325 ml Labs Laboratory Tests 06/26/22 05:00: White Blood Count 12.7H, Red Blood Count 3.27L, Hemoglobin 9.5L, Hematocrit 29L, Mean Corpuscular Volume 88, Mean Corpuscular Hemoglobin 29, Mean Corpuscular Hemoglobin Concent 33, Red Cell Distribution Width 14.2, Platelet Count 211, Mean Platelet Volume 10.0, Immature Granulocyte % (Auto) 1, Neutrophils (%) (Auto) 72, Lymphocytes (%) (Auto) 19, Monocytes (%) (Auto) 7, Eosinophils (%) (Auto) 1, Basophils (%) (Auto) 0, Neutrophils # (Auto) 9.2H, Lymphocytes # (Auto) 2.5, Monocytes # (Auto) 0.9, Eosinophils # (Auto) 0.1, Basophils # (Auto) 0.0, Immature Granulocyte # (Auto) 0.1 ABIOLA VIVEROS PRETZEL COOKER Jun 26, 2022 10:19
[2022-06-26 11:56] VITALS: BP 114/80
[2022-06-26] MEDS: IBUPROFEN 600 MG (MOTRIN) TAB PO PRN ×2 (12:00→17:58)
--- NOTE | 2022-06-26 13:21 | Anesthesia-Regional Post-Op ---
Regional Patient Condition Mental Status: Alert, Oriented x3 Circulation: Same as Pre-Op Headache: Absent Sensation: Full Recovery Motor Block: Absent Post Op Complications Complications None Follow Up Care/Instructions Patient Instructions None needed. Anesthesia/Patient Condition Patient is doing well, no complaints, stable vital signs, no apparent adverse anesthesia problems. No complications reported per nursing. WALKER ALLEN CRNA Jun 26, 2022 13:21
[2022-06-26 16:20] VITALS: BP 121/82
[2022-06-26] MEDS: SIMETHICONE 80 MG (MYLICON) CHEW PO PRN (16:21)
[2022-06-26 20:26] VITALS: BP 111/67
[2022-06-27] MEDS: IBUPROFEN 600 MG (MOTRIN) TAB PO PRN ×2 (00:58→07:29)
[2022-06-27 01:00] VITALS: BP 103/67
[2022-06-27] MEDS: DOCUSATE SODIUM 100 MG (COLACE) CAP PO SCH (07:28)
[2022-06-27] MEDS: HYDROcodone/APAP 5 MG/325 MG (LORTAB) TAB PO PRN (07:29)
[2022-06-27 07:30] VITALS: BP 105/64
[2022-06-27] MEDS: SIMETHICONE 80 MG (MYLICON) CHEW PO PRN (08:42)
--- NOTE | 2022-06-27 10:29 | Postpartum Progress Note ---
Note Note Day # 2 Subjective: Patient is without complaints. Ambulating, voiding. Tolerating a regular diet without nausea or vomiting. Normal lochia. Pain is well controlled with oral pain medications. Physical Exam: General - Alert and oriented, no apparent distress Abdomen - Soft, appropriately tender to palpation, non-distended, fundus firm at umbilicus; incision c/d/i; ecchymosis mid-way b/w incision and umbilicus, area soft to palpation Extremities - no edema, negative Anderson's bilaterally Assessment: Post- day # 2, status post RLTCS Recovering well, hemodynamically stable Acute blood loss anemia Plan: Routine care. Encourage breast feeding. Encourage ambulation. Ferrous sulfate supplementation. Plan for discharge today Vitals - Labs Vital Signs - I&O Vital Signs Date Time Temp Pulse Resp B/P (MAP) Pulse Ox O2 Delivery O2 Flow Rate FiO2 06/27/22 07:30 36.6 58 18 105/64 (78) 99 Room Air 06/27/22 01:00 36.5 59 18 103/67 (79) 98 Room Air 06/26/22 20:26 36.3 64 18 111/67 (82) 98 Room Air 06/26/22 16:20 36.9 71 18 121/82 (95) 98 Room Air 06/26/22 11:56 36.7 76 18 114/80 (91) 99 Room Air Labs Microbiology 06/25/22 MRSA Screen - Final, Complete MRSA not isolated ABIOLA VIVEROS MD PHYSICIAN DERMATOLOGIST Jun 27, 2022 10:29
[2022-06-27 12:55] VITALS: BP 105/64
== END 2022-06-27 12:55 | disposition home or self-care (01) | DRG 787 ==
LOC: LDRP 05:41
PROVIDERS: ADMIT Obstetrics & Gynecology; ATTEND Obstetrics & Gynecology
PROC: 10D00Z1 Extraction of Products of Conception, Low, Open Approach (ICD-10-PCS; principal; 2022-06-25 07:17)
DX: O34.211 Maternal care for low transverse scar from previous cesarean delivery (principal); D62 Acute posthemorrhagic anemia; O90.81 Anemia of the puerperium; Z88.0 Allergy status to penicillin; Z37.0 Single live birth; Z3A.39 39 weeks gestation of pregnancy
CPT/HCPCS: 36415; 80053; 85025; 86850; 86900; 86901; 87081; 94664